=== PATIENT | female | born 1960 | race Caucasian/White ===

== ENCOUNTER → 2017-09-25 14:18 | Outpatient (CLI) | payer OTHER, SELFPAY ==
[2017-09-25 15:02] LABS: Alanine Aminotransferase 44 IU/L (9-52); Albumin 4.5 g/dL (3.5-5.0); Albumin Globulin Ratio 1.6 (1.0-2.8); Alkaline Phosphatase 67 U/L (38-126); Aspartate Aminotransferase 37 IU/L (14-36); BUN Creatinine Ratio 21.7 (6-22); Bilirubin Total 0.5 mg/dL (0.2-1.3); Blood Urea Nitrogen 13 mg/dL (7-17); Calcium 9.7 mg/dL (8.4-10.2); Carbon Dioxide 30 mmol/L (22-32); Chloride 103 mmol/L (98-107); Cholesterol 253 mg/dL (140-199); Estimated Glomerular Filt Rate > 60.0 mL/min (>60); Globulin 2.9 g/dL (1.7-4.1); Glucose 100 mg/dL (70-100); HDL Cholesterol 40 mg/dL (40-60); HEMOLYSIS 16 (0-50); LDL Cholesterol Calculated 139 mg/dL (<100); Potassium 4.1 mmol/L (3.4-5.1); Sodium 141 mmol/L (137-145); Total Protein 7.4 g/dL (6.3-8.2); Triglycerides 371 mg/dL (35-150)
[2017-09-25 15:46] LABS: Thyroid Stimulating Hormone 1.28 uIU/mL (0.47-4.68)
== END ==
PROVIDERS: Visit Provider Internal Medicine
DX: I10 Essential (primary) hypertension (principal); G47.9 Sleep disorder, unspecified; E78.5 Hyperlipidemia, unspecified
CPT/HCPCS: 36415; 80053; 80061; 84443

== ENCOUNTER → 2017-10-25 14:52 | Outpatient (CLI) | payer OTHER, SELFPAY ==
[2017-10-25 16:47] LABS: BUN Creatinine Ratio 28.3 (6-22); Blood Urea Nitrogen 17 mg/dL (7-17); Calcium 9.6 mg/dL (8.4-10.2); Carbon Dioxide 29 mmol/L (22-32); Chloride 101 mmol/L (98-107); Estimated Glomerular Filt Rate > 60.0 mL/min (>60); Glucose 92 mg/dL (70-100); HEMOLYSIS < 15 (0-50); Potassium 4.1 mmol/L (3.4-5.1); Sodium 139 mmol/L (137-145)
== END ==
PROVIDERS: Family Provider Family Medicine; PCP Family Medicine; Visit Provider Internal Medicine
DX: I10 Essential (primary) hypertension (principal)
CPT/HCPCS: 36415; 80048

== ENCOUNTER → 2018-06-27 12:05 | Outpatient (CLI) | payer OTHER, SELFPAY ==
--- NOTE | 2018-06-27 12:07 | DI.US.S_ITS ---
PROCEDURE: US PELVIC COMPLETE INDICATIONS: POSTMENOPAUSAL BLEEDING; PAINFUL MASS TECHNIQUE: Real-time scanning was performed of the pelvic organs, with image documentation. Additional endovaginal scanning was necessary due to incomplete visualization of the adnexal and endometrial structures by transabdominal scanning. COMPARISON: [facility], , PELVIC COMPLETE, 04/20/2008, 14:24. FINDINGS: Transabdominal scanning: Limited scanning through the kidneys shows no hydronephrosis. No pathologic free abdominal or pelvic fluid. Endovaginal scanning: Uterus: Uterus is enlarged in size at 13.7 x 12 x 10.8 cm. The endometrium is poorly visualized. There is a heterogeneously hyperechoic and solid appearing mass involving myometrium/endometrium measures 10.2 x 10.1 x 9.6 cm in size. Internal vascularity is seen. Ovaries: Bilateral ovaries are not visualized on the study. No gross adnexal mass. IMPRESSION: 1. Irregular appearing heterogeneously hyperechoic and solid mass involving myometrium/endometrium and measures 10.2 x 10.1 x 9.6 cm in size concerning for malignant process given patient's history of postmenopausal bleeding. 2. Bilateral ovaries are not visualized on this study. No gross adnexal mass. Dictated by: Dominic Judge M.D. on 06/27/2018 at 14:27 Approved by: Dominic Judge M.D. on 06/27/2018 at 15:15
[2018-06-27 12:24] LABS: Add Manual Diff / Slide Review NO; Basophils Absolute Auto 100 /uL (0-100); Eosinophils Absolute Auto 100 /uL (0-450); Hematocrit 46.9 % (36-46); Hemoglobin 16.2 g/dL (12.0-16.0); Lymphocytes Absolute Auto 3400 /uL (1100-4500); Lymphocytes Percent Auto 26.4 % (25-40); Mean Corpuscular HGB Conc 34.5 % (30-36); Mean Corpuscular Hemoglobin 34.1 PG (26-34); Mean Corpuscular Volume 98.8 fL (80-100); Monocytes Absolute Auto 800 /uL (0-900); Monocytes Percent Auto 6.6 % (3-14); Neutrophils Absolute Auto 8300 /uL (1500-7000); Platelet Count 316 X10^3/uL (150-400); Red Blood Cell Count 4.75 X10^6/uL (4.0-5.2); Red Cell Distribution Width 13.4 % (11.6-14.8); White Blood Cell Count 12.7 X10^3/uL (4.5-11.0)
[2018-06-27 13:09] LABS: Appearance Urine UA CLEAR; Bilirubin Urine UA NEGATIVE (NEGATIVE); Color Urine UA YELLOW; Glucose Urine UA NEGATIVE (Negative); Ketones Urine UA NEGATIVE (NEGATIVE); Leukocyte Esterase Urine UA NEGATIVE (NEGATIVE); Nitrite Urine UA NEGATIVE (Negative); Occult Blood Urine UA TRACE-LYSED (Negative); Protein Urine UA NEGATIVE (Negative); Specific Gravity Urine UA 1.015 (1.000-1.035); Urobilinogen Urine UA 0.2 E.U./dL (0.2)
[2018-06-27 13:47] LABS: Alanine Aminotransferase 28 IU/L (9-52); Albumin 4.4 g/dL (3.5-5.0); Albumin Globulin Ratio 1.4 (1.0-2.8); Alkaline Phosphatase 81 U/L (38-126); Aspartate Aminotransferase 35 IU/L (14-36); BUN Creatinine Ratio 16.7 (6-22); Bilirubin Total 0.7 mg/dL (0.2-1.3); Blood Urea Nitrogen 10 mg/dL (7-17); Calcium 9.3 mg/dL (8.4-10.2); Carbon Dioxide 26 mmol/L (22-32); Chloride 100 mmol/L (98-107); Cholesterol 313 mg/dL (140-199); Estimated Glomerular Filt Rate > 60.0 mL/min (>60); Globulin 3.2 g/dL (1.7-4.1); Glucose 104 mg/dL (70-100); HDL Cholesterol 27 mg/dL (40-60); HEMOLYSIS 18 (0-50); LDL Cholesterol Calculated 229 mg/dL (<100); Potassium 3.9 mmol/L (3.4-5.1); Sodium 137 mmol/L (137-145); Total Protein 7.6 g/dL (6.3-8.2); Triglycerides 284 mg/dL (35-150)
[2018-06-27 14:09] LABS: Bacteria Urine Few (2-10); Culture Indicated Urine Cult Not Indicated; RBC Urine 0-1/HPF (0-5/HPF); Squamous Epithelial Cell Urine 1-5 /HPF (0-5/HPF); WBC Urine 0-1/HPF (0-5/HPF)
[2018-06-27 15:36] LABS: TSH w/ Reflex to FT4 1.71 uIU/mL (0.47-4.68)
== END ==
PROVIDERS: Visit Provider Hospitalist
DX: N95.0 Postmenopausal bleeding (principal); N85.9 Noninflammatory disorder of uterus, unspecified; R10.2 Pelvic and perineal pain; E78.5 Hyperlipidemia, unspecified; I10 Essential (primary) hypertension
CPT/HCPCS: 36415; 76830; 76856; 80053; 80061; 81001; 84443; 85025

== ENCOUNTER 2018-07-25 06:46 | Inpatient (IN) | payer OTHER, SELFPAY ==
[2018-07-22 09:38] VITALS: BMI 29.3
[2018-07-25] VITALS (22 sets, daily range): BP systolic 91–130; BP diastolic 46–85; PULSE 85–117; RESP 12–26; TEMP 35.7–36.9; O2SAT 92–100; BMI 29.3
--- NOTE | 2018-07-25 | PATH_ITS ---
[facility] Accession Number: [id number] . 01 Material submitted: . uterus - UTERUS, BILATERAL TUBES AND OVARIES . 02 Diagnosis: Supracervical Hysterectomy with Bilateral Salpingo-oophorectomy, Laparoscopic Converted to Open Procedure (weight of uterus 47 grams; aggregate weight of multiple tissue pieces 542 grams): . 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 Specimen integrity: Submitted as a fragmented specimen. Tumor site: Right ovary. Ovarian surface involvement: Indeterminate by pathologic examniation. Please see comment. Tumor size: 13-14 cm per operative report and a separate 2.0 cm tumor nodule. Histologic type: Favor clear cell carcinoma by immunohistochemistry studies. Other tissue/organ involvement: Indeterminate; please see comment. Peritoneal/acidic fluid: Not submitted/unknown. Lymph nodes: No lymph nodes submitted or identified for evaluation. Other: Uterus, left ovary, and Fallopian tubes with no significant histomorphologic abnormality. pTNM, AJCC 8th Edition: pTX NX. Please see comment. [facility]08/05/2018 . 02 Comment: Per the operative report and per verbal report from Dr. Le, no surface abnormality was visualized intraoperatively. The ovarian capsular surface cannot be histologically or grossly assessed due to the fragmented nature of the submitted specimen. In addition to the 13-14 cm fragmented tumor, one 2.0 cm tumor nodule was identified by gross examination and described as a second ovary attached to a Fallopia tube. By operative report, the larger tumor was adherent to colon. By verbal report, this adhesion was easily taken down manually. . If the colonic adhesion does not involve tumor, the aggregate surgical and pathologic information suggests a possible AJCC stage (8th edition) of pT1(2) NX. . Results were discussed with Dr. Mimi Miranda's nurse, on 08/01/2018 at approximately 11:[address] Le on 08/04/18 at approximately 9:30 a.m. . The slides were reviewed by my colleague, Dr. Tania Tanner, who provided this interpretation. . 02 Electronically signed: . Susan Reveles MD, Pathologist NPI- [id number] . 01 Gross description: . Received in formalin, labeled uterus, bilateral tubes + ovaries, is a uterus (47 grams, 3.5 cm AP, 5.2 cm SI, 4.1 cm ML) with an attached ovary (1.7 x 1.2 x 0.8 cm) and fimbriated fallopian tube (length-3.7 cm, diameter-0.4 cm), and multiple pieces of peck-yellow and focally white firm tissue (542 grams, 20.2 x 15.3 x 6.8 cm in aggregate). The apparent second ovary (2.0 x 1.9 x 1.0 cm) is identified with an attached fimbriated fallopian tube (length-6.2 cm, diameter-0.4 cm). The cervix is absent. The specimen cannot be oriented as to anterior and posterior. The endometrium (average thickness-0.1 cm) is shaikh smooth and flat. The myometrium (thickness-1.5 cm) is shaikh-white with a focally white whorled and lacy appearance. The serosa is pale sahikh smooth and shiny. The attached ovary has pale shaikh-yellow smooth dull serosa and shaikh-white firm parenchyma. The second ovary has peck-yellow dull flat serosa and bright white parenchyma. The fallopian tubes have shaikh dull serosa and shaikh unremarkable lumens. The remaining pieces of tissue have a peck-yellow spongy and focally bright white and firm cut surface. Section code: (A1, A2) endomyometrium; (A3, A4) endomyometrium, opposite side; (A5) attached ovary, client service representative serial section; (A6) possible second ovary, client service representative serial sections; (A7) attached fimbriated fallopian tube, client service representative serial sections; (A8) attached fimbria, bivalved, entirely submitted; (A9) second fallopian tube, client service representative serial sections; (A10) second fimbriae, bivalved, entirely submitted; (A11-A16) separate pieces of tissue, client service representative. ([id number]) /MRV . 02 Microscopic: . Immunohistochemical studies were performed with the following results. The controls showed appropriate reactivity. . . SALL4: Negative. TERRA: Positive. WT1: Stromal cells positive. Napsin A: Positive. HMWCK: Positive. ER: Patchy positivity of stromal cells. MT: Patchy positivity of stromal cells. PAX8: Positive. CD10: Negative. CK7: Positive. EULA: Positive. CD56: Stromal cells positive. Glypican 3: Focal staining, nonspecific. . Stromal immunostaining by CD56, MT,and WT1 assists with identification of ovarian tissue. The tumor is immunopositive for CK7, high molecular weight cytokeratin, TERRA, and Napsin; the tumor is immunonegative for SALL4 and CD10, which mitigates against the presence of yolk sac tumor and renal cell origin. 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 . . * This test was developed and its performance characteristics determined by [facility]. It has not been cleared or approved by the U.S. Food and Drug Administration. The FDA has determined that such clearance or approval is not necessary. This test is used for clinical purposes. It should not be regarded as investigational or for research. . 02 Pathologist provided ICD-10: C56.1 . 02 CPT . 938127, L50715, I49961 Performed at: 01 [facility] [address] [id number] MD Simon Gottlieb MD Phone: [phone] Performed at: [address] [id number] MD Huong Lao MD Phone: [phone]
[2018-07-25] MEDS: LACTATED RINGERS 1,000 ML 100 ML IV ×2 (07:31→14:11)
--- NOTE | 2018-07-25 07:31 | PM.PREOP ---
Pre-operative Note Interval Note History & Physical reviewed/Exam performed by Physician: Yes Changes to H&P: No
[2018-07-25] MEDS: CEFAZOLIN 2 GM/100 ML FROZ.PIGGY IV (08:00)
--- NOTE | 2018-07-25 08:41 | SUR.OPER ---
Lithotomy on padded OR bed. [place] Pad Positioner under torso. Head on pillow, arms padded and tucked at sides. Legs secured in padded yellow fins stirrups.
[2018-07-25] MEDS: BUPIVACAINE 0.5% W/ EPI (PF) VIAL 30 ML INJ (09:09)
[2018-07-25] MEDS: SODIUM CHLORIDE 0.9% FLUSH 10 ML IV (09:10)
[2018-07-25] MEDS: SODIUM CHLORIDE 0.9% 30 ML, VASOPRESSIN 20 UNIT INJ (09:11)
[2018-07-25] MEDS: LACTATED RINGERS 1,000 ML 42 ML IV (09:25)
[2018-07-25] MEDS: HYDROMORPHONE 2 MG INJ 0.5 MG IV ×6 (10:02→10:30)
[2018-07-25] MEDS: KETOROLAC 30 MG/ML VIAL IV ×3 (10:02→23:37)
[2018-07-25] MEDS: LORazepam 2 MG/ML INJ 0.5 MG IV ×2 (10:15→10:25)
[2018-07-25] MEDS: fentaNYL 100 MCG/2 ML INJ 50 MCG IV ×2 (10:35→10:40)
[2018-07-25] MEDS: MORPHINE 10 MG/ML INJ 2 MG IV ×5 (10:45→11:00)
--- NOTE | 2018-07-25 11:40 | SUR.PHASEI ---
pt had rough PACU course with very poor pain management. pt crying and pain 8-10 for more than one hour total drugs in PACU were 4 mg dilaudid, 1 mg ativan, 10 mg morphine ad 100 mg fentanyl. last pain med in PACU was 2mg morphine IV at 11 am. pt observed for 45 minutes post last medication. has had ice chips and cranberry juice but is now on o2 3 liters via NC to maintain SPO@ of 92-96. report called and will continue to obsertve for at least another 15 minutes until transfer to acute care. Dr Briceno anesthesia nd Dr segal have seen pt in PACU and are aware of the rough PACU course. current VS at report are 112/62, HR_108, SPO2-92 %, RR-16, Temp.98.4. abdomen looks same as initially post op wit aqusil dressing intact
[2018-07-25] MEDS: HYDROMORPHONE PCA (6MG/30ML) 6 MG/30 ML PCA.VIAL IV (14:12)
--- NOTE | 2018-07-25 14:41 | PC.NURSE ---
POST OP ARRIVAL 1345 - awake, a little tearful on arrival, family at bedside, states abd, pelvic discomfort 7-8 on scale 0/10, small machine bindery operator states faulkner emptied 100ml prior to tsf, no nausea, bp 100/66 on arrival, RR 14, 02 sat 92% 4L, midline aquacell abd dressing with small spot shadow drainage within margins, marked now, peripad w/small qty serosang, ivf started and FINISHER MACHINE set up to 0.1 contin w/0.2/10/6mg demand, pt used 0.9, given ice chips for dry mouth, contacted and new order rec'd for clear liq, scd 0n, pulse initially 120 on arrival and later checks 90's, bp 119/73.
[2018-07-25] MEDS: ONDANSETRON 4 MG/2 ML INJ IV (17:44)
[2018-07-25] MEDS: TRAZODONE 50 MG TABLET PO (20:19)
[2018-07-25] MEDS: ROSUVASTATIN 10 MG TABLET PO (20:19)
[2018-07-25] MEDS: DOCUSATE 250 MG CAPSULE PO (20:19)
[2018-07-25] MEDS: DOXAZOSIN 2 MG TABLET PO (20:19)
--- NOTE | 2018-07-25 20:36 | PC.NURSE ---
SCDS REMOVED PER PATIENT REQUEST AND DR.GARDES ARRIAZA.
[2018-07-26] MEDS: HYDROMORPHONE PCA (6MG/30ML) 6 MG/30 ML PCA.VIAL IV ×3 (00:31→22:09)
--- NOTE | 2018-07-26 00:39 | PC.NURSE ---
AUTOMATIC THREAD WINDER cartiridge changed and verified with a second RN, Ava Avila. Settings verified.
[2018-07-26 05:36] VITALS: BP 114/64; PULSE 91; RESP 18; TEMP 36.6; O2SAT 95
[2018-07-26] MEDS: KETOROLAC 30 MG/ML VIAL IV (05:37)
[2018-07-26] MEDS: LACTATED RINGERS 1,000 ML 100 ML IV (05:37)
[2018-07-26] MEDS: METOCLOPRAMIDE 10 MG/2 ML INJ IV ×2 (05:48→23:42)
[2018-07-26] MEDS: SODIUM CHLORIDE 0.9% FLUSH 10 ML IV ×2 (05:49→23:44)
[2018-07-26 06:16] LABS: Add Manual Diff / Slide Review NO; Basophils Absolute Auto 0 /uL (0-100); Basophils Percent Auto 0.2 % (0-2); Eosinophils Absolute Auto 0 /uL (0-450); Eosinophils Percent Auto 0.1 % (2-4); Hemoglobin 10.7 g/dL (12.0-16.0); Lymphocytes Absolute Auto 2100 /uL (1100-4500); Lymphocytes Percent Auto 15.1 % (25-40); Mean Corpuscular HGB Conc 33.5 % (30-36); Mean Corpuscular Hemoglobin 32.9 PG (26-34); Mean Corpuscular Volume 98.2 fL (80-100); Monocytes Absolute Auto 1000 /uL (0-900); Monocytes Percent Auto 6.9 % (3-14); Neutrophils Absolute Auto 11000 /uL (1500-7000); Neutrophils Percent Auto 77.7 % (50-75); Platelet Count 333 X10^3/uL (150-400); Red Blood Cell Count 3.25 X10^6/uL (4.0-5.2); White Blood Cell Count 14.1 X10^3/uL (4.5-11.0)
[2018-07-26 06:37] LABS: Blood Urea Nitrogen 9 mg/dL (7-17); Calcium 8.5 mg/dL (8.4-10.2); Carbon Dioxide 29 mmol/L (22-32); Chloride 102 mmol/L (98-107); Estimated Glomerular Filt Rate > 60.0 mL/min (>60); Glucose 95 mg/dL (70-100); HEMOLYSIS < 15 (0-50); Potassium 4.1 mmol/L (3.4-5.1); Sodium 137 mmol/L (137-145)
--- NOTE | 2018-07-26 06:59 | PC.NURSE ---
Patient used 6.2mg on the CARDIOGRAPHER. 31 mls used.
[2018-07-26 07:55] VITALS: BP 100/59; PULSE 80; RESP 18; TEMP 36.7; O2SAT 94
--- NOTE | 2018-07-26 09:01 | CM.DANOTE ---
DCP: Case received, EMR reviewed and met with patient. also at bedside. Was able to obtain baseline health information from patient. DCP template and assessment completed with information currently available. Patient is a 57 year old female who admitted yesterday morning to the care of the surgical team. PCP: Dr. Dumont. Payer: confirmed: [facility]. Patient came to hospital for surgical procedure. She had a hysterectomy. Met with her in her room. Her husbad, Wesley, was sitting at bedside. Alert and oriented. They both reside in [place]. Patient stated, she has not been in the best health before surgery, she has had some fibroid tumors. She stated that she does have a hosptital bed at home, along with a walker, but she does not always use. They also have no stairs in the home. supportive. She has a neighbor next door that is a retired cook that prepares meals for them both. helps out with house hold chores and shopping. P: DCP to continue to follow closely and be available for any needs at discharge. Patient should be able to go home when she is medically stable. Will see how she progresses here in the hospital. Adriane Lakhani RN/[employer]
[2018-07-26] MEDS: CITALOPRAM 10 MG TABLET PO (09:03)
[2018-07-26] MEDS: DOCUSATE 250 MG CAPSULE PO ×2 (09:03→20:05)
--- NOTE | 2018-07-26 11:10 | PC.NURSE ---
AM NOTE - awake, smiling, states didn't sleep well last night, pain managed rubber worker contin 0.1hr, demand 0.2/10/6mg, pain 5-6 on scale 0/10, 2l 95%, bs coarse, dim, brought in IS this am and pt demonstrated correct use to 1500, and sat remained 89-92%, removed pulse ox after 02 maintained 94-96% this am,aquacell dsg w/small shadow drainage, no change from previous marking, slight serosang vag drainage, pericare performed, abd soft, tender, mildly distended, no nausea no flatus yet, faulkner w/small qty concentrated urine, later am, assisted pt to dangle position, some initial lightheadedness, when resolved, able stand using fww for support, prenatal nurse assisted to sink for adl then to chair.
[2018-07-26 11:42] VITALS: BP 128/76; PULSE 83; RESP 18; TEMP 36.7; O2SAT 95
[2018-07-26] MEDS: ONDANSETRON 4 MG/2 ML INJ IV (12:39)
[2018-07-26] MEDS: LACTATED RINGERS 500 ML IV (12:55)
--- NOTE | 2018-07-26 13:48 | P.OP_ITS ---
Operative Date/Time/Diagnoses Date of procedure: 07/25/18 Time of procedure: 11:15 Pre-op diagnosis: Enlarged fibroid uterus Pelvic pain Postmenopausal bleeding Post-op diagnosis: same Procedure: Procedures Operation Date: 07/25/18 07:45 Actual Procedures Side Surgeon p Open Supracervical Hysterectomy, bilateral salpingo-oopherectomy Suzy Le MD s Laparoscopic Supracervical Hysterectomy, aborted and converted to LUPILLO Suzy Le MD Indications: Enlarged fibroid uterus Pelvic pain Postmenopausal bleeding Surgeon: Suzy Le Coil Rewind Machine Operator: Dragan Perales Anesthesia Type: General Operative Notes Findings: Four week size anteverted uterus Large 13-14 cm pedunculated, necrotic fibroid originating from the right cornua of the uterus Normal tubes and ovaries Closure Type: primary Specimen(s): left tube & ovary, right tube & ovary and uterus Applied: catheter (Bragg to continuous drainage) Estimated blood loss (mL): 150 Blood products transfused: none Procedure in detail: The patient was taken to the operating room where she was placed in the dorsal supine position. After adequate general endotracheal anesthesia was achieved, she was placed in the dorsal lithotomy position, and prepped and draped in the usual sterile fashion. A time-out was performed. A bivalve speculum was placed into the vagina, and the anterior lip of the cervix grasped with a single-tooth tenaculum. Cervical os was sequentially dilated until the Zumi uterine manipulator could pass easily into the endometrial cavity. The single-tooth tenaculum was removed from the anterior lip of the cervix. The bivalve speculum was removed from the vagina. Attention was then turned to the abdomen where 6 cc of 0.5% Marcaine with epinephrine were injected above the umbilical fold. A 5 mm incision was made. The Veress needle was placed into the peritoneal cavity, and its placement confirmed by aspiration and drop test. The abdominal cavity was insufflated with 3.8 L of CO2. The Veress needle was removed. A 5 mm trocar was placed without difficulty. Initial inspection with the laparoscoped revealed a large fibroid blocking view of the pelvis. This was approximately 14 cm in diameter. It was believed to be originating from the cornua of the uterus but was unclear which side it was originating from. We were not able to view the pedicle of the pedunculated fibroid or see anything in the pelvis. A decision was made to proceed with an open procedure. The laparoscoped was removed from the abdomen. The CO2 was allowed to escape. The 5 mm trocar was removed. A midline incision was made from just above the pubic symphysis to just below the umbilicus and carried through to the underlying layer of fascia. The fascia was nicked in the midline and the incision extended superiorly and inferiorly. Candace is were placed on the edges of the fascia and the fascia was dissected off of the underlying muscle to find the midline. Once the midline was identified, hemostats were used to separate the muscle and grasp the peritoneum. The peritoneum was incised with the hemostats. This incision was extended superiorly and inferiorly. An O'Laith O'Nesbitt retractor was placed into the incision, a bladder blade was placed. The bowel was packed away with moist lap sponges. The colon was slightly adhered to the fibroid and was taken off bluntly using a finger. An incision was made over the fibroid and the fibroid was removed in order to better visualize the pelvis. The fibroid was originating from the right corner of the uterus. Once the fibroid was removed a 4 tooth tenaculum was placed onto the uterus which was about a 4 week size uterus. The round ligaments on both sides were clamped, transected, and suture ligated with 0 Vicryl. These were tagged with hemostats. The infundibulopelvic ligament on both sides were doubly clamped, after the ureters were identified, transected, free tied with 0 Vicryl, and suture ligated with 0 Vicryl. The anterior and posterior peritoneums were entered and the bladder flap was created sharply and then bluntly with a in moistened sponge stick. The uterine arteries on both sides were clamped, transected, and suture ligated with 0 Vicryl. The [employer] ut erine manipulator was removed from the uterus. The uterus was amputated from the cervix using the Bovie. There was no bleeding noted. The cervix was closed with a series of simple interrupted sutures with 0 Vicryl. There was a small amount of oozing noted from where the fibroid was in the posterior cul-de-sac. Gelfoam was placed for hemostasis. The pedicles were all examined and were found to be hemostatic. All of the tagged sutures were cut. The moist lap sponges were removed from the abdomen. The retractor was removed from the abdomen. The incision was closed on the peritoneum with 2 0 Vicryl in a running fashion. The fascia was closed with 0 Vicryl in a running fashion. The subcutaneous layer was copiously irrigated with warm normal saline. Eight interrupted sutures with 3 0 Vicryl were placed to reapproximate the subcutaneous layer. The skin was closed with 4 0 undyed Vicryl in a subcuticular fashion. The laparoscopy incision above the umbilicus was also closed with 4 0 undyed Vicryl in a subcuticular fashion. Steri-Strips were placed over both incisions. An Aquacel dressing was placed over all of the incisions. Sponge, lap, and instrument counts were correct x2. The patient tolerated the procedure well, and was taken to PACU in stable condition. Complications: none Post-operative Condition: stable Disposition: PACU Plan for aftercare: To Acute Care unit after recovery
[2018-07-26] MEDS: LACTATED RINGERS 1,000 ML 175 ML IV ×2 (13:58→19:21)
--- NOTE | 2018-07-26 14:13 | PM.PNPO.1 ---
Subjective Date Patient Seen: 07/26/18 Time Patient Seen: 12:30 Interval history: Patient is a 57-year-old postop day # 1 status post an abdominal supracervical hysterectomy with bilateral salpingo oophorectomy due to a large subserosal fibroid. Her pain is well controlled with a Dilaudid DIRECTOR OCCUPATIONAL. Her Bragg catheter is still in due to marginal urine output over the last shift. She is tolerating a diet without any nausea or vomiting. Exam Vital Signs (past 8 hours): - 07/26/18 07:55 07/26/18 11:42 Temperature 98.1 F 98.1 F Pulse Rate 80 83 Respiratory Rate 18 18 Blood Pressure 100/59 L 128/76 Pulse Oximetry 94 95 Oxygen Delivery Method Nasal Cannula Oxygen Flow Rate 0 Narrative Exam Narrative: Generally: Patient is sitting up in a chair, eating lunch, no acute distress Lungs: Clear to auscultation bilaterally Cardiovascular: Regular rate and rhythm Abdomen: Good bowel sounds in all 4 quadrants Incision: Clean dry and intact with Aquacel dressing Extremities: Negative Homans, no edema Objective Labs Result Diagrams: 07/26/18 04:58 07/26/18 04:58 Labs: Laboratory Results - last 24 hr 07/26/18 07/26/18 04:58 04:58 WBC 14.1 H RBC 3.25 L Hgb 10.7 L Hct 32.0 L MCV 98.2 MCH 32.9 MCHC 33.5 RDW 13.0 Plt Count 333 Neut % (Auto) 77.7 H Lymph % (Auto) 15.1 L [place] % (Auto) 6.9 Eos % (Auto) 0.1 L Baso % (Auto) 0.2 Neut # (Auto) 28634 H Lymph # (Auto) 2100 [place] # (Auto) 1000 H Eos # (Auto) 0 Baso # (Auto) 0 Sodium 137 Potassium 4.1 Chloride 102 Carbon Dioxide 29 BUN 9 Creatinine 0.50 L Estimated GFR > 60.0 BUN/Creatinine Ratio 18.0 Glucose 95 Calcium 8.5 Assessment & Plan Post-op Postoperative Procedures Operation Date: 07/25/18 07:45 Actual Procedures Side Surgeon p Total Abdominal Hysterectomy Open Supracervical Hysterectomy, bilateral salpingo-oopherectomy Suzy Le MD s Laparoscopic Supracervical Hysterectomy, aborted and converted to LUPILLO Suzy Le MD Postoperative day: 1 Postoperative status: doing well Postoperative status narrative: Postop day # 1 status post abdominal supracervical hysterectomy with bilateral salpingo oophorectomy secondary to a large sub serosal fibroid Patient doing fairly well except for marginal urine output Postoperative plan: ambulate and other Postoperative plan narrative: 500 cc fluid bolus with lactated Ringer's May remove Bragg catheter later this evening if urine output picks up Switch to oral pain medicine tomorrow morning Ambulate Time Spent With Patient 15-24 minutes
--- NOTE | 2018-07-26 14:16 | P.PN_ITS ---
Subjective Date Patient Seen: 07/26/18 Time Patient Seen: 12:30 Interval history: Patient is a 57-year-old postop day # 1 status post an abdominal supracervical hysterectomy with bilateral salpingo oophorectomy due to a large subserosal fibroid. Her pain is well controlled with a Dilaudid NETEZZA DEVELOPER. Her Bragg catheter is still in due to marginal urine output over the last shift. She is tolerating a diet without any nausea or vomiting. Exam Vital Signs (past 8 hours): - 07/26/18 07:55 07/26/18 11:42 Temperature 98.1 F 98.1 F Pulse Rate 80 83 Respiratory Rate 18 18 Blood Pressure 100/59 L 128/76 Pulse Oximetry 94 95 Oxygen Delivery Method Nasal Cannula Oxygen Flow Rate 0 Narrative Exam Narrative: Generally: Patient is sitting up in a chair, eating lunch, no acute distress Lungs: Clear to auscultation bilaterally Cardiovascular: Regular rate and rhythm Abdomen: Good bowel sounds in all 4 quadrants Incision: Clean dry and intact with Aquacel dressing Extremities: Negative Homans, no edema Objective Labs Result Diagrams: 07/26/18 04:58 07/26/18 04:58 Labs: Laboratory Results - last 24 hr 07/26/18 07/26/18 04:58 04:58 WBC 14.1 H RBC 3.25 L Hgb 10.7 L Hct 32.0 L MCV 98.2 MCH 32.9 MCHC 33.5 RDW 13.0 Plt Count 333 Neut % (Auto) 77.7 H Lymph % (Auto) 15.1 L [place] % (Auto) 6.9 Eos % (Auto) 0.1 L Baso % (Auto) 0.2 Neut # (Auto) 52618 H Lymph # (Auto) 2100 [place] # (Auto) 1000 H Eos # (Auto) 0 Baso # (Auto) 0 Sodium 137 Potassium 4.1 Chloride 102 Carbon Dioxide 29 BUN 9 Creatinine 0.50 L Estimated GFR > 60.0 BUN/Creatinine Ratio 18.0 Glucose 95 Calcium 8.5 Assessment & Plan Post-op Postoperative Procedures Operation Date: 07/25/18 07:45 Actual Procedures Side Surgeon p Total Abdominal Hysterectomy Open Supracervical Hysterectomy, bilateral salpingo-oopherectomy Suzy Le MD s Laparoscopic Supracervical Hysterectomy, aborted and converted to LUPILLO Suzy Le MD Postoperative day: 1 Postoperative status: doing well Postoperative status narrative: Postop day # 1 status post abdominal supracervical hysterectomy with bilateral salpingo oophorectomy secondary to a large sub serosal fibroid Patient doing fairly well except for marginal urine output Postoperative plan: ambulate and other Postoperative plan narrative: 500 cc fluid bolus with lactated Ringer's May remove Bragg catheter later this evening if urine output picks up Switch to oral pain medicine tomorrow morning Ambulate Time Spent With Patient 15-24 minutes
[2018-07-26 15:10] VITALS: BP 133/75; PULSE 78; RESP 16; TEMP 36.9; O2SAT 92
--- NOTE | 2018-07-26 17:12 | PC.NURSE ---
Addendum entered by Leidy Prince R.N. 07/26/18 20:12: Pediatric glycerin suppositories only in night pharmacy. Call to [facility] pharmacy and was informed by Morelia to give two pediatric suppositories to equal one adult. Pt was educated on this intervention and this was done. Pt was informed Ambien ordered to replace trazodone per Dr. Le as pt reports unable to sleep last night. Informed pt per Dr. Le, pt to walk one more time this evening shift. Pt reports unable to do so. Also informed pt and pt's spouse animal eviscerator dilaudid will be discontinued in the morning and oral pain medications will be available. Pt states prefers to attempt to sleep without sleeping aid at this time. Addendum entered by Leidy Prince R.N. 07/26/18 19:09: As per orders, informed Dr. Le via telephone of pt's urinary output since shift began @ 1500. Orders received for glycerin suppository and to leave faulkner in or have removed at 0600 07/27 per pt's preference. Original Note: Pt summons staff during shift report to say feels as though faulkner catheter isn't draining and feels pressure in abdomen. Manipulated pt's faulkner bag and loosened catheter from pt's leg as well as moving pt's foot of bed down into neutral position. Urine begins to flow spontaneously and pt reports experiencing relief. Encouraged pt out of bed to stand; ambulate to allow gravity to assist with drainage and to promote bowel activity. Pt compliant and ambulates around [facility] nurse's station with CHRISTMAS TREE FARM MANAGER standby. Clear yellow urine draining per faulkner. Pt denies nausea. Bowel tones are hypoactive with distended abdomen. Aquacel dressing intact to midline abdomen with small amount shadowy drainage distal aspect. Pt declines to wear scd's even after this telegraphic typewriter operator provided rationale. Pt reports actively ankle waving and calf pumping. Using CHAIRMAN PRESIDENT AND CHIEF EXECUTIVE OFFICER independently. Scant vaginal bleeding. Fresh pad replaced per pt's request. Pt reports no flatus since 1400.
[2018-07-26 18:45] VITALS: BP 128/74; PULSE 85; RESP 20; TEMP 36.8; O2SAT 92
[2018-07-26] MEDS: GLYCERIN SUPP ADULT 1 SUPP 1 EACH PR (20:04)
[2018-07-26] MEDS: DOXAZOSIN 2 MG TABLET PO (20:05)
[2018-07-26] MEDS: ROSUVASTATIN 10 MG TABLET PO (20:05)
[2018-07-26 23:40] VITALS: BP 128/84; PULSE 97; RESP 18; TEMP 36.9; O2SAT 95
[2018-07-26] MEDS: ZOLPIDEM 5 MG TABLET 10 MG PO (23:43)
[2018-07-27] VITALS (9 sets, daily range): BP systolic 127–161; BP diastolic 73–88; PULSE 89–110; RESP 16–20; TEMP 36.7–37.5; O2SAT 86–94
[2018-07-27] MEDS: LACTATED RINGERS 1,000 ML 175 ML IV ×2 (00:07→05:54)
--- NOTE | 2018-07-27 06:06 | PC.NURSE ---
Urinary catheter removed at 0600. 100 ml left in the catheter.
[2018-07-27] MEDS: OXYCODONE/ACETAMINOPHEN 5/325 TABLET 2 TAB PO (06:45)
[2018-07-27] MEDS: ONDANSETRON 4 MG/2 ML INJ IV ×2 (07:32→21:42)
[2018-07-27] MEDS: METOCLOPRAMIDE 10 MG/2 ML INJ IV (11:19)
[2018-07-27] MEDS: OXYCODONE/ACETAMINOPHEN 5/325 TABLET 1 TAB PO (11:25)
--- NOTE | 2018-07-27 12:24 | P.PN_ITS ---
Subjective Date Patient Seen: 07/27/18 Time Patient Seen: 12:22 Interval history: Patient is a 57-year-old postop day # 2 status post an abdominal supracervical hysterectomy secondary to a 14 cm fibroid. This was scheduled as a laparoscopy but had to be converted due to the in adequate visualization of the pelvis with the laparoscopic. Patient's Bragg catheter was removed this morning and she has been able to void. She is tolerating a diet. She has passed lots of flatus after a suppository. Her pain is marginally controlled off of the Dilaudid [employer]. She is having some nausea and vomiting with the Percocet. Zofran did not work for the nausea. The Reglan made her feel funny. She is ambulating. She is planning on taking a shower this afternoon. Exam Vital Signs (past 8 hours): - 07/27/18 07:35 07/27/18 08:33 Temperature 98.5 F Pulse Rate 99 H Respiratory Rate 20 Blood Pressure 135/88 Pulse Oximetry 92 92 Oxygen Delivery Method Room Air Oxygen Flow Rate 0 Narrative Exam Narrative: Generally: Patient lying in bed, no acute distress Lungs: Clear to auscultation bilaterally Cardiovascular: Regular rate and rhythm Abdomen: Soft, flat, good bowel sounds in all 4 quadrants. Incision: Clean dry and intact in the midline with an Aquacel dressing. There is a small quarter-sized amount of drainage on the Aquacel. Extremities: Negative Homans, trace edema Objective Labs Result Diagrams: 07/26/18 04:58 07/26/18 04:58 Assessment & Plan Post-op Postoperative Procedures Operation Date: 07/25/18 07:45 Actual Procedures Side Surgeon p Total Abdominal Hysterectomy Open Supracervical Hysterectomy, bilateral salpin go-oopherectomy Suzy Le MD s Laparoscopic Supracervical Hysterectomy, aborted and converted to LUPILLO Suzy Le MD Postoperative day: 2 Postoperative status: marginal pain control and other (Nausea) Postoperative status narrative: Postop day # 2 status post abdominal supracervical hysterectomy with bilateral salpingo oophorectomy Marginal pain control Nausea associated with Percocet Postoperative plan narrative: We will switch her pain management to Dilaudid, which she did well with with the [employer] Anticipate discharge either later tonight or early tomorrow morning Patient may shower Time Spent With Patient 15-24 minutes
[2018-07-27] MEDS: CITALOPRAM 10 MG TABLET PO (13:21)
[2018-07-27] MEDS: AMLODIPINE 5 MG TABLET 10 MG PO (13:21)
[2018-07-27] MEDS: LISINOPRIL 10 MG TABLET PO (13:21)
[2018-07-27] MEDS: HYDROMORPHONE 2 MG TABLET PO ×5 (14:31→23:45)
--- NOTE | 2018-07-27 17:42 | PC.NURSE ---
Addendum entered by Leidy Prince R.N. 07/27/18 21:59: Pt admits to abdominal pain 6/10 as well as nausea. Also requests sleep aid. States as a baseline never sleeps longer than 2 hours at home. Commode placed by bedside as pt was medicated for pain, nausea and sleep. Spouse present and attentive. Warm blanket for comfort. Original Note: Pt requests pain meds for abdominal pain 09/10 @ 1630. Informed pt had pain meds two hours prior. Discussed with pt orders for dilaudid to manage pain as per MD. Pt reports needs pain meds sooner than every 4 hours. This was discussed with Dr. Le via telephone. Orders obtained and entered for dilaudid every 2 hours as needed to manage pain. Pt and pt's spouse were informed. Pt's spouse assists pt in and out of bed to toilet. Pt reports is voiding every 25 minutes. Discussed with pt received a lot of iv fluids over past several days. Taking oral fluids well. Aquacel dressing to abdomen with small amount shadowy drainage distally. Abdomen is soft and pt admits to passing flatus. Denies nausea.
[2018-07-27] MEDS: DOCUSATE 250 MG CAPSULE PO (19:32)
[2018-07-27] MEDS: SODIUM CHLORIDE 0.9% FLUSH 10 ML IV (21:37)
[2018-07-27] MEDS: ZOLPIDEM 5 MG TABLET 10 MG PO (21:38)
[2018-07-27] MEDS: ROSUVASTATIN 10 MG TABLET PO (21:39)
[2018-07-27] MEDS: DOXAZOSIN 2 MG TABLET PO (21:39)
--- NOTE | 2018-07-27 23:59 | PC.NURSE ---
Addendum entered by Candace Beavers R.N. 07/28/18 06:06: Patient complaining of pain but prior to administration requested Zofran for nausea. IV site would not flush and patient refused to have new IV placed knowing that she would not be able to take Zofran to which she states I don't need it. IV d'cd. Medicated with Dilaudid for pain. Addendum entered by Candace Beavers R.N. 07/28/18 03:47: Requesting Dilaudid po q2h and has been medicated when requested. Each time rates severity as 7/10 and states pain improves only to 5/10 after being medicated. Offered ice/warm pack but declines. Addendum entered by Candace Beavers R.N. 07/28/18 00:09: Noted to have HR off 110 with routine vitals; will monitor Original Note: Patient is alert and oriented. Breath sounds diminished at bases but CTA with RA sat of 92%. HRR. Denies current nausea. BT hypoactive but is passing flatus; has not had a BM since 07/24. Dressing to mid abdomen intact with no new drainage noted. Abdomen is puffy/round but soft. States she is having urinary frequency I'm up every 20 minutes but denies dysuria or urgency. Is using BSC during the night and is assisted by spouse. Able to turn herself in bed. Refusing SCD's as I can't sleep with them on. Fall risk score is moderate. States incisional pain is 7/10 and exacerbated by movement; medicated with Dilaudid which she has been requesting q2h.
[2018-07-28] VITALS (7 sets, daily range): BP systolic 111–143; BP diastolic 62–82; PULSE 85–100; RESP 16–18; TEMP 36.6–37.2; O2SAT 91–99
[2018-07-28] MEDS: HYDROMORPHONE 2 MG TABLET PO ×10 (01:41→23:48)
[2018-07-28] MEDS: AMLODIPINE 5 MG TABLET 10 MG PO (09:33)
[2018-07-28] MEDS: LISINOPRIL 10 MG TABLET PO (09:33)
[2018-07-28] MEDS: CITALOPRAM 10 MG TABLET PO (09:33)
[2018-07-28] MEDS: DOCUSATE 250 MG CAPSULE PO ×2 (09:33→20:57)
--- NOTE | 2018-07-28 13:49 | CM.DPC ---
DCP: continued: Case received, EMR reviewed. Dr. Le indicates in her note of last night that pt is nearing readiness for d/c and may d/c home this evening or tomorrow. Will follow prn: see that d/c plan at this point in home with spouse Orlin's supportive assist.
[2018-07-28] MEDS: ACETAMINOPHEN 325 MG TABLET 650 MG PO (17:04)
[2018-07-28] MEDS: NICOTINE 21 MG PATCH TOP (17:10)
--- NOTE | 2018-07-28 18:30 | PM.PNPO.1 ---
Subjective Date Patient Seen: 07/28/18 Time Patient Seen: 11:45 Interval history: Patient is a 57-year-old postop day # 3 status post abdominal supracervical hysterectomy with bilateral salpingo oophorectomy This was done secondary to a 14 cm fibroid and pelvic pain Patient's pain is worse today. She is passing a little bit of flatus. She is tolerating a diet without nausea or vomiting. She is using Dilaudid about every 2-3 hours. Exam Vital Signs (past 8 hours): - 07/28/18 12:05 07/28/18 15:26 Temperature 98.0 F 98.5 F Pulse Rate 97 H 92 H Respiratory Rate 18 18 Blood Pressure 125/77 118/71 Pulse Oximetry 99 95 Oxygen Delivery Method Room Air Oxygen Flow Rate 0 Narrative Exam Narrative: Generally: Patient lying in bed, in [id number] distress secondary to gas pain Lungs: Clear to auscultation bilaterally Cardiovascular: Regular rate and rhythm Abdomen: Soft, good bowel sounds Incision: Clean dry and intact with Aquacel dressing. There is still a quarter-size area of dried blood. Extremities: Negative Homans, no edema Objective Labs Result Diagrams: 07/26/18 04:58 07/26/18 04:58 Assessment & Plan Post-op Postoperative Procedures Operation Date: 07/25/18 07:45 Actual Procedures Side Surgeon p Total Abdominal Hysterectomy Open Supracervical Hysterectomy, bilateral salpingo-oopherectomy Suzy Le MD s Laparoscopic Supracervical Hysterectomy, aborted and converted to LUPILLO Suzy Le MD Postoperative day: 3 Postoperative status: marginal pain control Postoperative plan: see orders Postoperative plan narrative: Add Tylenol Add ibuprofen Ambulate Expect discharge tomorrow morning Time Spent With Patient 15-24 minutes
[2018-07-28] MEDS: ROSUVASTATIN 10 MG TABLET PO (20:45)
[2018-07-28] MEDS: ZOLPIDEM 5 MG TABLET 10 MG PO (21:41)
--- NOTE | 2018-07-28 22:45 | PC.NURSE ---
Abdomen distended. Positive BTs. Aquacel dressing intact with old shadow drainage at lower end. Poor appetite. No nausea. Pt ambuated twice this evening in hallway with her . Reports pain at 7/10 with little improvement after dilaudid. This was given every two hours. Settled with ambien at bedtime. .
[2018-07-29] MEDS: IBUPROFEN 600 MG TABLET PO ×2 (00:11→06:00)
[2018-07-29] MEDS: HYDROMORPHONE 2 MG TABLET PO ×3 (02:29→08:04)
[2018-07-29 04:37] VITALS: BP 127/79; PULSE 82; RESP 16; TEMP 36.8; O2SAT 94
--- NOTE | 2018-07-29 04:52 | PC.NURSE ---
Shift note: Pt consistently calls approximately every 2 hours for pain medication, reporting 6-7/10 pain in abdomen. Educated pt on post-operative course and expectations for pain management, pt acknowledges understanding. Pt voiced concerns for lack of appetite and that she has not had a bowel movement, pt has active bowel tones and is passing gas. Educated pt on slowed motility with narcotic medications and lack of food intake could be contributing to lack of bowel movement, pt acknowledged understanding.
[2018-07-29 07:15] VITALS: BP 135/78; PULSE 89; RESP 18; TEMP 36.8; O2SAT 96
[2018-07-29] MEDS: AMLODIPINE 5 MG TABLET 10 MG PO (08:05)
[2018-07-29] MEDS: DOCUSATE 250 MG CAPSULE PO (08:05)
[2018-07-29 08:06] VITALS: BP 132/80; PULSE 80
[2018-07-29] MEDS: LISINOPRIL 10 MG TABLET PO (08:06)
[2018-07-29] MEDS: CITALOPRAM 10 MG TABLET PO (08:06)
[2018-07-29] MEDS: NICOTINE 21 MG PATCH TOP (08:07)
--- NOTE | 2018-07-29 08:21 | PC.NURSE ---
Patient alert and oriented to baseline. vitals stable. States pain well controlled with prn dilaudid Q3 hr. Dsg has drainage outside of line, but within borders of aquacel dsg. aware, states will change dsg at follow up appt. after discharge. Pleasant and cooperative.
--- NOTE | 2018-07-29 09:50 | PC.NURSE ---
Reviewed discharge with patient, who states pain well controlled with prn hydromorphone. vitals stable prior to d/c. Instructions given on smoking cessation, although patient states Im not going to quit. Pt. home with in private care at 1000.
--- NOTE | 2018-08-01 06:22 | PM.DS.1 ---
History of Present Illness Date Patient Seen: 07/29/18 Time Patient Seen: 07:30 Chief complaint: [id number] *OPB* Narrative: Patient is a 57-year-old who underwent an open supracervical hysterectomy with bilateral salpingo oophorectomy on 07/25/2018 Her postoperative course was slow due to pain control issues. Discharge Providers Date of admission: 07/25/18 06:46 Discharge Date: 07/29/18 Primary care physician: Kathleen Dumont MD Consults: 07/25/18 13:14 Consult to Dietitian, Adult Routine Comment: Reason For Exam: 8 lb wt loss in 1mo d/t poor appetite Discharge provider: Suzy Le MD Summary Discharge Diagnosis: Enlarged fibroid uterus Pelvic pain Hospital Course: Patient underwent an abdominal supracervical hysterectomy with bilateral salpingo oophorectomy and 07/25/2018. Her postoperative course was complicated by difficult pain management. She was discharged on 07/29/2018. Status at Discharge Cognitive/behavioral status at discharge: oriented Functional status at discharge: independent ambulation Overall status at discharge: patient is progressing back to baseline Time Spent with Patient Less than 30 minutes Exam Vital Signs (past 8 hours): Oxygen Delivery Method Room Air Oxygen Flow Rate 0 Narrative Exam Narrative: Generally: Patient is sitting up in bed, no acute distress Lungs: Clear to auscultation bilaterally Cardiovascular: Regular rate and rhythm Abdomen: Soft, good bowel sounds Incision: Clean dry and intact with Aquacel dressing Extremities: Negative Homans, no edema Objective Labs Result Diagrams: 07/26/18 04:58 07/26/18 04:58 Discharge Plan Discharge Plan Patient Disposition: Home Discharge comment: Call with fever, chills, redness or drainage around incision or bleeding vaginally more than spotty to light Stool softner once a day until things back to normal Ibuprofen 600mg every 6 hours Dilaudid every 3 hours as needed Discharge Med Rec/Prescriptions Prescriptions: Continued citalopram 10 mg tablet 20 mg PO QDAY Qty: 90 RF: 3 amlodipine 10 mg tablet 10 mg PO Q DAY Qty: 90 RF: 3 doxazosin 2 mg tablet 2 mg PO DAILY Qty: 60 RF: 0 lisinopril 40 mg tablet 40 mg PO QDAY Qty: 90 RF: 3 rosuvastatin 10 mg tablet 10 mg PO DAILY Qty: 60 RF: 1 trazodone 50 mg tablet 75 mg PO BEDTIME PRN (Reason: insomnia) Qty: 60 RF: 1 No Action hydromorphone [Dilaudid] 2 mg tablet 2 mg PO Q4-6H PRN (Reason: pain) Qty: 30 RF: 0 Follow up/Referrals: Suzy Le MD [Physician] - 3-5 Days (appt:07/31/18 @ 2:45 for a Aquacel removal with dr le [phone] please remove 15 minutes prior to scheduled appointment) Provider Discharge Instructions Diet: Regular Activity: No heavy lifting Skin/Wound/Dressing Care Report to your healthcare provider any signs of infection, such as:: chills, fever, increased pain, unusual drainage and unusual redness Dressing: Leave in place until 's appointment Visit Report/Discharge Packet Instructions: DI for Hysterectomy, Hydromorphone Stand Alone Forms: Surgery Discharge Discharge Data Primary Care Provider: Kathleen Dumont Attending Provider: Suzy Le Admit Date/Time: 07/25/18 06:46 Discharges patient from system. Discharge Date/Time: 07/29/18 10:00
== END 2018-07-29 10:00 | disposition home or self-care (01) | DRG 743 ==
PROVIDERS: Admitting Provider Obstetrics & Gynecology; PCP Hospitalist; Visit Provider Obstetrics & Gynecology
PROC: 0UT90ZZ Resection of Uterus, Open Approach (ICD-10-PCS; CPT 58150; principal; 2018-07-25 07:45)
PROC: 0UT94ZL Resection of Uterus, Supracervical, Percutaneous Endoscopic Approach (ICD-10-PCS; 2018-07-25 07:45)
DX: N95.0 Postmenopausal bleeding (principal); D25.2 Subserosal leiomyoma of uterus; F17.210 Nicotine dependence, cigarettes, uncomplicated; Z53.31 Laparoscopic surgical procedure converted to open procedure; R11.2 Nausea with vomiting, unspecified
CPT/HCPCS: 36415; 58180; 80048; 85025; J0330; J0690; J1100; J1170; J1885; J2060; J2270; J2405; J2704; J2765; J2795; J3010

== ENCOUNTER → 2018-08-28 12:28 | Outpatient (CLI) | payer OTHER, SELFPAY ==
[2018-07-25 13:05] VITALS: BMI 29.3
[2018-08-28 14:27] LABS: Cancer Antigen 125 11 U/mL (0-35)
== END ==
PROVIDERS: PCP Hospitalist; Visit Provider Obstetrics & Gynecology Gynecologic Oncology
DX: C56.1 Malignant neoplasm of right ovary (principal)
CPT/HCPCS: 36415; 86304

== ENCOUNTER → 2018-10-22 11:38 | Outpatient (CLI) | payer OTHER, SELFPAY ==
[2018-07-25 13:05] VITALS: BMI 29.3
[2018-10-22 12:21] LABS: Hematocrit 39.6 % (36-46); Hemoglobin 13.5 g/dL (12.0-16.0); Mean Corpuscular HGB Conc 34.1 % (30-36); Mean Corpuscular Volume 93.9 fL (80-100); Platelet Count 443 X10^3/uL (150-400); Red Blood Cell Count 4.21 X10^6/uL (4.0-5.2); Red Cell Distribution Width 15.1 % (11.6-14.8); White Blood Cell Count 11.8 X10^3/uL (4.5-11.0)
[2018-10-22 15:58] LABS: Neutrophils Absolute Manual 6136 /uL (3000-5900); RBC Morphology Normal Morphology; Total Cells Counted 100
== END ==
PROVIDERS: PCP Hospitalist; Visit Provider Hospitalist
DX: F32.9 Major depressive disorder, single episode, unspecified (principal)
CPT/HCPCS: 36415; 85025

== ENCOUNTER → 2018-10-30 08:21 | Oncology outpatient (ONC) | payer OTHER, SELFPAY ==
[2018-07-25 13:05] VITALS: BMI 29.3
[2018-10-30 08:52] VITALS: BP 142/86; PULSE 100; RESP 20; TEMP 36.7; O2SAT 98
--- NOTE | 2018-10-30 09:05 | ONC.CONS ---
History of Present Illness - Data of Consult Patient: new to practice Consult date: 10/30/18 Requesting Physician: Kathleen Dumont MD Primary Care Provider: Kathleen Dumont MD - Consult Narrative Reason for consult: Ovarian clear cell carcinoma Narrative: Bernie Chatman is a 58 year old female who presented in Jun, 2018 with vaginal bleeding accompanied by lower abdomen cramps. She was evaluated seen by Dr. Kathleen Dumont. US study on 06/27/2018 showed irregular appearing heterogeneously hyperechoic and solid mass involving myometrium/endometrium measuring 10.2 x 10.1 x 9.6 cm in size. On 07/25/2018, Suzy Candelaria at [facility] performed LUPILLO/BSO. Pathology showed malignant neoplasm of the ovary, consistent with clear cell carcinoma by IHC. After surgery, vaginal bleeding stopped. She then was referred to Dr. Tita Holden at [place]. PET scan showed no metastatic disease. Patient then underwent staging laparotomy on 10/09/2018. Pathology showed metastatic adenocarcinoma from biopies samples from diaphragmatic peritoneum, small bowel serosa, and omentum. One of 6 right pelvic lymph nodes was positive for metastasis, while 1 paraaortic lymph node and 5 left pelvic lymph nodes negative for metastasis. Omentectomy showed extensive metastatic adenocarcinoma. Dr. Holden reviewed the pathology with the patient. Patient was deemed to have an advanced stage disease, Dr. Holden on recommended carboplatin paclitaxel with Avastin every 3 weeks. In addition, [employer] [facility] NGS of the tumor was submitted. Patient was then referred to [place] for consideration of clinical trials. Finally patient then was referred here for chemotherapy and port placement. CC: William Koo MD Home Medications and Allergies Home Medications Medication Instructions Recorded Confirmed Type amlodipine 10 mg tablet 10 mg PO Q DAY #90 tab 06/25/18 11/07/18 Rx doxazosin 2 mg tablet 2 mg PO DAILY #60 tab 06/25/18 11/07/18 Rx lisinopril 40 mg tablet 40 mg PO QDAY #90 tab 06/25/18 11/07/18 Rx rosuvastatin 10 mg tablet 10 mg PO DAILY #60 tab 06/25/18 11/07/18 Rx trazodone 50 mg tablet 75 mg PO BEDTIME PRN #60 tab 09/30/18 11/07/18 Rx citalopram 10 mg DAILY 10/30/18 11/07/18 History hydrocodone 5 mg-acetaminophen 325 1 tab PO Q6H PRN #30 tab 11/05/18 11/07/18 Rx mg tablet acetaminophen [Tylenol] 650 mg PO Q6H PRN #60 cap 11/07/18 Rx Allergies Allergy/AdvReac Type Severity Reaction Status Date / Time atenolol [ATENOLOL] Allergy Mild h/a Verified 11/07/18 07:16 SYNTHETIC DRUGS Allergy Unknown PT STATES Uncoded 10/22/18 11:04 THESE DO NOT WORK FOR HER Medical History - Medical, Surgical, Family History Medical History: Medical History (Last Reviewed 11/07/18 @ 07:29 by Mushtaq Laboy MD) Hyperlipidemia Hypertension Osteoarthritis Ovarian cancer Sleep disorder Surgical History: Surgical History (Last Reviewed 11/07/18 @ 07:29 by Mushtaq Laboy MD) History of total knee arthroplasty Onset Date: 2013 S/P laparotomy Onset Date: 10/09/18 S/P LUPILLO-BSO Onset Date: ~07/25/18 - Social History Smoking Status: Current every day smoker Substance Use Type: does not use Alcohol Intake: current (a couple of glasses of wine, 3-4 times a week) Review of Systems - Patient Self-Reported Symptoms SR Constitution: Night Sweats SR Neuro issues: Numbness or tingling SR Endocrine issues: Hot flashes Exam Vital signs: Vital Signs Temp Pulse Resp BP Pulse Ox 10/30/18 08:52 98.1 F 100 H 20 142/86 H 98 Intake and Output 10/29/18 10/30/18 10/30/18 23:59 07:59 15:59 Other: Weight 71.8 kg Patient Weight 10/30/18 23:59 Weight 71.8 kg Narrative: Gen: WDWN, NAD, pleasant and cooperative. HEENT: NCAT, EOMI, PERRLA, anicteric sclera. Neck: Supple, No palpable thyromegaly or lymphadenopathy. Respiratory: CTAB, no wheezes audible. No JVD Cardiovascular: RRR, S1 and S2 normal, no M/G/R. Abdomen: Soft, NTND, BS normal, no palpable organomegaly Extremities: No LE pitting edema. Lymphatic: no palpable lymph nodes in the neck, axillae, or groins. Neurological: AOx3, CN II-XII grossly intact. No focal motor or sensory deficit. Psychiatric: Normal affect; normal thought process; cooperative, no depression, no anxiety. 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 Pathology showed biopsy from diaphragmatic peritoneum positive for metastatic adenocarcinoma, biopsy from small bowel serosa positive for metastatic carcinoma, biopsy from omentum positive for metastatic adenocarcinoma, four eugenia-aortic lymph nodes negative for metastasis, 1/6 right pelvic lymph nodes positive for metastasis, 5 left pelvic lymph nodes negative for metastasis. Omentectomy showed extensive metastatic adenocarcinoma. Assessment: I reviewed the pathology report with the patient. Patient has a diagnosis of clear cell carcinoma of the ovaries with intraperitoneal extensive metastasis. I completely agree with Dr. Holden regarding the chemotherapy. The regimen will be carboplatin, paclitaxel with or without Avastin. In addition, I highly support second opinion at [facility] for evaluation for possible clinical trials. Patient voiced understanding. I will see the patient after the [facility] visit. Plan: [facility] visit as scheduled for 11/12/2018 RTC on 11/13/2018
--- NOTE | 2018-10-30 11:27 | ONC.MSW ---
Description: New Pt Intro-Ovarian Activity: Met with pt and her to introduce myself as the [employer]NY, offer services card, and establish initial rapport. Pt has already had a hysterectomy, omentectomy and removal of positive lymph nodes-she was diagnosed through pathology with extensive metastatic disesase through final pathology. [employer] discussed resources, support, and role of navigation. Discussed the availability of the [facility] and encouraged her to attend. She expressed wanting to focus on only the positive, which [employer] supported, affirming the process of moving forward one foot in front of the other. She and her denied any immediate needs or questions at this time. [employer] will plan to meet with them again once pt has completed staging and returns to clinic to discuss her treatment plan.
--- NOTE | 2018-11-17 15:31 | ONC.SCHED ---
message received from Patient, she will not be coming for Chemotherapy here any longer. She will be doing the Trial at [facility]
== END ==
PROVIDERS: PCP Hospitalist; Visit Provider Internal Medicine Hematology & Oncology
DX: C56.1 Malignant neoplasm of right ovary (principal); C78.6 Secondary malignant neoplasm of retroperitoneum and peritoneum; I10 Essential (primary) hypertension; E78.5 Hyperlipidemia, unspecified; F17.210 Nicotine dependence, cigarettes, uncomplicated
CPT/HCPCS: 99204; 99214

== ENCOUNTER 2018-11-07 06:53 | Day surgery (SDC) | payer OTHER, SELFPAY ==
[2018-07-25 13:05] VITALS: BMI 29.3
[2018-11-06 08:22] VITALS: BMI 27.4
[2018-11-07] VITALS (13 sets, daily range): BP systolic 127–170; BP diastolic 74–96; PULSE 80–113; RESP 11–96; TEMP 36.2–36.3; O2SAT 10–98; BMI 26.4
--- NOTE | 2018-11-07 | DI.RAD.S_ITS ---
PROCEDURE: XR CHEST 1V INDICATIONS: POST OP SANTY CATH TECHNIQUE: One view of the chest was acquired. COMPARISON: [facility], , CHEST 2 VIEW, 12/21/2015, 14:03. FINDINGS: Surgical changes and devices: Left chest port, the tip projecting in the upper SVC. There is rotated appearance of the port. Lungs and pleura: No acute consolidation. Scattered high density presumed calcified granulomas grossly unchanged since 12/21/15. No pleural effusions or pneumothorax. Mediastinum: Mediastinal contours appear normal. Heart size is normal. Bones and chest wall: No suspicious bony lesions. Overlying soft tissues appear unremarkable. IMPRESSION: No pneumothorax. No acute disease or interval change. Rotated appearance of the left chest port. The catheter tip projects at the upper SVC. Dictated by: Ganseh Blackman M.D. on 11/07/2018 at 10:15 Approved by: Ganesh Blackman M.D. on 11/07/2018 at 10:35
--- NOTE | 2018-11-07 07:27 | PM.HP.1 ---
History of Present Illness History of Present Illness Date Patient Seen: 11/07/18 Time Patient Seen: 07:28 Chief complaint: [id number] Narrative: 50-year-old female referred from Oncology with diagnosis of clear cell adenocarcinoma of the ovary. She requires chemotherapy as part of her treatment and presents today for Port-A-Cath placement. She is right-handed individual. No previous indwelling catheters. And she is feeling well today no fevers chills nausea vomiting. Patient History Medical History Hyperlipidemia (Chronic) Hypertension (Chronic) Osteoarthritis (Chronic) Ovarian cancer (Acute) Sleep disorder (Chronic) Surgical History History of total knee arthroplasty (Resolved 2013) S/P laparotomy (Acute 10/09/18) S/P LUPILLO-BSO (Resolved ~07/25/18) Social History household members: spouse Smoking Status: Current every day smoker alcohol intake: current substance use type: does not use Family & Social History Social History: household members spouse Tobacco & Substance use: Tobacco type cigarettes Smoking Status Current every day smoker Smoking packs per day 1 alcohol intake current alcohol intake frequency a few times a week Substance Use Type does not use Meds Home Medications and Allergies Home Medications Medication Instructions Recorded Confirmed Type amlodipine 10 mg tablet 10 mg PO Q DAY #90 tab 06/25/18 11/07/18 Rx doxazosin 2 mg tablet 2 mg PO DAILY #60 tab 06/25/18 11/07/18 Rx lisinopril 40 mg tablet 40 mg PO QDAY #90 tab 06/25/18 11/07/18 Rx rosuvastatin 10 mg tablet 10 mg PO DAILY #60 tab 06/25/18 11/07/18 Rx trazodone 50 mg tablet 75 mg PO BEDTIME PRN #60 tab 09/30/18 11/07/18 Rx citalopram 10 mg DAILY 10/30/18 11/07/18 History hydrocodone 5 mg-acetaminophen 325 1 tab PO Q6H PRN #30 tab 11/05/18 11/07/18 Rx mg tablet Allergies Allergy/AdvReac Type Severity Reaction Status Date / Time atenolol [ATENOLOL] Allergy Mild h/a Verified 11/07/18 07:16 SYNTHETIC DRUGS Allergy Unknown PT STATES Uncoded 10/22/18 11:04 THESE DO NOT WORK FOR HER Review of Systems Review of Systems ROS Unobtainable: All systems reviewed & are unremarkable except as noted in HPI and below Exam Vital Signs (past 8 hours): - 11/07/18 07:23 Pulse Rate 92 H Respiratory Rate 16 Blood Pressure 142/92 H Pulse Oximetry 98 Oxygen Delivery Method Room Air Narrative Exam Narrative: General-adult female no acute distress, well nourished HEENT-moist mucous membranes, no scleral icterus Neck-supple with full range of motion, no lymphadenopathy Chest- no labored respirations, clear to auscultation bilaterally Cardiac-regular rate and rhythm Abdomen-soft, nontender, non distended Extremities-no edema, warm well perfused Neurological-alert and oriented x 3. No focal deficits Skin-normal temperature and turgor, no rashes or ulcers m Assessment & Plan Assessment and plan (1) Clear cell adenocarcinoma of ovary: Current visit: No Status: Acute Assessment & Plan narrative: 58-year-old female with clear cell adenocarcinoma of the ovary requiring Port-A-Cath placement for chemotherapy. We discussed the nature of the procedure including its risks of bleeding infection pneumothorax need for further procedure revision. Her questions have been answered and she is in agreement with this plan.
[2018-11-07] MEDS: CEFAZOLIN 2 GM/100 ML FROZ.PIGGY IV (07:50)
--- NOTE | 2018-11-07 08:15 | SUR.OPER ---
Supine on padded OR bed, head on pillow, arms secured on padded arm boards at <90 degrees abduction, legs uncrossed, safety belt at thigh, tape over blanket over lower legs.BILATERAL ARMS TUCKED
[2018-11-07] MEDS: BUPIVACAINE 0.25% (PF) VIAL 30 ML INJ (08:30)
[2018-11-07] MEDS: HEPARIN 5,000 UNIT, SODIUM CHLORIDE 0.9% 50 ML IV (08:31)
[2018-11-07] MEDS: LACTATED RINGERS 1,000 ML 42 ML IV (08:49)
[2018-11-07] MEDS: LORazepam 2 MG/ML INJ 0.5 MG IV (09:02)
--- NOTE | 2018-11-07 09:08 | PM.OP.1 ---
Operative Date/Time/Diagnoses Date of procedure: 11/07/18 Time of procedure: 09:08 Pre-op diagnosis: Ovarian cancer Post-op diagnosis: same Procedure & Clinicians Procedure: Port-A-Cath insertion under ultrasound guidance Same procedure as scheduled: Yes Indications: 50-year-old female with clear cell adenocarcinoma of the ovary presents for Port-A-Cath placement to facilitate her chemotherapy. Surgeon: Mushtaq Laboy Click Yes if Unassisted: Yes Anesthesia Type: General Operative Notes Findings: Tip of the catheter within the SVC Prosthetic devices, grafts, tissues, transplants, or devices: Bard Port-A-Cath Estimated Blood Loss (mL): 10 Procedure in detail: Patient was brought to the operating room placed supine on the table. Bilateral lower extremity compression devices were applied. General anesthesia was induced and she was intubated with an LMA. He was then prepped and draped in the usual sterile fashion. A time-out was performed ensure the correct patient procedure necessary equipment within the operating room. She received 2 g of Ancef prior to skin incision. Began with attempting a left subclavian access which was unsuccessful. A right subclavian vein access was was obtained but the guidewire traced into the internal jugular. Under ultrasound guidance left internal jugular vein access was obtained. Fluoroscopy demonstrated the a guide wire in appropriate position. Skin incision was made in the neck and then the dilator with its sheath was placed over the guidewire. Its position was confirmed with fluoroscopy. Then the the catheter was placed through the she again its position was confirmed with fluoroscopy. Then made a pocket in the left chest wall using electrocautery. The end of the catheter was retrieved with the tunneling device. The port which had been flushed with heparinized saline was then attached to the catheter. We tested the port to ensure that it flushed and had return blood. Hemostasis was achieved. The wound was irrigated with sterile saline. The subcutaneous tissues were reapproximated using 3 0 Vicryl the skin was closed with 4-0 Monocryl for the pocket as well as the access point in the left neck. Patient emerged from anesthesia was extubated and transferred to the postoperative care unit in stable condition. A chest x-ray is pending at this time. Post-operative Condition: stable Disposition: same day surgery
[2018-11-07] MEDS: fentaNYL 100 MCG/2 ML INJ 50 MCG IV ×2 (09:13→09:25)
[2018-11-07] MEDS: HYDROMORPHONE 2 MG INJ 0.5 MG IV ×2 (10:05→10:15)
[2018-11-07] MEDS: OXYCODONE/ACETAMINOPHEN 5/325 TABLET 1 TAB PO (10:25)
== END 2018-11-07 10:55 | disposition home or self-care (01) ==
PROVIDERS: PCP Hospitalist; Visit Provider Surgery
PROC: (CPT 36561; principal; 2018-11-07 07:45)
DX: C56.9 Malignant neoplasm of unspecified ovary (principal); Z45.2 Encounter for adjustment and management of vascular access device; E78.5 Hyperlipidemia, unspecified; I10 Essential (primary) hypertension; F17.210 Nicotine dependence, cigarettes, uncomplicated
CPT/HCPCS: 36561; 71045; 76000; C1788; J0690; J1100; J1170; J1644; J2060; J2250; J2405; J2704; J3010

== ENCOUNTER → 2018-12-09 13:20 | Outpatient (CLI) | payer OTHER, SELFPAY ==
[2018-11-13 12:19] VITALS: BMI 29.3
[2018-12-09 14:46] LABS: Add Manual Diff / Slide Review NO; Basophils Absolute Auto 100 /uL (0-100); Basophils Percent Auto 1.4 % (0-2); Eosinophils Absolute Auto 300 /uL (0-450); Eosinophils Percent Auto 8.7 % (2-4); Hemoglobin 13.5 g/dL (12.0-16.0); Lymphocytes Absolute Auto 1200 /uL (1100-4500); Lymphocytes Percent Auto 30.7 % (25-40); Mean Corpuscular HGB Conc 33.7 % (30-36); Mean Corpuscular Hemoglobin 31.6 PG (26-34); Mean Corpuscular Volume 93.9 fL (80-100); Monocytes Absolute Auto 500 /uL (0-900); Monocytes Percent Auto 12.2 % (3-14); Neutrophils Absolute Auto 1800 /uL (1500-7000); Platelet Count 266 X10^3/uL (150-400); Red Blood Cell Count 4.26 X10^6/uL (4.0-5.2); Red Cell Distribution Width 14.7 % (11.6-14.8); White Blood Cell Count 3.8 X10^3/uL (4.5-11.0)
== END ==
PROVIDERS: Family Provider Obstetrics & Gynecology Gynecologic Oncology; PCP Hospitalist; Visit Provider Obstetrics & Gynecology
DX: C56.9 Malignant neoplasm of unspecified ovary (principal); Z51.11 Encounter for antineoplastic chemotherapy
CPT/HCPCS: 36415; 85025

== ENCOUNTER → 2018-12-29 12:10 | Outpatient (CLI) | payer OTHER, SELFPAY ==
[2018-11-13 12:19] VITALS: BMI 29.3
[2018-12-29 13:04] LABS: Add Manual Diff / Slide Review NO; Basophils Absolute Auto 0 /uL (0-100); Basophils Percent Auto 0.8 % (0-2); Eosinophils Absolute Auto 200 /uL (0-450); Eosinophils Percent Auto 4.7 % (2-4); Hematocrit 37.4 % (36-46); Hemoglobin 13.1 g/dL (12.0-16.0); Lymphocytes Absolute Auto 1000 /uL (1100-4500); Mean Corpuscular Hemoglobin 32.5 PG (26-34); Mean Corpuscular Volume 92.8 fL (80-100); Monocytes Absolute Auto 500 /uL (0-900); Monocytes Percent Auto 12.5 % (3-14); Neutrophils Absolute Auto 2300 /uL (1500-7000); Platelet Count 173 X10^3/uL (150-400); Red Blood Cell Count 4.03 X10^6/uL (4.0-5.2); Red Cell Distribution Width 15.3 % (11.6-14.8)
== END ==
PROVIDERS: Family Provider Obstetrics & Gynecology Gynecologic Oncology; PCP Hospitalist; Visit Provider Obstetrics & Gynecology
DX: Z51.11 Encounter for antineoplastic chemotherapy (principal); C56.9 Malignant neoplasm of unspecified ovary
CPT/HCPCS: 36415; 85025

== ENCOUNTER → 2019-01-21 13:37 | Outpatient (CLI) | payer OTHER, SELFPAY ==
[2018-11-13 12:19] VITALS: BMI 29.3
[2019-01-21 14:58] LABS: Add Manual Diff / Slide Review NO; Basophils Absolute Auto 0 /uL (0-100); Eosinophils Absolute Auto 200 /uL (0-450); Eosinophils Percent Auto 6.1 % (2-4); Hematocrit 37.1 % (36-46); Hemoglobin 12.8 g/dL (12.0-16.0); Lymphocytes Absolute Auto 1100 /uL (1100-4500); Lymphocytes Percent Auto 36.9 % (25-40); Mean Corpuscular HGB Conc 34.6 % (30-36); Mean Corpuscular Volume 92.6 fL (80-100); Monocytes Absolute Auto 400 /uL (0-900); Monocytes Percent Auto 13.4 % (3-14); Neutrophils Absolute Auto 1300 /uL (1500-7000); Neutrophils Percent Auto 42.6 % (50-75); Platelet Count 162 X10^3/uL (150-400); Red Cell Distribution Width 17.1 % (11.6-14.8); White Blood Cell Count 3.1 X10^3/uL (4.5-11.0)
== END ==
PROVIDERS: PCP Hospitalist; Referring Provider Obstetrics & Gynecology Gynecologic Oncology; Visit Provider Obstetrics & Gynecology
DX: Z51.11 Encounter for antineoplastic chemotherapy (principal); C56.9 Malignant neoplasm of unspecified ovary
CPT/HCPCS: 36415; 85025

== ENCOUNTER → 2019-02-05 14:07 | Outpatient (CLI) | payer OTHER, SELFPAY ==
[2018-11-13 12:19] VITALS: BMI 29.3
[2019-02-05 15:01] LABS: Add Manual Diff / Slide Review NO; Basophils Absolute Auto 100 /uL (0-100); Basophils Percent Auto 1.3 % (0-2); Eosinophils Absolute Auto 100 /uL (0-450); Eosinophils Percent Auto 1.9 % (2-4); Hematocrit 39.2 % (36-46); Hemoglobin 13.2 g/dL (12.0-16.0); Lymphocytes Absolute Auto 1000 /uL (1100-4500); Lymphocytes Percent Auto 25.1 % (25-40); Mean Corpuscular HGB Conc 33.7 % (30-36); Monocytes Absolute Auto 300 /uL (0-900); Monocytes Percent Auto 6.4 % (3-14); Neutrophils Absolute Auto 2600 /uL (1500-7000); Neutrophils Percent Auto 65.3 % (50-75); Platelet Count 87 X10^3/uL (150-400); Red Blood Cell Count 4.13 X10^6/uL (4.0-5.2); Red Cell Distribution Width 18.1 % (11.6-14.8)
[2019-02-05 15:53] LABS: Collection Time Urine 24 Hours; Protein (Total) Urine Random 27 mg/dL (0-12); Total Protein 24 Hour Urine 459 mg/day (42-225); Total Volume Urine 1700 mL
== END ==
PROVIDERS: PCP Hospitalist; Visit Provider Nurse Practitioner
DX: Z51.11 Encounter for antineoplastic chemotherapy (principal); C56.9 Malignant neoplasm of unspecified ovary
CPT/HCPCS: 36415; 84156; 85025

== ENCOUNTER 2019-02-15 12:35 | Inpatient (IN) | payer OTHER, SELFPAY ==
[2018-11-13 12:19] VITALS: BMI 29.3
[2019-02-15] VITALS (13 sets, daily range): BP systolic 142–180; BP diastolic 70–94; PULSE 90–111; RESP 14–22; TEMP 36.7–38.4; O2SAT 94–100; BMI 24.9
--- NOTE | 2019-02-15 12:57 | ED.FEVER ---
HPI - Fever General Chief Complaint: Fever Stated Complaint: Severe Lower Left Abd Pain and Fever Time Seen by Provider: 02/15/19 12:57 Source: patient Mode of arrival: Ambulatory History of Present Illness HPI Narrative: 58-year-old woman currently finished 4 rounds of chemo and scheduled to start her 5th in 6 days. She is being treated for ovarian cancer. Last night she began to develop sharp left lower quadrant pain associated with fever and significant nausea. She has not had overt emesis. She denies dysuria. She had a normal bowel movement yesterday and has not had a bowel movement today. The pain is getting worse to the point where she is having difficulty walking and she describes it as 9 to 10/10. She states she has never had similar symptoms. She describes no cough chest pain no rashes she has been able to drink but has not had anything to eat today because of the nausea secondary to pain. Her oncology care has been at [facility] Medications Medication Instructions Recorded Confirmed citalopram 10 mg DAILY 10/30/18 11/26/18 Previous Rx's Medication Instructions Recorded amlodipine 10 mg tablet 10 mg PO Q DAY #90 tab 06/25/18 lisinopril 40 mg tablet 40 mg PO QDAY #90 tab 06/25/18 rosuvastatin 10 mg tablet 10 mg PO DAILY #60 tab 06/25/18 acetaminophen [Tylenol] 650 mg PO Q6H PRN #60 cap 11/07/18 hydrocodone 5 mg-acetaminophen 325 1 tab PO Q6H PRN #30 tab 12/08/18 mg tablet trazodone 50 mg tablet 75 mg PO BEDTIME PRN #60 tab 12/08/18 doxazosin 2 mg tablet 2 mg PO DAILY #60 tab 12/10/18 Allergies Allergy/AdvReac Type Severity Reaction Status Date / Time atenolol [ATENOLOL] Allergy Mild h/a Verified 11/26/18 12:39 SYNTHETIC DRUGS Allergy Unknown PT STATES Uncoded 11/26/18 12:39 THESE DO NOT WORK FOR HER Review of Systems Review of Systems Narrative: No altered mental status, no dysuria no additional neurologic changes ROS Unobtainable: All systems reviewed & are unremarkable except as noted in HPI and below Patient History Medical History Hyperlipidemia (Chronic) Hypertension (Chronic) Osteoarthritis (Chronic) Ovarian cancer (Acute) Sleep disorder (Chronic) Surgical History History of total knee arthroplasty (Resolved 2013) S/P laparotomy (Acute 10/09/18) S/P LUPILLO-BSO (Resolved ~07/25/18) Social History household members: spouse Smoking Status: Current every day smoker alcohol intake: current substance use type: does not use Smoking Status: Current every day smoker alcohol intake frequency: a few times a week Substance Use Type: does not use Exam Narrative Exam Narrative: General: Moderately ill-appearing in obvious pain. Pale and diaphoretic secondary to pain. Able to give a complete and coherent history. Well-nourished well-developed HEENT: Moist mucous membranes, normal sclera with reactive pupils, Neck: No JVD, supple Respiratory: Lungs are clear to auscultation, no wheezing no rales no rhonchi. Full and symmetrical air movement Cardiac: Regular rate and rhythm no murmurs no bruits Abdomen: Soft non good bowel tones, no flank pain. Significant left lower quadrant abdominal pain with guarding. Pain is relieved by a holding her legs in a flexed position Skin: Warm and dry, no rashes Neurologic: Grossly neurologically intact with no obvious asymmetries or abnormalities Extremities: No trauma, well perfused Psych: Cooperative, appropriate insight and affect Initial Vital Signs Initial Vital Signs: Vital Signs Temperature 99.5 F 02/15/19 12:42 Pulse Rate 109 H 02/15/19 12:42 Respiratory Rate 22 02/15/19 12:42 Blood Pressure 170/94 H 02/15/19 12:42 Pulse Oximetry 100 02/15/19 12:42 Course Course Course Narrative: 58-year-old woman mid chemo course with fever and severe left lower quadrant pain. Presume sepsis until were able to prove otherwise. Fluids are started as well as broad-spectrum antibiotics with coverage for GI and the suspicion of a acute diverticulitis. CT scan is pending. Patient is stable with no signs of hypertension at this time. Decision to Admit Date: 02/15/19 Decision to Admit time: 17:33 Additional Information: Care is reviewed with Dr. Porras, admitting hospitalist. Findings are reviewed with patient and her . The patient will be admitted Orders Ordered: ED Orders 02/15/19 13:12 XR chest 1V Stat 02/15/19 13:20 Complete Blood Count AUTO DIFF Stat Comprehensive Metabolic Panel Stat Lactate (Lactic Acid) Stat Procalcitonin Stat 02/15/19 14:45 Urine Microscopic Stat 02/15/19 14:58 CT abdomen pelvis w con Stat 02/15/19 15:00 Blood Culture Stat Fentanyl (Sublimaze) 100 mcg IV Q1H PRN PRN Reason: Pain, Severe (7-10) Last Admin: 02/15/19 17:36 Dose: 100 mcg Documented by: MARTINA Hydromorphone HCl (Dilaudid) 1 mg IV Q15MIN PRN PRN Reason: severe pain Last Admin: 02/15/19 16:19 Dose: 1 mg Documented by: Admin: 02/15/19 14:10 Dose: 1 mg Documented by: Admin: 02/15/19 13:38 Dose: 1 mg Documented by: MARTINA Discontinued Medications Acetaminophen (Tylenol) 975 mg PO NOW ONE Stop: 02/15/19 13:49 Last Admin: 02/15/19 13:57 Dose: 975 mg Documented by: MARTINA Sodium Chloride (Normal Saline 0.9%) 1,973.13 mls @ 657.71 mls/hr 30 ml/kg infuse over 3 hr (1973.13 ml) IV NOW ONE Stop: 02/15/19 16:11 Last Admin: 02/15/19 13:39 Dose: 657.71 mls/hr Documented by: MARTINA Cefepime HCl 2 gm/ Sodium (Chloride) 100 mls @ 200 mls/hr IV NOW ONE Stop: 02/15/19 13:13 Last Infusion: 02/15/19 14:15 Dose: 0 mls/hr Documented by: Admin: 02/15/19 13:40 Dose: 200 mls/hr Documented by: MARTINA Ketorolac Tromethamine (Toradol) 15 mg IV NOW ONE Stop: 02/15/19 17:31 Last Admin: 02/15/19 17:36 Dose: 15 mg Documented by: MARTINA Ondansetron HCl (Zofran) 4 mg IV NOW ONE Stop: 02/15/19 13:40 Last Admin: 02/15/19 13:00 Dose: Not Given Documented by: MARTINA Reevaluation(s) Reevaluation #1: CT scan is reviewed with Radiology. Likely infected lymphocele collection. Dr. Mitchell felt that this could be effectively drained via interventional radiology procedures it will likely be able to be facilitated tomorrow. In the meantime will talk with our admitting hospitalist and would like to admit her with IV antibiotics and pain control Time: 16:36 Vital Signs Vital signs: Vital Signs - 8 hr 02/15/19 12:42 02/15/19 13:57 02/15/19 14:08 Temperature 99.5 F 101.2 F H Pulse Rate 109 H 101 H Respiratory Rate 22 15 Blood Pressure 170/94 H Blood Pressure [Right Arm] 180/77 H Pulse Oximetry 100 100 02/15/19 15:14 02/15/19 16:09 02/15/19 16:30 Temperature 99.7 F H Pulse Rate 97 H 90 Respiratory Rate 14 21 Blood Pressure Blood Pressure [Right Arm] 144/75 H 147/75 H Pulse Oximetry 95 96 MDM - Fever Medical Records Attestation: I reviewed the patient's medical records. Lab Data Attestation: I reviewed the patient's lab results. Lab results narrative: She is not neutropenic. Urine dip has protein and leukocyte esterase Chest x-ray is unremarkable Result diagrams: 02/15/19 13:20 02/15/19 13:20 Labs: Lab Results 02/15/19 02/15/19 02/15/19 Range/Units 13:20 13:20 13:20 WBC 7.6 (4.5-11.0) X10^3/uL RBC 3.72 L (4.0-5.2) X10^6/uL Hgb 12.7 (12.0-16.0) g/dL Hct 35.6 L (36-46) % MCV 95.5 (80-100) fL MCH 34.1 H (26-34) PG MCHC 35.7 (30-36) % RDW 19.6 H (11.6-14.8) % Plt Count 152 (150-400) X10^3/uL Neut % (Auto) 73.5 (50-75) % Lymph % (Auto) 13.1 L (25-40) % Valley % (Auto) 12.0 (3-14) % Eos % (Auto) 0.9 L (2-4) % Baso % (Auto) 0.5 (0-2) % Neut # (Auto) 5600 (1370-2829) /uL Lymph # (Auto) 1000 L (4857-1836) /uL Valley # (Auto) 900 (0-900) /uL Eos # (Auto) 100 (0-450) /uL Baso # (Auto) 0 (0-100) /uL Sodium 135 L (137-145) mmol/L Potassium 3.5 (3.4-5.1) mmol/L Chloride 99 (98-107) mmol/L Carbon Dioxide 27 (22-32) mmol/L BUN 6 L (7-17) mg/dL Creatinine 0.40 L (0.52-1.04) mg/dL Estimated GFR > 60.0 (>60) mL/min BUN/Creatinine Ratio 15.0 (6-22) Glucose 104 H (70-100) mg/dL Lactate (0.7-2.1) mmol/L Calcium 9.0 (8.4-10.2) mg/dL Total Bilirubin 0.7 (0.2-1.3) mg/dL AST 23 (14-36) IU/L ALT 13 (<35) IU/L Alkaline Phosphatase 60 (38-126) U/L Total Protein 6.9 (6.3-8.2) g/dL Albumin 4.0 (3.5-5.0) g/dL Globulin 2.9 (1.7-4.1) g/dL Albumin/Globulin Ratio 1.4 (1.0-2.8) Procalcitonin < 0.05 (<0.5) ng/mL Urine RBC (0-5/HPF) Urine WBC (0-5/HPF) Ur Squamous Epith Cells (0-5/HPF) Urine Bacteria (None) Ur Culture Indicated? 02/15/19 02/15/19 Range/Units 13:20 14:45 WBC (4.5-11.0) X10^3/uL RBC (4.0-5.2) X10^6/uL Hgb (12.0-16.0) g/dL Hct (36-46) % MCV (80-100) fL MCH (26-34) PG MCHC (30-36) % RDW (11.6-14.8) % Plt Count (150-400) X10^3/uL Neut % (Auto) (50-75) % Lymph % (Auto) (25-40) % Valley % (Auto) (3-14) % Eos % (Auto) (2-4) % Baso % (Auto) (0-2) % Neut # (Auto) (2717-1344) /uL Lymph # (Auto) (4695-1779) /uL Valley # (Auto) (0-900) /uL Eos # (Auto) (0-450) /uL Baso # (Auto) (0-100) /uL Sodium (137-145) mmol/L Potassium (3.4-5.1) mmol/L Chloride (98-107) mmol/L Carbon Dioxide (22-32) mmol/L BUN (7-17) mg/dL Creatinine (0.52-1.04) mg/dL Estimated GFR (>60) mL/min BUN/Creatinine Ratio (6-22) Glucose (70-100) mg/dL Lactate 0.8 (0.7-2.1) mmol/L Calcium (8.4-10.2) mg/dL Total Bilirubin (0.2-1.3) mg/dL AST (14-36) IU/L ALT (<35) IU/L Alkaline Phosphatase (38-126) U/L Total Protein (6.3-8.2) g/dL Albumin (3.5-5.0) g/dL Globulin (1.7-4.1) g/dL Albumin/Globulin Ratio (1.0-2.8) Procalcitonin (<0.5) ng/mL Urine RBC 1-5/hpf (0-5/HPF) Urine WBC 1-5/hpf (0-5/HPF) Ur Squamous Epith Cells 1-5 /hpf (0-5/HPF) Urine Bacteria Occasional (0-1) (None) Ur Culture Indicated? Cult not indicated Urine Dip Bedside Urine Glucose Negative Bedside Urine Bilirubin - Negative Bedside Urine Ketone ++ 40 Urine Specific [place] 1.010 Bedside Urine Occult Blood +/- Bedside Urine pH 7.5 Bedside Urine Protein +/- 15 Bedside Urine Urobilinogen - Negative Bedside Urine Nitrite - Negative Bedside Urine Leukocytes +/- 15 Esterase Imaging Data Chest x-ray: Attestation: I personally reviewed and interpreted this imaging study as follows: Radiologist's impression: IMPRESSION: 1. No acute cardiopulmonary disease. Dictated by: Simon Mitchell M.D. on 02/15/2019 at 12:47 CT abdomen pelvis: Attestation: I personally reviewed and interpreted this imaging study as follows: Radiologist's impression: IMPRESSION: 1. Large bilateral fluid collections along the pelvic sidewalls likely represent lymphoceles related to prior surgery. Inflammatory fat stranding along the left collection raises the possibility of superinfection. There is also associated mass effect on adjacent structures in the left pelvis. Findings discussed with Dr. Frey on 02/15/19 at 4:20 PM ascitic time. 2. Mild gastric wall thickening in the antrum is nonspecific and may represent an infectious or inflammatory gastritis. Dictated by: Simon Mitchell M.D. on 02/15/2019 at 15:16 MDM Narrative Medical decision making narrative: 58-year-old woman post 4 doses of chemotherapy for ovarian cancer. 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 There is no evidence of sepsis at this time however given her immune compromise state from her chemotherapy, the severity of her pain and the need for additional intervention regarding the seroma we will arrange for admission. I have spoken with Dr. Porras or hospitalist. In reviewing radiology studies with Dr. Mitchell, he does think that interventional Radiology will be able to drain the area of concern likely tomorrow. If not surgery will likely need to be consulted. Discharge Plan Departure Patient Disposition: Admitted As Inpatient Clinical Impression: Infected seroma due to and not concurrent with procedure Ovarian cancer Qualifiers: Laterality: unspecified laterality Qualified Code(s): C56.9 - Malignant neoplasm of unspecified ovary Referrals: Kathleen Dumont MD [Primary Care Provider] -
--- NOTE | 2019-02-15 13:12 | DI.RAD.S_ITS ---
PROCEDURE: XR CHEST 1V INDICATIONS: fever, chemo, sepsis TECHNIQUE: One view of the chest was acquired. COMPARISON: [facility], CR, XR CHEST 1V, 11/07/2018, 9:17. FINDINGS: Surgical changes and devices: There is a right internal jugular Port-A-Cath with the tip at the cavoatrial junction Lungs and pleura: Lungs are clear. No pleural effusions or pneumothorax. Mediastinum: Mediastinal contours appear normal. Heart size is normal. Bones and chest wall: No suspicious bony lesions. Overlying soft tissues appear unremarkable. IMPRESSION: 1. No acute cardiopulmonary disease. Dictated by: Simon Mitchell M.D. on 02/15/2019 at 12:47 Approved by: Simon Mitchell M.D. on 02/15/2019 at 12:47
[2019-02-15 13:33] LABS: Add Manual Diff / Slide Review NO; Basophils Absolute Auto 0 /uL (0-100); Basophils Percent Auto 0.5 % (0-2); Eosinophils Absolute Auto 100 /uL (0-450); Eosinophils Percent Auto 0.9 % (2-4); Hematocrit 35.6 % (36-46); Hemoglobin 12.7 g/dL (12.0-16.0); Lymphocytes Absolute Auto 1000 /uL (1100-4500); Lymphocytes Percent Auto 13.1 % (25-40); Mean Corpuscular HGB Conc 35.7 % (30-36); Mean Corpuscular Hemoglobin 34.1 PG (26-34); Mean Corpuscular Volume 95.5 fL (80-100); Monocytes Absolute Auto 900 /uL (0-900); Neutrophils Absolute Auto 5600 /uL (1500-7000); Neutrophils Percent Auto 73.5 % (50-75); Platelet Count 152 X10^3/uL (150-400); Red Blood Cell Count 3.72 X10^6/uL (4.0-5.2); Red Cell Distribution Width 19.6 % (11.6-14.8); White Blood Cell Count 7.6 X10^3/uL (4.5-11.0)
[2019-02-15] MEDS: HYDROMORPHONE 1 MG INJ IV ×3 (13:38→16:19)
[2019-02-15] MEDS: ONDANSETRON 4 MG/2 ML INJ (13:38)
[2019-02-15] MEDS: SODIUM CHLORIDE 0.9% 1,973.13 ML 657.71 ML IV (13:39)
[2019-02-15] MEDS: CEFEPIME 2 GM in SODIUM CHLORIDE 0.9% 100 ML 200 ML IV (13:40)
[2019-02-15 13:45] LABS: Alanine Aminotransferase 13 IU/L (<35); Albumin Globulin Ratio 1.4 (1.0-2.8); Alkaline Phosphatase 60 U/L (38-126); Aspartate Aminotransferase 23 IU/L (14-36); Bilirubin Total 0.7 mg/dL (0.2-1.3); Blood Urea Nitrogen 6 mg/dL (7-17); Carbon Dioxide 27 mmol/L (22-32); Chloride 99 mmol/L (98-107); Estimated Glomerular Filt Rate > 60.0 mL/min (>60); Globulin 2.9 g/dL (1.7-4.1); Glucose 104 mg/dL (70-100); HEMOLYSIS < 15 (0-50); Lactate (Lactic Acid) 0.8 mmol/L (0.7-2.1); Potassium 3.5 mmol/L (3.4-5.1); Sodium 135 mmol/L (137-145); Total Protein 6.9 g/dL (6.3-8.2)
[2019-02-15] MEDS: ACETAMINOPHEN 325 MG TABLET 975 MG PO (13:57)
[2019-02-15 14:10] LABS: Procalcitonin < 0.05 ng/mL (<0.5)
--- NOTE | 2019-02-15 14:58 | DI.CT.S_ITS ---
PROCEDURE: CT ABDOMEN PELVIS W CON INDICATIONS: Severe left lower quadrant pain, ovarian cancer mid chemotherapy. TECHNIQUE: After the administration of intravenous contrast, 5 mm thick sections acquired from the diaphragm to the symphysis. 5 mm coronal and sagittal reformats were acquired. For radiation dose reduction, the following was used: automated exposure control, adjustment of mA and/or kV according to patient size. COMPARISON: [facility], CT, ABDOMEN WITH AND WITHOUT CONTR, 09/25/2011, 10:51. FINDINGS: Image quality: Excellent. ABDOMEN: Lung bases: There are numerous small calcified nodules redemonstrated in the lung bases likely representing calcified granuloma. There is mild dependent atelectasis bilaterally. Heart size is normal. Solid organs: Evaluation of the liver demonstrates no focal hepatic lesions. The gallbladder appears within normal limits without calcified gallstones. Biliary system is non-dilated. Pancreas enhances normally. No peripancreatic fat stranding or fluid collections. No pancreatic duct dilatation. The spleen is normal in size. No adrenal nodules. Kidneys demonstrate no hydronephrosis. Peritoneum and bowel: There is mild gastric wall thickening in the antrum. Bowel loops demonstrate normal wall thickness and caliber. No free fluid or air. Nodes and vessels: No retroperitoneal or mesenteric adenopathy by size criteria. Aorta and inferior vena cava are normal in size. Miscellaneous: No ventral hernias. PELVIS: Genitourinary: Bladder wall thickness is normal. The uterus and ovaries are surgically absent. There are bilateral large fluid collections along the pelvic sidewalls, measuring approximately 10.1 x 8.2 x 11.7 cm on the left and 6.0 x 3.8 x 4.4 cm on the right. There is inflammatory fat stranding along the margins of the left sidewall collection. This demonstrates mild mass effect on adjacent structures including the bladder, vessels, and bowel loops. Miscellaneous: No inguinal hernias or adenopathy. Bones: No suspicious bony lesions. No vertebral body compression fractures. IMPRESSION: 1. Large bilateral fluid collections along the pelvic sidewalls likely represent lymphoceles related to prior surgery. Inflammatory fat stranding along the left collection raises the possibility of superinfection. There is also associated mass effect on adjacent structures in the left pelvis. Findings discussed with Dr. Frey on 02/15/19 at 4:20 PM ascitic time. 2. Mild gastric wall thickening in the antrum is nonspecific and may represent an infectious or inflammatory gastritis. Dictated by: Simon Mitchell M.D. on 02/15/2019 at 15:16 Approved by: Simon Mitchell M.D. on 02/15/2019 at 15:26
[2019-02-15 15:17] LABS: Bacteria Urine Occasional (0-1); Culture Indicated Urine Cult Not Indicated; RBC Urine 1-5/HPF (0-5/HPF); Squamous Epithelial Cell Urine 1-5 /HPF (0-5/HPF); WBC Urine 1-5/HPF (0-5/HPF)
[2019-02-15] MEDS: KETOROLAC 60 MG/2 ML VIAL 15 MG IV (17:36)
[2019-02-15] MEDS: fentaNYL 100 MCG/2 ML INJ IV (17:36)
[2019-02-15 20:15] LABS: Magnesium 1.5 mg/dL (1.6-2.3)
[2019-02-15] MEDS: fentaNYL 100 MCG/2 ML INJ 50 MCG IV ×2 (21:11→23:29)
--- NOTE | 2019-02-15 21:27 | PM.HP.1 ---
History of Present Illness History of Present Illness Date Patient Seen: 02/15/19 Time Patient Seen: 20:45 Chief complaint: Severe Lower Left Abd Pain and Fever Narrative: Ms Bernie Chatman is a 58-year-old female with history significant for clear cell ovarian cancer, hypertension, hyperlipidemia, osteoarthritis and insomnia who presents to the ER today for severe left lower quadrant abdominal pain. Patient states the pain started yesterday afternoon and has been progressive in intensity. Arrival to the ER she describes her pain as a 9 to 10/10. She has associated symptoms of nausea related to the pain and fevers. Patient is currently undergoing chemotherapy and has completed 4 rounds with the next chemo schedule friend in 5 days. She receives her care at the [facility] under the care of Dr. Holden. Her cancer was identified in July with complaints of back pain and postmenopausal bleeding and identification of endometrial mass identified on ultrasound. The patient was taken for hysterectomy on 07/25/2018 with identification of ovarian nature for mass. She underwent a TERI/BSO. On 10/07/2018 the patient underwent staging surgery. On pathology from the procedure patient was found to have extensive metastatic clear cell carcinoma involving the diaphragms small-bowel and right pelvic lymph nodes. She subsequently had port placement on 11/07/2018. At this time the patient has severe uncontrolled intractable pain in the left lower abdomen. Patient denies headache or dizziness and has no nasal congestion or sore throat. She denies chest pain or palpitations. She reports no shortness of breath, is a current smoker and has a cough. She has abdominal pain as described above. She denies constipation or urinary symptoms. She is ambulatory at home without the use of assistive devices. Upon arrival to the ER patient is febrile with temperature of 101.2?, heart rate is 101, blood pressure 180/77, respirations 15 saturating 100% on room air. A CT of the abdomen pelvis finds no liver lesions, numerous nodules wound bases his with calcified granuloma, large bilateral pelvic fluid the sidewalls with inflammation and fat stranding and left fluid collection, mid gastric wall thickening in the antrum. Chest x-ray shows no acute cardiopulmonary processes. On laboratory analysis the patient has white count of 7.6, hemoglobin of 12.7, hematocrit 35.6, platelets 152. Her electrolytes are within normal limits she has a BUN of 6 and creatinine of 0.4 with a nonfasting glucose 104. Liver function tests are within normal limits, her lactic acid is 0.8 and procalcitonin is less than 0.05. Screening urinalysis completed in the ER is negative for infection. In the ER the patient has received Tylenol for fever, Toradol, fentanyl and Dilaudid for pain, Zofran for nausea. Blood cultures x2 were drawn the patient started on Maxipime 2 g IV. The patient is admitted to the hospital for left lower abdominal pain, intractable pain related to clear cell ovarian cancer with plan for IR guided aspiration. Patient History Medical History Hyperlipidemia (Chronic) Hypertension (Chronic) Osteoarthritis (Chronic) Ovarian cancer (Acute) Sleep disorder (Chronic) Surgical History History of total knee arthroplasty (Resolved 2013) S/P laparotomy (Acute 10/09/18) S/P LUPILLO-BSO (Resolved ~07/25/18) Family & Social History Family History (Updated 02/16/19 @ 02:01 by ÓSCAR Wilburn) Father No significant medical problems Mother No significant medical problems Social History: household members spouse Tobacco & Substance use: Tobacco type cigarettes Smoking Status Current every day smoker alcohol intake current alcohol intake frequency a few times a week Substance Use Type does not use Comment: The patient lives in a single family single-level home with her to whom she has been for 55 years. She relates that her father in mother have no significant health issues and she has 2 siblings and kids all in good health. She reports no other family history of cancer, heart disease, respiratory or kidney disease. Smoking: Patient currently smokes 1 pack per day and has a 40 pack year smoking history. Alcohol: Patient drinks alcohol socially. Substance use: Patient denies recreation pharmaceuticals but has used CBD for sleep. Advanced directives: The patient has formal advanced directives and states her wish to be FULL CODE. She designates her Orlin to be her surrogate decision maker. Meds Home Medications and Allergies Home Medications Medication Instructions Recorded Confirmed Type amlodipine 10 mg tablet 10 mg PO Q DAY #90 tab 06/25/18 02/16/19 Rx lisinopril 40 mg tablet 40 mg PO QDAY #90 tab 06/25/18 02/16/19 Rx rosuvastatin 10 mg tablet 10 mg PO DAILY #60 tab 06/25/18 02/16/19 Rx citalopram 10 mg DAILY 10/30/18 02/16/19 History acetaminophen [Tylenol] 650 mg PO Q6H PRN #60 cap 11/07/18 02/16/19 Rx hydrocodone 5 mg-acetaminophen 325 1 tab PO Q6H PRN #30 tab 12/08/18 02/16/19 Rx mg tablet trazodone 50 mg tablet 75 mg PO BEDTIME PRN #60 tab 12/08/18 02/16/19 Rx doxazosin 2 mg tablet 2 mg PO DAILY #60 tab 12/10/18 02/16/19 Rx Allergies Allergy/AdvReac Type Severity Reaction Status Date / Time atenolol [ATENOLOL] Allergy Mild h/a Verified 11/26/18 12:39 SYNTHETIC DRUGS Allergy Unknown PT STATES Uncoded 11/26/18 12:39 THESE DO NOT WORK FOR HER Review of Systems Review of Systems Narrative: Review symptoms is limited related to current medical condition and pain. Systems are reviewed and noted in HPI above. Exam Vital Signs (past 8 hours): - 02/15/19 13:57 02/15/19 14:08 02/15/19 15:14 Temperature 101.2 F H Pulse Rate 101 H 97 H Respiratory Rate 15 14 Blood Pressure Blood Pressure [Right Arm] 180/77 H 144/75 H Pulse Oximetry 100 95 02/15/19 16:09 02/15/19 16:30 02/15/19 17:00 Temperature 99.7 F H Pulse Rate 90 91 H Respiratory Rate 21 20 Blood Pressure Blood Pressure [Right Arm] 147/75 H 144/85 H Pulse Oximetry 96 98 02/15/19 18:15 02/15/19 19:09 02/15/19 19:32 Temperature 100.9 F H Pulse Rate 96 H 96 H 103 H Respiratory Rate 18 20 Blood Pressure 159/76 H Blood Pressure [Right Arm] 142/70 H 158/71 H Pulse Oximetry 97 97 96 Oxygen Delivery Method Room Air Narrative Exam Narrative: GENERAL APPEARANCE: well developed, appearing older than her stated age, adequately nourished, in obvious pain. HEENT: Normocephalic, alopecia, PERRLA, conjunctiva clear, sclera is anicteric, EOMs intact without nystagmus, no rhinorrhea, mucous membranes are dry and pink without lesions or exudate. NECK/THYROID: neck supple, no JVD, no thyromegaly, trachea midline. LYMPH NODES: no cervical or supraclavicular lymphadenopathy. SKIN: Pale, warm and dry, no visible lesions, rashes, ulcerations or petechiae. HEART: Tachycardia with regular rhythm, S1-S2, no murmur, no rubs or gallops, brisk capillary refill, no edema LUNGS: clear to auscultation bilaterally, central coarseness clearing with cough, no crackles or wheezing, moist cough present CHEST: Infusion port right chest, symmetrical movement, no accessory muscle use, good tidal volume. ABDOMEN: Soft, no distention, marked left lower abdominal pain with guarding guarding, no peritoneal signs, no organomegaly, active bowel tones. EXTREMITIES: moves all extremities, strength is 5/5 and symmetrical, no deformities or joint effusions. NEUROLOGIC: AAO x4, no focal neurologic deficits, cranial nerves II-XII grossly intact, sensation intact to light touch in all extremities. PSYCH: Anxious, cooperative Objective Labs Result Diagrams: 02/15/19 13:20 02/15/19 13:20 Labs: Laboratory Results - last 24 hr 02/15/19 02/15/19 02/15/19 13:20 13:20 13:20 WBC 7.6 RBC 3.72 L Hgb 12.7 Hct 35.6 L MCV 95.5 MCH 34.1 H MCHC 35.7 RDW 19.6 H Plt Count 152 Neut % (Auto) 73.5 Lymph % (Auto) 13.1 L [place] % (Auto) 12.0 Eos % (Auto) 0.9 L Baso % (Auto) 0.5 Neut # (Auto) 5600 Lymph # (Auto) 1000 L [place] # (Auto) 900 Eos # (Auto) 100 Baso # (Auto) 0 Sodium 135 L Potassium 3.5 Chloride 99 Carbon Dioxide 27 BUN 6 L Creatinine 0.40 L Estimated GFR > 60.0 BUN/Creatinine Ratio 15.0 Glucose 104 H Lactate Calcium 9.0 Magnesium Total Bilirubin 0.7 AST 23 ALT 13 Alkaline Phosphatase 60 Total Protein 6.9 Albumin 4.0 Globulin 2.9 Albumin/Globulin Ratio 1.4 Procalcitonin < 0.05 Urine RBC Urine WBC Ur Squamous Epith Cells Urine Bacteria Ur Culture Indicated? 12/15/19 12/15/19 12/15/19 13:20 13:20 14:45 WBC RBC Hgb Hct MCV MCH MCHC RDW Plt Count Neut % (Auto) Lymph % (Auto) [place] % (Auto) Eos % (Auto) Baso % (Auto) Neut # (Auto) Lymph # (Auto) [place] # (Auto) Eos # (Auto) Baso # (Auto) Sodium Potassium Chloride Carbon Dioxide BUN Creatinine Estimated GFR BUN/Creatinine Ratio Glucose Lactate 0.8 Calcium Magnesium 1.5 L Total Bilirubin AST ALT Alkaline Phosphatase Total Protein Albumin Globulin Albumin/Globulin Ratio Procalcitonin Urine RBC 1-5/hpf Urine WBC 1-5/hpf Ur Squamous Epith Cells 1-5 /hpf Urine Bacteria Occasional (0-1) Ur Culture Indicated? Cult not indicated Assessment & Plan Assessment & Plan narrative: This is a 58-year-old female patient with acute onset of abdominal pain yesterday that has been progressive and now severe. She presented to the ER when she developed fevers today has associated nausea. Patient has metastatic clear cell ovarian cancer and has been undergoing chemotherapy and has completed 4 rounds. 1. Acute left lower abdominal pain, possible seroma post pelvic surgery, present on admission, active. -1 day of abdominal pain that has been progressive now presenting is severe, uncontrolled on home medication regimen. -diagnosed with clear cell ovarian cancer July 2018, status post LUPILLO BSO. Pathology shows right ovarian clear cell carcinoma, 2 cm nodule fallopian to positive for clear cell carcinoma. -staging surgery 10/07/2018 omentum-extensive metastatic adenocarcinoma, diaphragmatic peritoneum with metastatic adenocarcinoma, small-bowel serosal biopsy metastatic carcinoma, omentum small is a focus metastatic adenocarcinoma periaortic lymph nodes were were negative for malignancy right pelvic lymph node biopsies were positive for metastatic adenocarcinoma left pelvic lymph nodes were negative. -CT scan abdomen pelvis finds no liver lesions, large bilateral fluid collection in the pelvic sidewalls with inflammation with fat stranding, left collection possible infection. -patient is immunocompromised on chemotherapy, white blood cell count is 7.6, lactic acid 0.8, procalcitonin less than 0.05. -ER provider discussed aspiration of the fluid collection with interventional radiologist who agreed the collection was amenable to aspiration. Formal consult entered for interventional radiology for aspiration on left pelvic fluid, decompression, sample for cytology, Gram stain and culture. -the patient may require surgical consult. -patient is NPO as of midnight except for ice chips. IV normal saline 100 cc an hour per infusion port right chest. -complex pain, patient has received hydromorphone and Toradol without significant benefit, patient received fentanyl with good pain relief. Patient received fentanyl 50 mcg IV every hour as needed for pain. -ordered cefepime 2 g IV every 12 hours. -ordered Zofran 4 mg every 6 hours as needed for nausea -ordered scheduled docusate 100 mg twice daily with as needed MiraLax and Dulcolax. 2. Clear cell ovarian cancer, metastatic, chronic, present on admission, active. -status post total abdominal hysterectomy with bilateral salpingo-oophorectomy. Staging and biopsies as noted above. -patient follows with Dr. Pascual with [facility]. -she has undergone 4 rounds of chemotherapy with next course due in 5 days. 3. Essential hypertension, chronic, present on admission, active. Patient hypertensive on admission with a pressure 180/77 taken while patient had pain 8 to 10/10. -blood pressure on the floors 150/76 with improved pain control. -will continue patient's home regimen of amlodipine 10 mg daily, doxazosin 2 mg daily and lisinopril 40 mg daily. 4. Hyperlipidemia, chronic, stable -will continue patient's home medication rosuvastatin 10 mg daily. 5. Sleep disorder, insomnia, chronic, present on admission, active. -Patient has been taking trazodone 75 mg at bedtime for sleep. -patient will be transition to amitriptyline 50 mg daily to augment pain control. Phone call to [facility], spoke with Dr. Cardoso on-call provider. Reviewed the patient's history is noted above with current presentation and related family concerned that any abdominal procedure worsens the patient's cancer. Dr. Cardoso agrees with IR aspiration for both fluid evaluation as well as decompression. She agrees with the plan of care is outlined above and provides no further recommendations. VTE prophylaxis: SCDs and heparin 5000 units twice daily. Diet: Clear liquid diet this evening, NPO at midnight pending procedure. The patient is admitted to the hospital due to the severity of her symptoms, intractable pain and risk for complications and adverse events with plan for interventional procedure. The patient will be admitted as an inpatient with expected length of stay to be greater than 2 midnights. Scores GCS Breanne coma scale eye opening: Spontaneous Breanne coma scale verbal response: Orientated Breanne coma scale motor response: Obey commands Breanne coma scale total score: 15
[2019-02-15] MEDS: PANTOPRAZOLE 40 MG VIAL IV (22:06)
[2019-02-15] MEDS: HEPARIN 5,000 UNIT/ML VIAL 5000 UNIT SUBCUT (22:09)
[2019-02-15] MEDS: SODIUM CHLORIDE 0.9% 1,000 ML 100 ML IV (22:09)
[2019-02-15] MEDS: KETOROLAC 30 MG/ML VIAL IV (22:15)
[2019-02-15] MEDS: MAGNESIUM SULFATE 2 GM/50 ML PIGGYBACK IV (22:34)
[2019-02-15] MEDS: AMITRIPTYLINE 25 MG TABLET 50 MG PO (22:42)
[2019-02-16] VITALS (11 sets, daily range): BP systolic 123–153; BP diastolic 62–84; PULSE 90–122; RESP 14–20; TEMP 36.1–37.3; O2SAT 90–95
--- NOTE | 2019-02-16 | DI.CT.S_ITS ---
PROCEDURE: CT drain soft tissue fluid collection within the extraperitoneal space of the low left hemipelvis. INDICATIONS: DIAGNOST/THERAPUTIC DRAIN OF L PERITONEAL FLUID COLLECTION TECHNIQUE: The indications, alternatives, benefits, risks, and possible complications of the procedure were communicated to the patient. Informed written consent from the patient was obtained and placed in the chart. Continuous EKG and hemodynamic monitoring was started by trained personnel. The patient was brought to the CT suite and lock assembler spiral CT imaging was performed with localization grid. The appropriate site for percutaneous access to the biopsy target, rounded water density fluid collection left lower quadrant, was marked, was prepped and draped sterilely, and was infused with local anaesthesia. Under CT guidance, a catheter covered needle set was advanced to the drainage target. Needle tip positioning was confirmed, the needle was withdrawn as the catheter was advanced into the central portion of the fluid collection, and 5 separate 60 cc syringes were drained yielding thin clear serous appearing fluid. The catheter was then removed, and the patient was sent for post-procedure monitoring. At each of the stents positioning was confirmed with CT imaging. COMPARISON: [facility], CT, CT ABDOMEN PELVIS W CON, 02/15/2019, 15:40. FINDINGS: Biopsy/drainage site: Left lower quadrant water density fluid collection, measuring up to 9.0 x 9.1 cm in maximal AP and transverse dimension and almost 12 cm craniocaudad. Needle: Catheter covered needle, the needle removed, catheter used for drainage.. Number of passes: 1 Medications: 1% lidocaine for local anaesthesia. IV Fentanyl and Versed for conscious sedation was not utilized. Complications and results: No complication. The post-procedural size of the residual fluid was 4.1 cm AP, 6.2 cm transverse and 6.5 cm craniocaudad, flaccid.. IMPRESSION: Successful CT-guided aspiration/drainage of what appears to be a dominant lymphocele at the left lower quadrant of the pelvis in this patient who has undergone surgical intervention for ovarian carcinoma. Only a small residual amount of fluid remains within this space at termination of the procedure. A significantly smaller right-sided similar-appearing presumed lymphocele also is present along the lower pelvic sidewall appearing, with overlying bowel. The patient reported significant relief of left-sided pelvic symptoms after the drainage procedure was performed. The right-sided small lymphocele does not appear symptomatic. Fluid was sent for laboratory analysis at the specific requestS of the ordering health care provider. Lymphocele recurrence is a frequent finding after drainage and advanced ablation procedures at a dedicated interventional radiology lab may subsequently become necessary. Dictated by: Shaw Stacy M.D. on 02/16/2019 at 12:46 Approved by: Shaw Stacy M.D. on 02/16/2019 at 13:09
--- NOTE | 2019-02-16 | PC.NURSE ---
ACCOUNTANT TAX note: patient's bed alarm because family is in room at bed side.
[2019-02-16] MEDS: LISINOPRIL 20 MG TABLET 40 MG PO (00:27)
[2019-02-16] MEDS: AMLODIPINE 5 MG TABLET 10 MG PO (00:28)
[2019-02-16] MEDS: CEFEPIME 2 GM in SODIUM CHLORIDE 0.9% 100 ML 200 ML IV ×2 (01:02→14:22)
[2019-02-16] MEDS: fentaNYL 100 MCG/2 ML INJ 50 MCG IV ×6 (01:59→20:32)
[2019-02-16] MEDS: SODIUM CHLORIDE 0.9% 1,000 ML 100 ML IV (03:35)
[2019-02-16] MEDS: KETOROLAC 30 MG/ML VIAL IV ×3 (04:50→17:15)
[2019-02-16 06:30] LABS: Add Manual Diff / Slide Review NO; Basophils Absolute Auto 0 /uL (0-100); Basophils Percent Auto 0.2 % (0-2); Eosinophils Absolute Auto 0 /uL (0-450); Hematocrit 36.3 % (36-46); Hemoglobin 12.4 g/dL (12.0-16.0); Lymphocytes Absolute Auto 800 /uL (1100-4500); Mean Corpuscular HGB Conc 34.1 % (30-36); Mean Corpuscular Hemoglobin 32.8 PG (26-34); Mean Corpuscular Volume 96.1 fL (80-100); Monocytes Absolute Auto 1100 /uL (0-900); Monocytes Percent Auto 8.2 % (3-14); Neutrophils Absolute Auto 11200 /uL (1500-7000); Neutrophils Percent Auto 85.6 % (50-75); Platelet Count 144 X10^3/uL (150-400); Red Blood Cell Count 3.77 X10^6/uL (4.0-5.2); Red Cell Distribution Width 19.5 % (11.6-14.8); White Blood Cell Count 13.1 X10^3/uL (4.5-11.0)
[2019-02-16 06:34] LABS: BUN Creatinine Ratio 17.5 (6-22); Blood Urea Nitrogen 7 mg/dL (7-17); Calcium 8.7 mg/dL (8.4-10.2); Carbon Dioxide 25 mmol/L (22-32); Chloride 103 mmol/L (98-107); Estimated Glomerular Filt Rate > 60.0 mL/min (>60); Glucose 112 mg/dL (70-100); HEMOLYSIS < 15 (0-50); Sodium 138 mmol/L (137-145)
[2019-02-16 07:01] LABS: Procalcitonin 1.77 ng/mL (<0.5)
--- NOTE | 2019-02-16 07:02 | PC.NURSE ---
Potassium level 3.0, ÓSCAR Squires aware, [facility] ordered called day pharmacy to verify order no one answer the phone. Faxed order to day pharmacy, will report to day RN.
[2019-02-16] MEDS: POTASSIUM CHLORIDE 60 MEQ in SODIUM CHLORIDE 0.9% 500 ML 88.333 ML IV (07:56)
[2019-02-16] MEDS: DOCUSATE 100 MG CAPSULE PO ×2 (09:05→20:26)
[2019-02-16] MEDS: PANTOPRAZOLE 40 MG VIAL IV (09:05)
[2019-02-16] MEDS: ROSUVASTATIN 10 MG TABLET PO (09:05)
[2019-02-16] MEDS: CITALOPRAM 10 MG TABLET PO (09:11)
[2019-02-16] MEDS: DOXAZOSIN 2 MG TABLET PO (09:12)
--- NOTE | 2019-02-16 10:41 | P.PN_ITS ---
Subjective Subjective Date Patient Seen: 02/16/19 Interval history: Bernie Chatman is a 58-year-old female with a past medical history significant for clear cell ovarian cancer, hypertension, hyperlipidemia, osteoarthritis and insomnia who presented to the ED for severe left lower quadrant abdominal pain. The patient is in moderate distress with severe left lower quadrant abdominal p ain. The patient is receiving several doses of fentanyl 50 mcg IV boluses that was previously providing her with some relief and now is not changing her pain. She has bilateral fluid collections in her abdomen which until drained will likely continue causing severe pain. She has no other complaints and denies headache, shortness of breath, chest pain, abdominal pain, nausea, vomiting, fever, chills, dysuria, diarrhea or constipation. She is voiding and eliminating without difficulty. Exam Vital Signs (past 8 hours): - 02/16/19 11:30 02/16/19 12:25 02/16/19 12:30 Temperature 97 F L 98.5 F Pulse Rate 114 H 106 H 110 H Respiratory Rate 18 15 14 Blood Pressure 136/72 128/80 140/77 Pulse Oximetry 94 95 92 02/16/19 16:29 Temperature 98.9 F Pulse Rate 98 H Respiratory Rate 17 Blood Pressure 131/72 Pulse Oximetry 94 Oxygen Delivery Method Room Air Oxygen Flow Rate 0 Narrative Exam Narrative: General: Middle-aged female, appears older than stated age, in moderate distress secondary to significant abdominal pain. HEENT: Normocephalic, atraumatic. External ears without defect. Pupils equal, round, and reactive to light. Anicteric sclerae, moist conjunctivae, and no lid lag. Oropharynx free of erythema and cobble stoning with moist mucosa. Neck: Supple with full range of motion. No jugular venous distension. No lymphadenopathy or thyromegaly. Cardiovascular: Regular rhythm, tachycardic without murmurs, rubs, or gallops appreciated Pulmonary: Clear to auscultation bilaterally without crackles, wheezes, or rhonchi. Normal respiratory effort with no use of accessory muscles. Abdomen: Soft, significant tenderness to palpation in mid abdomen and left l ower quadrant nontender, nondistended. Extremities: No clubbing, cyanosis, or edema. Skin: Normal temperature, turgor, and texture; no rash, ulcers, or subcutaneous nodules appreciated. Neurological: Cranial nerves grossly intact. Psychiatric: Irritable and in significant distress due to pain. Alert and oriented to person, place, and time. Objective Labs Result Diagrams: 02/17/19 04:53 02/17/19 04:53 Labs: Laboratory Results - last 24 hr 02/15/19 02/16/19 02/16/19 13:20 05:45 05:45 WBC 13.1 H D RBC 3.77 L Hgb 12.4 Hct 36.3 MCV 96.1 MCH 32.8 MCHC 34.1 RDW 19.5 H Plt Count 144 L Neut % (Auto) 85.6 H Lymph % (Auto) 6.0 L [place] % (Auto) 8.2 Eos % (Auto) 0.0 L Baso % (Auto) 0.2 Neut # (Auto) 09920 H Lymph # (Auto) 800 L [place] # (Auto) 1100 H Eos # (Auto) 0 Baso # (Auto) 0 PT INR Sodium 138 Potassium 3.0 L Chloride 103 Carbon Dioxide 25 BUN 7 Creatinine 0.40 L Estimated GFR > 60.0 BUN/Creatinine Ratio 17.5 Glucose 112 H Calcium 8.7 Magnesium 1.5 L Procalcitonin Fluid Color Fluid Appearance Fluid RBC Fld Tot Nucleated Cell Fluid Polynuclear WBCs Fluid Mononuclear WBCs Fluid Eosinophils Fluid Other Cells Body Fluid Clot Nasal Screen MRSA (PCR) 02/16/19 02/16/19 02/16/19 05:45 10:55 10:55 WBC RBC Hgb Hct MCV MCH MCHC RDW Plt Count Neut % (Auto) Lymph % (Auto) [place] % (Auto) Eos % (Auto) Baso % (Auto) Neut # (Auto) Lymph # (Auto) [place] # (Auto) Eos # (Auto) Baso # (Auto) PT 17.6 H INR 1.5 H Sodium Potassium Chloride Carbon Dioxide BUN Creatinine Estimated GFR BUN/Creatinine Ratio Glucose Calcium Magnesium 1.9 Procalcitonin 1.77 H Fluid Color Fluid Appearance Fluid RBC Fld Tot Nucleated Cell Fluid Polynuclear WBCs Fluid Mononuclear WBCs Fluid Eosinophils Fluid Other Cells Body Fluid Clot Nasal Screen MRSA (PCR) 02/16/19 02/16/19 12:24 12:35 WBC RBC Hgb Hct MCV MCH MCHC RDW Plt Count Neut % (Auto) Lymph % (Auto) [place] % (Auto) Eos % (Auto) Baso % (Auto) Neut # (Auto) Lymph # (Auto) [place] # (Auto) Eos # (Auto) Baso # (Auto) PT INR Sodium Potassium Chloride Carbon Dioxide BUN Creatinine Estimated GFR BUN/Creatinine Ratio Glucose Calcium Magnesium Procalcitonin Fluid Color Yellow Fluid Appearance Slightly cloudy Fluid RBC 366 Fld Tot Nucleated Cell 844 Fluid Polynuclear WBCs 84 Fluid Mononuclear WBCs 16 Fluid Eosinophils Not Reportable Fluid Other Cells Not Reportable Body Fluid Clot No clots present Nasal Screen MRSA (PCR) Negative for mrsa Assessment & Plan Assessment & Plan narrative: Bernie Chatman is a 58-year-old female with a past medical history significant for clear cell ovarian cancer, hypertension, hyperlipidemia, osteoarthritis and insomnia who presented to the ED for severe left lower quadrant abdominal pain. 1. Acute left lower abdominal pain, probable infected seroma status post pelvic surgery, present on admission. Active. -Patient presented with severe, progressive, and intractable abdominal pain that has been uncontrolled on home morphine IR 15 mg every 4 hours. -Patient has clear cell ovarian cancer that was diagnosed July 2018, status post LUPILLO and BSO. Pathology shows right ovarian clear cell carcinoma, 2 cm nodule fallopian to positive for clear cell carcinoma. Staging surgery on 10/07/2018 demonstrated extensive metastatic adenocarcinoma of omentum, diaphragmatic peritoneum with metastatic adenocarcinoma, small-bowel serosal biopsy demonstrated metastatic adenocarcinoma with periaortic and left pelvic lymph nod es negative for malignancy and right pelvic lymph node biopsies positive for metastatic adenocarcinoma. -CT scan abdomen pelvis demonstrated no liver lesions, large bilateral fluid collection in the pelvic sidewalls with inflammation and fat stranding, left collection possible infection. -Patient is immunocompromised on chemotherapy, white blood cell count is 7.6, lactic acid 0.8, procalcitonin less than 0.05. -ED provider discussed aspiration of the fluid collection with interventional radiologist who agreed the collection was amenable to aspiration. Ordered diagnostic and therapeutic CT-guided peritoneal drainage of left pelvic fluid with cytology, Gram stain and culture, pending. Patient is NPO. -admitting provider spoke with Dr. Cardoso on-call provider. Reviewed the patient's history is noted above with current presentation and related family concerned that any abdominal procedure worsens the patient's cancer. Dr. Cardoso agrees with IR aspiration for both fluid evaluation as well as decompression. She agrees with the plan of care as outlined above and provides no further recommendations. -Continued IV fluids until adequately hydrated then discontinued. -Patient has received hydromorphone and Toradol without significant relief. The patient then received fentanyl with good pain relief which has now become it severe and unamenable to fentanyl 50 mcg every hour. Increased fentanyl to 100 mcg every hour. May need to consider fentanyl gtt. metal burrer unavailable. -Continue cefepime 2 g IV every 12 hours and added Flagyl 500 mg IV every 8 hours. -Ordered Zofran 4 mg every 6 hours as needed for nausea -Ordered scheduled docusate 100 mg twice daily with as needed MiraLax and Du lcolax. 2. Advanced metastatic clear cell ovarian cancer, chronic, present on admission. Active. -Status post total abdominal hysterectomy with bilateral salpingo-oophorectomy. Staging and biopsies as noted above. -Patient follows with oncology at [facility] with Dr. Dr. Holden. -She has undergone 4 rounds of chemotherapy with next course due in 5 days. 3. Essential hypertension, chronic, present on admission. Active. -Patient was significantly hypertensive on admission with a pressure 180/77 secondary to severe intractable abdominal pain as above. -Blood pressure improved pain control 150/76. -Continue amlodipine 10 mg daily, doxazosin 2 mg daily and lisinopril 40 mg daily. 4. Hyperlipidemia, chronic, present on admission. Stable. -Continue home rosuvastatin 10 mg daily. 5. Insomnia, chronic, present on admission. Stable. -Continue trazodone 75 mg at bedtime for sleep. Code Status: Full code VTE prophylaxis: SCDs and heparin 5000 units twice daily. Disposition: Patient likely discharge in 1-2 days once fluid has been drained and possible superimposed infection has been treated.
[2019-02-16] MEDS: ONDANSETRON 4 MG/2 ML INJ IV (10:44)
[2019-02-16 11:10] LABS: INR 1.5 (0.9-1.3); Prothrombin Time 17.6 SECONDS (10.1-12.7)
[2019-02-16] MEDS: LORazepam 2 MG/ML INJ 0.5 MG IV (11:33)
--- NOTE | 2019-02-16 11:53 | PC.NURSE ---
AM NOTE - pt resting quietly, awakens to voice, llq discomfort remains 7 on scale 0/10, spouse at bedside overnight, bt are present, denies nausea this am, new order rec'd and K rider started, pt has port cath r chest, states fentanyl and toradol have helped some, toradol now scheduled and rec'd earlier am on assistant casino shift manager with the fentanyl, again admin 50mcg fentanyl during assessment, given po med with a sip water and pt is npo for planned procedure, later am, pt abd discomfort increased and repeated the 50mcg fentanyl at hourly invervals, spouse is very anxious re pt discomfort she is going to need that every 40 minutes, when pt started to moan and cry with discomfort, spoke to and she came in to bedside and discussed plan for pt, did give pt a x1 dose 0.5mg iv ativan prior to tsf down to CT for procedure, prior to tsf, pt is awake and rr rate 18, hr tachy 106, spouse is aware that pt will be tsf to ICU for a fentanyl gtt afterwards and the personal belongings have been gathered, including cell phone, clothing, as pt K rider still infusing, sent pt with ivf on pump.
[2019-02-16 12:26] LABS: Body Fluid Appearance SLIGHTLY CLOUDY; Body Fluid Color YELLOW
[2019-02-16] MEDS: fentaNYL 100 MCG/2 ML INJ IV (12:32)
[2019-02-16 12:48] LABS: Body Fluid Tot Nucleated Cells 844 /uL
[2019-02-16 13:00] LABS: Body Fluid Clotted? NO CLOTS PRESENT; Body Fluid Red Blood Cells 366 /uL
[2019-02-16 13:42] LABS: Mononuclear WBC Body Fluid 16 %; Polynuclear WBC Body Fluid 84 %
--- NOTE | 2019-02-16 14:13 | PC.NURSE ---
Addendum entered by Ganesh Edgar R.N. 02/16/19 15:28: Please disregard 1503 entry. Incorrect pt. Addendum entered by Ganesh Edgar R.N. 02/16/19 15:03: Provided d/c education to pt and regarding CHF and medications. They verbalize understanding. Original Note: Rec'd pt from Radiology 1222 in no acute distress. Pt is AO x3 and making needs known with clear, logical speech. Pt is mildly drowsy but sustaining eye opening with stimulation. Pt looks comfortable laying in bed with even/unlabored respirations. Pt reports pain to LLQ 6/10 and describes it as mostly constant but exacerbated by exertion. She states a tolerable pain level is 5 for her. She also takes Morphine 15 mg IR PO Q6h PRN prescribed by her oncologist. Updated home med rec to reflect this. Called to Dr. Grover and reported assessment. Orders received to d/c fentanyl gtt and start diet and home pain med regimen with 50 mcg IVP fentanyl for breakthrough. Pt is resting in bed with her eyes closed. Will reassess pain when she wakes up.
[2019-02-16 15:26] LABS: Magnesium 1.9 mg/dL (1.6-2.3)
[2019-02-16] MEDS: MORPHINE IR 15 MG TABLET PO (17:15)
[2019-02-16] MEDS: metroNIDAZOLE 500 MG/100 ML PIGGYBACK 100 MG IV (18:37)
[2019-02-16] MEDS: TRAZODONE 50 MG TABLET 75 MG PO (20:26)
[2019-02-16] MEDS: HEPARIN 5,000 UNIT/ML VIAL 5000 UNIT SUBCUT (20:27)
[2019-02-17] VITALS: BP 131/62; PULSE 89; RESP 18; TEMP 37.7; O2SAT 95
[2019-02-17] MEDS: KETOROLAC 30 MG/ML VIAL IV ×3 (00:37→12:56)
[2019-02-17] MEDS: CEFEPIME 2 GM in SODIUM CHLORIDE 0.9% 100 ML 200 ML IV ×2 (01:03→12:55)
[2019-02-17] MEDS: metroNIDAZOLE 500 MG/100 ML PIGGYBACK 100 MG IV ×2 (02:33→09:54)
[2019-02-17 04:45] VITALS: BP 147/71; PULSE 92; RESP 16; TEMP 36.8; O2SAT 96
[2019-02-17] MEDS: MORPHINE IR 15 MG TABLET PO ×3 (05:02→13:49)
[2019-02-17 05:12] LABS: INR 1.2 (0.9-1.3); Prothrombin Time 14.4 SECONDS (10.1-12.7)
[2019-02-17 05:13] LABS: Add Manual Diff / Slide Review NO; Basophils Absolute Auto 0 /uL (0-100); Basophils Percent Auto 0.2 % (0-2); Eosinophils Absolute Auto 100 /uL (0-450); Eosinophils Percent Auto 0.6 % (2-4); Hematocrit 32.3 % (36-46); Hemoglobin 11.1 g/dL (12.0-16.0); Lymphocytes Absolute Auto 700 /uL (1100-4500); Lymphocytes Percent Auto 7.2 % (25-40); Mean Corpuscular HGB Conc 34.4 % (30-36); Mean Corpuscular Hemoglobin 33.4 PG (26-34); Monocytes Absolute Auto 600 /uL (0-900); Monocytes Percent Auto 5.6 % (3-14); Neutrophils Absolute Auto 8900 /uL (1500-7000); Neutrophils Percent Auto 86.4 % (50-75); Platelet Count 146 X10^3/uL (150-400); Red Blood Cell Count 3.33 X10^6/uL (4.0-5.2); Red Cell Distribution Width 19.6 % (11.6-14.8); White Blood Cell Count 10.3 X10^3/uL (4.5-11.0)
--- NOTE | 2019-02-17 05:14 | PC.NURSE ---
NOC NOTE: Pt up to the BR with SBA x2 this shift. Pt reported pain of 7/10 at 0500 and was given [place] PRN as ordered. Pt reperts feeling like there is more fluid, more pressure in the LLQ at this time then at the start of the shift. Pt has been afebrile. Tele has been SR.
[2019-02-17 05:18] LABS: Blood Urea Nitrogen 12 mg/dL (7-17); Calcium 8.8 mg/dL (8.4-10.2); Carbon Dioxide 26 mmol/L (22-32); Chloride 108 mmol/L (98-107); Estimated Glomerular Filt Rate > 60.0 mL/min (>60); Glucose 97 mg/dL (70-100); HEMOLYSIS < 15 (0-50); Potassium 3.8 mmol/L (3.4-5.1); Sodium 138 mmol/L (137-145)
[2019-02-17 08:00] VITALS: BP 141/72; PULSE 88; RESP 18; TEMP 37.1; O2SAT 96
[2019-02-17] MEDS: CITALOPRAM 10 MG TABLET PO (09:23)
[2019-02-17] MEDS: LISINOPRIL 20 MG TABLET 40 MG PO (09:24)
[2019-02-17] MEDS: ROSUVASTATIN 10 MG TABLET PO (09:24)
[2019-02-17] MEDS: DOCUSATE 100 MG CAPSULE PO (09:24)
[2019-02-17] MEDS: AMLODIPINE 5 MG TABLET 10 MG PO (09:24)
[2019-02-17] MEDS: DOXAZOSIN 2 MG TABLET PO (09:24)
[2019-02-17] MEDS: HEPARIN 5,000 UNIT/ML VIAL 5000 UNIT SUBCUT (09:48)
[2019-02-17] MEDS: PANTOPRAZOLE 40 MG VIAL IV (09:48)
[2019-02-17] MEDS: POLYETHYLENE GLYCOL 3350 17 GM POWD.PACK PO (10:10)
[2019-02-17 12:36] VITALS: BMI 24.8
--- NOTE | 2019-02-17 12:55 | DIET.PN ---
Dietary Progress Note Assessment: 58y F admitted for severe lower left abd px and fever referred to nutrition as pt on chemo for met ovarian ca. Pt has 9% unintentional wt loss in 3 mo (Severe PCM) according to [facility] records from 11/26/18. Pt was sleeping when this RD visited, gave Nutrition handout for managing chemo side effects/food safety. Pt POs were 50% at breakfast and 100% at lunch now that px is managed. HT: 162.5cm WT: 65.7kg UBW: 72.1kg on 11/26/18 per [facility] records BMI: 24.9 MNA: low, not calculated Hamzah: 20 Nutrition Diagnosis: Acute Severe PCM r/t hypermetabolism from met ovarian ca aeb 9% unintentional wt loss in 3mo (severe), currently undergoing chemotherapy. Interventions: gave handout on Nutrition during chemotherapy for food safety, managing chemo side effects, easy palatable meal/snack ideas. Diet Order: Cardiac EER: 1700kcal, 85g PRO (1.3g/kg oncology/PCM), 2 L fluids Monitoring/Evaluations: POs
--- NOTE | 2019-02-17 13:33 | CM.DANOTE ---
DCP/Assessment: Reviewed chart. Patient is a 58yr old female admitted to [facility] with abdominal pain. Patient with h/o CA undergoing outpatient treatment. PCP is Dr. Kathleen Dumont. Primary payor is 1)[facility]. Met briefly with patient and spouse on 02-16-19. At that time patient was in room# 216. Patient crying because of pain. Dr. Grover entered room and requested that patient be transferred to room #106 for better pain control and scheduled procedure to have fluid removed from abdomen. Met again with patient and spouse today. Patient feeling much better today. Procedure went well and pain managed. Patient hopes to discharge home today with outpatient f/u for continued outpatient CA treatments. P: Home when medically stable. CM team to follow closely. MICHELLE Almonte
--- NOTE | 2019-02-17 14:03 | P.DS_ITS ---
History of Present Illness History of Present Illness Date Patient Seen: 02/15/19 Chief complaint: Severe Lower Left Abd Pain and Fever Narrative: Written by Quincy CANTRELL: Ms Bernie Chatman is a 58-year-old female with history significant for clear cell ovarian cancer, hypertension, hyperlipidemia, osteoarthritis and insomnia who presents to the ER today for severe left lower quadrant abdominal pain. Patient states the pain started yesterday afternoon and has been progressive in intensity. Arrival to the ER she describes her pain as a 9 to 10/10. She has associated symptoms of nausea related to the pain and fevers. Patient is currently undergoing chemotherapy and has completed 4 rounds with the next chemo schedule friend in 5 days. She receives her care at the [facility] under the care of Dr. Holden. Her cancer was identified in July with complaints of back pain and postmenopausal bleeding and identification of endometrial mass identified on ultrasound. The patient was taken for hysterectomy on 07/25/2018 with identification of ovarian nature for mass. She underwent a TERI/BSO. On 10/07/2018 the patient underwent staging surgery. On pathology from the procedure patient was found to have extensive metastatic clear cell carcinoma involving the diaphragms small-bowel and right pelvic lymph nodes. She subsequently had port placement on 11/07/2018. At this time the patient has severe uncontrolled intractable pain in the left lower abdomen. Patient denies headache or dizziness and has no nasal congestion or sore throat. She denies chest pain or palpitations. She reports no shortness of breath, is a current smoker and has a cough. She has abdominal pain as described above. She denies constipation or urinary symptoms. She is ambulatory at home without the use of assistive devices. Upon arrival to the ER patient is febrile with temperature of 101.2?, heart rate is 101, blood pressure 180/77, respirations 15 saturating 100% on room air. A CT of the abdomen pelvis finds no liver lesions, numerous nodules wound bases his with calcified granuloma, large bilateral pelvic fluid the sidewalls with inflammation and fat stranding and left fluid collection, mid gastric wall thickening in the antrum. Chest x-ray shows no acute cardiopulmonary processes. On laboratory analysis the patient has white count of 7.6, hemoglobin of 12.7, hematocrit 35.6, platelets 152. Her electrolytes are within normal limits she has a BUN of 6 and creatinine of 0.4 with a nonfasting glucose 104. Liver function tests are within normal limits, her lactic acid is 0.8 and procalcitonin is less than 0.05. Screening urinalysis completed in the ER is negative for infection. In the ER the patient has received Tylenol for fever, Toradol, fentanyl and Dilaudid for pain, Zofran for nausea. Blood cultures x2 were drawn the patient started on Maxipime 2 g IV. The patient is admitted to the hospital for left lower abdominal pain, intractable pain related to clear cell ovarian cancer with plan for IR guided aspiration. Discharge Providers Provider Date of admission: 02/15/19 18:07 Discharge Date: 02/17/19 Primary care physician: Kathleen Dumont MD Consults: 02/15/19 20:01 Consult to Dietitian, Adult Routine Comment: Reason For Exam: on chemotherapy Consult to Discharge Planning Routine Comment: 02/16/19 01:56 Consult to Interventional Radiology Routine Comment: Sample for cytology, Gram stain and culture. Consulting Provider: Simon Mitchell Reason For Exam: Aspiration Lt pelvic fluid collection. Discharge provider: Deborah Grover DO Summary Hospital Course Discharge Diagnosis: 1. Acute left lower abdominal pain, probable infected seroma status post pelvic surgery, present on admission. Resolving. 2. Advanced metastatic clear cell ovarian cancer, chronic, present on admission. Active. 3. Hypertension, chronic, present on admission. Stable. 4. Hyperlipidemia, chronic, present on admission. Stable. 5. Insomnia, chronic, present on admission. Stable. Hospital Course: Bernie Chatman is a 58-year-old female with a past medical history significant for clear cell ovarian cancer, hypertension, hyperlipidemia, osteoarthritis and insomnia who presented to the ED for severe left lower quadrant abdominal pain. 1. Acute left lower abdominal pain, probable infected seroma status post pelvic surgery, present on admission. Resolving. -Patient presented with severe, progressive, and intractable abdominal pain that has been uncontrolled on home morphine IR 15 mg every 4 hours. -Patient has clear cell ovarian cancer that was diagnosed July 2018, status post LUPILLO and BSO. Pathology shows right ovarian clear cell carcinoma, 2 cm nodule fallopian to positive for clear cell carcinoma. Staging surgery on 10/07/2018 demonstrated extensive metastatic adenocarcinoma of omentum, diaphragmatic peritoneum with metastatic adenocarcinoma, small-bowel serosal biopsy demonstrated metastatic adenocarcinoma with periaortic and left pelvic lymph nodes negative for malignancy and right pelvic lymph node biopsies positive for metastatic adenocarcinoma. -CT scan abdomen pelvis demonstrated no liver lesions, large bilateral fluid collection in the pelvic sidewalls with inflammation and fat stranding, left collection possible infection. -Patient is immunocompromised on chemotherapy. Initial WBC 7.6, trended up to 13.1 and normalized back to 10.3. Continue to trend WBC daily. Lactic acid negative 0.8. Initial procalcitonin less than 0.05 and trended up to 2.0 which is likely peaking. -ED provider discussed aspiration of the fluid collection with interventional radiologist who agreed the collection was amenable to aspiration. Interventional radiology performed diagnostic and therapeutic CT-guided peritoneal drainage of left pelvic fluid with significant relief and patient's presentation in overall abdominal pain. Gram stain with many PMNs and no organisms seen. Cytology and culture pending and instructed patient to have oncologist Dr. Holden follow up on these. -Admitting provider spoke with Dr. Cardoso on-call provider. Reviewed the patient's history is noted above with current presentation and related family concerned that any abdominal procedure worsens the patient's cancer. Dr. Cardoso agrees with IR aspiration for both fluid evaluation as well as decompression. She agrees with the plan of care as outlined above and provides no further recommendations. -Continued IV fluids until adequately hydrated then discontinued. -Patient has received hydromorphone and Toradol without significant relief. The patient then received fentanyl with good pain relief which has now become it severe and unamenable to fentanyl 50 mcg every hour. Increased fentanyl to 100 mcg every hour. sales counselor unavailable. Patient's abdominal pain improved significantly with therapeutic drainage of left lower quadrant seroma. Restarted home morphine IR 15 mg every 4 hours and ketorolac 15 mg every 6 hours with good pain control. -Continued cefepime 2 g IV every 12 hours and added Flagyl 500 mg IV every 8 hours. Discharged on ciprofloxacin 500 mg twice daily and Flagyl 500 mg 3 times daily for 13 additional days to complete a total of 14 day antibiotic course. -Ordered Zofran 4 mg every 6 hours as needed for nausea -Continued scheduled docusate 100 mg twice daily with as needed MiraLax and Dulcolax. 2. Advanced metastatic clear cell ovarian cancer, chronic, present on admission. Active. -Status post total abdominal hysterectomy with bilateral salpingo-oophorectomy. Staging and biopsies as noted above. -Patient follows with oncology at [facility] with Dr. Dr. Holden. -She has undergone 4 rounds of chemotherapy with next course due in 5 days. Continue scheduled follow-up 3. Hypertension, chronic, present on admission. Active. -Patient was significantly hypertensive on admission with a pressure 180/77 secondary to severe intractable abdominal pain as above. -Blood pressure improved pain control 150/76. -Continued amlodipine 10 mg daily, doxazosin 2 mg daily and lisinopril 40 mg daily. 4. Hyperlipidemia, chronic, present on admission. Stable. -Continued home rosuvastatin 10 mg daily. 5. Insomnia, chronic, present on admission. Stable. -Continued trazodone 75 mg at bedtime for sleep. Exam Vital Signs (past 8 hours): Oxygen Delivery Method Room Air Oxygen Flow Rate 0 Narrative Exam Narrative: General: Middle-aged female lying in bed and in no, appears older than stated age, significant improvement in overall abdominal pain, appropriately i nteractive. HEENT: Normocephalic, atraumatic. External ears without defect. Pupils equal, round, and reactive to light. Anicteric sclerae, moist conjunctivae, and no lid lag. Oropharynx free of erythema and cobble stoning with moist mucosa. Neck: Supple with full range of motion. No jugular venous distension. No lymphadenopathy or thyromegaly. Cardiovascular: Regular rhythm, tachycardic without murmurs, rubs, or gallops appreciated Pulmonary: Clear to auscultation bilaterally without crackles, wheezes, or rhonchi. Normal respiratory effort with no use of accessory muscles. Abdomen: Soft, bowel sounds present, improved but still with significant tenderness in left lower quadrant, nondistended. No rebound. Extremities: No clubbing, cyanosis, or edema. Skin: Normal temperature, turgor, and texture; no rash, ulcers, or subcutaneous nodules appreciated. Neurological: Cranial nerves grossly intact. Psychiatric: Normal mood and flat affect. Alert and oriented to person, place, and time. Objective Labs Result Diagrams: 02/17/19 04:53 02/17/19 04:53 Labs: Laboratory Results - last 24 hr 02/17/19 02/17/19 02/17/19 04:53 04:53 04:53 WBC 10.3 RBC 3.33 L Hgb 11.1 L Hct 32.3 L MCV 97.0 MCH 33.4 MCHC 34.4 RDW 19.6 H Plt Count 146 L Neut % (Auto) 86.4 H Lymph % (Auto) 7.2 L [place] % (Auto) 5.6 Eos % (Auto) 0.6 L Baso % (Auto) 0.2 Neut # (Auto) 8900 H Lymph # (Auto) 700 L [place] # (Auto) 600 Eos # (Auto) 100 Baso # (Auto) 0 PT 14.4 H INR 1.2 Sodium Potassium Chloride Carbon Dioxide BUN Creatinine Estimated GFR BUN/Creatinine Ratio Glucose Calcium Procalcitonin 2.00 H 02/17/19 04:53 WBC RBC Hgb Hct MCV MCH MCHC RDW Plt Count Neut % (Auto) Lymph % (Auto) [place] % (Auto) Eos % (Auto) Baso % (Auto) Neut # (Auto) Lymph # (Auto) [place] # (Auto) Eos # (Auto) Baso # (Auto) PT INR Sodium 138 Potassium 3.8 Chloride 108 H Carbon Dioxide 26 BUN 12 Creatinine 0.40 L Estimated GFR > 60.0 BUN/Creatinine Ratio 30.0 H Glucose 97 Calcium 8.8 Procalcitonin Discharge Plan Discharge Plan Patient Disposition: Home Discharge comment: You're being discharged home. You have fluid collections on both sides of your abdomen that are likely from your previous surgery and your left side was drained. The fluid appears to have been infected and you have been prescribed Flagyl 500 mg 3 times daily and ciprofloxacin 500 mg twice daily. You may continue taking your pain medication, morphine, as previously prescribed and ibuprofen as directed on the bottle for inflammatory pain. Please take ibuprofen with food and try to stay well hydrated. Please follow-up with Dr. Holden at your scheduled appointment on 02/19/19. Your fluid c ulture results and any further evaluation will need to be followed up by your oncologist Dr. Holden. Please also follow-up with your PCP, Dr. Dumont, at your scheduled appointment on 02/20/2019 regarding your hospitalization. Discharge orders & Medications Prescriptions: New metronidazole [Flagyl] 500 mg tablet 500 mg PO Q8H Qty: 30 RF: 0 ciprofloxacin HCl 500 mg tablet 500 mg PO BID Qty: 20 RF: 0 Continued hydrocodone-acetaminophen 5-325 mg tablet 1 tab PO Q6H PRN (Reason: pain) Qty: 30 RF: 0 trazodone 50 mg tablet 75 mg PO BEDTIME PRN (Reason: insomnia) Qty: 60 RF: 1 doxazosin 2 mg tablet 2 mg PO DAILY Qty: 60 RF: 0 amlodipine 10 mg tablet 10 mg PO Q DAY Qty: 90 RF: 3 lisinopril 40 mg tablet 40 mg PO QDAY Qty: 90 RF: 3 rosuvastatin 10 mg tablet 10 mg PO DAILY Qty: 60 RF: 1 acetaminophen [Tylenol] 325 mg capsule 650 mg PO Q6H PRN (Reason: pain) Qty: 60 RF: 0 morphine 15 mg Tablet 15 mg PO Q6H PRN (Reason: Pain (Scale Score 7-10)) RF: 0 ondansetron HCl 8 mg Tablet 8 mg PO Q8H PRN (Reason: Nausea) RF: 0 citalopram 10 mg Tablet 10 mg DAILY RF: 0 Follow up/Referrals: Kathleen Dumont MD [Primary Care Provider] - 02/20/19 1:30 pm (appt:02/20 @ 1:[address] mae (he is covering for dr santos) please arrive 15 minutes prior to scheduled appointment [phone] ) Diet/Activity/Treatments Diet: Diet as Tolerated, Low-fat, Low-sodium and Low-cholesterol Activity: Activity as tolerated Visit Report/Discharge Packet Instructions: Metronidazole, Ciprofloxacin (By mouth), Metronidazole (By mouth) Discharge Data Primary Care Provider: Kathleen Dumont Discharges patient from system. Discharge Date/Time: 02/17/19 16:25
--- NOTE | 2019-02-17 14:46 | PC.NURSE ---
pt c/o left lower quadrant pain - medicated with po morphine ir as per home routine, voiding well- needs a bm given miralax/colace. showered with assist of spouse and hopeful for discharge later this date
== END 2019-02-17 16:25 | disposition home or self-care (01) | DRG 908 ==
LOC: ED 17:35 → AC 18:08 → ICU 02-16 15:48
PROVIDERS: Internal Medicine; Nurse Practitioner Adult Health; Admitting Provider Internal Medicine; Emergency Provider Emergency Medicine; PCP Hospitalist; Visit Provider Internal Medicine
DX: N99.843 Postprocedural seroma of a genitourinary system organ or structure following other procedure (principal); C56.1 Malignant neoplasm of right ovary; C77.5 Secondary and unspecified malignant neoplasm of intrapelvic lymph nodes; C78.6 Secondary malignant neoplasm of retroperitoneum and peritoneum; R10.32 Left lower quadrant pain; I10 Essential (primary) hypertension; E78.5 Hyperlipidemia, unspecified; G47.00 Insomnia, unspecified; F17.210 Nicotine dependence, cigarettes, uncomplicated
CPT/HCPCS: 10030; 36415; 71045; 74177; 80048; 80053; 81003; 81015; 83605; 83735; 84145; 85025; 85610; 87040; 87070; 87075; 87077; 87147; 87186; 87205; 87797; 89051; 94762; 96365; 96375; 99284; C9113; J0692; J1170; J1642; J1644; J1885; J2060; J2405; J3010; J3480; Q9967

== ENCOUNTER → 2019-03-05 14:12 | Outpatient (CLI) | payer OTHER, SELFPAY ==
[2019-02-15 20:04] VITALS: BMI 24.9
[2019-03-05 14:43] LABS: Hematocrit 32.5 % (36-46); Hemoglobin 11.4 g/dL (12.0-16.0); Mean Corpuscular Hemoglobin 34.1 PG (26-34); Mean Corpuscular Volume 97.5 fL (80-100); Platelet Count 208 X10^3/uL (150-400); Red Blood Cell Count 3.34 X10^6/uL (4.0-5.2); Red Cell Distribution Width 19.4 % (11.6-14.8)
[2019-03-05 15:05] LABS: Add Manual Diff / Slide Review YES
[2019-03-05 15:07] LABS: Neutrophils Absolute Manual 340 /uL (3000-5900); Total Cells Counted 25
[2019-03-05 15:08] LABS: Anisocytosis 2+; Poikilocytosis 1+
[2019-03-05 15:17] LABS: White Blood Cell Count 1.7 X10^3/uL (4.5-11.0)
== END ==
PROVIDERS: Visit Provider Obstetrics & Gynecology
DX: C56.9 Malignant neoplasm of unspecified ovary (principal); Z51.11 Encounter for antineoplastic chemotherapy
CPT/HCPCS: 36415; 85025

== ENCOUNTER → 2019-03-25 11:55 | Outpatient (CLI) | payer OTHER, SELFPAY ==
[2019-02-15 20:04] VITALS: BMI 24.9
[2019-03-25 12:50] LABS: Add Manual Diff / Slide Review NO; Basophils Absolute Auto 0 /uL (0-100); Basophils Percent Auto 0.7 % (0-2); Eosinophils Absolute Auto 100 /uL (0-450); Eosinophils Percent Auto 3.2 % (2-4); Hematocrit 33.2 % (36-46); Lymphocytes Absolute Auto 900 /uL (1100-4500); Lymphocytes Percent Auto 31.6 % (25-40); Mean Corpuscular HGB Conc 36.1 % (30-36); Mean Corpuscular Hemoglobin 35.7 PG (26-34); Mean Corpuscular Volume 98.9 fL (80-100); Monocytes Absolute Auto 400 /uL (0-900); Monocytes Percent Auto 16.2 % (3-14); Neutrophils Absolute Auto 1300 /uL (1500-7000); Neutrophils Percent Auto 48.3 % (50-75); Platelet Count 121 X10^3/uL (150-400); Red Blood Cell Count 3.35 X10^6/uL (4.0-5.2); Red Cell Distribution Width 20.1 % (11.6-14.8); White Blood Cell Count 2.7 X10^3/uL (4.5-11.0)
[2019-03-25 13:27] LABS: Anisocytosis 2+
[2019-03-25 13:33] LABS: Cholesterol 202 mg/dL (140-199); HDL Cholesterol 22 mg/dL (40-60); LDL Cholesterol Calculated 135 mg/dL (<100); Triglycerides 224 mg/dL (35-150)
[2019-03-25 16:43] LABS: Vitamin D 25 Hydroxy (D3) 19.6 ng/mL (30.0-100.0)
== END ==
PROVIDERS: PCP Family Medicine; Visit Provider Obstetrics & Gynecology
DX: Z51.11 Encounter for antineoplastic chemotherapy (principal); C56.9 Malignant neoplasm of unspecified ovary; E55.9 Vitamin D deficiency, unspecified; E78.5 Hyperlipidemia, unspecified
CPT/HCPCS: 36415; 80061; 82306; 85025

== ENCOUNTER → 2019-04-08 12:29 | Outpatient (CLI) | payer OTHER, SELFPAY ==
[2019-02-15 20:04] VITALS: BMI 24.9
== END ==
PROVIDERS: PCP Family Medicine; Referring Provider Obstetrics & Gynecology Gynecologic Oncology; Visit Provider Obstetrics & Gynecology Gynecologic Oncology
DX: C56.9 Malignant neoplasm of unspecified ovary (principal)
CPT/HCPCS: 84156; 84166

== ENCOUNTER → 2019-07-14 14:18 | Outpatient (CLI) | payer OTHER, SELFPAY ==
[2019-02-15 20:04] VITALS: BMI 24.9
[2019-07-14 18:39] LABS: Collection Time Urine 24 Hours; Protein (Total) Urine Random 79 mg/dL (0-12); Total Protein 24 Hour Urine 2133 mg/day (42-225); Total Volume Urine 2700 mL
== END ==
PROVIDERS: PCP Family Medicine; Referring Provider Obstetrics & Gynecology Gynecologic Oncology; Visit Provider Obstetrics & Gynecology Gynecologic Oncology
DX: C56.9 Malignant neoplasm of unspecified ovary (principal); R80.9 Proteinuria, unspecified
CPT/HCPCS: 84156

== ENCOUNTER → 2019-08-03 14:26 | Outpatient (CLI) | payer OTHER, SELFPAY ==
[2019-02-15 20:04] VITALS: BMI 24.9
[2019-08-04 05:13] LABS: 24 Hour Ur Protein Calculated 518 mg/24 hr (30-150)
== END ==
PROVIDERS: PCP Family Medicine; Referring Provider Obstetrics & Gynecology Gynecologic Oncology; Visit Provider Obstetrics & Gynecology Gynecologic Oncology
DX: R80.9 Proteinuria, unspecified (principal)
CPT/HCPCS: 84156

== ENCOUNTER → 2019-10-07 14:19 | Outpatient (CLI) | payer OTHER, SELFPAY ==
[2019-02-15 20:04] VITALS: BMI 24.9
[2019-10-08 08:08] LABS: 24 Hour Ur Protein Calculated 1367 mg/24 hr (30-150)
== END ==
PROVIDERS: PCP Family Medicine; Referring Provider Obstetrics & Gynecology Gynecologic Oncology; Visit Provider Obstetrics & Gynecology Gynecologic Oncology
DX: C56.9 Malignant neoplasm of unspecified ovary (principal); R80.9 Proteinuria, unspecified
CPT/HCPCS: 84156

== ENCOUNTER → 2019-11-18 13:48 | Outpatient (CLI) | payer OTHER, SELFPAY ==
[2019-02-15 20:04] VITALS: BMI 24.9
[2019-11-18 14:56] LABS: Add Manual Diff / Slide Review NO; Basophils Absolute Auto 100 /uL (0-100); Basophils Percent Auto 1.1 % (0-2); Eosinophils Absolute Auto 100 /uL (0-450); Hematocrit 43.8 % (36-46); Hemoglobin 15.4 g/dL (12.0-16.0); Lymphocytes Absolute Auto 1000 /uL (1100-4500); Lymphocytes Percent Auto 15.4 % (25-40); Mean Corpuscular HGB Conc 35.2 % (30-36); Mean Corpuscular Hemoglobin 39.3 PG (26-34); Mean Corpuscular Volume 111.6 fL (80-100); Monocytes Absolute Auto 500 /uL (0-900); Monocytes Percent Auto 6.7 % (3-14); Neutrophils Absolute Auto 5100 /uL (1500-7000); Neutrophils Percent Auto 74.8 % (50-75); Platelet Count 157 X10^3/uL (150-400); Red Blood Cell Count 3.93 X10^6/uL (4.0-5.2); Red Cell Distribution Width 13.7 % (11.6-14.8); White Blood Cell Count 6.8 X10^3/uL (4.5-11.0)
[2019-11-18 15:19] LABS: Alanine Aminotransferase 30 IU/L (<35); Albumin 4.1 g/dL (3.5-5.0); Albumin Globulin Ratio 1.4 (1.0-2.8); Alkaline Phosphatase 66 U/L (38-126); Aspartate Aminotransferase 39 IU/L (14-36); BUN Creatinine Ratio 19.7 (6-22); Bilirubin Total 0.5 mg/dL (0.2-1.3); Blood Urea Nitrogen 13 mg/dL (7-17); Calcium 9.4 mg/dL (8.4-10.2); Carbon Dioxide 32 mmol/L (22-32); Chloride 101 mmol/L (98-107); Estimated Glomerular Filt Rate > 60.0 mL/min (>60); Globulin 2.9 g/dL (1.7-4.1); Glucose 99 mg/dL (70-100); HEMOLYSIS < 15 (0-50); Magnesium 1.8 mg/dL (1.6-2.3); Potassium 3.9 mmol/L (3.4-5.1); Sodium 138 mmol/L (137-145)
[2019-11-18 15:28] LABS: Macrocytosis 1+
[2019-11-18 15:50] LABS: Cancer Antigen 125 5.9 U/mL (0-35)
== END ==
PROVIDERS: PCP Family Medicine; Referring Provider Obstetrics & Gynecology Gynecologic Oncology; Visit Provider Obstetrics & Gynecology Gynecologic Oncology
DX: C56.9 Malignant neoplasm of unspecified ovary (principal); R80.9 Proteinuria, unspecified
CPT/HCPCS: 36415; 80053; 83735; 85025; 86304

== ENCOUNTER → 2019-12-31 13:53 | Outpatient (CLI) | payer OTHER, SELFPAY ==
[2019-02-15 20:04] VITALS: BMI 24.9
[2019-12-31 14:03] LABS: Bacteria Urine None Seen; RBC Urine None Seen (0-5/HPF)
[2019-12-31 14:21] LABS: Add Manual Diff / Slide Review NO; Basophils Absolute Auto 100 /uL (0-100); Basophils Percent Auto 1.2 % (0-2); Eosinophils Absolute Auto 200 /uL (0-450); Eosinophils Percent Auto 2.7 % (2-4); Hematocrit 40.6 % (36-46); Hemoglobin 13.9 g/dL (12.0-16.0); Lymphocytes Absolute Auto 2100 /uL (1100-4500); Mean Corpuscular HGB Conc 34.2 % (30-36); Mean Corpuscular Hemoglobin 37.5 PG (26-34); Mean Corpuscular Volume 109.8 fL (80-100); Monocytes Absolute Auto 600 /uL (0-900); Neutrophils Absolute Auto 3600 /uL (1500-7000); Neutrophils Percent Auto 55.1 % (50-75); Platelet Count 182 X10^3/uL (150-400); Red Cell Distribution Width 14.2 % (11.6-14.8); White Blood Cell Count 6.6 X10^3/uL (4.5-11.0)
[2019-12-31 14:40] LABS: Appearance Urine UA CLEAR; Bilirubin Urine UA NEGATIVE (NEGATIVE); Color Urine UA YELLOW; Glucose Urine UA NEGATIVE (Negative); Ketones Urine UA TRACE (NEGATIVE); Leukocyte Esterase Urine UA NEGATIVE (NEGATIVE); Nitrite Urine UA NEGATIVE (Negative); Occult Blood Urine UA NEGATIVE (Negative); Protein Urine UA 2+ (Negative); Specific Gravity Urine UA 1.025 (1.000-1.035); Urobilinogen Urine UA 0.2 E.U./dL (0.2)
[2019-12-31 14:47] LABS: Culture Indicated Urine Cult Not Indicated; Squamous Epithelial Cell Urine 0-1 /HPF (0-5/HPF); WBC Urine 0-1/HPF (0-5/HPF); pH Urine UA 5.5 (4.5-8.0)
[2019-12-31 14:48] LABS: HEMOLYSIS < 15 (0-50)
[2019-12-31 14:53] LABS: Alanine Aminotransferase 28 IU/L (<35); Albumin 3.9 g/dL (3.5-5.0); Albumin Globulin Ratio 1.4 (1.0-2.8); Alkaline Phosphatase 63 U/L (38-126); Aspartate Aminotransferase 32 IU/L (14-36); BUN Creatinine Ratio 27.9 (6-22); Bilirubin Total 0.3 mg/dL (0.2-1.3); Blood Urea Nitrogen 17 mg/dL (7-17); Calcium 8.5 mg/dL (8.4-10.2); Carbon Dioxide 32 mmol/L (22-32); Chloride 105 mmol/L (98-107); Estimated Glomerular Filt Rate > 60.0 mL/min (>60); Globulin 2.8 g/dL (1.7-4.1); Glucose 117 mg/dL (70-100); Magnesium 1.9 mg/dL (1.6-2.3); Potassium 3.6 mmol/L (3.4-5.1); Sodium 139 mmol/L (137-145); Total Protein 6.7 g/dL (6.3-8.2)
[2019-12-31 15:30] LABS: Cancer Antigen 125 10.1 U/mL (0-35)
== END ==
PROVIDERS: PCP Family Medicine; Referring Provider Obstetrics & Gynecology Gynecologic Oncology; Visit Provider Obstetrics & Gynecology Gynecologic Oncology
DX: C56.9 Malignant neoplasm of unspecified ovary (principal)
CPT/HCPCS: 36415; 80053; 81001; 83735; 85025; 86304

== ENCOUNTER → 2020-02-10 13:04 | Outpatient (CLI) | payer OTHER, SELFPAY ==
[2019-02-15 20:04] VITALS: BMI 24.9
[2020-02-10 13:48] LABS: Bacteria Urine None Seen; RBC Urine None Seen (0-5/HPF); WBC Urine None Seen (0-5/HPF)
[2020-02-10 14:37] LABS: Appearance Urine UA CLEAR; Bilirubin Urine UA NEGATIVE (NEGATIVE); Color Urine UA YELLOW; Glucose Urine UA NEGATIVE (Negative); Ketones Urine UA TRACE (NEGATIVE); Leukocyte Esterase Urine UA NEGATIVE (NEGATIVE); Nitrite Urine UA NEGATIVE (Negative); Occult Blood Urine UA NEGATIVE (Negative); Protein Urine UA 3+ (Negative); Specific Gravity Urine UA >=1.030 (1.000-1.035); Urobilinogen Urine UA 0.2 E.U./dL (0.2)
[2020-02-10 14:39] LABS: Add Manual Diff / Slide Review NO; Basophils Absolute Auto 0 /uL (0-100); Basophils Percent Auto 0.7 % (0-2); Eosinophils Absolute Auto 100 /uL (0-450); Eosinophils Percent Auto 1.9 % (2-4); Hematocrit 44.7 % (36-46); Hemoglobin 15.4 g/dL (12.0-16.0); Lymphocytes Absolute Auto 1400 /uL (1100-4500); Lymphocytes Percent Auto 22.5 % (25-40); Mean Corpuscular HGB Conc 34.4 % (30-36); Mean Corpuscular Hemoglobin 36.2 PG (26-34); Mean Corpuscular Volume 105.2 fL (80-100); Monocytes Absolute Auto 400 /uL (0-900); Monocytes Percent Auto 6.7 % (3-14); Neutrophils Absolute Auto 4400 /uL (1500-7000); Neutrophils Percent Auto 68.2 % (50-75); Platelet Count 178 X10^3/uL (150-400); Red Blood Cell Count 4.25 X10^6/uL (4.0-5.2); Red Cell Distribution Width 13.7 % (11.6-14.8); White Blood Cell Count 6.4 X10^3/uL (4.5-11.0)
[2020-02-10 15:00] LABS: Alanine Aminotransferase 23 IU/L (<35); Albumin 4.4 g/dL (3.5-5.0); Albumin Globulin Ratio 1.3 (1.0-2.8); Alkaline Phosphatase 64 U/L (38-126); Aspartate Aminotransferase 33 IU/L (14-36); Bilirubin Total 0.4 mg/dL (0.2-1.3); Blood Urea Nitrogen 13 mg/dL (7-17); Calcium 9.7 mg/dL (8.4-10.2); Carbon Dioxide 33 mmol/L (22-32); Chloride 102 mmol/L (98-107); Estimated Glomerular Filt Rate > 60.0 mL/min (>60); Globulin 3.4 g/dL (1.7-4.1); Glucose 104 mg/dL (70-100); HEMOLYSIS < 15 (0-50); Magnesium 1.8 mg/dL (1.6-2.3); Potassium 3.8 mmol/L (3.4-5.1); Sodium 139 mmol/L (137-145); Total Protein 7.8 g/dL (6.3-8.2)
[2020-02-10 15:18] LABS: Culture Indicated Urine Cult Not Indicated; Urine Comments Microscopic Normal
[2020-02-10 15:25] LABS: Cancer Antigen 125 11.6 U/mL (0-35)
== END ==
PROVIDERS: PCP Family Medicine; Referring Provider Obstetrics & Gynecology Gynecologic Oncology; Visit Provider Obstetrics & Gynecology Gynecologic Oncology
DX: C56.9 Malignant neoplasm of unspecified ovary (principal)
CPT/HCPCS: 36415; 80053; 81001; 83735; 85025; 86304

== ENCOUNTER → 2020-02-24 14:40 | Outpatient (CLI) | payer OTHER, SELFPAY ==
[2019-02-15 20:04] VITALS: BMI 24.9
--- NOTE | 2020-02-24 14:41 | DI.RAD.S_ITS ---
PROCEDURE: XR FINGER RT MIN 2V INDICATIONS: right 2nd finger swelling and pain TECHNIQUE: AP hand, 2 views of the 2nd finger(s) acquired. COMPARISON: None. FINDINGS: Bones: No fractures or dislocations. No suspicious bony lesions. Scattered IP degenerative changes are present. Soft tissues: No suspicious soft tissue calcifications. IMPRESSION: Scattered IP degenerative changes. No visualized acute fracture or dislocation. However, if clinical concern and/or pain persist, short interval imaging followup in 7-10 days is recommended, as occult injury cannot be definitively excluded. Dictated by: Colette Martin M.D. on 02/24/2020 at 16:02 Approved by: Colette Martin M.D. on 02/24/2020 at 16:03
== END ==
PROVIDERS: PCP Family Medicine; Referring Provider Family Medicine; Visit Provider Family Medicine
DX: M79.644 Pain in right finger(s) (principal); M79.89 Other specified soft tissue disorders
CPT/HCPCS: 73140

== ENCOUNTER 2020-05-31 14:30 | Outpatient (RCR) | payer OTHER, SELFPAY ==
[2019-02-15 20:04] VITALS: BMI 24.9
--- NOTE | 2020-04-28 17:59 | PT.OIE ---
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) Lymphedema, not elsewhere classified (04/28/20) Personal history of other diseases of the female genital tract (04/28/20) Other specified postprocedural states (04/28/20) Past Medical History (Last Updated 02/24/20 @ 15:05 by Alvaro Haile DO) Anxiety Atypical nevi Bilateral hand numbness Bilateral leg pain Cervical somatic dysfunction Finger pain, right Finger swelling Hot flashes Hot flashes due to surgical menopause Hot flashes due to tamoxifen Hyperlipidemia Hypertension Iliotibial band syndrome of both sides Iliotibial band syndrome, right leg Leukocytopenia Low HDL (under 40) Lymphedema Neck stiffness Osteoarthritis Ovarian cancer Pelvic somatic dysfunction Piriformis syndrome of right side Segmental and somatic dysfunction of abdomen and other regions Segmental and somatic dysfunction of rib cage Sleep disorder Somatic dysfunction of lower extremity Thoracic region somatic dysfunction Upper extremity somatic dysfunction Vitamin deficiency Past Surgical History (Last Updated 02/17/20 @ 14:26 by Alvaro Haile DO) History of total knee arthroplasty (2013) S/P laparotomy (10/09/18) S/P ovarian cystectomy S/P LUPILLO-BSO (~07/25/18) Visit Care Team Role Provider Type Alvaro Haile DO Attending Provider Physician Family Provider Primary Care Provider Referring Provider Specialty: [facility] Address: [address] [place] [address], [facility] Email: Physical Therapy Initial Evaluation PT-OP-A Visit Information Start: 04/21/20 17:04 Freq: Status: Active Protocol: Document 04/28/20 12:59 SAK (Rec: 04/28/20 13:19 SAK [id number]) Out-Patient Physical Therapy Visit Information Visit Information Visit Type Initial Evaluation Visit Start Time 13:00 Visit Stop Time 14:25 Total Visit Minutes 85 Visit Number 1 Evaluation Information Evaluation Date 04/28/20 PT-OP-B Current Condition Start: 04/21/20 17:04 Freq: Status: Active Protocol: Document 04/28/20 12:59 SAK (Rec: 04/28/20 13:19 SAK [id number]) Current Condition History of Current Condition Onset Date 6 months Current Complaints lymphedema History of Current Condition July 2018 diagnosed with aggressive metastatic clear cell cancer. Underwent LUPILLO/ BSO and had 15 abdominal lymph nodes removed for cancer staging 10/06/18. States after that procedure had pocket of swelling, had drain placed. When drain removed it states swelling started increasing again, another drain for a few months. After second drain removed ethanol injected and collapsed pocket (seroma) on left side. States swelling has gradually developed in both legs right greater than left for about 6 months, severe pain in legs for about 3 months. 1 year since last regular chemo though currently in medication trial. Reports no exercise at this time. Has ordered lymphedema bandages but not tried to use and did not bring today to PT. Has not tried wearing any compression. Prior Treatments and Tests CT 04/13/20: reports showed enlarged lymph node by pocket of swelling right abdomen- another drain recommended but patient would like to not. Has CT every 6 months. Treatment Goals Patient/Caregiver Goals Decrease swelling and pain in abdomen and LE's and return to usual activities including caring for her horses Prior Functional Status Baseline Function- ADL's Independent Baseline Function- Mobility Independent Baseline Function- Gait no problem Baseline Function- Recreation/Hobbies has horse farm, 8 horses; no limitations Current Functional Impairments (Reported) Functional Limitations- ADL's takes more time Functional Limitations- Mobility/Gait limited to household and short distance community, no device Functional Limitations- Work/School retired Functional Limitations- Recreation/ unable to go to horse barn, Hobbies ride horses Personal Factors Other Personal Factors That May Effect PMH per Dr. Haile's chart: Therapy/Recovery Anxiety Atypical nevi Bilateral hand numbness Bilateral leg pain Cervical somatic dysfunction Finger pain, right Finger swelling Hot flashes Hot flashes due to surgical menopause Hot flashes due to tamoxifen Hyperlipidemia Hypertension Iliotibial band syndrome of both sides Iliotibial band syndrome, right leg Leukocytopenia Low HDL (under 40) Lymphedema Neck stiffness Osteoarthritis Ovarian cancer Pelvic somatic dysfunction Piriformis syndrome of right side Segmental and somatic dysfunction of abdomen and other regions Segmental and somatic dysfunction of rib cage Sleep disorder Somatic dysfunction of lower extremity Thoracic region somatic dysfunction Upper extremity somatic dysfunction Vitamin deficiency PT-OP-C Subjective Start: 04/21/20 17:04 Freq: Status: Active Protocol: Document 04/28/20 12:59 JASMINE (Rec: 04/28/20 17:04 SAK [id number]) Patient Questionnaires Lymphedema Life Impact Score Lymphedema Score test not completed today OP-PT Pain Assessment Location bilateral LE's Pain Location Details entire leg shaded in buddy Intensity 7 Description Aching,Burning Frequency Constant Pain Aggravating Factors Dependent Position Pain Alleviating Factors Lying Supine Home Pain Medication Use Pain Medications Used Yes: Oxycodone Home Pain Medication Frequency at bedtime, in middle of night , and in am Patient Goal goal is to stop taking Pain Behaviors Pain Behaviors Facial Grimacing,Wincing PT-OP-F Manual Assessment Start: 04/21/20 17:04 Freq: Status: Active Protocol: Document 04/28/20 12:59 SAK (Rec: 04/28/20 17:04 SAK [id number]) Manual Assessments Soft Tissue Assessment Soft Tissue Mobility Assessment No palpable tissue fibrosis PT-OP-G Mobility & Gait Start: 04/21/20 17:04 Freq: Status: Active Protocol: Document 04/28/20 12:59 SAK (Rec: 04/28/20 17:04 SAK [id number]) OP Mobility Evaluation Bed Mobility Rolling indep Supine to and from Sit indep Transfers Sit to Stand indep OP Gait Assessment Gait Gait Assistance Required: Independent Distance (Feet) 75 Assistive Devices Assistive Device None Factors Limiting Gait Function Factors Limiting Gait Function Pain Comments Gait Comments legs feel heavy PT-OP-H Neuro Start: 04/21/20 17:04 Freq: Status: Active Protocol: Document 04/28/20 12:59 SAK (Rec: 04/28/20 17:04 SAK [id number]) Sensation Evaluation Gross Sensation Gross Sensation WNL PT-OP-J Posture/Palpation/Skin Start: 04/21/20 17:04 Freq: Status: Active Protocol: Document 04/28/20 12:59 SAK (Rec: 04/28/20 17:04 SAK [id number]) Skin Assessment Incisional Assessment Incision Appearance/Comments well-healed abdominal scar with good scar mobility PT-OP-K Range of Motion Start: 04/21/20 17:04 Freq: Status: Active Protocol: Document 04/28/20 12:59 SAK (Rec: 04/28/20 17:04 SAK [id number]) Hip Goniometric Range of Motion Hip ROM Limitations Hip ROM Limitations Soft Tissue Tightness,Swelling Comments mild limitations all motions PT-OP-M Strength Start: 04/21/20 17:04 Freq: Status: Active Protocol: Document 04/28/20 12:59 SAK (Rec: 04/28/20 17:04 SAK [id number]) Hip Strength Hip Manual Muscle Testing buddy Comments no MMT today due to pain, appears to have anti-gravity strength in all motions Knee Strength Knee Manual Muscle Testing buddy Comments no MMT due to reported pain, has anti-gravity strength Ankle/Foot Strength Ankle and Foot Manual Muscle Testing buddy Comments has antigravity strength, no MMT due to pain PT-OP-N Lymphedema Start: 04/21/20 17:04 Freq: Status: Active Protocol: Document 04/28/20 12:59 [facility] (Rec: 04/28/20 17:04 [facility] [id number]) Lymphedema Measurements Lower Extremity Circumference Measurements Right Affected MT Heads 22.2 cm Mid-foot 21.5 cm Medial Malleolus 23.5 cm 10 cm From Medial Malleolus 22.6 cm 20 cm From Medial Malleolus 32 cm 30 cm From Medial Malleolus 34.1 cm 40 cm From Medial Malleolus 36.1 cm 50 cm From Medial Malleolus 42 cm 60 cm From Medial Malleolus 51.8 cm 70 cm From Medial Malleolus 60.5 cm Hip 64 cm Left Affected MT Heads 21.5 cm Mid-foot 21.5 cm Medial Malleolus 23.4 cm 10 cm From Medial Malleolus 22 cm 20 cm From Medial Malleolus 31.4 cm 30 cm From Medial Malleolus 35.1 cm 40 cm From Medial Malleolus 37 cm 50 cm From Medial Malleolus 41.1 cm 60 cm From Medial Malleolus 51 cm 70 cm From Medial Malleolus 59.5 cm Hip 66.1 cm - umbilicus 98.5 ASIS 100.9 PT-OP-Q Treatments Start: 04/21/20 17:04 Freq: Status: Active Protocol: Document 04/28/20 12:59 [facility] (Rec: 04/28/20 17:04 [facility] [id number]) Lymphedema Treatment Manual Lymphatic Drainage Location for LE and and abdominal lymphedema Duration 20 Comments IA pathways, multiple abdominal techniques (gentle due to some tenderness) Lymphedema Wrapping Body Location right LE Materials Tricofix size F, Artiflex, Comprilan (6,8,10) foot to groin with Isoband groin and abdomen. Due to patient not feeling she could don shoe with full bandages, had decreased padding and layers of bandaging. Patient Education Lymphedema Prevention issued handout Lymphedema Precautions issued handout Compression Garments issued handout with websites to look at, local vendors. Discussed. Self Manual Lymphatic Drainage Began education with emphasis on abdominal breathing, lymph node activation Sequential Lymphedema Exercises issued handout PT-OP-T Assessment and Plan Start: 04/21/20 17:04 Freq: Status: Active Protocol: Document 04/28/20 12:59 SAK (Rec: 04/28/20 17:04 SAK [id number]) Physical Therapy Assessment Rehab Potential Rehabilitation Potential Good Evaluation Complexity Number of Personal Factors/Comorbidities 1-2 Number of Body Systems Impaired 3 Clinical Presentation at Evaluation Evolving Impairments Impairments Activity Tolerance,Edema,Pain Other Concerns Barriers to Rehabilitation metastatic cancer Goals Three Impairment activity intolerance with inability to do usual household and recreational Research Attorney Goal (LTG) Patient to improve activity tolerance as evidenced by her ability to return to her usual activities around the home as well as care for her horses. LTG Duration 07/27/20 Two Impairment pain bilateral LE's Research Attorney Goal (LTG) decrease LE pain through lymphedema management by at least 50% LTG Duration 07/27/20 One Impairment lymphedema in abdomen and bilateral LE's Short Term Goal (STG) Instruct patient in all aspects of lymphedema management to include skin care, self-MLD, sequential lymphedema exercises, and appropriate use of compression Longterm Goal (LTG) Decrease and stabilize lymphedema (no increase or decrease greater than 1 cm over the course of 1 week) and help patient obtain appropriate compression garment. Patient to be independent with all aspects of lymphedema self-care. LTG Duration 07/27/20 Assessment Summary Assessment Patient presents with function -limiting lymphedema in abdomen and bilateral LE's with bilateral LE pain. No fibrosis or other tissue changes, no open wounds. Today's session consisted of evaluation with circumferntial measurements taken bilateral LE's and abdomen, patient education on componenets of lymphedema care, information provided and brief manual lymphatic drainage technique provided today with instruction for patient self- massage. We discussed compression options and patient's right entire LE was bandaged with lymphedema bandaging including Isoband proximal thigh and abdomen. She was provided with written educational materials that included websites as well as local compression garment fitters. Feel she would benefit from physical therapy to decrease her lymphedema and pain and improve her activity tolerance to allow her to return to her prior level of function. Physical Therapy Plan Frequency and Duration Frequency of Treatment 20 visits Duration of Treatment 12 weeks Plan of Care Start Date 04/28/20 Plan of Care End Date 07/27/20 Therapeutic Interventions Therapeutic Interventions Home Exercise Program, Lymphedema Management,Manual Therapy,Patient/Caregiver Education,Self-Care/Home Management,Soft Tissue Mobilization,Taping, Therapeutic Activities, Therapeutic Exercises Next Visit Focus/Plan Next Note Type Treatment Note Next Visit Plan Assess response to lymhedema bandaging, provide MLD, skin care, lymphedema bandaging bilateral LE and abdomen as indicated, further discussion of compression garments with recommendation for 30-40 mmHG compressioin level panty-hose style , option of Spanx-type shape wear and tights. End with sequential lymphedema exercise and/or recumbant elliptical to facilitate lymphatic flow with compression
--- NOTE | 2020-04-28 17:59 | PT.OPPOC ---
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) Lymphedema, not elsewhere classified (04/28/20) Personal history of other diseases of the female genital tract (04/28/20) Other specified postprocedural states (04/28/20) Visit Care Team Role Provider Type Alvaro aHile DO Attending Provider Physician Family Provider Primary Care Provider Referring Provider Specialty: Family Practice Address: [address] [place] [address], [facility] Email: Plan Of Care PT-OP-T Assessment and Plan Start: 04/21/20 17:04 Freq: Status: Active Protocol: Document 04/28/20 12:59 SAK (Rec: 04/28/20 17:04 SAK [id number]) Physical Therapy Assessment Rehab Potential Rehabilitation Potential Good Evaluation Complexity Number of Personal Factors/Comorbidities 1-2 Number of Body Systems Impaired 3 Clinical Presentation at Evaluation Evolving Impairments Impairments Activity Tolerance,Edema,Pain Other Concerns Barriers to Rehabilitation metastatic cancer Goals Three Impairment activity intolerance with inability to do usual household and recreational Counter Stacker Goal (LTG) Patient to improve activity tolerance as evidenced by her ability to return to her usual activities around the home as well as care for her horses. LTG Duration 07/27/20 Two Impairment pain bilateral LE's Counter Stacker Goal (LTG) decrease LE pain through lymphedema management by at least 50% LTG Duration 07/27/20 One Impairment lymphedema in abdomen and bilateral LE's Short Term Goal (STG) Instruct patient in all aspects of lymphedema management to include skin care, self-MLD, sequential lymphedema exercises, and appropriate use of compression Residential Goal (LTG) Decrease and stabilize lymphedema (no increase or decrease greater than 1 cm over the course of 1 week) and help patient obtain appropriate compression garment. Patient to be independent with all aspects of lymphedema self-care. LTG Duration 07/27/20 Assessment Summary Assessment Patient presents with function -limiting lymphedema in abdomen and bilateral LE's with bilateral LE pain. No fibrosis or other tissue changes, no open wounds. Today's session consisted of evaluation with circumferntial measurements taken bilateral LE's and abdomen, patient education on componenets of lymphedema care, information provided and brief manual lymphatic drainage technique provided today with instruction for patient self- massage. We discussed compression options and patient's right entire LE was bandaged with lymphedema bandaging including Isoband proximal thigh and abdomen. She was provided with written educational materials that included websites as well as local compression garment fitters. Feel she would benefit from physical therapy to decrease her lymphedema and pain and improve her activity tolerance to allow her to return to her prior level of function. Physical Therapy Plan Frequency and Duration Frequency of Treatment 20 visits Duration of Treatment 12 weeks Plan of Care Start Date 04/28/20 Plan of Care End Date 07/27/20 Therapeutic Interventions Therapeutic Interventions Home Exercise Program, Lymphedema Management,Manual Therapy,Patient/Caregiver Education,Self-Care/Home Management,Soft Tissue Mobilization,Taping, Therapeutic Activities, Therapeutic Exercises Next Visit Focus/Plan Next Note Type Treatment Note Next Visit Plan Assess response to lymhedema bandaging, provide MLD, skin care, lymphedema bandaging bilateral LE and abdomen as indicated, further discussion of compression garments with recommendation for 30-40 mmHG compressioin level panty-hose style , option of Spanx-type shape wear and tights. End with sequential lymphedema exercise and/or recumbant elliptical to facilitate lymphatic flow with compression Plan of Care Dates Plan of Care Start Date 04/28/20 Plan of Care End Date 07/27/20 Electronically Signed by: Cris Holley, PT 04/28/20 [id number] Please Sign and Return: I have reviewed this Plan of Care and certify that the skilled therapy services above are required to meet the patient?s needs. Physician Signature Date Printed Name and Credentials Clinical Instructor Signature Printed Name and Credentials
--- NOTE | 2020-05-03 12:10 | PT.OTN ---
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) Lymphedema, not elsewhere classified (05/03/20) Personal history of other diseases of the female genital tract (05/03/20) Other specified postprocedural states (05/03/20) Physical Therapy Treatment Note PT-OP-A Visit Information Start: 04/21/20 17:04 Freq: Status: Active Protocol: Document 05/03/20 12:02 AW (Rec: 05/03/20 12:15 AW [id number]) Out-Patient Physical Therapy Visit Information Visit Information Visit Type Treatment Note Visit Start Time 10:30 Visit Stop Time 11:59 Total Visit Minutes 89 Visit Number 2 Evaluation Information Evaluation Date 04/28/20 PT-OP-B Current Condition Start: 04/21/20 17:04 Freq: Status: Active Protocol: Document 04/28/20 12:59 SAK (Rec: 04/28/20 13:19 SAK [id number]) Current Condition History of Current Condition Onset Date 6 months Current Complaints lymphedema History of Current Condition July 2018 diagnosed with aggressive metastatic clear cell cancer. Underwent LUPILLO/ BSO and had 15 abdominal lymph nodes removed for cancer staging 10/06/18. States after that procedure had pocket of swelling, had drain placed. When drain removed it states swelling started increasing again, another drain for a few months. After second drain removed ethanol injected and collapsed pocket (seroma) on left side. States swelling has gradually developed in both legs right greater than left for about 6 months, severe pain in legs for about 3 months. 1 year since last regular chemo though currently in medication trial. Reports no exercise at this time. Has ordered lymphedema bandages but not tried to use and did not bring today to PT. Has not tried wearing any compression. Prior Treatments and Tests CT 04/13/20: reports showed enlarged lymph node by pocket of swelling right abdomen- another drain recommended but patient would like to not. Has CT every 6 months. Treatment Goals Patient/Caregiver Goals Decrease swelling and pain in abdomen and LE's and return to usual activities including caring for her horses Prior Functional Status Baseline Function- ADL's Independent Baseline Function- Mobility Independent Baseline Function- Gait no problem Baseline Function- Recreation/Hobbies has horse farm, 8 horses; no limitations Current Functional Impairments (Reported) Functional Limitations- ADL's takes more time Functional Limitations- Mobility/Gait limited to household and short distance community, no device Functional Limitations- Work/School retired Functional Limitations- Recreation/ unable to go to horse barn, Hobbies ride horses Personal Factors Other Personal Factors That May Effect PMH per Dr. Haile's chart: Therapy/Recovery Anxiety Atypical nevi Bilateral hand numbness Bilateral leg pain Cervical somatic dysfunction Finger pain, right Finger swelling Hot flashes Hot flashes due to surgical menopause Hot flashes due to tamoxifen Hyperlipidemia Hypertension Iliotibial band syndrome of both sides Iliotibial band syndrome, right leg Leukocytopenia Low HDL (under 40) Lymphedema Neck stiffness Osteoarthritis Ovarian cancer Pelvic somatic dysfunction Piriformis syndrome of right side Segmental and somatic dysfunction of abdomen and other regions Segmental and somatic dysfunction of rib cage Sleep disorder Somatic dysfunction of lower extremity Thoracic region somatic dysfunction Upper extremity somatic dysfunction Vitamin deficiency PT-OP-C Subjective Start: 04/21/20 17:04 Freq: Status: Active Protocol: Document 05/03/20 12:02 AW (Rec: 05/03/20 12:14 AW [id number]) OP-PT Subjective Patient Comments Patient Comments Pt states bandages felt good for about 30 minutes after application but quickly became painful. She removed them after 2.5 hours. She has been using the bandages on herself at home, alternating legs daily and has been able to tolerate for about 4 hours at a time. She arrived without bandaging supplies today. PT-OP-F Manual Assessment Start: 04/21/20 17:04 Freq: Status: Active Protocol: Document 04/28/20 12:59 SAK (Rec: 04/28/20 17:04 SAK [id number]) Manual Assessments Soft Tissue Assessment Soft Tissue Mobility Assessment No palpable tissue fibrosis PT-OP-G Mobility & Gait Start: 04/21/20 17:04 Freq: Status: Active Protocol: Document 04/28/20 12:59 SAK (Rec: 04/28/20 17:04 SAK [id number]) OP Mobility Evaluation Bed Mobility Rolling indep Supine to and from Sit indep Transfers Sit to Stand indep OP Gait Assessment Gait Gait Assistance Required: Independent Distance (Feet) 75 Assistive Devices Assistive Device None Factors Limiting Gait Function Factors Limiting Gait Function Pain Comments Gait Comments legs feel heavy PT-OP-H Neuro Start: 04/21/20 17:04 Freq: Status: Active Protocol: Document 04/28/20 12:59 SAK (Rec: 04/28/20 17:04 SAK [id number]) Sensation Evaluation Gross Sensation Gross Sensation WNL PT-OP-J Posture/Palpation/Skin Start: 04/21/20 17:04 Freq: Status: Active Protocol: Document 04/28/20 12:59 SAK (Rec: 04/28/20 17:04 SAK [id number]) Skin Assessment Incisional Assessment Incision Appearance/Comments well-healed abdominal scar with good scar mobility PT-OP-K Range of Motion Start: 04/21/20 17:04 Freq: Status: Active Protocol: Document 04/28/20 12:59 SAK (Rec: 04/28/20 17:04 SAK [id number]) Hip Goniometric Range of Motion Hip ROM Limitations Hip ROM Limitations Soft Tissue Tightness,Swelling Comments mild limitations all motions PT-OP-M Strength Start: 04/21/20 17:04 Freq: Status: Active Protocol: Document 04/28/20 12:59 SAK (Rec: 04/28/20 17:04 SAK [id number]) Hip Strength Hip Manual Muscle Testing buddy Comments no MMT today due to pain, appears to have anti-gravity strength in all motions Knee Strength Knee Manual Muscle Testing buddy Comments no MMT due to reported pain, has anti-gravity strength Ankle/Foot Strength Ankle and Foot Manual Muscle Testing buddy Comments has antigravity strength, no MMT due to pain PT-OP-N Lymphedema Start: 04/21/20 17:04 Freq: Status: Active Protocol: Document 05/03/20 12:02 AW (Rec: 05/03/20 12:14 AW [id number]) Lymphedema Measurements Comments Lymphedema Comments Not measured today. PT-OP-Q Treatments Start: 04/21/20 17:04 Freq: Status: Active Protocol: Document 05/03/20 12:02 AW (Rec: 05/03/20 12:14 AW [id number]) Lymphedema Treatment Manual Lymphatic Drainage Location BLE Duration 40 Comments IA pathways; emphasis on RLE Lymphedema Wrapping Body Location right LE Materials Tricofix size F, Artiflex, Comprilan (6,8,10, 12) foot to groin. Isoband not applied today. Pt was supplied with shoe cover to go home and advised to bring open shoes to future appointments Patient Education Other Continued education on skin care with recommendation for low pH moisturizer PT-OP-T Assessment and Plan Start: 04/21/20 17:04 Freq: Status: Active Protocol: Document 05/03/20 12:02 AW (Rec: 05/03/20 12:14 AW [id number]) Physical Therapy Assessment Impairments Impairments Activity Tolerance,Edema,Pain Other Concerns Barriers to Rehabilitation metastatic cancer Goals Three Impairment activity intolerance with inability to do usual household and recreational [facility] Goal (LTG) Patient to improve activity tolerance as evidenced by her ability to return to her usual activities around the home as well as care for her horses. LTG Duration 07/27/20 Two Impairment pain bilateral LE's [facility] Goal (LTG) decrease LE pain through lymphedema management by at least 50% LTG Duration 07/27/20 One Impairment lymphedema in abdomen and bilateral LE's Short Term Goal (STG) Instruct patient in all aspects of lymphedema management to include skin care, self-MLD, sequential lymphedema exercises, and appropriate use of compression Assisted Goal (LTG) Decrease and stabilize lymphedema (no increase or decrease greater than 1 cm over the course of 1 week) and help patient obtain appropriate compression garment. Patient to be independent with all aspects of lymphedema self-care. LTG Duration 07/27/20 Assessment Summary Assessment Treatment today focused on MLD and compression wrapping for RLE. Also educated pt on prepping for appointments to include: wearing or bringing open shoes, wearing least restrictive undergarments, and bringing all bandaging supplies for re-use. Provided ongoing education on lymphedema management and phases of treatment, including lifelong need for compression . Physical Therapy Plan Frequency and Duration Frequency of Treatment 20 visits Duration of Treatment 12 weeks Plan of Care Start Date 04/28/20 Plan of Care End Date 07/27/20 Therapeutic Interventions Therapeutic Interventions Home Exercise Program, Lymphedema Management,Manual Therapy,Patient/Caregiver Education,Self-Care/Home Management,Soft Tissue Mobilization,Taping, Therapeutic Activities, Therapeutic Exercises Next Visit Focus/Plan Next Note Type Treatment Note Next Visit Plan Assess response to lymhedema bandaging, increased number of layers. Provide MLD, skin care, lymphedema bandaging bilateral LE and abdomen as indicated, further discussion of compression garments with recommendation for 30-40 mmHG compressioin level panty-hose style , option of Spanx-type shape wear and tights. End with sequential lymphedema exercise and/or recumbant elliptical to facilitate lymphatic flow with compression
--- NOTE | 2020-05-04 10:52 | PT-OP ANOTE ---
Patient DNS for appointment; spoke by phone and she reported she thought appointment was at 2:30. Will come for tomorrow's appointment.
--- NOTE | 2020-05-04 16:50 | PT.OTN ---
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 Visit Start Time 14:38 Visit Stop Time 16:04 Total Visit Minutes 86 Visit Number 3 Evaluation Information Evaluation Date 04/28/20 PT-OP-B Current Condition Start: 04/21/20 17:04 Freq: Status: Active Protocol: Document 04/28/20 12:59 SAK (Rec: 04/28/20 13:19 SAK [id number]) Current Condition History of Current Condition Onset Date 6 months Current Complaints lymphedema History of Current Condition July 2018 diagnosed with aggressive metastatic clear cell cancer. Underwent LUPILLO/ BSO and had 15 abdominal lymph nodes removed for cancer staging 10/06/18. States after that procedure had pocket of swelling, had drain placed. When drain removed it states swelling started increasing again, another drain for a few months. After second drain removed ethanol injected and collapsed pocket (seroma) on left side. States swelling has gradually developed in both legs right greater than left for about 6 months, severe pain in legs for about 3 months. 1 year since last regular chemo though currently in medication trial. Reports no exercise at this time. Has ordered lymphedema bandages but not tried to use and did not bring today to PT. Has not tried wearing any compression. Prior Treatments and Tests CT 04/13/20: reports showed enlarged lymph node by pocket of swelling right abdomen- another drain recommended but patient would like to not. Has CT every 6 months. Treatment Goals Patient/Caregiver Goals Decrease swelling and pain in abdomen and LE's and return to usual activities including caring for her horses Prior Functional Status Baseline Function- ADL's Independent Baseline Function- Mobility Independent Baseline Function- Gait no problem Baseline Function- Recreation/Hobbies has horse farm, 8 horses; no limitations Current Functional Impairments (Reported) Functional Limitations- ADL's takes more time Functional Limitations- Mobility/Gait limited to household and short distance community, no device Functional Limitations- Work/School retired Functional Limitations- Recreation/ unable to go to horse barn, Hobbies ride horses Personal Factors Other Personal Factors That May Effect PMH per Dr. Haile's chart: Therapy/Recovery Anxiety Atypical nevi Bilateral hand numbness Bilateral leg pain Cervical somatic dysfunction Finger pain, right Finger swelling Hot flashes Hot flashes due to surgical menopause Hot flashes due to tamoxifen Hyperlipidemia Hypertension Iliotibial band syndrome of both sides Iliotibial band syndrome, right leg Leukocytopenia Low HDL (under 40) Lymphedema Neck stiffness Osteoarthritis Ovarian cancer Pelvic somatic dysfunction Piriformis syndrome of right side Segmental and somatic dysfunction of abdomen and other regions Segmental and somatic dysfunction of rib cage Sleep disorder Somatic dysfunction of lower extremity Thoracic region somatic dysfunction Upper extremity somatic dysfunction Vitamin deficiency PT-OP-C Subjective Start: 04/21/20 17:04 Freq: Status: Active Protocol: Document 05/04/20 14:37 SAK (Rec: 05/04/20 15:02 [facility] [id number]) OP-PT Subjective Patient Comments Patient Comments Last session went well, felt like fluid starting moving. Patient wrapped her left leg this am, states tolerating better. Does report increased tenderness right abdomen starting a couple hours after last session, then some discomfort with urinating, then noticed discomfort same region a couple times last evening. That's why she tried wrapping her left leg with the assistance of her today. Forgot 2nd set of bandages PT-OP-F Manual Assessment Start: 04/21/20 17:04 Freq: Status: Active Protocol: Document 04/28/20 12:59 SAK (Rec: 04/28/20 17:04 SAK [id number]) Manual Assessments Soft Tissue Assessment Soft Tissue Mobility Assessment No palpable tissue fibrosis PT-OP-G Mobility & Gait Start: 04/21/20 17:04 Freq: Status: Active Protocol: Document 04/28/20 12:59 SAK (Rec: 04/28/20 17:04 SAK [id number]) OP Mobility Evaluation Bed Mobility Rolling indep Supine to and from Sit indep Transfers Sit to Stand indep OP Gait Assessment Gait Gait Assistance Required: Independent Distance (Feet) 75 Assistive Devices Assistive Device None Factors Limiting Gait Function Factors Limiting Gait Function Pain Comments Gait Comments legs feel heavy PT-OP-H Neuro Start: 04/21/20 17:04 Freq: Status: Active Protocol: Document 04/28/20 12:59 SAK (Rec: 04/28/20 17:04 SAK [id number]) Sensation Evaluation Gross Sensation Gross Sensation WNL PT-OP-J Posture/Palpation/Skin Start: 04/21/20 17:04 Freq: Status: Active Protocol: Document 04/28/20 12:59 SAK (Rec: 04/28/20 17:04 SAK [id number]) Skin Assessment Incisional Assessment Incision Appearance/Comments well-healed abdominal scar with good scar mobility PT-OP-K Range of Motion Start: 04/21/20 17:04 Freq: Status: Active Protocol: Document 04/28/20 12:59 SAK (Rec: 04/28/20 17:04 SAK [id number]) Hip Goniometric Range of Motion Hip ROM Limitations Hip ROM Limitations Soft Tissue Tightness,Swelling Comments mild limitations all motions PT-OP-M Strength Start: 04/21/20 17:04 Freq: Status: Active Protocol: Document 04/28/20 12:59 SAK (Rec: 04/28/20 17:04 SAK [id number]) Hip Strength Hip Manual Muscle Testing buddy Comments no MMT today due to pain, appears to have anti-gravity strength in all motions Knee Strength Knee Manual Muscle Testing buddy Comments no MMT due to reported pain, has anti-gravity strength Ankle/Foot Strength Ankle and Foot Manual Muscle Testing buddy Comments has antigravity strength, no MMT due to pain PT-OP-N Lymphedema Start: 04/21/20 17:04 Freq: Status: Active Protocol: Document 05/04/20 14:37 [facility] (Rec: 05/04/20 16:49 [facility] [id number]) Lymphedema Measurements Lower Extremity Circumference Measurements Right Affected MT Heads 21.8 cm Mid-foot 22 cm Medial Malleolus 22.8 cm 10 cm From Medial Malleolus 22.6 cm 20 cm From Medial Malleolus 31.7 cm 30 cm From Medial Malleolus 33.7 cm 40 cm From Medial Malleolus 36.5 cm 50 cm From Medial Malleolus 40.7 cm 60 cm From Medial Malleolus 50.4 cm 70 cm From Medial Malleolus 58.1 cm Hip 62.9 cm Left Affected MT Heads 21 cm Mid-foot 20.8 cm Medial Malleolus 23.4 cm 10 cm From Medial Malleolus 21 cm 20 cm From Medial Malleolus 30.2 cm 30 cm From Medial Malleolus 34.2 cm 40 cm From Medial Malleolus 36.4 cm 50 cm From Medial Malleolus 40.4 cm 60 cm From Medial Malleolus 50.1 cm 70 cm From Medial Malleolus 58.5 cm Hip 64 cm - umbilicus: 99.5 ASIS: 103.2 PT-OP-Q Treatments Start: 04/21/20 17:04 Freq: Status: Active Protocol: Document 05/04/20 14:37 [facility] (Rec: 05/04/20 15:02 [facility] [id number]) Lymphedema Treatment Manual Lymphatic Drainage Location BLE Duration 40 Comments IA pathways; emphasis on RLE Lymphedema Wrapping Body Location left LE Materials Tricofix size F, Artiflex, Comprilan (6,8,10, 12) foot to groin. Isoband not applied today. Pt. able to don boot to wear home Sequential Lymphedema Exercises Comments ran out of time today. Encouraged ex at home with use of handouts Patient Education Compression Garments discussed and recommended patient make appointment with Izabella Pros/ort PT-OP-T Assessment and Plan Start: 04/21/20 17:04 Freq: Status: Active Protocol: Document 05/04/20 14:37 [facility] (Rec: 05/04/20 15:02 [facility] [id number]) Physical Therapy Assessment Goals Three Impairment activity intolerance with inability to do usual household and recreational [facility] Goal (LTG) Patient to improve activity tolerance as evidenced by her ability to return to her usual activities around the home as well as care for her horses. LTG Duration 07/27/20 Two Impairment pain bilateral LE's [employer] Goal (LTG) decrease LE pain through lymphedema management by at least 50% LTG Duration 07/27/20 One Impairment lymphedema in abdomen and bilateral LE's Short Term Goal (STG) Instruct patient in all aspects of lymphedema management to include skin care, self-MLD, sequential lymphedema exercises, and appropriate use of compression [employer] Goal (LTG) Decrease and stabilize lymphedema (no increase or decrease greater than 1 cm over the course of 1 week) and help patient obtain appropriate compression garment. Patient to be independent with all aspects of lymphedema self-care. LTG Duration 5/26/21 Assessment Summary Assessment Improved circumferential measurements left greater than right (due to left LE bandaged all day and intact when arrived). Due to cramping and discomfort in right abdomen and only one set of bandages wrapped left LE again. Patient to be seen tomorrow, advised to contact physician if abdominal discomfort persists. Physical Therapy Plan Frequency and Duration Frequency of Treatment 20 visits Duration of Treatment 12 weeks Plan of Care Start Date 04/28/20 Plan of Care End Date 07/27/20 Therapeutic Interventions Therapeutic Interventions Home Exercise Program, Lymphedema Management,Manual Therapy,Patient/Caregiver Education,Self-Care/Home Management,Soft Tissue Mobilization,Taping, Therapeutic Activities, Therapeutic Exercises Next Visit Focus/Plan Next Note Type Treatment Note Next Visit Plan Assess response to lymhedema bandaging, increased number of layers. Provide MLD, skin care, lymphedema bandaging bilateral LE and abdomen as indicated, further discussion of compression garments with recommendation for 30-40 mmHG compression level panty-hose style , option of Spanx-type shape wear and tights. End with sequential lymphedema exercise and/or recumbant elliptical to facilitate lymphatic flow with compression
--- NOTE | 2020-05-05 13:55 | PT.OTN ---
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) Lymphedema, not elsewhere classified (05/05/20) Personal history of other diseases of the female genital tract (05/05/20) Other specified postprocedural states (05/05/20) Physical Therapy Treatment Note PT-OP-A Visit Information Start: 04/21/20 17:04 Freq: Status: Active Protocol: Document 05/05/20 10:30 SAK (Rec: 05/05/20 13:55 SAK [id number]) Out-Patient Physical Therapy Visit Information Visit Information Visit Type Treatment Note Visit Start Time 10:30 Visit Stop Time 12:00 Total Visit Minutes 90 Visit Number 4 Evaluation Information Evaluation Date 04/28/20 PT-OP-B Current Condition Start: 04/21/20 17:04 Freq: Status: Active Protocol: Document 04/28/20 12:59 SAK (Rec: 04/28/20 13:19 SAK [id number]) Current Condition History of Current Condition Onset Date 6 months Current Complaints lymphedema History of Current Condition July 2018 diagnosed with aggressive metastatic clear cell cancer. Underwent LUPILLO/ BSO and had 15 abdominal lymph nodes removed for cancer staging 10/06/18. States after that procedure had pocket of swelling, had drain placed. When drain removed it states swelling started increasing again, another drain for a few months. After second drain removed ethanol injected and collapsed pocket (seroma) on left side. States swelling has gradually developed in both legs right greater than left for about 6 months, severe pain in legs for about 3 months. 1 year since last regular chemo though currently in medication trial. Reports no exercise at this time. Has ordered lymphedema bandages but not tried to use and did not bring today to PT. Has not tried wearing any compression. Prior Treatments and Tests CT 04/13/20: reports showed enlarged lymph node by pocket of swelling right abdomen- another drain recommended but patient would like to not. Has CT every 6 months. Treatment Goals Patient/Caregiver Goals Decrease swelling and pain in abdomen and LE's and return to usual activities including caring for her horses Prior Functional Status Baseline Function- ADL's Independent Baseline Function- Mobility Independent Baseline Function- Gait no problem Baseline Function- Recreation/Hobbies has horse farm, 8 horses; no limitations Current Functional Impairments (Reported) Functional Limitations- ADL's takes more time Functional Limitations- Mobility/Gait limited to household and short distance community, no device Functional Limitations- Work/School retired Functional Limitations- Recreation/ unable to go to horse barn, Hobbies ride horses Personal Factors Other Personal Factors That May Effect PMH per Dr. Haile's chart: Therapy/Recovery Anxiety Atypical nevi Bilateral hand numbness Bilateral leg pain Cervical somatic dysfunction Finger pain, right Finger swelling Hot flashes Hot flashes due to surgical menopause Hot flashes due to tamoxifen Hyperlipidemia Hypertension Iliotibial band syndrome of both sides Iliotibial band syndrome, right leg Leukocytopenia Low HDL (under 40) Lymphedema Neck stiffness Osteoarthritis Ovarian cancer Pelvic somatic dysfunction Piriformis syndrome of right side Segmental and somatic dysfunction of abdomen and other regions Segmental and somatic dysfunction of rib cage Sleep disorder Somatic dysfunction of lower extremity Thoracic region somatic dysfunction Upper extremity somatic dysfunction Vitamin deficiency PT-OP-C Subjective Start: 04/21/20 17:04 Freq: Status: Active Protocol: Document 05/05/20 10:30 SAK (Rec: 05/05/20 13:55 SAK [id number]) OP-PT Subjective Patient Comments Patient Comments No new c/o. Kept left LE wrapped until bedtime, unable to wear overnight. PT-OP-F Manual Assessment Start: 04/21/20 17:04 Freq: Status: Active Protocol: Document 04/28/20 12:59 SAK (Rec: 04/28/20 17:04 SAK [id number]) Manual Assessments Soft Tissue Assessment Soft Tissue Mobility Assessment No palpable tissue fibrosis PT-OP-G Mobility & Gait Start: 04/21/20 17:04 Freq: Status: Active Protocol: Document 04/28/20 12:59 SAK (Rec: 04/28/20 17:04 SAK [id number]) OP Mobility Evaluation Bed Mobility Rolling indep Supine to and from Sit indep Transfers Sit to Stand indep OP Gait Assessment Gait Gait Assistance Required: Independent Distance (Feet) 75 Assistive Devices Assistive Device None Factors Limiting Gait Function Factors Limiting Gait Function Pain Comments Gait Comments legs feel heavy PT-OP-H Neuro Start: 04/21/20 17:04 Freq: Status: Active Protocol: Document 04/28/20 12:59 SAK (Rec: 04/28/20 17:04 SAK [id number]) Sensation Evaluation Gross Sensation Gross Sensation WNL PT-OP-J Posture/Palpation/Skin Start: 04/21/20 17:04 Freq: Status: Active Protocol: Document 04/28/20 12:59 [facility] (Rec: 04/28/20 17:04 SAK [id number]) Skin Assessment Incisional Assessment Incision Appearance/Comments well-healed abdominal scar with good scar mobility PT-OP-K Range of Motion Start: 04/21/20 17:04 Freq: Status: Active Protocol: Document 04/28/20 12:59 SAK (Rec: 04/28/20 17:04 SAK [id number]) Hip Goniometric Range of Motion Hip ROM Limitations Hip ROM Limitations Soft Tissue Tightness,Swelling Comments mild limitations all motions PT-OP-M Strength Start: 04/21/20 17:04 Freq: Status: Active Protocol: Document 04/28/20 12:59 [facility] (Rec: 04/28/20 17:04 [facility] [id number]) Hip Strength Hip Manual Muscle Testing buddy Comments no MMT today due to pain, appears to have anti-gravity strength in all motions Knee Strength Knee Manual Muscle Testing buddy Comments no MMT due to reported pain, has anti-gravity strength Ankle/Foot Strength Ankle and Foot Manual Muscle Testing buddy Comments has antigravity strength, no MMT due to pain PT-OP-N Lymphedema Start: 04/21/20 17:04 Freq: Status: Active Protocol: Document 05/05/20 10:30 [facility] (Rec: 05/05/20 13:55 [facility] [id number]) Lymphedema Measurements Lower Extremity Circumference Measurements Right Affected - no measurements today Left Affected - no measurements taken today PT-OP-Q Treatments Start: 04/21/20 17:04 Freq: Status: Active Protocol: Document 05/05/20 10:30 [facility] (Rec: 05/05/20 13:55 [facility] [id number]) Cardio Equipment Recumbent Elliptical (Biodex) Duration (Minutes) 5 Other after MLD and buddy LE bandaging Lymphedema Treatment Manual Lymphatic Drainage Location BLE Duration 40 Comments IA pathways; emphasis on RLE Lymphedema Wrapping Body Location buddy LE's Materials Tricofix size F, Artiflex, Comprilan (6,8,10, 12) foot to groin. Isoband not applied today. Pt. able to don boot to wear home Other Application of Cepaphil bilateral LE's Sequential Lymphedema Exercises Comments used Biodex, referred patient to exercise handouts as discussed Patient Education Lymphedema Precautions compression needed for plane flight Compression Garments discussed and shown online options Sequential Lymphedema Exercises Biodex as above PT-OP-T Assessment and Plan Start: 04/21/20 17:04 Freq: Status: Active Protocol: Document 05/05/20 10:30 [facility] (Rec: 05/05/20 13:55 [facility] [id number]) Physical Therapy Assessment Goals Three Impairment activity intolerance with inability to do usual household and recreational Stockroom Attendant Goal (LTG) Patient to improve activity tolerance as evidenced by her ability to return to her usual activities around the home as well as care for her horses. LTG Duration 07/27/20 Two Impairment pain bilateral LE's Stockroom Attendant Goal (LTG) decrease LE pain through lymphedema management by at least 50% LTG Duration 07/27/20 One Impairment lymphedema in abdomen and bilateral LE's Short Term Goal (STG) Instruct patient in all aspects of lymphedema management to include skin care, self-MLD, sequential lymphedema exercises, and appropriate use of compression Stockroom Attendant Goal (LTG) Decrease and stabilize lymphedema (no increase or decrease greater than 1 cm over the course of 1 week) and help patient obtain appropriate compression garment. Patient to be independent with all aspects of lymphedema self-care. LTG Duration 07/27/20 Assessment Summary Assessment No measurements taken today, but visually appears to continue to improve. Patient demonstrated good understanding of need to bandage both and try to wear overnight for best reduction. Patient may try ordering inexpensive compression stocking at 30-40 mm Hg as recommended. Physical Therapy Plan Frequency and Duration Frequency of Treatment 20 visits Duration of Treatment 12 weeks Plan of Care Start Date 04/28/20 Plan of Care End Date 07/27/20 Therapeutic Interventions Therapeutic Interventions Home Exercise Program, Lymphedema Management,Manual Therapy,Patient/Caregiver Education,Self-Care/Home Management,Soft Tissue Mobilization,Taping, Therapeutic Activities, Therapeutic Exercises Next Visit Focus/Plan Next Note Type Treatment Note Next Visit Plan Continue lymphedema management . Circumfernetial measurements.
--- NOTE | 2020-05-10 16:15 | PT.OTN ---
Current Diagnoses Lipoprotein deficiency (05/10/20) Lymphedema, not elsewhere classified (05/10/20) Personal history of other diseases of the female genital tract (05/10/20) Other specified postprocedural states (05/10/20) Physical Therapy Treatment Note PT-OP-A Visit Information Start: 04/21/20 17:04 Freq: Status: Active Protocol: Document 05/10/20 16:04 AW (Rec: 05/10/20 16:15 AW [id number]) Out-Patient Physical Therapy Visit Information Visit Information Visit Type Treatment Note Visit Start Time 14:31 Visit Stop Time 16:01 Total Visit Minutes 90 Visit Number 5 Evaluation Information Evaluation Date 04/28/20 PT-OP-B Current Condition Start: 04/21/20 17:04 Freq: Status: Active Protocol: Document 04/28/20 12:59 SAK (Rec: 04/28/20 13:19 SAK [id number]) Current Condition History of Current Condition Onset Date 6 months Current Complaints lymphedema History of Current Condition July 2018 diagnosed with aggressive metastatic clear cell cancer. Underwent LUPILLO/ BSO and had 15 abdominal lymph nodes removed for cancer staging 10/06/18. States after that procedure had pocket of swelling, had drain placed. When drain removed it states swelling started increasing again, another drain for a few months. After second drain removed ethanol injected and collapsed pocket (seroma) on left side. States swelling has gradually developed in both legs right greater than left for about 6 months, severe pain in legs for about 3 months. 1 year since last regular chemo though currently in medication trial. Reports no exercise at this time. Has ordered lymphedema bandages but not tried to use and did not bring today to PT. Has not tried wearing any compression. Prior Treatments and Tests CT 04/13/20: reports showed enlarged lymph node by pocket of swelling right abdomen- another drain recommended but patient would like to not. Has CT every 6 months. Treatment Goals Patient/Caregiver Goals Decrease swelling and pain in abdomen and LE's and return to usual activities including caring for her horses Prior Functional Status Baseline Function- ADL's Independent Baseline Function- Mobility Independent Baseline Function- Gait no problem Baseline Function- Recreation/Hobbies has horse farm, 8 horses; no limitations Current Functional Impairments (Reported) Functional Limitations- ADL's takes more time Functional Limitations- Mobility/Gait limited to household and short distance community, no device Functional Limitations- Work/School retired Functional Limitations- Recreation/ unable to go to horse barn, Hobbies ride horses Personal Factors Other Personal Factors That May Effect PMH per Dr. Haile's chart: Therapy/Recovery Anxiety Atypical nevi Bilateral hand numbness Bilateral leg pain Cervical somatic dysfunction Finger pain, right Finger swelling Hot flashes Hot flashes due to surgical menopause Hot flashes due to tamoxifen Hyperlipidemia Hypertension Iliotibial band syndrome of both sides Iliotibial band syndrome, right leg Leukocytopenia Low HDL (under 40) Lymphedema Neck stiffness Osteoarthritis Ovarian cancer Pelvic somatic dysfunction Piriformis syndrome of right side Segmental and somatic dysfunction of abdomen and other regions Segmental and somatic dysfunction of rib cage Sleep disorder Somatic dysfunction of lower extremity Thoracic region somatic dysfunction Upper extremity somatic dysfunction Vitamin deficiency PT-OP-C Subjective Start: 04/21/20 17:04 Freq: Status: Active Protocol: Document 05/10/20 16:04 AW (Rec: 05/10/20 16:15 AW [id number]) OP-PT Subjective Patient Comments Patient Comments Pt experienced 6/10 abdominal pain and felt like she was starting to collect fluid again in her abdomen. She did not wrap on Saturday but did have her wrap her yesterday and today. She has been able to tolerate bandaging up to 12 hours at a time. PT-OP-F Manual Assessment Start: 04/21/20 17:04 Freq: Status: Active Protocol: Document 04/28/20 12:59 SAK (Rec: 04/28/20 17:04 SAK [id number]) Manual Assessments Soft Tissue Assessment Soft Tissue Mobility Assessment No palpable tissue fibrosis PT-OP-G Mobility & Gait Start: 04/21/20 17:04 Freq: Status: Active Protocol: Document 04/28/20 12:59 SAK (Rec: 04/28/20 17:04 SAK [id number]) OP Mobility Evaluation Bed Mobility Rolling indep Supine to and from Sit indep Transfers Sit to Stand indep OP Gait Assessment Gait Gait Assistance Required: Independent Distance (Feet) 75 Assistive Devices Assistive Device None Factors Limiting Gait Function Factors Limiting Gait Function Pain Comments Gait Comments legs feel heavy PT-OP-H Neuro Start: 04/21/20 17:04 Freq: Status: Active Protocol: Document 04/28/20 12:59 SAK (Rec: 04/28/20 17:04 SAK [id number]) Sensation Evaluation Gross Sensation Gross Sensation WNL PT-OP-J Posture/Palpation/Skin Start: 04/21/20 17:04 Freq: Status: Active Protocol: Document 04/28/20 12:59 SAK (Rec: 04/28/20 17:04 SAK [id number]) Skin Assessment Incisional Assessment Incision Appearance/Comments well-healed abdominal scar with good scar mobility PT-OP-K Range of Motion Start: 04/21/20 17:04 Freq: Status: Active Protocol: Document 04/28/20 12:59 SAK (Rec: 04/28/20 17:04 SAK [id number]) Hip Goniometric Range of Motion Hip ROM Limitations Hip ROM Limitations Soft Tissue Tightness,Swelling Comments mild limitations all motions PT-OP-M Strength Start: 04/21/20 17:04 Freq: Status: Active Protocol: Document 04/28/20 12:59 SAK (Rec: 04/28/20 17:04 SAK [id number]) Hip Strength Hip Manual Muscle Testing buddy Comments no MMT today due to pain, appears to have anti-gravity strength in all motions Knee Strength Knee Manual Muscle Testing buddy Comments no MMT due to reported pain, has anti-gravity strength Ankle/Foot Strength Ankle and Foot Manual Muscle Testing buddy Comments has antigravity strength, no MMT due to pain PT-OP-N Lymphedema Start: 04/21/20 17:04 Freq: Status: Active Protocol: Document 05/10/20 16:04 AW (Rec: 05/10/20 16:15 AW [id number]) Lymphedema Measurements Lower Extremity Circumference Measurements Right Affected MT Heads 20.3 cm Mid-foot 21 cm Medial Malleolus 23.1 cm 10 cm From Medial Malleolus 21.8 cm 20 cm From Medial Malleolus 30 cm 30 cm From Medial Malleolus 33.7 cm 40 cm From Medial Malleolus 35 cm 50 cm From Medial Malleolus 40.1 cm 60 cm From Medial Malleolus 49.5 cm 70 cm From Medial Malleolus 58.1 cm - Hip not measured today Left Affected MT Heads 20.5 cm Mid-foot 20.7 cm Medial Malleolus 23.7 cm 10 cm From Medial Malleolus 21.8 cm 20 cm From Medial Malleolus 31 cm 30 cm From Medial Malleolus 33.5 cm 40 cm From Medial Malleolus 36.9 cm 50 cm From Medial Malleolus 41.6 cm 60 cm From Medial Malleolus 51 cm 70 cm From Medial Malleolus 59.9 cm - Hip/trunk not measured today PT-OP-Q Treatments Start: 04/21/20 17:04 Freq: Status: Active Protocol: Document 05/10/20 16:04 AW (Rec: 05/10/20 16:15 AW [id number]) Lymphedema Treatment Manual Lymphatic Drainage Location BLE Duration 40 Comments IA pathways; emphasis on RLE Lymphedema Wrapping Body Location buddy LE's Materials Tricofix size F, Artiflex, Comprilan (6,8,10, 12) foot to groin. Wrapped B toes. Isoband not applied today. Pt. able to don house shoe to wear home Other Application of Cepaphil bilateral LE's Sequential Lymphedema Exercises Comments referred pt to exercise handouts to perform progression at home due to time constraints Patient Education Lymphedema Pathology Educated on superficial system and response to stretch. Compression Garments Pt purchased pantyhose style compression and expects it to arrive this wk PT-OP-T Assessment and Plan Start: 04/21/20 17:04 Freq: Status: Active Protocol: Document 05/10/20 16:04 AW (Rec: 05/10/20 16:15 AW [id number]) Physical Therapy Assessment Goals Three Impairment activity intolerance with inability to do usual household and recreational Waste Oil Pumper Goal (LTG) Patient to improve activity tolerance as evidenced by her ability to return to her usual activities around the home as well as care for her horses. LTG Duration 07/27/20 Two Impairment pain bilateral LE's Waste Oil Pumper Goal (LTG) decrease LE pain through lymphedema management by at least 50% LTG Duration 07/27/20 One Impairment lymphedema in abdomen and bilateral LE's Short Term Goal (STG) Instruct patient in all aspects of lymphedema management to include skin care, self-MLD, sequential lymphedema exercises, and appropriate use of compression Waste Oil Pumper Goal (LTG) Decrease and stabilize lymphedema (no increase or decrease greater than 1 cm over the course of 1 week) and help patient obtain appropriate compression garment. Patient to be independent with all aspects of lymphedema self-care. LTG Duration 07/27/20 Assessment Summary Assessment Stable or reduced measurements today. She arrived in bandages applied by her including toe wraps which she has succeeded in wearing for up to 12 hours at a time. Physical Therapy Plan Frequency and Duration Frequency of Treatment 20 visits Duration of Treatment 12 weeks Plan of Care Start Date 04/28/20 Plan of Care End Date 07/27/20 Therapeutic Interventions Therapeutic Interventions Home Exercise Program, Lymphedema Management,Manual Therapy,Patient/Caregiver Education,Self-Care/Home Management,Soft Tissue Mobilization,Taping, Therapeutic Activities, Therapeutic Exercises Next Visit Focus/Plan Next Note Type Treatment Note Next Visit Plan Continue lymphedema management and education.
--- NOTE | 2020-05-12 12:11 | PT.OTN ---
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) Lymphedema, not elsewhere classified (05/12/20) Personal history of other diseases of the female genital tract (05/12/20) Other specified postprocedural states (05/12/20) Physical Therapy Treatment Note PT-OP-A Visit Information Start: 04/21/20 17:04 Freq: Status: Active Protocol: Document 05/12/20 10:39 SAK (Rec: 05/12/20 10:45 SAK [id number]) Out-Patient Physical Therapy Visit Information Visit Information Visit Type Treatment Note Visit Start Time 10:30 Visit Stop Time 11:51 Total Visit Minutes 81 Visit Number 6 Evaluation Information Evaluation Date 04/28/20 PT-OP-B Current Condition Start: 04/21/20 17:04 Freq: Status: Active Protocol: Document 04/28/20 12:59 SAK (Rec: 04/28/20 13:19 SAK [id number]) Current Condition History of Current Condition Onset Date 6 months Current Complaints lymphedema History of Current Condition July 2018 diagnosed with aggressive metastatic clear cell cancer. Underwent LUPILLO/ BSO and had 15 abdominal lymph nodes removed for cancer staging 10/06/18. States after that procedure had pocket of swelling, had drain placed. When drain removed it states swelling started increasing again, another drain for a few months. After second drain removed ethanol injected and collapsed pocket (seroma) on left side. States swelling has gradually developed in both legs right greater than left for about 6 months, severe pain in legs for about 3 months. 1 year since last regular chemo though currently in medication trial. Reports no exercise at this time. Has ordered lymphedema bandages but not tried to use and did not bring today to PT. Has not tried wearing any compression. Prior Treatments and Tests CT 04/13/20: reports showed enlarged lymph node by pocket of swelling right abdomen- another drain recommended but patient would like to not. Has CT every 6 months. Treatment Goals Patient/Caregiver Goals Decrease swelling and pain in abdomen and LE's and return to usual activities including caring for her horses Prior Functional Status Baseline Function- ADL's Independent Baseline Function- Mobility Independent Baseline Function- Gait no problem Baseline Function- Recreation/Hobbies has horse farm, 8 horses; no limitations Current Functional Impairments (Reported) Functional Limitations- ADL's takes more time Functional Limitations- Mobility/Gait limited to household and short distance community, no device Functional Limitations- Work/School retired Functional Limitations- Recreation/ unable to go to horse barn, Hobbies ride horses Personal Factors Other Personal Factors That May Effect PMH per Dr. Haile's chart: Therapy/Recovery Anxiety Atypical nevi Bilateral hand numbness Bilateral leg pain Cervical somatic dysfunction Finger pain, right Finger swelling Hot flashes Hot flashes due to surgical menopause Hot flashes due to tamoxifen Hyperlipidemia Hypertension Iliotibial band syndrome of both sides Iliotibial band syndrome, right leg Leukocytopenia Low HDL (under 40) Lymphedema Neck stiffness Osteoarthritis Ovarian cancer Pelvic somatic dysfunction Piriformis syndrome of right side Segmental and somatic dysfunction of abdomen and other regions Segmental and somatic dysfunction of rib cage Sleep disorder Somatic dysfunction of lower extremity Thoracic region somatic dysfunction Upper extremity somatic dysfunction Vitamin deficiency PT-OP-C Subjective Start: 04/21/20 17:04 Freq: Status: Active Protocol: Document 05/12/20 10:39 SAK (Rec: 05/12/20 10:45 SAK [id number]) OP-PT Subjective Patient Comments Patient Comments CT 05/26/20. Pain after Saturday subsided within about 24 hours Has been having more pain in abdomen since starting PT but less in legs with less swelling. Should get compression stockings today or tomorrow. PT-OP-F Manual Assessment Start: 04/21/20 17:04 Freq: Status: Active Protocol: Document 04/28/20 12:59 SAK (Rec: 04/28/20 17:04 SAK [id number]) Manual Assessments Soft Tissue Assessment Soft Tissue Mobility Assessment No palpable tissue fibrosis PT-OP-G Mobility & Gait Start: 04/21/20 17:04 Freq: Status: Active Protocol: Document 04/28/20 12:59 SAK (Rec: 04/28/20 17:04 SAK [id number]) OP Mobility Evaluation Bed Mobility Rolling indep Supine to and from Sit indep Transfers Sit to Stand indep OP Gait Assessment Gait Gait Assistance Required: Independent Distance (Feet) 75 Assistive Devices Assistive Device None Factors Limiting Gait Function Factors Limiting Gait Function Pain Comments Gait Comments legs feel heavy PT-OP-H Neuro Start: 04/21/20 17:04 Freq: Status: Active Protocol: Document 04/28/20 12:59 SAK (Rec: 04/28/20 17:04 SAK [id number]) Sensation Evaluation Gross Sensation Gross Sensation WNL PT-OP-J Posture/Palpation/Skin Start: 04/21/20 17:04 Freq: Status: Active Protocol: Document 04/28/20 12:59 SAK (Rec: 04/28/20 17:04 SAK [id number]) Skin Assessment Incisional Assessment Incision Appearance/Comments well-healed abdominal scar with good scar mobility PT-OP-K Range of Motion Start: 04/21/20 17:04 Freq: Status: Active Protocol: Document 04/28/20 12:59 SAK (Rec: 04/28/20 17:04 SAK [id number]) Hip Goniometric Range of Motion Hip ROM Limitations Hip ROM Limitations Soft Tissue Tightness,Swelling Comments mild limitations all motions PT-OP-M Strength Start: 04/21/20 17:04 Freq: Status: Active Protocol: Document 04/28/20 12:59 SAK (Rec: 04/28/20 17:04 SAK [id number]) Hip Strength Hip Manual Muscle Testing buddy Comments no MMT today due to pain, appears to have anti-gravity strength in all motions Knee Strength Knee Manual Muscle Testing buddy Comments no MMT due to reported pain, has anti-gravity strength Ankle/Foot Strength Ankle and Foot Manual Muscle Testing buddy Comments has antigravity strength, no MMT due to pain PT-OP-N Lymphedema Start: 04/21/20 17:04 Freq: Status: Active Protocol: Document 05/10/20 16:04 AW (Rec: 05/10/20 16:15 AW [id number]) Lymphedema Measurements Lower Extremity Circumference Measurements Right Affected MT Heads 20.3 cm Mid-foot 21 cm Medial Malleolus 23.1 cm 10 cm From Medial Malleolus 21.8 cm 20 cm From Medial Malleolus 30 cm 30 cm From Medial Malleolus 33.7 cm 40 cm From Medial Malleolus 35 cm 50 cm From Medial Malleolus 40.1 cm 60 cm From Medial Malleolus 49.5 cm 70 cm From Medial Malleolus 58.1 cm - Hip not measured today Left Affected MT Heads 20.5 cm Mid-foot 20.7 cm Medial Malleolus 23.7 cm 10 cm From Medial Malleolus 21.8 cm 20 cm From Medial Malleolus 31 cm 30 cm From Medial Malleolus 33.5 cm 40 cm From Medial Malleolus 36.9 cm 50 cm From Medial Malleolus 41.6 cm 60 cm From Medial Malleolus 51 cm 70 cm From Medial Malleolus 59.9 cm - Hip/trunk not measured today PT-OP-Q Treatments Start: 04/21/20 17:04 Freq: Status: Active Protocol: Document 05/12/20 10:39 [facility] (Rec: 05/12/20 12:11 [facility] [id number]) Lymphedema Treatment Manual Lymphatic Drainage Location BLE Duration 40 Comments IA pathways; emphasis on RLE Lymphedema Wrapping Body Location buddy LE's Materials Tricofix size F, Artiflex, Comprilan (6,8,10, 12) foot to groin. No toe wrapping today as trial; advised to have wrap if swelling noted in toes. Pt. able to don house shoe to wear home Other Application of Cepaphil bilateral LE's Sequential Lymphedema Exercises Comments encouraged to do at home, preferred no ex machine today. Patient Education Compression Garments should receive today or tomorrow. Sequential Lymphedema Exercises encouraged HEP with handout PT-OP-T Assessment and Plan Start: 04/21/20 17:04 Freq: Status: Active Protocol: Document 05/12/20 10:39 [facility] (Rec: 05/12/20 10:45 [facility] [id number]) Physical Therapy Assessment Goals Three Impairment activity intolerance with inability to do usual household and recreational Eligibility Services Representative Goal (LTG) Patient to improve activity tolerance as evidenced by her ability to return to her usual activities around the home as well as care for her horses. LTG Duration 07/27/20 Two Impairment pain bilateral LE's Intermediate Goal (LTG) decrease LE pain through lymphedema management by at least 50% LTG Duration 07/27/20 One Impairment lymphedema in abdomen and bilateral LE's Short Term Goal (STG) Instruct patient in all aspects of lymphedema management to include skin care, self-MLD, sequential lymphedema exercises, and appropriate use of compression Intermediate Goal (LTG) Decrease and stabilize lymphedema (no increase or decrease greater than 1 cm over the course of 1 week) and help patient obtain appropriate compression garment. Patient to be independent with all aspects of lymphedema self-care. LTG Duration 07/27/20 Assessment Summary Assessment Good reduction of swelling in LE's with decreased pain. Abdominal pain variable. Modified MLD on left side to route around abdomen to decrease volume load into abdomen. Encouraged compression of abdomen, use abdominal binder if doesn't receive compression stockings (panty-hose style) today or tomorrow. Instructed to remove bandaging as she did last weekend if abdominal pain increases. Patient to do ROM ex at home after PT today. Physical Therapy Plan Frequency and Duration Frequency of Treatment 20 visits Duration of Treatment 12 weeks Plan of Care Start Date 04/28/20 Plan of Care End Date 07/27/20 Therapeutic Interventions Therapeutic Interventions Home Exercise Program, Lymphedema Management,Manual Therapy,Patient/Caregiver Education,Self-Care/Home Management,Soft Tissue Mobilization,Taping, Therapeutic Activities, Therapeutic Exercises Next Visit Focus/Plan Next Note Type Treatment Note Next Visit Plan Continue lymphedema management and education. Evaluate fit of compression garment, problem solve as indicated, consider chip bag or foam in right abdomen under garment.
--- NOTE | 2020-05-17 16:11 | PT.OTN ---
Current Diagnoses Lipoprotein deficiency (05/17/20) Lymphedema, not elsewhere classified (05/17/20) Personal history of other diseases of the female genital tract (05/17/20) Other specified postprocedural states (05/17/20) Physical Therapy Treatment Note PT-OP-A Visit Information Start: 04/21/20 17:04 Freq: Status: Active Protocol: Document 05/17/20 16:03 AW (Rec: 05/17/20 16:11 AW [id number]) Out-Patient Physical Therapy Visit Information Visit Information Visit Type Treatment Note Visit Start Time 14:45 Visit Stop Time 16:00 Total Visit Minutes 75 Visit Number 7 Evaluation Information Evaluation Date 04/28/20 PT-OP-B Current Condition Start: 04/21/20 17:04 Freq: Status: Active Protocol: Document 04/28/20 12:59 SAK (Rec: 04/28/20 13:19 SAK [id number]) Current Condition History of Current Condition Onset Date 6 months Current Complaints lymphedema History of Current Condition July 2018 diagnosed with aggressive metastatic clear cell cancer. Underwent LUPILLO/ BSO and had 15 abdominal lymph nodes removed for cancer staging 10/06/18. States after that procedure had pocket of swelling, had drain placed. When drain removed it states swelling started increasing again, another drain for a few months. After second drain removed ethanol injected and collapsed pocket (seroma) on left side. States swelling has gradually developed in both legs right greater than left for about 6 months, severe pain in legs for about 3 months. 1 year since last regular chemo though currently in medication trial. Reports no exercise at this time. Has ordered lymphedema bandages but not tried to use and did not bring today to PT. Has not tried wearing any compression. Prior Treatments and Tests CT 04/13/20: reports showed enlarged lymph node by pocket of swelling right abdomen- another drain recommended but patient would like to not. Has CT every 6 months. Treatment Goals Patient/Caregiver Goals Decrease swelling and pain in abdomen and LE's and return to usual activities including caring for her horses Prior Functional Status Baseline Function- ADL's Independent Baseline Function- Mobility Independent Baseline Function- Gait no problem Baseline Function- Recreation/Hobbies has horse farm, 8 horses; no limitations Current Functional Impairments (Reported) Functional Limitations- ADL's takes more time Functional Limitations- Mobility/Gait limited to household and short distance community, no device Functional Limitations- Work/School retired Functional Limitations- Recreation/ unable to go to horse barn, Hobbies ride horses Personal Factors Other Personal Factors That May Effect PMH per Dr. Haile's chart: Therapy/Recovery Anxiety Atypical nevi Bilateral hand numbness Bilateral leg pain Cervical somatic dysfunction Finger pain, right Finger swelling Hot flashes Hot flashes due to surgical menopause Hot flashes due to tamoxifen Hyperlipidemia Hypertension Iliotibial band syndrome of both sides Iliotibial band syndrome, right leg Leukocytopenia Low HDL (under 40) Lymphedema Neck stiffness Osteoarthritis Ovarian cancer Pelvic somatic dysfunction Piriformis syndrome of right side Segmental and somatic dysfunction of abdomen and other regions Segmental and somatic dysfunction of rib cage Sleep disorder Somatic dysfunction of lower extremity Thoracic region somatic dysfunction Upper extremity somatic dysfunction Vitamin deficiency PT-OP-C Subjective Start: 04/21/20 17:04 Freq: Status: Active Protocol: Document 05/17/20 16:03 AW (Rec: 05/17/20 16:11 AW [id number]) OP-PT Subjective Patient Comments Patient Comments Pt had sharp abdominal pain again on Saturday but it subsided quickly this time. Leg pain is resolving. Pt reports more frequent urination. PT-OP-F Manual Assessment Start: 04/21/20 17:04 Freq: Status: Active Protocol: Document 04/28/20 12:59 SAK (Rec: 04/28/20 17:04 SAK [id number]) Manual Assessments Soft Tissue Assessment Soft Tissue Mobility Assessment No palpable tissue fibrosis PT-OP-G Mobility & Gait Start: 04/21/20 17:04 Freq: Status: Active Protocol: Document 04/28/20 12:59 SAK (Rec: 04/28/20 17:04 SAK [id number]) OP Mobility Evaluation Bed Mobility Rolling indep Supine to and from Sit indep Transfers Sit to Stand indep OP Gait Assessment Gait Gait Assistance Required: Independent Distance (Feet) 75 Assistive Devices Assistive Device None Factors Limiting Gait Function Factors Limiting Gait Function Pain Comments Gait Comments legs feel heavy PT-OP-H Neuro Start: 04/21/20 17:04 Freq: Status: Active Protocol: Document 04/28/20 12:59 SAK (Rec: 04/28/20 17:04 SAK [id number]) Sensation Evaluation Gross Sensation Gross Sensation WNL PT-OP-J Posture/Palpation/Skin Start: 04/21/20 17:04 Freq: Status: Active Protocol: Document 04/28/20 12:59 SAK (Rec: 04/28/20 17:04 SAK [id number]) Skin Assessment Incisional Assessment Incision Appearance/Comments well-healed abdominal scar with good scar mobility PT-OP-K Range of Motion Start: 04/21/20 17:04 Freq: Status: Active Protocol: Document 04/28/20 12:59 SAK (Rec: 04/28/20 17:04 SAK [id number]) Hip Goniometric Range of Motion Hip ROM Limitations Hip ROM Limitations Soft Tissue Tightness,Swelling Comments mild limitations all motions PT-OP-M Strength Start: 04/21/20 17:04 Freq: Status: Active Protocol: Document 04/28/20 12:59 SAK (Rec: 04/28/20 17:04 SAK [id number]) Hip Strength Hip Manual Muscle Testing buddy Comments no MMT today due to pain, appears to have anti-gravity strength in all motions Knee Strength Knee Manual Muscle Testing buddy Comments no MMT due to reported pain, has anti-gravity strength Ankle/Foot Strength Ankle and Foot Manual Muscle Testing buddy Comments has antigravity strength, no MMT due to pain PT-OP-N Lymphedema Start: 04/21/20 17:04 Freq: Status: Active Protocol: Document 05/17/20 16:03 AW (Rec: 05/17/20 16:11 AW [id number]) Lymphedema Measurements Lower Extremity Circumference Measurements Right Affected MT Heads 20.9 cm Mid-foot 20.6 cm Medial Malleolus 22.5 cm 10 cm From Medial Malleolus 20.7 cm 20 cm From Medial Malleolus 27.3 cm 30 cm From Medial Malleolus 33.2 cm 40 cm From Medial Malleolus 34 cm 50 cm From Medial Malleolus 39.1 cm 60 cm From Medial Malleolus 47 cm 70 cm From Medial Malleolus 57.6 cm - Hip not measured today Left Affected MT Heads 20.5 cm Mid-foot 20.6 cm Medial Malleolus 22.2 cm 10 cm From Medial Malleolus 21.6 cm 20 cm From Medial Malleolus 27.4 cm 30 cm From Medial Malleolus 33.1 cm 40 cm From Medial Malleolus 31.5 cm 50 cm From Medial Malleolus 39.1 cm 60 cm From Medial Malleolus 46.3 cm 70 cm From Medial Malleolus 57.4 cm - Hip/trunk not measured today PT-OP-Q Treatments Start: 04/21/20 17:04 Freq: Status: Active Protocol: Document 05/17/20 16:03 AW (Rec: 05/17/20 16:11 AW [id number]) Lymphedema Treatment Manual Lymphatic Drainage Location BLE Duration 30 Comments IA pathways; emphasis on RLE; abbreviated today since pt arrived late Lymphedema Wrapping Body Location buddy LE's Materials Tricofix size F, Artiflex, Comprilan (6,8,10, 12) foot to groin. No toe wrapping today due to time constraint. Pt. able to don house shoe to wear home Other Application of Cepaphil bilateral LE's Sequential Lymphedema Exercises Comments encouraged to do at home with handouts as guide Patient Education Compression Garments Pt still waiting on delivery. Has been wearing high waist bike shorts PT-OP-T Assessment and Plan Start: 04/21/20 17:04 Freq: Status: Active Protocol: Document 05/17/20 16:03 AW (Rec: 05/17/20 16:11 AW [id number]) Physical Therapy Assessment Goals Three Impairment activity intolerance with inability to do usual household and recreational Clay Roaster Goal (LTG) Patient to improve activity tolerance as evidenced by her ability to return to her usual activities around the home as well as care for her horses. LTG Duration 07/27/20 Two Impairment pain bilateral LE's Fdc Goal (LTG) decrease LE pain through lymphedema management by at least 50% LTG Duration 07/27/20 One Impairment lymphedema in abdomen and bilateral LE's Short Term Goal (STG) Instruct patient in all aspects of lymphedema management to include skin care, self-MLD, sequential lymphedema exercises, and appropriate use of compression Fdc Goal (LTG) Decrease and stabilize lymphedema (no increase or decrease greater than 1 cm over the course of 1 week) and help patient obtain appropriate compression garment. Patient to be independent with all aspects of lymphedema self-care. LTG Duration 07/27/20 Assessment Summary Assessment Continued reduction in most measurements in BLE. Need to measure hips/abdomen at next session. Pt reports wearing high-waisted bike shorts at home. Still waiting on delivery of 30-40 mm Hg pantyhose. Physical Therapy Plan Frequency and Duration Frequency of Treatment 20 visits Duration of Treatment 12 weeks Plan of Care Start Date 04/28/20 Plan of Care End Date 07/27/20 Therapeutic Interventions Therapeutic Interventions Home Exercise Program, Lymphedema Management,Manual Therapy,Patient/Caregiver Education,Self-Care/Home Management,Soft Tissue Mobilization,Taping, Therapeutic Activities, Therapeutic Exercises Next Visit Focus/Plan Next Note Type Treatment Note Next Visit Plan Continue lymphedema management and education. Evaluate fit of compression garment, problem solve as indicated, consider chip bag or foam in right abdomen under garment.
--- NOTE | 2020-05-19 13:43 | PT.OTN ---
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) Lymphedema, not elsewhere classified (05/19/20) Personal history of other diseases of the female genital tract (05/19/20) Other specified postprocedural states (05/19/20) Physical Therapy Treatment Note PT-OP-A Visit Information Start: 04/21/20 17:04 Freq: Status: Active Protocol: Document 05/19/20 10:33 SAK (Rec: 05/19/20 10:45 SAK [id number]) Out-Patient Physical Therapy Visit Information Visit Information Visit Type Treatment Note Visit Start Time 10:34 Visit Stop Time 11:55 Total Visit Minutes 81 Visit Number 8 Evaluation Information Evaluation Date 04/28/20 PT-OP-B Current Condition Start: 04/21/20 17:04 Freq: Status: Active Protocol: Document 04/28/20 12:59 SAK (Rec: 04/28/20 13:19 SAK [id number]) Current Condition History of Current Condition Onset Date 6 months Current Complaints lymphedema History of Current Condition July 2018 diagnosed with aggressive metastatic clear cell cancer. Underwent LUPILLO/ BSO and had 15 abdominal lymph nodes removed for cancer staging 10/06/18. States after that procedure had pocket of swelling, had drain placed. When drain removed it states swelling started increasing again, another drain for a few months. After second drain removed ethanol injected and collapsed pocket (seroma) on left side. States swelling has gradually developed in both legs right greater than left for about 6 months, severe pain in legs for about 3 months. 1 year since last regular chemo though currently in medication trial. Reports no exercise at this time. Has ordered lymphedema bandages but not tried to use and did not bring today to PT. Has not tried wearing any compression. Prior Treatments and Tests CT 04/13/20: reports showed enlarged lymph node by pocket of swelling right abdomen- another drain recommended but patient would like to not. Has CT every 6 months. Treatment Goals Patient/Caregiver Goals Decrease swelling and pain in abdomen and LE's and return to usual activities including caring for her horses Prior Functional Status Baseline Function- ADL's Independent Baseline Function- Mobility Independent Baseline Function- Gait no problem Baseline Function- Recreation/Hobbies has horse farm, 8 horses; no limitations Current Functional Impairments (Reported) Functional Limitations- ADL's takes more time Functional Limitations- Mobility/Gait limited to household and short distance community, no device Functional Limitations- Work/School retired Functional Limitations- Recreation/ unable to go to horse barn, Hobbies ride horses Personal Factors Other Personal Factors That May Effect PMH per Dr. Haile's chart: Therapy/Recovery Anxiety Atypical nevi Bilateral hand numbness Bilateral leg pain Cervical somatic dysfunction Finger pain, right Finger swelling Hot flashes Hot flashes due to surgical menopause Hot flashes due to tamoxifen Hyperlipidemia Hypertension Iliotibial band syndrome of both sides Iliotibial band syndrome, right leg Leukocytopenia Low HDL (under 40) Lymphedema Neck stiffness Osteoarthritis Ovarian cancer Pelvic somatic dysfunction Piriformis syndrome of right side Segmental and somatic dysfunction of abdomen and other regions Segmental and somatic dysfunction of rib cage Sleep disorder Somatic dysfunction of lower extremity Thoracic region somatic dysfunction Upper extremity somatic dysfunction Vitamin deficiency PT-OP-C Subjective Start: 04/21/20 17:04 Freq: Status: Active Protocol: Document 05/19/20 10:33 SAK (Rec: 05/19/20 10:45 SAK [id number]) OP-PT Subjective Patient Comments Patient Comments States she has been having more LE pain past couple days, did report she mowed lawn 1x with bandaging and 1x without 40-45 min each time over past couple days. Tightness in proximal thighs and anterior hip. States her urination has changed since starting PT for lymphedema; waking more often to pea in middle of night and more than usual but only at night, pain in lower abdomen after. States she discussed this with Dr. Haile; states he thought it was due to body trying to expell lymphatic fluid, will send to urologist if the pain persists. 1 week from tomorrow goes for abdominal CT. No compression garment yet. PT-OP-F Manual Assessment Start: 04/21/20 17:04 Freq: Status: Active Protocol: Document 04/28/20 12:59 SAK (Rec: 04/28/20 17:04 SAK [id number]) Manual Assessments Soft Tissue Assessment Soft Tissue Mobility Assessment No palpable tissue fibrosis PT-OP-G Mobility & Gait Start: 04/21/20 17:04 Freq: Status: Active Protocol: Document 04/28/20 12:59 SAK (Rec: 04/28/20 17:04 SAK [id number]) OP Mobility Evaluation Bed Mobility Rolling indep Supine to and from Sit indep Transfers Sit to Stand indep OP Gait Assessment Gait Gait Assistance Required: Independent Distance (Feet) 75 Assistive Devices Assistive Device None Factors Limiting Gait Function Factors Limiting Gait Function Pain Comments Gait Comments legs feel heavy PT-OP-H Neuro Start: 04/21/20 17:04 Freq: Status: Active Protocol: Document 04/28/20 12:59 SAK (Rec: 04/28/20 17:04 SAK [id number]) Sensation Evaluation Gross Sensation Gross Sensation WNL PT-OP-J Posture/Palpation/Skin Start: 04/21/20 17:04 Freq: Status: Active Protocol: Document 04/28/20 12:59 SAK (Rec: 04/28/20 17:04 SAK [id number]) Skin Assessment Incisional Assessment Incision Appearance/Comments well-healed abdominal scar with good scar mobility PT-OP-K Range of Motion Start: 04/21/20 17:04 Freq: Status: Active Protocol: Document 04/28/20 12:59 SAK (Rec: 04/28/20 17:04 SAK [id number]) Hip Goniometric Range of Motion Hip ROM Limitations Hip ROM Limitations Soft Tissue Tightness,Swelling Comments mild limitations all motions PT-OP-M Strength Start: 04/21/20 17:04 Freq: Status: Active Protocol: Document 04/28/20 12:59 SAK (Rec: 04/28/20 17:04 SAK [id number]) Hip Strength Hip Manual Muscle Testing buddy Comments no MMT today due to pain, appears to have anti-gravity strength in all motions Knee Strength Knee Manual Muscle Testing buddy Comments no MMT due to reported pain, has anti-gravity strength Ankle/Foot Strength Ankle and Foot Manual Muscle Testing buddy Comments has antigravity strength, no MMT due to pain PT-OP-N Lymphedema Start: 04/21/20 17:04 Freq: Status: Active Protocol: Document 05/17/20 16:03 AW (Rec: 05/17/20 16:11 AW [id number]) Lymphedema Measurements Lower Extremity Circumference Measurements Right Affected MT Heads 20.9 cm Mid-foot 20.6 cm Medial Malleolus 22.5 cm 10 cm From Medial Malleolus 20.7 cm 20 cm From Medial Malleolus 27.3 cm 30 cm From Medial Malleolus 33.2 cm 40 cm From Medial Malleolus 34 cm 50 cm From Medial Malleolus 39.1 cm 60 cm From Medial Malleolus 47 cm 70 cm From Medial Malleolus 57.6 cm - Hip not measured today Left Affected MT Heads 20.5 cm Mid-foot 20.6 cm Medial Malleolus 22.2 cm 10 cm From Medial Malleolus 21.6 cm 20 cm From Medial Malleolus 27.4 cm 30 cm From Medial Malleolus 33.1 cm 40 cm From Medial Malleolus 31.5 cm 50 cm From Medial Malleolus 39.1 cm 60 cm From Medial Malleolus 46.3 cm 70 cm From Medial Malleolus 57.4 cm - Hip/trunk not measured today PT-OP-Q Treatments Start: 04/21/20 17:04 Freq: Status: Active Protocol: Document 05/19/20 10:33 [facility] (Rec: 05/19/20 10:45 [facility] [id number]) Cardio Equipment Recumbent Elliptical (Biodex) Other refused due to fatigue Therapeutic Exercises Supine Exercises Alden stretch Equipment Used side of bed Reps/Minutes 2x30 Lymphedema Treatment Manual Lymphatic Drainage Location BLE Duration 35 Comments IA pathways; emphasis on RLE; abbreviated today since pt arrived late Lymphedema Wrapping Body Location buddy LE's Materials Tricofix size F, Artiflex, Comprilan (6,8,10, 12) foot to groin. No toe wrapping today due to toes not swelling without toe wraps Pt. able to don house shoe to wear home Other Application of Cepaphil bilateral LE's Sequential Lymphedema Exercises Comments encouraged to do at home with handouts as guide Patient Education Compression Garments Pt still waiting on delivery. Has been wearing high waist bike shorts PT-OP-T Assessment and Plan Start: 04/21/20 17:04 Freq: Status: Active Protocol: Document 05/19/20 10:33 SAK (Rec: 05/19/20 10:45 [facility] [id number]) Physical Therapy Assessment Goals Three Impairment activity intolerance with inability to do usual household and recreational Flavorer Goal (LTG) Patient to improve activity tolerance as evidenced by her ability to return to her usual activities around the home as well as care for her horses. LTG Duration 07/27/20 Two Impairment pain bilateral LE's Fdc Goal (LTG) decrease LE pain through lymphedema management by at least 50% LTG Duration 07/27/20 One Impairment lymphedema in abdomen and bilateral LE's Short Term Goal (STG) Instruct patient in all aspects of lymphedema management to include skin care, self-MLD, sequential lymphedema exercises, and appropriate use of compression Flavorer Goal (LTG) Decrease and stabilize lymphedema (no increase or decrease greater than 1 cm over the course of 1 week) and help patient obtain appropriate compression garment. Patient to be independent with all aspects of lymphedema self-care. LTG Duration 07/27/20 Assessment Summary Assessment Alden stretch helpful in decreasing anterior thigh tightness, patient demonstrated good understanding and states she will try at home. Abdomen and hip not measured today, will do next session. Improving skin texture in thighs. Rerouting of fluid away from abdomen especially on right with MLD. Continues to progress well. Physical Therapy Plan Frequency and Duration Frequency of Treatment 20 visits Duration of Treatment 12 weeks Plan of Care Start Date 04/28/20 Plan of Care End Date 07/27/20 Therapeutic Interventions Therapeutic Interventions Home Exercise Program, Lymphedema Management,Manual Therapy,Patient/Caregiver Education,Self-Care/Home Management,Soft Tissue Mobilization,Taping, Therapeutic Activities, Therapeutic Exercises Next Visit Focus/Plan Next Note Type Treatment Note Next Visit Plan Continue lymphedema management and education. Evaluate fit of compression garment, problem solve as indicated, consider chip bag or foam in right abdomen under garment.
--- NOTE | 2020-05-24 17:06 | PT.OTN ---
Current Diagnoses Lipoprotein deficiency (05/24/20) Lymphedema, not elsewhere classified (05/24/20) Personal history of other diseases of the female genital tract (05/24/20) Other specified postprocedural states (05/24/20) Physical Therapy Treatment Note PT-OP-A Visit Information Start: 04/21/20 17:04 Freq: Status: Active Protocol: Document 05/24/20 16:00 AW (Rec: 05/24/20 17:06 AW [email or web address]) Out-Patient Physical Therapy Visit Information Visit Information Visit Type Treatment Note Visit Start Time 14:30 Visit Stop Time 15:58 Total Visit Minutes 88 Evaluation Information Evaluation Date 04/28/20 PT-OP-B Current Condition Start: 04/21/20 17:04 Freq: Status: Active Protocol: Document 04/28/20 12:59 SAK (Rec: 04/28/20 13:19 SAK [id number]) Current Condition History of Current Condition Onset Date 6 months Current Complaints lymphedema History of Current Condition July 2018 diagnosed with aggressive metastatic clear cell cancer. Underwent LUPILLO/ BSO and had 15 abdominal lymph nodes removed for cancer staging 10/06/18. States after that procedure had pocket of swelling, had drain placed. When drain removed it states swelling started increasing again, another drain for a few months. After second drain removed ethanol injected and collapsed pocket (seroma) on left side. States swelling has gradually developed in both legs right greater than left for about 6 months, severe pain in legs for about 3 months. 1 year since last regular chemo though currently in medication trial. Reports no exercise at this time. Has ordered lymphedema bandages but not tried to use and did not bring today to PT. Has not tried wearing any compression. Prior Treatments and Tests CT 04/13/20: reports showed enlarged lymph node by pocket of swelling right abdomen- another drain recommended but patient would like to not. Has CT every 6 months. Treatment Goals Patient/Caregiver Goals Decrease swelling and pain in abdomen and LE's and return to usual activities including caring for her horses Prior Functional Status Baseline Function- ADL's Independent Baseline Function- Mobility Independent Baseline Function- Gait no problem Baseline Function- Recreation/Hobbies has horse farm, 8 horses; no limitations Current Functional Impairments (Reported) Functional Limitations- ADL's takes more time Functional Limitations- Mobility/Gait limited to household and short distance community, no device Functional Limitations- Work/School retired Functional Limitations- Recreation/ unable to go to horse barn, Hobbies ride horses Personal Factors Other Personal Factors That May Effect PMH per Dr. Haile's chart: Therapy/Recovery Anxiety Atypical nevi Bilateral hand numbness Bilateral leg pain Cervical somatic dysfunction Finger pain, right Finger swelling Hot flashes Hot flashes due to surgical menopause Hot flashes due to tamoxifen Hyperlipidemia Hypertension Iliotibial band syndrome of both sides Iliotibial band syndrome, right leg Leukocytopenia Low HDL (under 40) Lymphedema Neck stiffness Osteoarthritis Ovarian cancer Pelvic somatic dysfunction Piriformis syndrome of right side Segmental and somatic dysfunction of abdomen and other regions Segmental and somatic dysfunction of rib cage Sleep disorder Somatic dysfunction of lower extremity Thoracic region somatic dysfunction Upper extremity somatic dysfunction Vitamin deficiency PT-OP-C Subjective Start: 04/21/20 17:04 Freq: Status: Active Protocol: Document 05/24/20 16:00 AW (Rec: 05/24/20 17:06 AW [id number]) OP-PT Subjective Patient Comments Patient Comments Bernie continues to have abdominal pain that she describes as near-constant. She received her compression garments but finds them impossible to don. She is going to [facility] for CT scan on . PT-OP-F Manual Assessment Start: 04/21/20 17:04 Freq: Status: Active Protocol: Document 04/28/20 12:59 SAK (Rec: 04/28/20 17:04 SAK [id number]) Manual Assessments Soft Tissue Assessment Soft Tissue Mobility Assessment No palpable tissue fibrosis PT-OP-G Mobility & Gait Start: 04/21/20 17:04 Freq: Status: Active Protocol: Document 04/28/20 12:59 SAK (Rec: 04/28/20 17:04 SAK [id number]) OP Mobility Evaluation Bed Mobility Rolling indep Supine to and from Sit indep Transfers Sit to Stand indep OP Gait Assessment Gait Gait Assistance Required: Independent Distance (Feet) 75 Assistive Devices Assistive Device None Factors Limiting Gait Function Factors Limiting Gait Function Pain Comments Gait Comments legs feel heavy PT-OP-H Neuro Start: 04/21/20 17:04 Freq: Status: Active Protocol: Document 04/28/20 12:59 SAK (Rec: 04/28/20 17:04 SAK [id number]) Sensation Evaluation Gross Sensation Gross Sensation WNL PT-OP-J Posture/Palpation/Skin Start: 04/21/20 17:04 Freq: Status: Active Protocol: Document 04/28/20 12:59 SAK (Rec: 04/28/20 17:04 SAK [id number]) Skin Assessment Incisional Assessment Incision Appearance/Comments well-healed abdominal scar with good scar mobility PT-OP-K Range of Motion Start: 04/21/20 17:04 Freq: Status: Active Protocol: Document 04/28/20 12:59 SAK (Rec: 04/28/20 17:04 SAK [id number]) Hip Goniometric Range of Motion Hip ROM Limitations Hip ROM Limitations Soft Tissue Tightness,Swelling Comments mild limitations all motions PT-OP-M Strength Start: 04/21/20 17:04 Freq: Status: Active Protocol: Document 04/28/20 12:59 SAK (Rec: 04/28/20 17:04 SAK [id number]) Hip Strength Hip Manual Muscle Testing buddy Comments no MMT today due to pain, appears to have anti-gravity strength in all motions Knee Strength Knee Manual Muscle Testing buddy Comments no MMT due to reported pain, has anti-gravity strength Ankle/Foot Strength Ankle and Foot Manual Muscle Testing buddy Comments has antigravity strength, no MMT due to pain PT-OP-N Lymphedema Start: 04/21/20 17:04 Freq: Status: Active Protocol: Document 05/24/20 16:00 AW (Rec: 05/24/20 16:01 AW [email or web address]) Lymphedema Measurements Lower Extremity Circumference Measurements Right Affected MT Heads 20.8 cm Mid-foot 21 cm Medial Malleolus 22.3 cm 10 cm From Medial Malleolus 21.6 cm 20 cm From Medial Malleolus 30.1 cm 30 cm From Medial Malleolus 33.7 cm 40 cm From Medial Malleolus 34.5 cm 50 cm From Medial Malleolus 39.9 cm 60 cm From Medial Malleolus 48.5 cm 70 cm From Medial Malleolus 59.5 cm - umbilicus - 90.0 cm ASIS - 93.8 cm Left Affected MT Heads 20.4 cm Mid-foot 20.5 cm Medial Malleolus 22.1 cm 10 cm From Medial Malleolus 21.2 cm 20 cm From Medial Malleolus 27.8 cm 30 cm From Medial Malleolus 33.2 cm 40 cm From Medial Malleolus 35 cm 50 cm From Medial Malleolus 39.7 cm 60 cm From Medial Malleolus 49 cm 70 cm From Medial Malleolus 57.3 cm - umbilicus - 90.0 cm ASIS - 93.8 cm PT-OP-Q Treatments Start: 04/21/20 17:04 Freq: Status: Active Protocol: Document 05/24/20 16:00 AW (Rec: 05/24/20 17:06 AW [id number]) Lymphedema Treatment Manual Lymphatic Drainage Location BLE Duration 40 Comments IA pathways; emphasis on RLE with more time spent proximally and re-working IA's Lymphedema Wrapping Body Location buddy LE's Materials Tricofix size F, Artiflex, Comprilan (6,8,10, 12) foot to groin. No toe wrapping today due to toes not swelling without toe wraps Pt. able to don house shoe to wear home Other Application of Cepaphil bilateral LE's Sequential Lymphedema Exercises Comments encouraged to do at home with handouts as guide Patient Education Compression Garments Pt needs assist for donning and/or further assessment of potential fit. PT-OP-T Assessment and Plan Start: 04/21/20 17:04 Freq: Status: Active Protocol: Document 05/24/20 16:00 AW (Rec: 05/24/20 17:06 AW [email or web address]) Physical Therapy Assessment Goals Three Impairment activity intolerance with inability to do usual household and recreational Mcc Goal (LTG) Patient to improve activity tolerance as evidenced by her ability to return to her usual activities around the home as well as care for her horses. LTG Duration 07/27/20 Two Impairment pain bilateral LE's Mcc Goal (LTG) decrease LE pain through lymphedema management by at least 50% LTG Duration 07/27/20 One Impairment lymphedema in abdomen and bilateral LE's Short Term Goal (STG) Instruct patient in all aspects of lymphedema management to include skin care, self-MLD, sequential lymphedema exercises, and appropriate use of compression Mcc Goal (LTG) Decrease and stabilize lymphedema (no increase or decrease greater than 1 cm over the course of 1 week) and help patient obtain appropriate compression garment. Patient to be independent with all aspects of lymphedema self-care. LTG Duration 07/27/20 Assessment Summary Assessment Hip and abdomen measurement decreased today. Left leg measurements relatively stable but right leg showing slight increase in circumference, especially proximally. Pt is scheduled for CT scan at [facility] on and will not be seen in clinic again until next week. Her will continue to wrap her. Physical Therapy Plan Frequency and Duration Frequency of Treatment 20 visits Duration of Treatment 12 weeks Plan of Care Start Date 04/28/20 Plan of Care End Date 07/27/20 Therapeutic Interventions Therapeutic Interventions Home Exercise Program, Lymphedema Management,Manual Therapy,Patient/Caregiver Education,Self-Care/Home Management,Soft Tissue Mobilization,Taping, Therapeutic Activities, Therapeutic Exercises Next Visit Focus/Plan Next Note Type Treatment Note Next Visit Plan Continue lymphedema management and education. Evaluate fit of compression garment, problem solve as indicated, consider chip bag or foam in right abdomen under garment.
--- NOTE | 2020-05-31 16:56 | PT.OTN ---
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) Lymphedema, not elsewhere classified (05/31/20) Personal history of other diseases of the female genital tract (05/31/20) Other specified postprocedural states (05/31/20) Physical Therapy Treatment Note PT-OP-A Visit Information Start: 04/21/20 17:04 Freq: Status: Active Protocol: Document 05/31/20 16:00 AW (Rec: 05/31/20 16:56 AW [email or web address]) Out-Patient Physical Therapy Visit Information Visit Information Visit Type Treatment Note Visit Start Time 14:30 Visit Stop Time 16:00 Total Visit Minutes 91 Evaluation Information Evaluation Date 04/28/20 PT-OP-B Current Condition Start: 04/21/20 17:04 Freq: Status: Active Protocol: Document 04/28/20 12:59 SAK (Rec: 04/28/20 13:19 SAK [id number]) Current Condition History of Current Condition Onset Date 6 months Current Complaints lymphedema History of Current Condition July 2018 diagnosed with aggressive metastatic clear cell cancer. Underwent LUPILLO/ BSO and had 15 abdominal lymph nodes removed for cancer staging 10/06/18. States after that procedure had pocket of swelling, had drain placed. When drain removed it states swelling started increasing again, another drain for a few months. After second drain removed ethanol injected and collapsed pocket (seroma) on left side. States swelling has gradually developed in both legs right greater than left for about 6 months, severe pain in legs for about 3 months. 1 year since last regular chemo though currently in medication trial. Reports no exercise at this time. Has ordered lymphedema bandages but not tried to use and did not bring today to PT. Has not tried wearing any compression. Prior Treatments and Tests CT 04/13/20: reports showed enlarged lymph node by pocket of swelling right abdomen- another drain recommended but patient would like to not. Has CT every 6 months. Treatment Goals Patient/Caregiver Goals Decrease swelling and pain in abdomen and LE's and return to usual activities including caring for her horses Prior Functional Status Baseline Function- ADL's Independent Baseline Function- Mobility Independent Baseline Function- Gait no problem Baseline Function- Recreation/Hobbies has horse farm, 8 horses; no limitations Current Functional Impairments (Reported) Functional Limitations- ADL's takes more time Functional Limitations- Mobility/Gait limited to household and short distance community, no device Functional Limitations- Work/School retired Functional Limitations- Recreation/ unable to go to horse barn, Hobbies ride horses Personal Factors Other Personal Factors That May Effect PMH per Dr. Haile's chart: Therapy/Recovery Anxiety Atypical nevi Bilateral hand numbness Bilateral leg pain Cervical somatic dysfunction Finger pain, right Finger swelling Hot flashes Hot flashes due to surgical menopause Hot flashes due to tamoxifen Hyperlipidemia Hypertension Iliotibial band syndrome of both sides Iliotibial band syndrome, right leg Leukocytopenia Low HDL (under 40) Lymphedema Neck stiffness Osteoarthritis Ovarian cancer Pelvic somatic dysfunction Piriformis syndrome of right side Segmental and somatic dysfunction of abdomen and other regions Segmental and somatic dysfunction of rib cage Sleep disorder Somatic dysfunction of lower extremity Thoracic region somatic dysfunction Upper extremity somatic dysfunction Vitamin deficiency PT-OP-C Subjective Start: 04/21/20 17:04 Freq: Status: Active Protocol: Document 05/31/20 16:00 AW (Rec: 05/31/20 16:56 AW [email or web address]) OP-PT Subjective Patient Comments Patient Comments Pt had her CT scan and now is planning to schedule her abdominal drain placement as soon as possible. PT-OP-F Manual Assessment Start: 04/21/20 17:04 Freq: Status: Active Protocol: Document 04/28/20 12:59 SAK (Rec: 04/28/20 17:04 SAK [id number]) Manual Assessments Soft Tissue Assessment Soft Tissue Mobility Assessment No palpable tissue fibrosis PT-OP-G Mobility & Gait Start: 04/21/20 17:04 Freq: Status: Active Protocol: Document 04/28/20 12:59 SAK (Rec: 04/28/20 17:04 SAK [id number]) OP Mobility Evaluation Bed Mobility Rolling indep Supine to and from Sit indep Transfers Sit to Stand indep OP Gait Assessment Gait Gait Assistance Required: Independent Distance (Feet) 75 Assistive Devices Assistive Device None Factors Limiting Gait Function Factors Limiting Gait Function Pain Comments Gait Comments legs feel heavy PT-OP-H Neuro Start: 04/21/20 17:04 Freq: Status: Active Protocol: Document 04/28/20 12:59 SAK (Rec: 04/28/20 17:04 SAK [id number]) Sensation Evaluation Gross Sensation Gross Sensation WNL PT-OP-J Posture/Palpation/Skin Start: 04/21/20 17:04 Freq: Status: Active Protocol: Document 04/28/20 12:59 SAK (Rec: 04/28/20 17:04 SAK [id number]) Skin Assessment Incisional Assessment Incision Appearance/Comments well-healed abdominal scar with good scar mobility PT-OP-K Range of Motion Start: 04/21/20 17:04 Freq: Status: Active Protocol: Document 04/28/20 12:59 SAK (Rec: 04/28/20 17:04 SAK [id number]) Hip Goniometric Range of Motion Hip ROM Limitations Hip ROM Limitations Soft Tissue Tightness,Swelling Comments mild limitations all motions PT-OP-M Strength Start: 04/21/20 17:04 Freq: Status: Active Protocol: Document 04/28/20 12:59 SAK (Rec: 04/28/20 17:04 SAK [id number]) Hip Strength Hip Manual Muscle Testing buddy Comments no MMT today due to pain, appears to have anti-gravity strength in all motions Knee Strength Knee Manual Muscle Testing buddy Comments no MMT due to reported pain, has anti-gravity strength Ankle/Foot Strength Ankle and Foot Manual Muscle Testing buddy Comments has antigravity strength, no MMT due to pain PT-OP-N Lymphedema Start: 04/21/20 17:04 Freq: Status: Active Protocol: Document 05/31/20 16:00 AW (Rec: 05/31/20 16:01 AW [email or web address]) Lymphedema Measurements Lower Extremity Circumference Measurements Right Affected MT Heads 21 cm Mid-foot 20.6 cm Medial Malleolus 22.5 cm 10 cm From Medial Malleolus 23 cm 20 cm From Medial Malleolus 32.1 cm 30 cm From Medial Malleolus 33.7 cm 40 cm From Medial Malleolus 35.6 cm 50 cm From Medial Malleolus 42 cm 60 cm From Medial Malleolus 51.4 cm 70 cm From Medial Malleolus 60.4 cm - umbilicus - 92.5 cm ASIS - 97.0 cm Left Affected MT Heads 21.2 cm Mid-foot 21.2 cm Medial Malleolus 23.2 cm 10 cm From Medial Malleolus 22.8 cm 20 cm From Medial Malleolus 32 cm 30 cm From Medial Malleolus 34.2 cm 40 cm From Medial Malleolus 36.2 cm 50 cm From Medial Malleolus 41.6 cm 60 cm From Medial Malleolus 51.5 cm 70 cm From Medial Malleolus 57.6 cm - umbilicus - 92.5 cm ASIS - 97.0 cm PT-OP-Q Treatments Start: 04/21/20 17:04 Freq: Status: Active Protocol: Document 05/31/20 16:00 AW (Rec: 05/31/20 16:56 AW [id number]) Self-Care/Home Management Treatment Activities Self-Care/Home Management Activities Introduced sock-aid and successfully donned pt's pantyhose style compression garment. Pt will purchase sock aid. Lymphedema Treatment Manual Lymphatic Drainage Location BLE Duration 40 Comments IA pathways; emphasis on RLE with more time spent proximally and re-working IA's Lymphedema Wrapping Body Location buddy LE's Materials Tricofix size F, Artiflex, Comprilan (6,8,10, 12) foot to groin. No toe wrapping today due to toes not swelling without toe wraps Pt. able to don sandals to wear home Other Application of Cepaphil bilateral LE's Sequential Lymphedema Exercises Comments encouraged to do at home with handouts as guide Patient Education Compression Garments Pt required assist to use sock aid but was able to don compression garment PT-OP-T Assessment and Plan Start: 04/21/20 17:04 Freq: Status: Active Protocol: Document 05/31/20 16:00 AW (Rec: 05/31/20 16:56 AW [email or web address]) Physical Therapy Assessment Goals Three Impairment activity intolerance with inability to do usual household and recreational Senior Living Goal (LTG) Patient to improve activity tolerance as evidenced by her ability to return to her usual activities around the home as well as care for her horses. LTG Duration 07/27/20 Two Impairment pain bilateral LE's Senior Living Goal (LTG) decrease LE pain through lymphedema management by at least 50% LTG Duration 07/27/20 One Impairment lymphedema in abdomen and bilateral LE's Short Term Goal (STG) Instruct patient in all aspects of lymphedema management to include skin care, self-MLD, sequential lymphedema exercises, and appropriate use of compression Scow Captain Goal (LTG) Decrease and stabilize lymphedema (no increase or decrease greater than 1 cm over the course of 1 week) and help patient obtain appropriate compression garment. Patient to be independent with all aspects of lymphedema self-care. LTG Duration 07/27/20 Assessment Summary Assessment Measurements globally increased at this visit. Discussed need for greater compression at home and pt agrees to purchase sock aid for donning of compression garment. She has canceled appointment in the next week to focus on abdominal drain placement. Will hold pt chart open for possible return within the next month. Physical Therapy Plan Frequency and Duration Frequency of Treatment 20 visits Duration of Treatment 12 weeks Plan of Care Start Date 04/28/20 Plan of Care End Date 07/27/20 Therapeutic Interventions Therapeutic Interventions Home Exercise Program, Lymphedema Management,Manual Therapy,Patient/Caregiver Education,Self-Care/Home Management,Soft Tissue Mobilization,Taping, Therapeutic Activities, Therapeutic Exercises Next Visit Focus/Plan Next Note Type Treatment Note Next Visit Plan Continue lymphedema management and education. Evaluate fit of compression garment, problem solve as indicated, consider chip bag or foam in right abdomen under garment.
--- NOTE | 2020-12-05 10:49 | PT.OPDS ---
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) Lymphedema, not elsewhere classified (05/31/20) Personal history of other diseases of the female genital tract (05/31/20) Other specified postprocedural states (05/31/20) Visit Care Team Role Provider Type Alvaro Haile DO Attending Provider Physician Family Provider Primary Care Provider Referring Provider Specialty: [facility] Address: [address] [place] [address], [facility] Email: Visit Number Visit Number 8 Discharge Summary PT-OP-B Current Condition Start: 04/21/20 17:04 Freq: Status: Active Protocol: Document 04/28/20 12:59 SAK (Rec: 04/28/20 13:19 SAK [id number]) Current Condition History of Current Condition Onset Date 6 months Current Complaints lymphedema History of Current Condition July 2018 diagnosed with aggressive metastatic clear cell cancer. Underwent LUPILLO/ BSO and had 15 abdominal lymph nodes removed for cancer staging 10/06/18. States after that procedure had pocket of swelling, had drain placed. When drain removed it states swelling started increasing again, another drain for a few months. After second drain removed ethanol injected and collapsed pocket (seroma) on left side. States swelling has gradually developed in both legs right greater than left for about 6 months, severe pain in legs for about 3 months. 1 year since last regular chemo though currently in medication trial. Reports no exercise at this time. Has ordered lymphedema bandages but not tried to use and did not bring today to PT. Has not tried wearing any compression. Prior Treatments and Tests CT 04/13/20: reports showed enlarged lymph node by pocket of swelling right abdomen- another drain recommended but patient would like to not. Has CT every 6 months. Treatment Goals Patient/Caregiver Goals Decrease swelling and pain in abdomen and LE's and return to usual activities including caring for her horses Prior Functional Status Baseline Function- ADL's Independent Baseline Function- Mobility Independent Baseline Function- Gait no problem Baseline Function- Recreation/Hobbies has horse farm, 8 horses; no limitations Current Functional Impairments (Reported) Functional Limitations- ADL's takes more time Functional Limitations- Mobility/Gait limited to household and short distance community, no device Functional Limitations- Work/School retired Functional Limitations- Recreation/ unable to go to horse barn, Hobbies ride horses Personal Factors Other Personal Factors That May Effect PMH per Dr. Haile's chart: Therapy/Recovery Anxiety Atypical nevi Bilateral hand numbness Bilateral leg pain Cervical somatic dysfunction Finger pain, right Finger swelling Hot flashes Hot flashes due to surgical menopause Hot flashes due to tamoxifen Hyperlipidemia Hypertension Iliotibial band syndrome of both sides Iliotibial band syndrome, right leg Leukocytopenia Low HDL (under 40) Lymphedema Neck stiffness Osteoarthritis Ovarian cancer Pelvic somatic dysfunction Piriformis syndrome of right side Segmental and somatic dysfunction of abdomen and other regions Segmental and somatic dysfunction of rib cage Sleep disorder Somatic dysfunction of lower extremity Thoracic region somatic dysfunction Upper extremity somatic dysfunction Vitamin deficiency PT-OP-C Subjective Start: 04/21/20 17:04 Freq: Status: Active Protocol: Document 05/31/20 16:00 AW (Rec: 05/31/20 16:56 AW [email or web address]) OP-PT Subjective Patient Comments Patient Comments Pt had her CT scan and now is planning to schedule her abdominal drain placement as soon as possible. PT-OP-F Manual Assessment Start: 04/21/20 17:04 Freq: Status: Active Protocol: Document 04/28/20 12:59 SAK (Rec: 04/28/20 17:04 SAK [id number]) Manual Assessments Soft Tissue Assessment Soft Tissue Mobility Assessment No palpable tissue fibrosis PT-OP-G Mobility & Gait Start: 04/21/20 17:04 Freq: Status: Active Protocol: Document 04/28/20 12:59 SAK (Rec: 04/28/20 17:04 SAK [id number]) OP Mobility Evaluation Bed Mobility Rolling indep Supine to and from Sit indep Transfers Sit to Stand indep OP Gait Assessment Gait Gait Assistance Required: Independent Distance (Feet) 75 Assistive Devices Assistive Device None Factors Limiting Gait Function Factors Limiting Gait Function Pain Comments Gait Comments legs feel heavy PT-OP-H Neuro Start: 04/21/20 17:04 Freq: Status: Active Protocol: Document 04/28/20 12:59 SAK (Rec: 04/28/20 17:04 SAK [id number]) Sensation Evaluation Gross Sensation Gross Sensation WNL PT-OP-J Posture/Palpation/Skin Start: 04/21/20 17:04 Freq: Status: Active Protocol: Document 04/28/20 12:59 SAK (Rec: 04/28/20 17:04 SAK [id number]) Skin Assessment Incisional Assessment Incision Appearance/Comments well-healed abdominal scar with good scar mobility PT-OP-K Range of Motion Start: 04/21/20 17:04 Freq: Status: Active Protocol: Document 04/28/20 12:59 SAK (Rec: 04/28/20 17:04 SAK [id number]) Hip Goniometric Range of Motion Hip ROM Limitations Hip ROM Limitations Soft Tissue Tightness,Swelling Comments mild limitations all motions PT-OP-M Strength Start: 04/21/20 17:04 Freq: Status: Active Protocol: Document 04/28/20 12:59 SAK (Rec: 04/28/20 17:04 SAK [id number]) Hip Strength Hip Manual Muscle Testing buddy Comments no MMT today due to pain, appears to have anti-gravity strength in all motions Knee Strength Knee Manual Muscle Testing buddy Comments no MMT due to reported pain, has anti-gravity strength Ankle/Foot Strength Ankle and Foot Manual Muscle Testing buddy Comments has antigravity strength, no MMT due to pain PT-OP-N Lymphedema Start: 04/21/20 17:04 Freq: Status: Active Protocol: Document 05/31/20 16:00 AW (Rec: 05/31/20 16:01 AW [id number]) Lymphedema Measurements Lower Extremity Circumference Measurements Right Affected MT Heads 21 cm Mid-foot 20.6 cm Medial Malleolus 22.5 cm 10 cm From Medial Malleolus 23 cm 20 cm From Medial Malleolus 32.1 cm 30 cm From Medial Malleolus 33.7 cm 40 cm From Medial Malleolus 35.6 cm 50 cm From Medial Malleolus 42 cm 60 cm From Medial Malleolus 51.4 cm 70 cm From Medial Malleolus 60.4 cm - umbilicus - 92.5 cm ASIS - 97.0 cm Left Affected MT Heads 21.2 cm Mid-foot 21.2 cm Medial Malleolus 23.2 cm 10 cm From Medial Malleolus 22.8 cm 20 cm From Medial Malleolus 32 cm 30 cm From Medial Malleolus 34.2 cm 40 cm From Medial Malleolus 36.2 cm 50 cm From Medial Malleolus 41.6 cm 60 cm From Medial Malleolus 51.5 cm 70 cm From Medial Malleolus 57.6 cm - umbilicus - 92.5 cm ASIS - 97.0 cm PT-OP-T Assessment and Plan Start: 04/21/20 17:04 Freq: Status: Active Protocol: Document 12/05/20 10:48 JASMINE (Rec: 12/05/20 10:49 JASMINE [id number]) Physical Therapy Plan Discharge Physical Therapy Discharge Reasons No Longer Attending PT
== END 2020-12-20 08:16 ==
LOC: PHYS 14:30
PROVIDERS: Family Provider Family Medicine; PCP Family Medicine; Referring Provider Family Medicine; Visit Provider Family Medicine
DX: E78.6 Lipoprotein deficiency (principal); I89.0 Lymphedema, not elsewhere classified; Z98.890 Other specified postprocedural states; Z87.42 Personal history of other diseases of the female genital tract
CPT/HCPCS: 97140; 97162; 97535

== ENCOUNTER → 2020-08-24 10:51 | Outpatient (CLI) | payer OTHER, SELFPAY ==
[2019-02-15 20:04] VITALS: BMI 24.9
[2020-08-24 12:17] LABS: Add Manual Diff / Slide Review NO; Basophils Absolute Auto 100 /uL (0-100); Eosinophils Absolute Auto 100 /uL (0-450); Eosinophils Percent Auto 1.9 % (2-4); Hematocrit 41.6 % (36-46); Hemoglobin 14.3 g/dL (12.0-16.0); Lymphocytes Absolute Auto 1800 /uL (1100-4500); Lymphocytes Percent Auto 27.7 % (25-40); Mean Corpuscular HGB Conc 34.3 % (30-36); Mean Corpuscular Hemoglobin 33.6 PG (26-34); Mean Corpuscular Volume 97.9 fL (80-100); Monocytes Absolute Auto 500 /uL (0-900); Monocytes Percent Auto 7.6 % (3-14); Neutrophils Absolute Auto 4000 /uL (1500-7000); Neutrophils Percent Auto 61.8 % (50-75); Platelet Count 185 X10^3/uL (150-400); Red Blood Cell Count 4.25 X10^6/uL (4.0-5.2); Red Cell Distribution Width 16.1 % (11.6-14.8); White Blood Cell Count 6.4 X10^3/uL (4.5-11.0)
[2020-08-24 12:35] LABS: Alanine Aminotransferase 18 IU/L (<35); Albumin 4.1 g/dL (3.5-5.0); Albumin Globulin Ratio 1.3 (1.0-2.8); Alkaline Phosphatase 81 U/L (38-126); Aspartate Aminotransferase 28 IU/L (14-36); BUN Creatinine Ratio 21.4 (6-22); Bilirubin Total 0.5 mg/dL (0.2-1.3); Blood Urea Nitrogen 12 mg/dL (7-17); Calcium 9.6 mg/dL (8.4-10.2); Carbon Dioxide 29 mmol/L (22-32); Chloride 102 mmol/L (98-107); Cholesterol 200 mg/dL (140-199); Estimated Glomerular Filt Rate > 60.0 mL/min (>60); Globulin 3.1 g/dL (1.7-4.1); Glucose 97 mg/dL (70-100); HDL Cholesterol 46 mg/dL (40-60); HEMOLYSIS < 15 (0-50); LDL Cholesterol Calculated 120 mg/dL (<100); Potassium 4.3 mmol/L (3.4-5.1); Sodium 138 mmol/L (137-145); Total Protein 7.2 g/dL (6.3-8.2); Triglycerides 170 mg/dL (35-150)
[2020-08-24 12:45] LABS: Vitamin D 25 Hydroxy (D3) 39.5 ng/mL (30.0-100.0)
[2020-08-24 12:48] LABS: Free T3, Triiodothyronine Free 3.13 pg/mL (2.77-5.27); Free T4, Direct Thyroxine 0.86 ng/dL (0.78-2.19)
[2020-08-24 13:01] LABS: Thyroid Stimulating Hormone 0.941 uIU/mL (0.47-4.68)
[2020-08-24 13:21] LABS: Vitamin B12 416 pg/mL (239-931)
== END ==
PROVIDERS: Family Provider Family Medicine; PCP Family Medicine; Referring Provider Family Medicine; Visit Provider Family Medicine
DX: D72.819 Decreased white blood cell count, unspecified (principal); E56.9 Vitamin deficiency, unspecified; E78.5 Hyperlipidemia, unspecified; E78.6 Lipoprotein deficiency; I10 Essential (primary) hypertension; Z13.29 Encounter for screening for other suspected endocrine disorder
CPT/HCPCS: 36415; 80053; 80061; 82306; 82607; 84439; 84443; 84481; 85025

== ENCOUNTER → 2020-09-27 14:24 | Outpatient (CLI) | payer OTHER, SELFPAY ==
[2019-02-15 20:04] VITALS: BMI 24.9
[2020-09-27 15:00] LABS: Add Manual Diff / Slide Review NO; Basophils Absolute Auto 100 /uL (0-100); Basophils Percent Auto 0.8 % (0-2); Eosinophils Absolute Auto 200 /uL (0-450); Eosinophils Percent Auto 2.4 % (2-4); Hematocrit 40.4 % (36-46); Hemoglobin 13.8 g/dL (12.0-16.0); Lymphocytes Absolute Auto 1800 /uL (1100-4500); Lymphocytes Percent Auto 23.6 % (25-40); Mean Corpuscular HGB Conc 34.3 % (30-36); Mean Corpuscular Hemoglobin 33.7 PG (26-34); Mean Corpuscular Volume 98.5 fL (80-100); Monocytes Absolute Auto 300 /uL (0-900); Monocytes Percent Auto 4.5 % (3-14); Neutrophils Absolute Auto 5100 /uL (1500-7000); Neutrophils Percent Auto 68.7 % (50-75); Platelet Count 216 X10^3/uL (150-400); Red Cell Distribution Width 14.9 % (11.6-14.8); White Blood Cell Count 7.5 X10^3/uL (4.5-11.0)
[2020-09-27 15:16] LABS: Alanine Aminotransferase 17 IU/L (<35); Albumin Globulin Ratio 1.3 (1.0-2.8); Alkaline Phosphatase 68 U/L (38-126); Aspartate Aminotransferase 28 IU/L (14-36); BUN Creatinine Ratio 16.4 (6-22); Bilirubin Total 0.3 mg/dL (0.2-1.3); Blood Urea Nitrogen 10 mg/dL (7-17); Calcium 9.2 mg/dL (8.4-10.2); Carbon Dioxide 32 mmol/L (22-32); Chloride 105 mmol/L (98-107); Cholesterol 170 mg/dL (140-199); Estimated Glomerular Filt Rate > 60.0 mL/min (>60); Globulin 3.1 g/dL (1.7-4.1); Glucose 116 mg/dL (80-110); HDL Cholesterol 35 mg/dL (40-60); HEMOLYSIS < 15 (0-50); LDL Cholesterol Calculated 89 mg/dL (<100); Potassium 3.9 mmol/L (3.4-5.1); Sodium 142 mmol/L (137-145); Total Protein 7.1 g/dL (6.3-8.2); Triglycerides 231 mg/dL (35-150)
== END ==
PROVIDERS: Family Provider Family Medicine; PCP Family Medicine; Referring Provider Obstetrics & Gynecology Gynecologic Oncology; Visit Provider Obstetrics & Gynecology Gynecologic Oncology
DX: Z00.6 Encounter for examination for normal comparison and control in clinical research program (principal); D72.819 Decreased white blood cell count, unspecified; E78.2 Mixed hyperlipidemia; E78.6 Lipoprotein deficiency; I10 Essential (primary) hypertension
CPT/HCPCS: 36415; 80053; 80061; 85025

== ENCOUNTER → 2020-10-05 14:19 | Outpatient (CLI) | payer OTHER, SELFPAY ==
[2019-02-15 20:04] VITALS: BMI 24.9
[2020-10-05 16:03] LABS: Add Manual Diff / Slide Review NO; Basophils Absolute Auto 0 /uL (0-100); Basophils Percent Auto 0.5 % (0-2); Eosinophils Absolute Auto 200 /uL (0-450); Eosinophils Percent Auto 2.8 % (2-4); Hematocrit 41.5 % (36-46); Hemoglobin 14.2 g/dL (12.0-16.0); Lymphocytes Absolute Auto 1500 /uL (1100-4500); Lymphocytes Percent Auto 24.6 % (25-40); Mean Corpuscular HGB Conc 34.1 % (30-36); Mean Corpuscular Hemoglobin 33.6 PG (26-34); Mean Corpuscular Volume 98.4 fL (80-100); Monocytes Absolute Auto 300 /uL (0-900); Neutrophils Absolute Auto 4200 /uL (1500-7000); Neutrophils Percent Auto 67.1 % (50-75); Platelet Count 97 X10^3/uL (150-400); Red Blood Cell Count 4.22 X10^6/uL (4.0-5.2); Red Cell Distribution Width 14.7 % (11.6-14.8); White Blood Cell Count 6.3 X10^3/uL (4.5-11.0)
== END ==
PROVIDERS: Family Provider Family Medicine; PCP Family Medicine; Referring Provider Obstetrics & Gynecology Gynecologic Oncology; Visit Provider Obstetrics & Gynecology Gynecologic Oncology
DX: Z00.6 Encounter for examination for normal comparison and control in clinical research program (principal)
CPT/HCPCS: 36415; 85025

== ENCOUNTER → 2020-10-12 14:10 | Outpatient (CLI) | payer OTHER, SELFPAY ==
[2019-02-15 20:04] VITALS: BMI 24.9
[2020-10-12 15:02] LABS: Add Manual Diff / Slide Review NO; Basophils Absolute Auto 0 /uL (0-100); Basophils Percent Auto 0.3 % (0-2); Eosinophils Absolute Auto 300 /uL (0-450); Eosinophils Percent Auto 3.9 % (2-4); Hematocrit 39.4 % (36-46); Hemoglobin 13.7 g/dL (12.0-16.0); Lymphocytes Absolute Auto 2300 /uL (1100-4500); Lymphocytes Percent Auto 30.9 % (25-40); Mean Corpuscular HGB Conc 34.9 % (30-36); Mean Corpuscular Hemoglobin 34.3 PG (26-34); Mean Corpuscular Volume 98.4 fL (80-100); Monocytes Absolute Auto 400 /uL (0-900); Monocytes Percent Auto 5.2 % (3-14); Neutrophils Absolute Auto 4500 /uL (1500-7000); Neutrophils Percent Auto 59.7 % (50-75); Red Cell Distribution Width 14.9 % (11.6-14.8); White Blood Cell Count 7.6 X10^3/uL (4.5-11.0)
[2020-10-12 15:03] LABS: Platelet Count 97 X10^3/uL (150-400)
== END ==
PROVIDERS: Family Provider Family Medicine; PCP Family Medicine; Referring Provider Obstetrics & Gynecology Gynecologic Oncology; Visit Provider Obstetrics & Gynecology Gynecologic Oncology
DX: Z00.6 Encounter for examination for normal comparison and control in clinical research program (principal)
CPT/HCPCS: 36415; 85025

== ENCOUNTER → 2020-10-27 14:42 | Outpatient (CLI) | payer OTHER, SELFPAY ==
[2019-02-15 20:04] VITALS: BMI 24.9
[2020-10-27 15:34] LABS: Add Manual Diff / Slide Review NO; Basophils Absolute Auto 0 /uL (0-100); Basophils Percent Auto 0.2 % (0-2); Eosinophils Absolute Auto 100 /uL (0-450); Eosinophils Percent Auto 2.5 % (2-4); Hematocrit 39.5 % (36-46); Hemoglobin 13.7 g/dL (12.0-16.0); Lymphocytes Absolute Auto 1400 /uL (1100-4500); Lymphocytes Percent Auto 23.9 % (25-40); Mean Corpuscular HGB Conc 34.6 % (30-36); Mean Corpuscular Hemoglobin 34.6 PG (26-34); Mean Corpuscular Volume 99.8 fL (80-100); Monocytes Absolute Auto 300 /uL (0-900); Monocytes Percent Auto 4.4 % (3-14); Neutrophils Absolute Auto 4000 /uL (1500-7000); Platelet Count 121 X10^3/uL (150-400); Red Blood Cell Count 3.95 X10^6/uL (4.0-5.2); Red Cell Distribution Width 15.9 % (11.6-14.8); White Blood Cell Count 5.8 X10^3/uL (4.5-11.0)
== END ==
PROVIDERS: Family Provider Family Medicine; PCP Family Medicine; Referring Provider Obstetrics & Gynecology Gynecologic Oncology; Visit Provider Obstetrics & Gynecology Gynecologic Oncology
DX: Z00.6 Encounter for examination for normal comparison and control in clinical research program (principal)
CPT/HCPCS: 36415; 85025

== ENCOUNTER → 2020-11-03 14:39 | Outpatient (CLI) | payer OTHER, SELFPAY ==
[2019-02-15 20:04] VITALS: BMI 24.9
[2020-11-03 16:14] LABS: Add Manual Diff / Slide Review NO; Basophils Absolute Auto 0 /uL (0-100); Basophils Percent Auto 0.2 % (0-2); Eosinophils Absolute Auto 200 /uL (0-450); Eosinophils Percent Auto 3.8 % (2-4); Hematocrit 37.6 % (36-46); Hemoglobin 13.2 g/dL (12.0-16.0); Lymphocytes Absolute Auto 1400 /uL (1100-4500); Lymphocytes Percent Auto 33.5 % (25-40); Mean Corpuscular HGB Conc 34.9 % (30-36); Mean Corpuscular Hemoglobin 35.7 PG (26-34); Monocytes Absolute Auto 200 /uL (0-900); Monocytes Percent Auto 5.2 % (3-14); Neutrophils Absolute Auto 2400 /uL (1500-7000); Neutrophils Percent Auto 57.3 % (50-75); Platelet Count 125 X10^3/uL (150-400); Red Blood Cell Count 3.69 X10^6/uL (4.0-5.2); Red Cell Distribution Width 16.9 % (11.6-14.8); White Blood Cell Count 4.1 X10^3/uL (4.5-11.0)
== END ==
PROVIDERS: Family Provider Family Medicine; PCP Family Medicine; Referring Provider Obstetrics & Gynecology Gynecologic Oncology; Visit Provider Obstetrics & Gynecology Gynecologic Oncology
DX: Z00.6 Encounter for examination for normal comparison and control in clinical research program (principal)
CPT/HCPCS: 36415; 85025

== ENCOUNTER → 2020-11-10 14:34 | Outpatient (CLI) | payer OTHER, SELFPAY ==
[2019-02-15 20:04] VITALS: BMI 24.9
[2020-11-10 14:53] LABS: Bacteria Urine None Seen
[2020-11-10 15:35] LABS: Appearance Urine UA CLEAR; Bilirubin Urine UA NEGATIVE (NEGATIVE); Color Urine UA YELLOW; Glucose Urine UA NEGATIVE (Negative); Ketones Urine UA NEGATIVE (NEGATIVE); Leukocyte Esterase Urine UA NEGATIVE (NEGATIVE); Nitrite Urine UA NEGATIVE (Negative); Occult Blood Urine UA TRACE-INTACT (Negative); Protein Urine UA 1+ (Negative); Specific Gravity Urine UA 1.025 (1.000-1.035); Urobilinogen Urine UA 0.2 E.U./dL (0.2)
[2020-11-10 15:38] LABS: Add Manual Diff / Slide Review NO; Basophils Absolute Auto 0 /uL (0-100); Basophils Percent Auto 0.3 % (0-2); Eosinophils Absolute Auto 100 /uL (0-450); Eosinophils Percent Auto 3.5 % (2-4); Hematocrit 37.5 % (36-46); Lymphocytes Absolute Auto 1200 /uL (1100-4500); Lymphocytes Percent Auto 30.5 % (25-40); Mean Corpuscular HGB Conc 34.5 % (30-36); Mean Corpuscular Hemoglobin 35.2 PG (26-34); Monocytes Absolute Auto 200 /uL (0-900); Monocytes Percent Auto 5.5 % (3-14); Neutrophils Absolute Auto 2500 /uL (1500-7000); Neutrophils Percent Auto 60.2 % (50-75); Platelet Count 139 X10^3/uL (150-400); Red Blood Cell Count 3.68 X10^6/uL (4.0-5.2); Red Cell Distribution Width 17.7 % (11.6-14.8); White Blood Cell Count 4.1 X10^3/uL (4.5-11.0)
[2020-11-10 15:52] LABS: Amorphous Sediment Urine 1+; RBC Urine 1-5/HPF (0-5/HPF); Squamous Epithelial Cell Urine 1-5 /HPF (0-5/HPF); WBC Urine 1-5/HPF (0-5/HPF)
[2020-11-10 15:53] LABS: Culture Indicated Urine Cult Not Indicated; Mucus Urine 1+ (Negative)
[2020-11-10 15:56] LABS: Alanine Aminotransferase 16 IU/L (<35); Albumin 4.2 g/dL (3.5-5.0); Albumin Globulin Ratio 1.8 (1.0-2.8); Alkaline Phosphatase 59 U/L (38-126); Aspartate Aminotransferase 30 IU/L (14-36); BUN Creatinine Ratio 17.2 (6-22); Bilirubin Total 0.3 mg/dL (0.2-1.3); Blood Urea Nitrogen 11 mg/dL (7-17); Calcium 8.9 mg/dL (8.4-10.2); Carbon Dioxide 30 mmol/L (22-32); Chloride 109 mmol/L (98-107); Estimated Glomerular Filt Rate > 60.0 mL/min (>60); Globulin 2.4 g/dL (1.7-4.1); Glucose 90 mg/dL (80-110); HEMOLYSIS < 15 (0-50); Magnesium 1.8 mg/dL (1.6-2.3); Potassium 3.7 mmol/L (3.4-5.1); Sodium 142 mmol/L (137-145); Total Protein 6.6 g/dL (6.3-8.2)
[2020-11-10 16:26] LABS: Cancer Antigen 125 47.6 U/mL (0-35)
== END ==
PROVIDERS: Family Provider Family Medicine; PCP Family Medicine; Referring Provider Obstetrics & Gynecology Gynecologic Oncology; Visit Provider Obstetrics & Gynecology Gynecologic Oncology
DX: C56.9 Malignant neoplasm of unspecified ovary (principal)
CPT/HCPCS: 80053; 81001; 83735; 85025; 86304

== ENCOUNTER → 2020-12-29 12:02 | Outpatient (CLI) | payer OTHER, SELFPAY ==
[2019-02-15 20:04] VITALS: BMI 24.9
--- NOTE | 2020-12-29 12:05 | DI.MG.S_ITS ---
BILATERAL DIGITAL SCREENING MAMMOGRAM 3D/2D WITH CAD: 12/29/2020 CLINICAL: Routine screening. Comparison is made to exams dated: 05/20/2014 mammogram, 06/21/2009 mammogram, and 06/15/2009 mammogram - [facility]. The tissue of both breasts is predominantly fatty. Current study was also evaluated with a Computer Aided Detection (CAD) system. No significant masses, calcifications, or other findings are seen in either breast. There has been no significant interval change. IMPRESSION: NEGATIVE There is no mammographic evidence of malignancy. A 1 year screening mammogram is recommended. This exam was interpreted at Station ID: [id number]. NOTE: For mammograms, a report in lay terms will be sent to the patient. Approximately 15% of breast malignancies will not be visualized mammographically. In the management of a palpable breast mass, a negative mammogram must not discourage biopsy of a clinically suspicious lesion. Electronically Signed By: Juve Zaragoza acr/tobi:12/29/2020 13:16:31 letter sent: Normal Exam ACR BI-RADS Category 1: Negative [id number]
== END ==
PROVIDERS: Family Provider Family Medicine; PCP Family Medicine; Referring Provider Family Medicine; Visit Provider Family Medicine
DX: Z12.31 Encounter for screening mammogram for malignant neoplasm of breast (principal); D72.819 Decreased white blood cell count, unspecified; E56.9 Vitamin deficiency, unspecified; E78.5 Hyperlipidemia, unspecified; E78.6 Lipoprotein deficiency; I10 Essential (primary) hypertension; Z13.29 Encounter for screening for other suspected endocrine disorder
CPT/HCPCS: 77063; 77067

== ENCOUNTER → 2021-05-25 14:07 | Outpatient (CLI) | payer OTHER, SELFPAY ==
[2019-02-15 20:04] VITALS: BMI 24.9
[2021-05-25 14:49] LABS: Lipase 78 U/L (23-300)
== END ==
PROVIDERS: Family Provider Family Medicine; PCP Family Medicine; Referring Provider Obstetrics & Gynecology Gynecologic Oncology; Visit Provider Obstetrics & Gynecology Gynecologic Oncology
DX: Z00.6 Encounter for examination for normal comparison and control in clinical research program (principal); R74.8 Abnormal levels of other serum enzymes
CPT/HCPCS: 36415; 83690

== ENCOUNTER → 2021-09-05 13:57 | Outpatient (CLI) | payer OTHER, SELFPAY ==
[2019-02-15 20:04] VITALS: BMI 24.9
[2021-09-05 14:47] LABS: Add Manual Diff / Slide Review NO; Basophils Absolute Auto 0 /uL (0-100); Eosinophils Absolute Auto 100 /uL (0-450); Eosinophils Percent Auto 2.3 % (2-4); Hematocrit 41.9 % (36-46); Hemoglobin 14.5 g/dL (12.0-16.0); Lymphocytes Absolute Auto 2100 /uL (1100-4500); Lymphocytes Percent Auto 49.7 % (25-40); Mean Corpuscular HGB Conc 34.5 % (30-36); Mean Corpuscular Hemoglobin 33.1 PG (26-34); Mean Corpuscular Volume 95.9 fL (80-100); Monocytes Absolute Auto 700 /uL (0-900); Neutrophils Absolute Auto 1300 /uL (1500-7000); Platelet Count 156 X10^3/uL (150-400); Red Blood Cell Count 4.37 X10^6/uL (4.0-5.2); White Blood Cell Count 4.2 X10^3/uL (4.5-11.0)
== END ==
PROVIDERS: Family Provider Family Medicine; PCP Family Medicine; Referring Provider Obstetrics & Gynecology Gynecologic Oncology; Visit Provider Obstetrics & Gynecology Gynecologic Oncology
DX: C56.9 Malignant neoplasm of unspecified ovary (principal)
CPT/HCPCS: 36415; 85025

== ENCOUNTER → 2021-09-26 10:46 | Outpatient (CLI) | payer OTHER, SELFPAY ==
[2019-02-15 20:04] VITALS: BMI 24.9
[2021-09-26 11:39] LABS: Add Manual Diff / Slide Review NO; Basophils Absolute Auto 0 /uL (0-100); Basophils Percent Auto 0.6 % (0-2); Eosinophils Absolute Auto 100 /uL (0-450); Eosinophils Percent Auto 2.5 % (2-4); Lymphocytes Absolute Auto 1900 /uL (1100-4500); Lymphocytes Percent Auto 50.4 % (25-40); Mean Corpuscular HGB Conc 34.8 % (30-36); Mean Corpuscular Hemoglobin 33.4 PG (26-34); Mean Corpuscular Volume 96.1 fL (80-100); Monocytes Absolute Auto 400 /uL (0-900); Neutrophils Absolute Auto 1300 /uL (1500-7000); Neutrophils Percent Auto 34.5 % (50-75); Platelet Count 175 X10^3/uL (150-400); Red Blood Cell Count 4.48 X10^6/uL (4.0-5.2); Red Cell Distribution Width 15.4 % (11.6-14.8); White Blood Cell Count 3.8 X10^3/uL (4.5-11.0)
[2021-09-26 11:53] LABS: Alanine Aminotransferase 20 IU/L (<35); Albumin 4.2 g/dL (3.5-5.0); Albumin Globulin Ratio 1.4 (1.0-2.8); Alkaline Phosphatase 60 U/L (38-126); Aspartate Aminotransferase 30 IU/L (14-36); Bilirubin Total 0.4 mg/dL (0.2-1.3); Blood Urea Nitrogen 11 mg/dL (7-17); Calcium 8.8 mg/dL (8.4-10.2); Carbon Dioxide 28 mmol/L (22-32); Chloride 104 mmol/L (98-107); Cholesterol 193 mg/dL (140-199); Estimated Glomerular Filt Rate > 60 mL/min (>60); Globulin 2.9 g/dL (1.7-4.1); Glucose 102 mg/dL (80-110); HDL Cholesterol 33 mg/dL (40-60); HEMOLYSIS < 15 (0-50); LDL Cholesterol Calculated 132 mg/dL (<100); Potassium 3.9 mmol/L (3.4-5.1); Sodium 139 mmol/L (137-145); Total Protein 7.1 g/dL (6.3-8.2); Triglycerides 140 mg/dL (35-150)
[2021-09-26 11:59] LABS: Lipase 73 U/L (23-300)
== END ==
PROVIDERS: Obstetrics & Gynecology Gynecologic Oncology; Family Provider Family Medicine; PCP Family Medicine; Referring Provider Family Medicine; Visit Provider Family Medicine
DX: Z00.6 Encounter for examination for normal comparison and control in clinical research program (principal); R74.8 Abnormal levels of other serum enzymes; E78.2 Mixed hyperlipidemia; I10 Essential (primary) hypertension
CPT/HCPCS: 36415; 80053; 80061; 83690; 85025

== ENCOUNTER → 2021-10-17 11:02 | Outpatient (CLI) | payer OTHER, SELFPAY ==
[2019-02-15 20:04] VITALS: BMI 24.9
[2021-10-17 14:13] LABS: Lipase 349 U/L (23-300)
== END ==
PROVIDERS: Family Provider Family Medicine; PCP Family Medicine; Referring Provider Obstetrics & Gynecology Gynecologic Oncology; Visit Provider Obstetrics & Gynecology Gynecologic Oncology
DX: Z00.6 Encounter for examination for normal comparison and control in clinical research program (principal); R74.8 Abnormal levels of other serum enzymes
CPT/HCPCS: 36415; 83690

== ENCOUNTER → 2021-11-10 12:57 | Outpatient (CLI) | payer OTHER, SELFPAY ==
[2019-02-15 20:04] VITALS: BMI 24.9
[2021-11-10 14:02] LABS: Lipase 69 U/L (23-300)
== END ==
PROVIDERS: Family Provider Family Medicine; PCP Family Medicine; Referring Provider Obstetrics & Gynecology Gynecologic Oncology; Visit Provider Obstetrics & Gynecology Gynecologic Oncology
DX: Z00.6 Encounter for examination for normal comparison and control in clinical research program (principal); R74.8 Abnormal levels of other serum enzymes
CPT/HCPCS: 36415; 83690

== ENCOUNTER → 2021-11-21 13:22 | Outpatient (CLI) | payer OTHER, SELFPAY ==
[2019-02-15 20:04] VITALS: BMI 24.9
[2021-11-21 14:28] LABS: Alanine Aminotransferase 15 IU/L (<35); Albumin 4.2 g/dL (3.5-5.0); Albumin Globulin Ratio 1.2 (1.0-2.8); Alkaline Phosphatase 52 U/L (38-126); Aspartate Aminotransferase 27 IU/L (14-36); Bilirubin Total 0.4 mg/dL (0.2-1.3); Blood Urea Nitrogen 13 mg/dL (7-17); Carbon Dioxide 33 mmol/L (22-32); Chloride 103 mmol/L (98-107); Estimated Glomerular Filt Rate > 60 mL/min (>60); Globulin 3.4 g/dL (1.7-4.1); Glucose 94 mg/dL (80-110); HEMOLYSIS < 15 (0-50); Lipase 100 U/L (23-300); Sodium 141 mmol/L (137-145); Total Protein 7.6 g/dL (6.3-8.2)
--- NOTE | 2021-11-21 14:49 | DI.CT.S_ITS ---
PROCEDURE: CT CHEST ABD PEL W CON INDICATIONS: Malignant neoplasm of unspecified ovary TECHNIQUE: After the administration of intravenous contrast, 5 mm thick sections acquired from the lung apices to the symphysis. 2.5 mm thick coronal and sagittal reformats were acquired. Additional 7 mm thick coronal maximum intensity projection (MIP) reformats acquired through the lungs. For radiation dose reduction, the following was used: automated exposure control, adjustment of mA and/or kV according to patient size. COMPARISON: [facility], CT, CT ABDOMEN PELVIS W CON, 02/15/2019, 15:40. FINDINGS: Chest: Cardiovascular: Heart size is normal. No evidence of pulmonary embolism, aortic aneurysm or dissection. Dense coronary artery vascular calcification Lungs and pleural spaces: Bilateral calcified granulomas measure up to 7 mm in the right lower lobe, stable from the prior Lymph nodes: No mediastinal, hilar or axillary adenopathy. Mediastinum: Unremarkable. No hiatal hernia. Thyroid within normal limits. Chest Wall and Bones: Right-sided Port-A-Cath in place Abdomen and Pelvis: Liver: Normal in size and attenuation. No contour deformity present. Biliary system: No calcified cholelithiasis or pericholecystic inflammation. No intra or extrahepatic bile duct dilatation. Pancreas: Unremarkable without mass or inflammation evident. Spleen: Normal in size and density. Adrenals: Normal morphology and density. Reproductive system: Unremarkable as visualized. Urinary system: Normal renal size and attenuation. No renal calculi, hydronephrosis, or solid mass present. Urinary bladder unremarkable. Gastrointestinal system: The bowel is unremarkable with no evidence of bowel obstruction or inflammation. The stomach appears unremarkable. Prominent pylorus and gastric antrum is similar to the prior Appendix: No findings to suggest acute appendicitis. Lymph nodes: No mesenteric or retroperitoneal adenopathy. Peritoneal spaces: No free air. No free fluid. multiple seals in the pelvis have resolved in the interval Vasculature: The IVC, aorta and iliac vasculature are unremarkable. Abdominal wall: Abdominal wall intact without evidence of ventral or inguinal hernias. Musculoskeletal: Normal bone mineralization. Degenerative disc disease and arthropathy noted in lower lumbar spine. No acute fractures. L4-5 degenerative disc disease and arthropathy has worsened in the interval IMPRESSION: 1. Previously noted pelvic lymphoceles have resolved in the interval. No evidence of recurrence or residual neoplastic disease 2. Mildly prominent gastric antrum/pylorus remains similar to the prior exam 3. Calcified pulmonary granulomas, unchanged Approved by: Ronald Childress M.D. on 11/21/2021 at 18:04
== END ==
PROVIDERS: Family Provider Family Medicine; PCP Family Medicine; Referring Provider Physician Assistant Medical; Visit Provider Physician Assistant Medical
DX: C56.9 Malignant neoplasm of unspecified ovary (principal); J98.4 Other disorders of lung; R74.8 Abnormal levels of other serum enzymes; Z00.6 Encounter for examination for normal comparison and control in clinical research program
CPT/HCPCS: 36415; 71260; 74177; 80053; 83690

== ENCOUNTER → 2022-04-17 12:19 | Outpatient (CLI) | payer OTHER, SELFPAY ==
[2019-02-15 20:04] VITALS: BMI 24.9
--- NOTE | 2022-04-17 | DI.ECHO.S_ITS ---
[place]---------+ [facility] +---------+ : : [address] : : : : [id number] : : : : Phone: [phone] Echocardiogram Report + + :Name: TERRANCE DESAI Study Date: 04/17/2022 Height: 64 in : :[facility] ReadingLocation: Weight: 153 lb : : Gender: Female BSA: 1.7 m2 : :: 1960 Age: 61 yrs BP: 137/85 mmHg: :Reason For Study: MALIGNANT NEOPLASM OF OVARY : :Ordering Physician: DARIEN, : :SERA Crenshaw Performed By: Merry Kelly : :Referring: SERA LEDEZMA : + + Interpretation Summary Left ventricular global longitudinal strain average is -16.8%. The ejection fraction is estimated to be 50-55%. There is mild mitral regurgitation. There is mild aortic regurgitation. There is trace tricuspid regurgitation. Procedure: A two-dimensional transthoracic echocardiogram with color flow and Doppler was performed. The study quality was technically adequate. There is no prior echocardiogram noted for this patient. The patient was in sinus rhythm with heart rates between 81-86 bpm during the exam. Left Ventricle: The left ventricle is normal in size and wall thickness. Left ventricular global longitudinal strain average is -16.8%. The ejection fraction is estimated to be 50-55%. Left ventricular wall motion is normal. Right Ventricle: The right ventricle is normal in size and function. Atria: The left atrial size is normal. Right atrial size is normal. There is no Doppler evidence for an interatrial shunt. Mitral Valve: The mitral valve is normal in structure and function. There is mild mitral regurgitation. Aortic Valve: The aortic valve is not well visualized. There is no aortic valve stenosis. There is mild aortic regurgitation. Tricuspid Valve: The tricuspid valve is normal in structure and function. There is trace tricuspid regurgitation. Pulmonic Valve: The pulmonic valve is not well visualized. There is no pulmonic valvular regurgitation. Great Vessels: The aortic root is normal size. The dimensions of the ascending aorta are normal. The IVC is of normal diameter and collapses greater than 50% with a sniff. This suggests a low right atrial pressure of 3 mm Hg. Pericardium/ Pleura There is no pericardial effusion. There is no pleural effusion. MMode/2D Measurements & Calculations LVIDd: 4.9 cm LVOT diam: 2.0 cm LVIDs: 3.4 cm Ao root diam: 2.5 cm FS: 30.0 % asc Aorta Diam: 2.8 cm EPSS: 0.94 cm Ao Arch Diam (Prox Trans): 2.3 cm IVSd: 0.88 cm LVPWd: 0.74 cm LV cassidy. diameter/BSA (cm/m^2): 2.8 LV sys. diameter/BSA (cm/m^2): 2.0 LA A2 area: 15.5 cm2 RA long axis: 4.7 cm LA A4 area: 13.4 cm2 RA area: 12.9 cm2 LA length (vol): 4.4 cm RA vol: 30.4 ml LA vol: 40.2 ml RA : 17.4 ml/m2 LA vol index: 23.0 ml/m2 IVC diam: 1.6 cm RVD1 (basal): 2.9 cm RVD2 (mid): 2.3 cm TAPSE: 1.7 cm Doppler Measurements & Calculations Ao V2 max: 127.2 cm/sec LVOT Max Sarbjit: 84.2 cm/sec Ao V2 mean: 91.4 cm/sec LV V1 max P.8 mmHg Ao max P.5 mmHg LV V1 VTI: 16.8 cm Ao mean P.6 mmHg ЕЛЕНА(I,D): 2.6 cm2 Ao V2 VTI: 21.1 cm ЕЛЕНА(V,D): 2.2 cm2 sev ratio: 0.79 ЕЛЕНА indexed to BSA (cm^2/m^2): 1.5 AI P1/2t: 422.7 msec AI dec slope: 317.3 cm/sec2 MV E max sarbjit: 52.8 cm/sec PA V2 max: 70.0 cm/sec MV A max sarbjit: 98.0 cm/sec PA V2 mean: 44.5 cm/sec MV E/A: 0.54 PA mean P.95 mmHg Med Peak E' Sarbjit: 5.0 cm/sec PA pr(Accel): 61.9 mmHg E/E' med: 10.5 Lat Peak E' Sarbjit: 6.6 cm/sec E/E' lat: 8.0 E/e' average: 9.2 MV dec time: 0.17 sec SV(LVOT): 54.8 ml Reading Physician:03:42 PM
== END ==
PROVIDERS: Family Provider Family Medicine; PCP Family Medicine; Referring Provider Obstetrics & Gynecology Gynecologic Oncology; Visit Provider Obstetrics & Gynecology Gynecologic Oncology
DX: C56.9 Malignant neoplasm of unspecified ovary (principal); I08.0 Rheumatic disorders of both mitral and aortic valves; R80.9 Proteinuria, unspecified
CPT/HCPCS: 84156; 93306; 93356

== ENCOUNTER → 2022-04-17 12:45 | Outpatient (CLI) | payer OTHER, SELFPAY ==
[2019-02-15 20:04] VITALS: BMI 24.9
[2022-04-17 13:55] LABS: Collection Time Urine 24 Hours; Protein (Total) Urine Random 44 mg/dL (0-12); Total Protein 24 Hour Urine 924 mg/day (42-225); Total Volume Urine 2100 mL
== END ==
PROVIDERS: Family Provider Family Medicine; PCP Family Medicine; Referring Provider Obstetrics & Gynecology Gynecologic Oncology; Visit Provider Obstetrics & Gynecology Gynecologic Oncology
DX: R80.9 Proteinuria, unspecified (principal)
CPT/HCPCS: 84156

== ENCOUNTER → 2023-02-27 10:39 | Outpatient (CLI) | payer OTHER, SELFPAY ==
[2019-02-15 20:04] VITALS: BMI 24.9
[2023-02-27 11:52] LABS: Add Manual Diff / Slide Review NO; Basophils Absolute Auto 0 /uL (0-100); Basophils Percent Auto 0.5 % (0-2); Eosinophils Absolute Auto 100 /uL (0-450); Eosinophils Percent Auto 1.1 % (2-4); Hematocrit 33.7 % (36-46); Hemoglobin 11.2 g/dL (12.0-16.0); Lymphocytes Absolute Auto 800 /uL (1100-4500); Lymphocytes Percent Auto 15.4 % (25-40); Mean Corpuscular HGB Conc 33.3 % (30-36); Mean Corpuscular Hemoglobin 33.5 PG (26-34); Mean Corpuscular Volume 100.6 fL (80-100); Monocytes Absolute Auto 700 /uL (0-900); Monocytes Percent Auto 13.6 % (3-14); Neutrophils Absolute Auto 3600 /uL (1500-7000); Neutrophils Percent Auto 69.4 % (50-75); Platelet Count 303 X10^3/uL (150-400); Red Blood Cell Count 3.35 X10^6/uL (4.0-5.2); Red Cell Distribution Width 23.2 % (11.6-14.8); White Blood Cell Count 5.2 X10^3/uL (4.5-11.0)
[2023-02-27 12:05] LABS: Anisocytosis 2+; Poikilocytosis 1+
== END ==
PROVIDERS: Family Provider Family Medicine; PCP Family Medicine; Referring Provider Obstetrics & Gynecology Gynecologic Oncology; Visit Provider Obstetrics & Gynecology Gynecologic Oncology
DX: C56.9 Malignant neoplasm of unspecified ovary (principal)
CPT/HCPCS: 36415; 85025

== ENCOUNTER 2023-07-05 17:56 | Inpatient (IN) | payer OTHER, SELFPAY ==
[2019-02-15 20:04] VITALS: BMI 24.9
[2023-07-05] VITALS (11 sets, daily range): BP systolic 124–142; BP diastolic 60–66; PULSE 90–101; RESP 14–18; TEMP 36.6; O2SAT 86–99
--- NOTE | 2023-07-05 17:58 | PC.NURSE ---
hospice provider called to give report. margarita Soto [phone]. she is environmental systems coordinator all night and is available for questions pt is being seen for end stage ovarian mets CA. provider does not believe she is a good surgical candidate. hospice would approve a xray but not surgerical intervention or consultation to Ortho. patient takes methadone 10mg BID and has 30mg morphine PRN for breakthrough pain.
--- NOTE | 2023-07-05 18:03 | DI.RAD.S_ITS ---
PROCEDURE: XR FEMUR RT MIN 2V INDICATIONS: GLF, CA, HIP PAIN TECHNIQUE: 2 views of the femur were acquired. COMPARISON: None. FINDINGS: Bones: Minimally displaced intertrochanteric fracture of the right proximal femur. No additional osseous fracture identified. Distal femur is intact. Soft tissues: Soft tissue edema is seen adjacent to the right hip. IMPRESSION: Minimally displaced intertrochanteric fracture of the right proximal femur. Approved by: Tra Roberson M.D. on 07/05/2023 at 20:24
--- NOTE | 2023-07-05 18:04 | ED_ITS ---
HPI - Fall General Chief Complaint: Fall Stated Complaint: GLF R Hip pain Time Seen by Provider: 07/05/23 17:56 History of Present Illness HPI Narrative: 62-year-old female with history of metastatic ovarian cancer on hospice care presents by EMS from home for right hip pain after a ground level fall. Patient states that she was getting up after massage and lost her balance, landing on her right hip. Patient received 250 mcg of fentanyl EN route. Related Data Home Medications Medication Instructions Recorded Confirmed morphine concentrate 100 mg/5 mL 30 mg PO Q1-2H PRN Pain (Scale 07/05/23 07/05/23 (20 mg/mL) oral solution Score 7-10) oxycodone 30 mg tablet 30 mg PO Q2H PRN pain 07/05/23 07/05/23 Previous Rx's Medication Instructions Recorded citalopram 40 mg tablet See Rx Instructions .Route 08/29/22 .COMPLEX #90 tabs amlodipine 10 mg tablet 10 mg PO DAILY #90 tabs 10/25/22 rosuvastatin 10 mg tablet See Rx Instructions .Route 10/25/22 .COMPLEX #90 tabs trazodone 50 mg tablet 75 mg (1.5 x 50 mg) PO BEDTIME PRN 10/25/22 insomnia #135 tabs lisinopril 40 mg tablet 40 mg PO DAILY #90 tabs 01/09/23 lisinopril 30 mg tablet 30 mg PO DAILY #90 tabs 04/12/23 Allergies Allergy/AdvReac Type Severity Reaction Status Date / Time atenolol [ATENOLOL] Allergy Severe Migraine Verified 04/12/23 11:37 SYNTHETIC DRUGS Allergy Unknown PT STATES Uncoded 04/12/23 11:37 THESE DO NOT WORK FOR HER Review of Systems Review of Systems Narrative: See HPI Patient History Medical History Therapeutic opioid induced constipation Tachycardia Cancer related pain Left wrist pain Anxiety about health Hot flashes due to surgical menopause Hot flashes due to tamoxifen Hot flashes Anxiety Upper extremity somatic dysfunction Thoracic region somatic dysfunction Cervical somatic dysfunction Neck stiffness Bilateral hand numbness Finger swelling Finger pain, right Lymphedema Atypical nevi Iliotibial band syndrome of both sides Somatic dysfunction of lower extremity Pelvic somatic dysfunction Segmental and somatic dysfunction of abdomen and other regions Segmental and somatic dysfunction of rib cage Iliotibial band syndrome, right leg Piriformis syndrome of right side Bilateral leg pain Low HDL (under 40) Vitamin deficiency Leukocytopenia Ovarian cancer Hypertension Hyperlipidemia Osteoarthritis Sleep disorder Surgical History S/P ovarian cystectomy S/P laparotomy (10/09/18) S/P LUPILLO-BSO (~07/25/18) History of total knee arthroplasty (2013) Family History Father No significant medical problems Mother No significant medical problems Social History household members: spouse Smoking Status: Current every day smoker Tobacco: How many years used: 40 quit status: not considering quitting second hand exposure: No alcohol intake: former substance use type: does not use Smoking Status: Current every day smoker alcohol intake frequency: holidays/special occasions only Substance Use Type: does not use Exam Initial Vital Signs Initial Vital Signs: Vital Signs Pulse Rate 95 H 07/05/23 18:01 Pulse Oximetry 92 07/05/23 18:01 Const: Awake, alert, debilitated, frail, appears chronically unwell Cardiac: regular rate, regular rhythm RESP: unlabored, clear bilaterally, no wheezing MSK: No deformity, generalized tenderness to palpation over the right hip Skin: Warm, Dry, intact, no rashes Neuro: AO x3, CN II-XII grossly intact, moves all extremities Course Orders Ordered: ED Orders 07/05/23 18:03 XR femur RT min 2V Stat XR hip w pel if done RT 2V Stat 07/05/23 21:00 CBC Auto Diff [Complete Blood Count AUTO DIFF] Stat CMP [Comprehensive Metabolic Panel] Stat 07/05/23 21:20 PT [Prothrombin Time INR] Stat 07/05/23 21:39 Consult to Orthopedic Surgery Stat 07/05/23 21:41 XR chest 1V Stat 07/05/23 22:17 Type and Screen Stat Acetaminophen (Acetaminophen 325 Mg Tablet) 650 mg PO Q6H PRN PRN Reason: Fever/Mild Pain (1-3) Albuterol (Albuterol 2.5 Mg/3 Ml Neb (Adult)) 2.5 mg INH [id number] PRN PRN Reason: Dyspnea Amlodipine Besylate (Amlodipine 5 Mg Tablet) 10 mg PO DAILY [facility] Atorvastatin Calcium (Atorvastatin 20 Mg Tablet) 20 mg PO DAILY [facility] Citalopram Hydrobromide (Citalopram 10 Mg Tablet) 40 mg PO DAILY [facility] Hydralazine HCl (Hydralazine 20 Mg/Ml Vial) 10 mg IV Q6HR PRN PRN Reason: SBP>= 160 or DBP >=110 Hydromorphone HCl (Hydromorphone 0.5 Mg Inj) 0.5 mg IV Q2H PRN PRN Reason: Pain, Severe (7-10) Sodium Chloride (Normal Saline 0.9%) 1,000 mls @ 100 mls/hr IV CONT NATALIE Last Admin: 07/05/23 22:51 Dose: 100 mls/hr Documented By: SILVANA Lisinopril (Lisinopril 10 Mg Tablet) 30 mg PO DAILY [facility] Lorazepam (Lorazepam 2 Mg/Ml Inj) 0.25 mg IV Q4HR PRN PRN Reason: Anxiety Melatonin (Melatonin 3 Mg Tablet) 9 mg PO BEDTIME PRN PRN Reason: insomnia Naloxone HCl (Naloxone 0.4 Mg/Ml Vial) 0.2 mg IV Q2MIN PRN PRN Reason: Opiate Reversal Ondansetron HCl (Ondansetron 4 Mg/2 Ml Inj) 4 mg IV Q8HR PRN PRN Reason: Nausea And Vomiting Oxycodone HCl (Oxycodone Ir 10 Mg Tablet) 0 mg PO .COMPLEX NATALIE Oxycodone HCl (Oxycodone Ir 5 Mg Tablet) 5 mg PO Q3H PRN PRN Reason: Pain, Moderate (4-6) Trazodone HCl (Trazodone 50 Mg Tablet) 75 mg PO BEDTIME PRN PRN Reason: insomnia Discontinued Medications Hydromorphone HCl (Hydromorphone 1 Mg Inj) 1 mg IV NOW ONE Stop: 07/05/23 18:04 Last Admin: 07/05/23 18:10 Dose: 1 mg Documented By: JUSTINE Hydromorphone HCl (Hydromorphone 1 Mg Inj) 1 mg IV NOW ONE Stop: 07/05/23 18:40 Last Admin: 07/05/23 18:44 Dose: 1 mg Documented By: JUSTINE Hydromorphone HCl (Hydromorphone 1 Mg Inj) 1 mg IV NOW ONE Stop: 07/05/23 22:39 Last Admin: 07/05/23 22:51 Dose: 1 mg Documented By: SILVANA Acetaminophen (Ofirmev) 1,000 mg in 100 mls @ 400 mls/hr IV NOW ONE Stop: 07/05/23 22:52 Last Admin: 07/05/23 22:51 Dose: 400 mls/hr Documented By: SILVANA Ketamine HCl (Ketamine 500 Mg/5 Ml Inj) 15 mg IV NOW ONE Stop: 07/05/23 19:01 Last Admin: 07/05/23 18:55 Dose: 15 mg Documented By: JUSTINE Ketorolac Tromethamine (Ketorolac 30 Mg/Ml Vial) 15 mg IV NOW ONE Stop: 07/05/23 19:19 Last Admin: 07/05/23 19:25 Dose: 15 mg Documented By: SILVANA Midazolam HCl (Midazolam 2 Mg/2 Ml Vial) 2 mg IV NOW ONE Stop: 07/05/23 19:19 Last Admin: 07/05/23 19:25 Dose: 2 mg Documented By: SILVANA Non-Formulary Medication (Rosuvastatin) 0 mg .ROUTE .COMPLEX NATALIE Vital Signs Vital signs: Vital Signs - 8 hr 07/05/23 18:01 07/05/23 18:14 07/05/23 18:30 Temperature 97.8 F Pulse Rate 95 H 94 H 100 H Respiratory Rate 14 Blood Pressure 140/60 Pulse Oximetry 92 94 98 Oxygen Delivery Method Room Air Oxygen Flow Rate 07/05/23 19:00 07/05/23 19:25 07/05/23 19:25 Temperature Pulse Rate 95 H 101 H Respiratory Rate Blood Pressure 142/66 H Pulse Oximetry 93 91 Oxygen Delivery Method Oxygen Flow Rate 07/05/23 19:30 07/05/23 19:30 07/05/23 19:30 Temperature Pulse Rate 95 H 100 H Respiratory Rate 17 Blood Pressure 124/60 124/60 Pulse Oximetry 88 L 86 L Oxygen Delivery Method Room Air Oxygen Flow Rate 07/05/23 19:34 07/05/23 19:52 07/05/23 19:52 Temperature Pulse Rate 94 H Respiratory Rate Blood Pressure 129/63 Pulse Oximetry 96 98 Oxygen Delivery Method Nasal Cannula Oxygen Flow Rate 3 07/05/23 20:00 07/05/23 20:00 07/05/23 20:30 Temperature Pulse Rate 93 H 92 H Respiratory Rate Blood Pressure 127/63 Pulse Oximetry 99 98 Oxygen Delivery Method Nasal Cannula Oxygen Flow Rate 07/05/23 20:42 07/05/23 21:04 Temperature Pulse Rate 90 Respiratory Rate 18 Blood Pressure 127/63 Pulse Oximetry 96 Oxygen Delivery Method Nasal Cannula Nasal Cannula Oxygen Flow Rate 2 1 MDM - Fall Differential Diagnosis Differential diagnosis: Likely syncope, dislocation of shoulder region and fracture of wrist Lab Data 07/05/23 21:00 07/05/23 21:00 Labs: Lab Results 07/05/23 07/05/23 Range/Units 21:00 21:20 WBC 13.6 H (4.5-11.0) X10^3/uL RBC 2.64 L (4.0-5.2) X10^6/uL Hgb 7.5 L (12.0-16.0) g/dL Hct 23.8 L (36-46) % MCV 90.0 (80-100) fL MCH 28.2 (26-34) PG MCHC 31.4 (30-36) % RDW 18.5 H (11.6-14.8) % Plt Count 139 L (150-400) X10^3/uL Neut % (Auto) 91.8 H (50-75) % Lymph % (Auto) 4.2 L (25-40) % [place] % (Auto) 3.9 (3-14) % Eos % (Auto) 0.1 L (2-4) % Baso % (Auto) 0.0 (0-2) % Neut # (Auto) 64851 H (2392-0475) /uL Lymph # (Auto) 600 L (6369-6000) /uL [place] # (Auto) 500 (0-900) /uL Eos # (Auto) 0 (0-450) /uL Baso # (Auto) 0 (0-100) /uL PT 14.9 H (9.4-12.5) SECONDS INR 1.3 (0.9-1.3) Sodium 133 L (137-145) mmol/L Potassium 3.7 (3.4-5.1) mmol/L Chloride 102 (98-107) mmol/L Carbon Dioxide 34 H (22-32) mmol/L BUN 20 H (7-17) mg/dL Creatinine 0.45 L (0.52-1.04) mg/dL Estimated GFR > 60 (>60) mL/min BUN/Creatinine Ratio 44.4 H (6-22) Glucose 91 (80-110) mg/dL Calcium 8.4 (8.4-10.2) mg/dL Total Bilirubin 0.5 (0.2-1.3) mg/dL AST 44 H (14-36) IU/L ALT 18 (<35) IU/L Alkaline Phosphatase 199 H (38-126) U/L Total Protein 5.5 L (6.3-8.2) g/dL Albumin 2.5 L (3.5-5.0) g/dL Globulin 3.0 (1.7-4.1) g/dL Albumin/Globulin Ratio 0.8 L (1.0-2.8) Imaging Data Extremity x-ray #1: Radiologist's Impression: PROCEDURE: XR HIP W PEL IF DONE RT 2V INDICATIONS: GLF, CA, R HIP PAIN TECHNIQUE: AP pelvis with lateral few of the right hip. COMPARISON: None. FINDINGS: Bones: Minimally displaced intertrochanteric fracture of the right proximal femur. The left femur and the pelvic bones appear to be intact. Moderate right and mild left hip osteoarthrosis. Degenerative changes are seen in the included lumbar spine. Soft tissues: The visualized bowel gas pattern is normal. No suspicious soft tissue calcifications. IMPRESSION: Minimally displaced intertrochanteric fracture of the right proximal femur. Approved by: Tra Roberson M.D. on 07/05/2023 at 20:23 Chest x-ray: Radiologist's Impression: PROCEDURE: XR CHEST 1V INDICATIONS: preop for broken hip TECHNIQUE: One view of the chest was acquired. COMPARISON: [facility], , XR CHEST 1V, 02/15/2019, 13:34. FINDINGS: Surgical changes and devices: Right Port-A-Cath present distal tip projecting over mid SVC. Lungs and pleura: Calcified. No pleural effusions or pneumothorax. Mediastinum: Mediastinal contours appear normal. Heart size is normal. Bones and chest wall: No suspicious bony lesions. Overlying soft tissues appear unremarkable. IMPRESSION: No acute pulmonary process. Dictated by: Colette Martin M.D. on 07/05/2023 at 22:06 Approved by: Colette Martin M.D. on 07/05/2023 at 22:07 [facility] Narrative Medical decision making narrative: Right hip pain after ground level fall. Patient was significant discomfort despite receiving 250 mcg of fentanyl. IV pain medications ordered. Patient is on palliative care/hospice and we will defer additional testing or treatment until x-rays come back. Preliminary review of right hip x-ray shows minimally displaced intertrochanteric hip fracture. Patient and her informed of results. Since she is on hospice she would have to revoke her status for palliative fixation. Case also discussed with Dr. Soto of palliative Care, who we will support patient in whatever decision she makes. Patient and her would like to pursue palliative fixation of the fracture. Spoke with Dr. Fuentes of Orthopedic surgery, who stated that patient can be kept here for operative management. Patient will require high doses of pain medications. Necessary hospice revokation form signed. Discharge Plan Departure Patient Disposition: Admitted As Inpatient Clinical Impression: Closed intertrochanteric fracture, Metastatic carcinoma, DNR (do not resuscitate) Admit Date/Time: 07/05/23 21:46 Admit Provider: Smith Echevarria
[2023-07-05] MEDS: HYDROMORPHONE 1 MG INJ IV ×3 (18:10→22:51)
[2023-07-05] MEDS: KETAMINE 500 MG/5 ML INJ 15 MG IV (18:55)
[2023-07-05] MEDS: KETOROLAC 30 MG/ML VIAL 15 MG IV (19:25)
[2023-07-05] MEDS: MIDAZOLAM 2 MG/2 ML VIAL IV (19:25)
--- NOTE | 2023-07-05 19:30 | PC.NURSE ---
Assumed care of pt, pt resting on stretcher with family at bedside, pt reports of 9/10 pain, see MAR for med surg rn, 3L O2 applied to pt after pain med surg rn, RR even and unlabored, NAD noted.
[2023-07-05 21:07] LABS: Add Manual Diff / Slide Review NO; Basophils Absolute Auto 0 /uL (0-100); Eosinophils Absolute Auto 0 /uL (0-450); Eosinophils Percent Auto 0.1 % (2-4); Hematocrit 23.8 % (36-46); Hemoglobin 7.5 g/dL (12.0-16.0); Lymphocytes Absolute Auto 600 /uL (1100-4500); Lymphocytes Percent Auto 4.2 % (25-40); Mean Corpuscular HGB Conc 31.4 % (30-36); Mean Corpuscular Hemoglobin 28.2 PG (26-34); Monocytes Absolute Auto 500 /uL (0-900); Monocytes Percent Auto 3.9 % (3-14); Neutrophils Absolute Auto 12500 /uL (1500-7000); Neutrophils Percent Auto 91.8 % (50-75); Platelet Count 139 X10^3/uL (150-400); Red Blood Cell Count 2.64 X10^6/uL (4.0-5.2); Red Cell Distribution Width 18.5 % (11.6-14.8); White Blood Cell Count 13.6 X10^3/uL (4.5-11.0)
[2023-07-05 21:19] LABS: Alanine Aminotransferase 18 IU/L (<35); Albumin 2.5 g/dL (3.5-5.0); Albumin Globulin Ratio 0.8 (1.0-2.8); Alkaline Phosphatase 199 U/L (38-126); Aspartate Aminotransferase 44 IU/L (14-36); BUN Creatinine Ratio 44.4 (6-22); Bilirubin Total 0.5 mg/dL (0.2-1.3); Blood Urea Nitrogen 20 mg/dL (7-17); Calcium 8.4 mg/dL (8.4-10.2); Carbon Dioxide 34 mmol/L (22-32); Chloride 102 mmol/L (98-107); Estimated Glomerular Filt Rate > 60 mL/min (>60); Glucose 91 mg/dL (80-110); HEMOLYSIS < 15 (0-50); Potassium 3.7 mmol/L (3.4-5.1); Sodium 133 mmol/L (137-145); Total Protein 5.5 g/dL (6.3-8.2)
--- NOTE | 2023-07-05 21:41 | DI.RAD.S_ITS ---
PROCEDURE: XR CHEST 1V INDICATIONS: preop for broken hip TECHNIQUE: One view of the chest was acquired. COMPARISON: [facility], CR, XR CHEST 1V, 02/15/2019, 13:34. FINDINGS: Surgical changes and devices: Right Port-A-Cath present distal tip projecting over mid SVC. Lungs and pleura: Calcified. No pleural effusions or pneumothorax. Mediastinum: Mediastinal contours appear normal. Heart size is normal. Bones and chest wall: No suspicious bony lesions. Overlying soft tissues appear unremarkable. IMPRESSION: No acute pulmonary process. Dictated by: Colette Martin M.D. on 07/05/2023 at 22:06 Approved by: Colette Martin M.D. on 07/05/2023 at 22:07
[2023-07-05 21:42] LABS: INR 1.3 (0.9-1.3); Prothrombin Time 14.9 SECONDS (9.4-12.5)
[2023-07-05] MEDS: ACETAMINOPHEN IV 1,000 MG/100 ML VIAL 400 MG IV (22:51)
[2023-07-05] MEDS: SODIUM CHLORIDE 0.9% 1,000 ML 100 ML IV (22:51)
[2023-07-05] MEDS: HYDROMORPHONE 0.5 MG INJ IV (23:42)
[2023-07-06] VITALS (20 sets, daily range): BP systolic 110–135; BP diastolic 53–80; PULSE 77–114; RESP 11–21; TEMP 36–36.9; O2SAT 92–99
--- NOTE | 2023-07-06 | PATH_ITS ---
[facility] Accession Number: [id number] No. of containers..01 Tissue . 01 Material submitted: . femur - RIGHT FEMUR . 01 Diagnosis: RIGHT FEMUR, CURETTINGS: Metastatic adenocarcinoma, with immunophenotype consistent with clear cell adenocarcinoma. See comment. MRV 07/16/2023 1230 Local . 01 Comment: Given the history of clear cell adenocarcinoma of ovary (pathology accession # [id number]), a limited panel of immunostains are performed and are supportive of the above diagnosis. . 01 Electronically signed: . Heather Camarillo MD, Pathologist NPI- [id number] . 01 Gross description: . Received in formalin with two identifiers and R. femur, are multiple fragments of soft trabecular tissue possibly consistent with bone admixed with hemorrhagic material aggregating to 3.5 x 3.0 x 0.7 cm. Filtered and submited entirely in cassettes A1-A3. ([id number]) /FRANCI 07/09/2023 0906 Local . 01 Microscopic: . The adenocarcinoma is positive for CK7,PAX8 and napsin A and is negative for CD10, supporting the diagnosis. Controls stain appropriately. . 01 Pathologist provided ICD-10: C56.9 . 01 CPT . 105810, [id number], [id number] Specimen Comment: A courtesy copy of this report has been sent to [phone] Performed at: 01 [facility] [address] [place] [address], [place], [place] [id number] MD Simon Gottlieb MD Phone: [phone]
[2023-07-06] MEDS: HYDROMORPHONE 0.5 MG INJ IV (00:35)
--- NOTE | 2023-07-06 01:13 | PM.HP.1 ---
History of Present Illness History of Present Illness Chief complaint: GLF R Hip pain Narrative: 62 years old female with history of metastatic ovarian cancer diagnosed 5 years ago on hospice care, hypertension, hyperlipidemia, presented to the ER after ground-level fall after massage. The patient lost her balance and landed on her right hip. After the fall she started experiencing severe hip pain. Denies any loss of consciousness, dizziness, lightheadedness or head injury prior to the event. X-ray shows right minimally displaced intertrochanteric hip fracture. Orthopedic surgery was consulted and will see her in the morning. Laboratory shows WBC 13.6, hemoglobin 7.5, sodium 133, creatinine 0.45, albumin 2.5. In the ER she was given Tylenol IV, Dilaudid, Toradol, Versed, oxycodone. The patient required increased pain medications during her ER stay. [facility] Medical History Therapeutic opioid induced constipation Tachycardia Cancer related pain Left wrist pain Anxiety about health Hot flashes due to surgical menopause Hot flashes due to tamoxifen Hot flashes Anxiety Upper extremity somatic dysfunction Thoracic region somatic dysfunction Cervical somatic dysfunction Neck stiffness Bilateral hand numbness Finger swelling Finger pain, right Lymphedema Atypical nevi Iliotibial band syndrome of both sides Somatic dysfunction of lower extremity Pelvic somatic dysfunction Segmental and somatic dysfunction of abdomen and other regions Segmental and somatic dysfunction of rib cage Iliotibial band syndrome, right leg Piriformis syndrome of right side Bilateral leg pain Low HDL (under 40) Vitamin deficiency Leukocytopenia Ovarian cancer Hypertension Hyperlipidemia Osteoarthritis Sleep disorder Surgical History S/P ovarian cystectomy S/P laparotomy (10/09/18) S/P LUPILLO-BSO (~07/25/18) History of total knee arthroplasty (2013) Family History Father No significant medical problems Mother No significant medical problems Social History household members: spouse Smoking Status: Current every day smoker Tobacco: How many years used: 40 quit status: not considering quitting second hand exposure: No alcohol intake: former substance use type: does not use Meds Home Medications and Allergies Home Medications Medication Instructions Recorded Confirmed Type citalopram 40 mg tablet See Rx Instructions .Route 08/29/22 04/12/23 Rx .COMPLEX #90 tabs amlodipine 10 mg tablet 10 mg PO DAILY #90 tabs 10/25/22 04/12/23 Rx rosuvastatin 10 mg tablet See Rx Instructions .Route 10/25/22 04/12/23 Rx .COMPLEX #90 tabs trazodone 50 mg tablet 75 mg (1.5 x 50 mg) PO BEDTIME PRN 10/25/22 04/12/23 Rx insomnia #135 tabs lisinopril 40 mg tablet 40 mg PO DAILY #90 tabs 01/09/23 04/12/23 Rx lisinopril 30 mg tablet 30 mg PO DAILY #90 tabs 04/12/23 04/12/23 Rx morphine concentrate 100 mg/5 mL 30 mg PO Q1-2H PRN Pain (Scale 07/05/23 07/05/23 History (20 mg/mL) oral solution Score 7-10) oxycodone 30 mg tablet 30 mg PO Q2H PRN pain 07/05/23 07/05/23 History Allergies Allergy/AdvReac Type Severity Reaction Status Date / Time atenolol [ATENOLOL] Allergy Severe Migraine Verified 04/12/23 11:37 SYNTHETIC DRUGS Allergy Unknown PT STATES Uncoded 04/12/23 11:37 THESE DO NOT WORK FOR HER Review of Systems Review of Systems ROS: Yes All systems reviewed with the patient and are negative except as otherwise documented Constitutional Constitutional: Reports as per HPI and Reports system reviewed and no additional complaints, except as documented Eyes Eyes: Reports as per HPI and Reports system reviewed and no additional complaints, except as documented ENT Ears, Nose, Mouth, and Throat: Yes as per HPI and Yes system reviewed and no additional complaints, except as documented Cardiovascular Cardiovascular: Reports system reviewed and no additional complaints, except as documented Respiratory Respiratory: Reports system reviewed and no additional complaints, except as documented Gastrointestinal Gastrointestinal: Reports system reviewed and no additional complaints, except as documented Genitourinary Genitourinary: Reports system reviewed and no additional complaints, except as documented Musculoskeletal Musculoskeletal: Reports system reviewed and no additional complaints, except as documented, Reports abnormal gait and Reports numbness Neurologic Neurologic: Reports system reviewed and no additional complaints, except as documented, Reports abnormal gait, Reports confusion and Reports numbness Psychiatric Psychiatric: Reports system reviewed and no additional complaints, except as documented and Reports confusion Exam Vital Signs (past 8 hours): - 07/05/23 18:01 07/05/23 18:14 07/05/23 18:30 Temperature 97.8 F Pulse Rate 95 H 94 H 100 H Respiratory Rate 14 Blood Pressure 140/60 Pulse Oximetry 92 94 98 Oxygen Delivery Method Room Air Oxygen Flow Rate 07/05/23 19:00 07/05/23 19:25 07/05/23 19:25 Temperature Pulse Rate 95 H 101 H Respiratory Rate Blood Pressure 142/66 H Pulse Oximetry 93 91 Oxygen Delivery Method Oxygen Flow Rate 07/05/23 19:30 07/05/23 19:30 07/05/23 19:30 Temperature Pulse Rate 95 H 100 H Respiratory Rate 17 Blood Pressure 124/60 124/60 Pulse Oximetry 88 L 86 L Oxygen Delivery Method Room Air Oxygen Flow Rate 07/05/23 19:34 07/05/23 19:52 07/05/23 19:52 Temperature Pulse Rate 94 H Respiratory Rate Blood Pressure 129/63 Pulse Oximetry 96 98 Oxygen Delivery Method Nasal Cannula Oxygen Flow Rate 3 07/05/23 20:00 07/05/23 20:00 07/05/23 20:30 Temperature Pulse Rate 93 H 92 H Respiratory Rate Blood Pressure 127/63 Pulse Oximetry 99 98 Oxygen Delivery Method Nasal Cannula Oxygen Flow Rate 07/05/23 20:42 07/05/23 21:04 07/06/23 00:15 Temperature Pulse Rate 90 90 Respiratory Rate 18 18 Blood Pressure 127/63 135/80 Pulse Oximetry 96 94 Oxygen Delivery Method Nasal Cannula Nasal Cannula Nasal Cannula Oxygen Flow Rate 2 1 1 Oxygen Delivery Method Nasal Cannula Oxygen Flow Rate 1 Const General: cooperative, comfortable and well developed Orientation: alert and oriented x3 HENMT Head: normal to inspection, normocephalic and atraumatic Face and sinus: normal facial exam Mouth: oral mucosae normal and moist mucous membranes Throat: posterior oropharynx normal Eyes General: appearance normal, both eyes and all related structures Pupils: PERRL EOM: EOM intact bilaterally Neck Neck: normal visual inspection and full ROM Chest Chest: normal inspection of the chest Resp Effort & Inspection: normal respiratory effort and able to speak in complete sentences Auscultation: clear to auscultation bilaterally Cardio Palpation: normal PMI Rate: regular rate Rhythm: regular rhythm Heart Sounds: S1 normal and S2 normal GI Inspection: normal to inspection Palpation: soft and no hepatosplenomegaly Auscultation: normal bowel sounds Skin General: no rashes or lesions noted Lesions: no lesions Rashes: no rashes Trauma: no lacerations or abrasions Neuro General: patient alert, patient awake, patient oriented x3 and no focal motor deficits Cranial Nerves: CN's II-XI intact bilaterally Cognition: normal cognition Speech: speech normal Gait: normal gait Motor: muscle tone normal throughout Sensory Exam: no sensory deficits noted Extrem General: full ROM and no calf tenderness Psych Appearance: grossly normal Mental Status: mental status grossly normal Speech and Movement: speech and movement normal Objective Labs 07/05/23 21:00 07/05/23 21:00 Labs: Laboratory Results - last 24 hr 07/05/23 07/05/23 07/05/23 21:00 21:20 22:17 WBC 13.6 H RBC 2.64 L Hgb 7.5 L Hct 23.8 L MCV 90.0 MCH 28.2 MCHC 31.4 RDW 18.5 H Plt Count 139 L Neut % (Auto) 91.8 H Lymph % (Auto) 4.2 L [place] % (Auto) 3.9 Eos % (Auto) 0.1 L Baso % (Auto) 0.0 Neut # (Auto) 83765 H Lymph # (Auto) 600 L [place] # (Auto) 500 Eos # (Auto) 0 Baso # (Auto) 0 PT 14.9 H INR 1.3 Sodium 133 L Potassium 3.7 Chloride 102 Carbon Dioxide 34 H BUN 20 H Creatinine 0.45 L Estimated GFR > 60 BUN/Creatinine Ratio 44.4 H Glucose 91 Calcium 8.4 Total Bilirubin 0.5 AST 44 H ALT 18 Alkaline Phosphatase 199 H Total Protein 5.5 L Albumin 2.5 L Globulin 3.0 Albumin/Globulin Ratio 0.8 L Blood Type A Negative Antibody Screen Negative Assessment & Plan Assessment & Plan narrative: Mildly displaced intertrochanteric hip fracture after ground-level fall. -N.p.o. after midnight except meds -Pain medications and nausea medications as needed -Orthopedic surgery consulted -PT and OT evaluation on discharge Hypertension. Restart amlodipine and lisinopril. Hyperlipidemia. Restart rosuvastatin Insomnia. Restart trazodone nightly as needed Time Spent With Patient Time with patient: 50 to 69 minutes with 50% spent counseling/coordinating care Quality VTE Deep Vein Thrombosis/Pulmonary Embolism Present on Admission: No MIPS - Admit I confirm the patient?s Advance Care Plan is present, Code status is documented, Surrogate decision maker is in patient?s record [If Yes, STOP here]: Yes MIPS - Meds 'Current medications' to include all prescriptions, [id number] products, herbals, cannabis/cannabidiol products, and vitamin/mineral/dietary (nutritional) supplements. I have utilized all available resources to obtain, update, or review the patient?s current medications. [If Yes, STOP here]: Yes
[2023-07-06] MEDS: LORazepam 2 MG/ML INJ 0.25 MG IV (01:24)
[2023-07-06] MEDS: OXYCODONE IR 5 MG TABLET 10 MG PO (01:25)
[2023-07-06] MEDS: TRAZODONE 50 MG TABLET 75 MG PO (01:27)
--- NOTE | 2023-07-06 02:05 | PC.ADMIT ---
[facility] Admission Note: Patient admitted to AC unit from ED at 00:30, transferred by stretcher, spouse present. Alert and oriented x 4, pain reported and Dilauded 0.5mg given prior to transfer to bed. Refused to be turned to remove transfer bedding or skin assessment. Bragg placed in ED. Patient is NPO. NS@ 100. Patient oriented to room and call light. Bed in low locked position and call light within reach. The patient,Bernie Chatman,62 y/o, was given written information regarding hospital policies, unit procedures and contact persons. Patient's smoking status: Current every day smoker. Vital Signs - 8 hr 07/05/23 18:14 07/05/23 18:30 07/05/23 19:00 Temperature 97.8 F Pulse Rate 94 H 100 H 95 H Respiratory Rate 14 Blood Pressure 140/60 Pulse Oximetry 94 98 93 Oxygen Delivery Method Room Air Oxygen Flow Rate 07/05/23 19:25 07/05/23 19:25 07/05/23 19:30 Temperature Pulse Rate 101 H 95 H Respiratory Rate 17 Blood Pressure 142/66 H 124/60 Pulse Oximetry 91 88 L Oxygen Delivery Method Room Air Oxygen Flow Rate 07/05/23 19:30 07/05/23 19:30 07/05/23 19:34 Temperature Pulse Rate 100 H Respiratory Rate Blood Pressure 124/60 Pulse Oximetry 86 L 96 Oxygen Delivery Method Nasal Cannula Oxygen Flow Rate 3 07/05/23 19:52 07/05/23 19:52 07/05/23 20:00 Temperature Pulse Rate 94 H Respiratory Rate Blood Pressure 129/63 127/63 Pulse Oximetry 98 Oxygen Delivery Method Oxygen Flow Rate 07/05/23 20:00 07/05/23 20:30 07/05/23 20:42 Temperature Pulse Rate 93 H 92 H Respiratory Rate Blood Pressure Pulse Oximetry 99 98 Oxygen Delivery Method Nasal Cannula Nasal Cannula Oxygen Flow Rate 2 07/05/23 21:04 07/06/23 00:15 07/06/23 00:59 Temperature 97.3 F L Pulse Rate 90 90 85 Respiratory Rate 18 18 17 Blood Pressure 127/63 135/80 128/55 L Pulse Oximetry 96 94 97 Oxygen Delivery Method Nasal Cannula Nasal Cannula Oxygen Flow Rate 1 1 2
[2023-07-06] MEDS: KETOROLAC 30 MG/ML VIAL 15 MG IV ×2 (02:09→08:37)
[2023-07-06] MEDS: HYDROMORPHONE 0.5 MG INJ 1 MG IV ×3 (02:10→06:48)
[2023-07-06 07:17] LABS: Alanine Aminotransferase 15 IU/L (<35); Albumin 2.3 g/dL (3.5-5.0); Albumin Globulin Ratio 0.8 (1.0-2.8); Alkaline Phosphatase 203 U/L (38-126); Aspartate Aminotransferase 40 IU/L (14-36); BUN Creatinine Ratio 43.8 (6-22); Bilirubin Total 0.5 mg/dL (0.2-1.3); Blood Urea Nitrogen 21 mg/dL (7-17); Calcium 8.2 mg/dL (8.4-10.2); Carbon Dioxide 33 mmol/L (22-32); Chloride 105 mmol/L (98-107); Estimated Glomerular Filt Rate > 60 mL/min (>60); Globulin 2.9 g/dL (1.7-4.1); Glucose 83 mg/dL (80-110); HEMOLYSIS < 15 (0-50); Magnesium 1.9 mg/dL (1.6-2.3); Potassium 3.7 mmol/L (3.4-5.1); Sodium 135 mmol/L (137-145); Total Protein 5.2 g/dL (6.3-8.2)
[2023-07-06 08:07] LABS: Add Manual Diff / Slide Review NO; Basophils Absolute Auto 0 /uL (0-100); Basophils Percent Auto 0.3 % (0-2); Eosinophils Absolute Auto 0 /uL (0-450); Eosinophils Percent Auto 0.2 % (2-4); Hematocrit 23.2 % (36-46); Hemoglobin 7.5 g/dL (12.0-16.0); Lymphocytes Absolute Auto 500 /uL (1100-4500); Lymphocytes Percent Auto 5.5 % (25-40); Mean Corpuscular HGB Conc 32.1 % (30-36); Mean Corpuscular Volume 90.3 fL (80-100); Monocytes Absolute Auto 400 /uL (0-900); Monocytes Percent Auto 4.3 % (3-14); Neutrophils Absolute Auto 8800 /uL (1500-7000); Neutrophils Percent Auto 89.7 % (50-75); Platelet Count 125 X10^3/uL (150-400); Red Blood Cell Count 2.57 X10^6/uL (4.0-5.2); Red Cell Distribution Width 18.5 % (11.6-14.8); White Blood Cell Count 9.9 X10^3/uL (4.5-11.0)
[2023-07-06] MEDS: HYDROMORPHONE 1 MG INJ IV ×3 (08:37→14:40)
--- NOTE | 2023-07-06 09:02 | P.HP_ITS ---
History of Present Illness History of Present Illness Date Patient Seen: 07/06/23 Time Patient Seen: 09:00 Date of Onset of Symptoms: 07/05/23 Chief complaint: GLF R Hip pain Narrative: She is a pleasant 62-year-old female with a history of clear cell ovarian cancer which was diagnosed about 5 years ago. She lives at home with her and is able to get around her house and do activities. She was on hospice because of known metastatic disease. She does take pain medications on a regular basis. She had a massage yesterday and then slipped and fell as she was getting up and landed on her right hip. She notes incapacitating right hip pain. She was transferred to [facility] and taken off of hospice because of her acute fracture and a desire to be able to continue to mobilize. She did not have any acute chest pain and was not short of breath or have any dizziness or change in her mental status prior to the fall. She says that she does not have known metastatic disease either to her bones or to her head. She does note some slow progressive weight loss and some decreased appetite. [facility] Medical History Therapeutic opioid induced constipation Tachycardia Cancer related pain Left wrist pain Anxiety about health Hot flashes due to surgical menopause Hot flashes due to tamoxifen Hot flashes Anxiety Upper extremity somatic dysfunction Thoracic region somatic dysfunction Cervical somatic dysfunction Neck stiffness Bilateral hand numbness Finger swelling Finger pain, right Lymphedema Atypical nevi Iliotibial band syndrome of both sides Somatic dysfunction of lower extremity Pelvic somatic dysfunction Segmental and somatic dysfunction of abdomen and other regions Segmental and somatic dysfunction of rib cage Iliotibial band syndrome, right leg Piriformis syndrome of right side Bilateral leg pain Low HDL (under 40) Vitamin deficiency Leukocytopenia Ovarian cancer Hypertension Hyperlipidemia Osteoarthritis Sleep disorder Surgical History S/P ovarian cystectomy S/P laparotomy (10/09/18) S/P LUPILLO-BSO (~07/25/18) History of total knee arthroplasty (2013) Family History Father No significant medical problems Mother No significant medical problems Social History household members: spouse Smoking Status: Current every day smoker Tobacco: How many years used: 40 quit status: not considering quitting second hand exposure: No alcohol intake: former substance use type: does not use Meds Home Medications and Allergies Home Medications Medication Instructions Recorded Confirmed Type morphine concentrate 100 mg/5 mL 30 mg PO Q1-2H PRN Pain (Scale 07/05/23 07/06/23 History (20 mg/mL) oral solution Score 7-10) oxycodone 30 mg tablet 30 mg PO Q6H PRN pain 4-6 07/05/23 07/06/23 History amlodipine 10 mg tablet 5 mg PO DAILY 07/06/23 07/06/23 History citalopram 40 mg tablet 40 mg PO DAILY 07/06/23 07/06/23 History dexamethasone 4 mg tablet 4 mg PO QAM pain 07/06/23 07/06/23 History lisinopril 30 mg tablet 15 mg PO DAILY 07/06/23 07/06/23 History lorazepam 0.5 mg tablet 0.5 - 2 mg PO Q2H PRN Anxiety 07/06/23 07/06/23 History methadone 10 mg/mL oral concentrate 10 mg PO Q12H pain 07/06/23 07/06/23 History metoclopramide HCl 5 mg tablet 5 mg PO 4XD PRN Nausea 07/06/23 07/06/23 History olanzapine 5 mg tablet 5 mg PO ONCE PM nausea or anxiety 07/06/23 07/06/23 History omeprazole 40 mg capsule,delayed 40 mg PO DAILY 07/06/23 07/06/23 History release ondansetron 8 mg disintegrating 8 mg Q8H PRN nausea 07/06/23 07/06/23 History tablet sennosides 8.6 mg tablet ([place]-karen) 8.6 mg PO BID PRN Constipation 07/06/23 07/06/23 History trazodone 50 mg tablet 50 mg PO ONCE PM depressive 07/06/23 07/06/23 History disorder Allergies Allergy/AdvReac Type Severity Reaction Status Date / Time atenolol [ATENOLOL] Allergy Severe Migraine Verified 04/12/23 11:37 SYNTHETIC DRUGS Allergy Unknown PT STATES Uncoded 04/12/23 11:37 THESE DO NOT WORK FOR HER Review of Systems Review of Systems Narrative: Decreased appetite, ongoing abdominal pain, some swelling of the right lower extremity with findings consistent with lymphedema with an ultrasound which was negative 2 weeks ago. No recent change in her heart or lungs Exam Vital Signs (past 8 hours): - 07/06/23 06:00 Temperature 96.8 F L Pulse Rate 86 Respiratory Rate 16 Blood Pressure 123/58 L Pulse Oximetry 95 Oxygen Flow Rate 0 Fraction of Inspired Oxygen 28 Oxygen Delivery Method Nasal Cannula Oxygen Flow Rate 0 Narrative Exam Narrative: Resting comfortably in bed, alert and oriented, appropriate, lungs clear with slight decreased breath sounds, cor regular rate and rhythm, abdomen slightly distended but benign, right lower extremity marked pain with any attempted range of motion in the right hip, able to fire her toe flexors and extensors with trace motion, moderate edema in the right foot, calf soft with some lymphedema but not severe, slight decreased sensation in bilateral lower extremities Objective Labs 07/06/23 06:52 07/06/23 06:52 Labs: Laboratory Results - last 24 hr 07/05/23 07/05/23 07/05/23 21:00 21:20 22:17 WBC 13.6 H RBC 2.64 L Hgb 7.5 L Hct 23.8 L MCV 90.0 MCH 28.2 MCHC 31.4 RDW 18.5 H Plt Count 139 L Neut % (Auto) 91.8 H Lymph % (Auto) 4.[address] [place] % (Auto) 3.9 Eos % (Auto) 0.1 L Baso % (Auto) 0.0 Neut # (Auto) 17607 H Lymph # (Auto) [address] [place] [place] # (Auto) 500 Eos # (Auto) 0 Baso # (Auto) 0 PT 14.9 H INR 1.3 Sodium 133 L Potassium 3.7 Chloride 102 Carbon Dioxide 34 H BUN 20 H Creatinine 0.45 L Estimated GFR > 60 BUN/Creatinine Ratio 44.4 H Glucose 91 Calcium 8.4 Magnesium Total Bilirubin 0.5 AST 44 H ALT 18 Alkaline Phosphatase 199 H Total Protein 5.5 L Albumin 2.5 L Globulin 3.0 Albumin/Globulin Ratio 0.8 L Blood Type A Negative Antibody Screen Negative 07/06/23 06:52 WBC 9.9 RBC 2.57 L Hgb 7.5 L Hct 23.2 L MCV 90.3 MCH 29.0 MCHC 32.1 RDW 18.5 H Plt Count 125 L Neut % (Auto) 89.7 H Lymph % (Auto) 5.[address] [place] % (Auto) 4.3 Eos % (Auto) 0.2 L Baso % (Auto) 0.3 Neut # (Auto) 8800 H Lymph # (Auto) [address] [place] # (Auto) 400 Eos # (Auto) 0 Baso # (Auto) 0 PT INR Sodium 135 L Potassium 3.7 Chloride 105 Carbon Dioxide 33 H BUN 21 H Creatinine 0.48 L Estimated GFR > 60 BUN/Creatinine Ratio 43.8 H Glucose 83 Calcium 8.2 L Magnesium 1.9 Total Bilirubin 0.5 AST 40 H ALT 15 Alkaline Phosphatase 203 H Total Protein 5.2 L Albumin 2.3 L Globulin 2.9 Albumin/Globulin Ratio 0.8 L Blood Type Antibody Screen X-rays right intertrochanteric hip fracture, mild right hip osteoarthritis, no findings suggestive of obvious metastasis in the femur Assessment & Plan Assessment and plan (1) Closed intertrochanteric fracture: Qualifiers: Encounter type: initial encounter Fracture alignment: nondisplaced L aterality: right Qualified Code(s): S72.144A - Nondisplaced intertrochanteric fracture of right femur, initial encounter for closed fracture Status: Acute (2) Metastatic carcinoma: Status: Acute Plan Had an extensive discussion with the patient and her son who is at bedside. She has a right intertrochanteric hip fracture. She is quite symptomatic. I have recommended open reduction internal fixation of her right hip fracture to help adequately control her pain and to allow her to mobilize out of bed. She has known metastatic ovarian cancer and has had cancer for about 5 years but she still lives in her home with her and has been able to mobilize and ambulate. She also has chronic anemia with some component of acute blood loss anemia. I anticipate she will need a blood transfusion. The procedure operation risks benefits and complications were discussed in detail. She understands and agrees and we are going to proceed with a right hip open reduction internal fixation likely with a intramedullary nail with possible additional fixation as needed. Options risks benefits and complications discussed. Quality VTE Deep Vein Thrombosis/Pulmonary Embolism Present on Admission: No
--- NOTE | 2023-07-06 09:14 | PM.OP.1 ---
Operative Date/Time/Diagnoses Date of procedure: 07/06/23 Time of procedure: 09:40 Pre-op diagnosis: Right intertrochanteric hip fracture Post-op diagnosis: same Procedure & Clinicians Procedure: Right hip proximal intertrochanteric fracture open reduction internal fixation with a femoral syed Same procedure as scheduled: Yes Indications: This is an unfortunate 62-year-old female with a history of clear cell ovarian cancer who fell and sustained a right hip fracture. She is brought to the operating room for open reduction internal fixation. The procedure options risks benefits and complications were discussed in detail. Specific risks including bleeding, infection, persistent pain after surgery and failure to unite her fracture were discussed in detail. Surgeon: Jayna Fuentes Click Yes if Unassisted: Yes Anesthesia Type: General Operative Notes Findings: Adequate reduction, soft bone, stable fixation Closure Type: primary Specimen(s): other (Femoral reamings sent for pathology due to history of clear cell ovarian cancer metastatic) Prosthetic devices, grafts, tissues, transplants, or devices: Fuentes and neph[employer]ack intramedullary syed size 10 x 18 125 degree trigen intertan nail, 90 mm lag screw, 85 mm compression screw, 35 mm x 5 mm interlocking screw Estimated Blood Loss (mL): 250 Blood products transfused: packed red blood cells (1 unit) Procedure in detail: Patient was brought to the operating room. She underwent the induction of general anesthesia. Her right lower extremity was prepped draped standard sterile fashion. A time-out was performed. She was given IV antibiotics. She was meticulously positioned on the fracture table. AP and lateral imaging was used throughout the procedure. Her right hip was prepped and draped sterilely. A lateral skin incision was made dissection was carried out through skin and subcutaneous tissues. The incision was made on the right hip at the tip of the greater trochanter and extended proximally. Dissection was carried out through skin and subcutaneous tissues. The fascia was incised in line with the skin incision. A pin was placed at the junction of the greater trochanter in the femoral neck. It was advanced down into the femur. AP and lateral image confirmed the position of the guidewire. A Reamer was used to ream over the guide syed the proximal part of the femur. I passed a guidewire distally. The Reamer was then advanced down into the subtrochanteric region. A 10 x 18 nail was selected. It was carefully inserted without difficulty. AP and lateral image confirmed position of the syed and a guidewire was placed in the femoral head. It looked like a good position for the guide pin. It was advanced down to the subchondral region. It was then reamed and the 2 screws were inserted into the femoral head. Distal interlocking was performed without difficulty. AP and lateral images were taken of the proximal femur mid shaft of the femur confirming position of the hardware and fracture alignment. Fracture was noted be anatomically aligned. It did not appear to be any lesions more distally in the femur. The wound was meticulously irrigated with normal saline. Marcaine and Exparel were injected. I specifically injected additional pain medication to optimize her postoperative pain management. The wound was irrigated with normal saline and closed with interrupted Vicryl and skin crystal. Wound was dressed sterilely. Complications none. She was quite anemic preoperatively and she was transfused with 1 unit intraoperatively based on her chronic anemia with additional acute blood loss anemia. Complications: none Post-operative Condition: stable Disposition: Acute Care Plan for aftercare: Weight-bearing as tolerated on right lower extremity. Mobilize with physical therapy. Plan to discharge to home. Check pathology postop appointment.
--- NOTE | 2023-07-06 09:27 | SUR.OPER ---
Supine on padded [place] table with operative leg secured in padded positioning boot and suspended in positioning spars, non op leg padded on well leeg rajan. operative leg in traction per surgeon. Head on one pillow. Arm on non-operative side secured on padded armboard <90 degrees abduction. Arm on operative side padded and resting across chest then secured with tape over sheet. Padded perineal post in place per surgeon.
[2023-07-06] MEDS: LACTATED RINGERS 1,000 ML 42 ML IV (09:51)
--- NOTE | 2023-07-06 09:53 | DI.RAD.S_ITS ---
PROCEDURE: XR HIP W PEL IF DONE RT 2V INDICATIONS: hip fracture right TECHNIQUE: For views of the hip were acquired. COMPARISON: [facility], CR, XR FEMUR RT MIN 2V, 07/05/2023, 19:28. [facility], CR, XR HIP W PEL IF DONE RT 2V, 07/05/2023, 19:28. FINDINGS: 4 intraoperative fluoroscopy images demonstrate ORIF of proximal femoral fracture with an intramedullary syed and multiple surgical screws. The alignment is anatomical. IMPRESSION: ORIF of proximal femoral fracture. Dictated by: Trupti Terry M.D. on 07/06/2023 at 12:04 Approved by: Trupti Terry M.D. on 07/06/2023 at 12:05
[2023-07-06] MEDS: CEFAZOLIN 2 GM/100 ML PREMIX 100 ML IV ×2 (10:24→18:02)
[2023-07-06] MEDS: BUPIVACAINE LIPOSOME 266 MG/20 ML VIAL INJ (10:38)
[2023-07-06] MEDS: BUPIVACAINE 0.5% W/ EPI (PF) 30 ML VIAL INJ (10:40)
[2023-07-06] MEDS: ACETAMINOPHEN IV 1,000 MG/100 ML VIAL 400 MG IV (10:59)
--- NOTE | 2023-07-06 11:42 | PT-IP ANOTE ---
PT eval order received and EMR reviewed. pt with R hip fx and is scheduled for sx today. will d/c current PT eval order and will await for new PT order after surgery for new protocols and precautions for pt.
[2023-07-06] MEDS: OXYCODONE IR 10 MG TABLET 30 MG PO (13:25)
[2023-07-06] MEDS: SODIUM CHLORIDE 0.9% 1,000 ML 100 ML IV ×2 (13:39→23:40)
--- NOTE | 2023-07-06 15:01 | PT-IP ANOTE ---
Received PT eval order post sx. checked with nurse and pt still receiving blood transfusion and is not ready for PT eval. will f/u tomorrow
--- NOTE | 2023-07-06 15:19 | PC.NURSE ---
Addendum entered by Morelia Anderson R.N. 07/06/23 16:45: Pt and family member discussed with hospitalist about leaving Bragg in place after discharge. RN confirmed with provider that staff is to leave Bragg in place when pt is discharged and not remove the Bragg. Original Note: Second unit of blood finished at 1506, vitals done at 1506, VSS. In TAR, showing blood finished at 1515 - RN unable to change stop time to 1506 in TAR.
--- NOTE | 2023-07-06 15:26 | CM.DANOTE ---
DCP Assessment Note Pt is a 62yo female, resident of [place], presented following a GLF, c/o hip pain. Pt is s/p Right hip proximal intertrochanteric fracture open reduction internal fixation with a femoral syed. Pt lives in a house with her spouse. Pt presented to the ED on 07/04 with Hospice services already open for pt's Metastatic carcinoma. PCP: Dr. Curry Haile Insurance: [facility] [employer] discussed pt with La Nena at [facility] ([phone]). [facility] confirmed that pt's Hospice services were temporarily revoked due to hip surgery and will resume depending on pt progress/dispo. [facility] arranged for a hospital bed to be delivered to pt's house today. [facility] confirmed that pt is eligible to open services again on 07/06 at 1400 if pt can return home at 1200. [employer] discussed this with hospitalist who indicated understanding for pt to dc 07/06 at 1200. Reviewed chart and team rounds for pt's medical status and initial discharge needs. [employer] met w/patient and spouse, Wesley, at bedside; introduced self and role. Pt was found lying in bed, blood transfusion just completing. Pt was alert and oriented, cooperative with assessment. [employer] discussed plan of care discussed with La Nena at [facility], pt and spouse verbalized agreement. Pt spouse confirmed hospital bed to be delivered this afternoon. Pt expressed eagerness to return home as soon as medically stable. [employer] called [facility] ([phone]) and arranged for transport via stretcher for 1200. Plan: Pt to discharge with [facility], 07/06 at 1200. Hospice to re-open services at [id number]. S Transport to transport pt at 1200 via stretcher. ERICK Holden Discharge Planning/Care Management CM Discharge Assessment Start: 07/06/23 15:22 Freq: Status: Active Protocol: Document 07/06/23 15:23 MW (Rec: 07/06/23 15:26 MW [id number]) Discharge Planning Assessment Assigned [place] MICHELLE Nava DPOA/Assigned Designee Name Natasha Olson Contact Information [phone] Advance Directives? Yes Advance Directives on File No History Provided By Patient,Significant Other, Medical Record Has Patient been admitted in last 30 No days? Prior Living Arrangements House Household Members spouse Type of transporation used prior to Relies on Others admit Independent with ADL's Yes Is patient alert and oriented? Yes Caregiver for Another No Community Services used prior to Hospice admission: Comment [facility] ) DME Already Rented / Owned Wheelchair,FWW / Walker,Oxygen ,Other Comment Eating tray, our house is wheelchair accessible with wide hallways and doors. Hospital bed to be delivered today, 07/05, per Hospice. Patient/Family Preference Home with Home Health Comment Home with Hospice. Barriers to Discharge No Discharge Plan Home Community Services Hospice Referrals Initiated None needed Whiteboard Updated in Patient Room with Yes name and ext. # of [place] Please Provide Date Initial DC 07/06/23 Assessment Was Performed Next Review Type Continued Stay Review
--- NOTE | 2023-07-06 15:31 | P.PN_ITS ---
Subjective Subjective Interval history: Patient underwent successful hip repair surgery this morning. She currently is in pain and is requesting her home morphine. Hospice to open tomorrow at 2pm. Exam Vital Signs (past 8 hours): - 07/06/23 09:46 07/06/23 11:49 07/06/23 11:54 Temperature 98.1 F 97.7 F Pulse Rate 87 108 H 114 H Respiratory Rate 16 15 14 Blood Pressure 113/53 L 117/58 L 125/58 L Pulse Oximetry 94 99 99 Oxygen Delivery Method Nasal Cannula Simple Mask Simple Mask Oxygen Flow Rate 2 6 6 07/06/23 11:59 07/06/23 12:04 07/06/23 12:09 Temperature Pulse Rate 114 H 113 H 111 H Respiratory Rate 16 13 14 Blood Pressure 129/63 125/61 116/62 Pulse Oximetry 99 98 97 Oxygen Delivery Method Simple Mask Simple Mask Nasal Cannula Oxygen Flow Rate 6 6 2 07/06/23 12:14 07/06/23 12:35 07/06/23 12:52 Temperature 97.5 F L 98 F Pulse Rate 107 H 99 H 101 H Respiratory Rate 11 L 18 12 Blood Pressure 130/60 124/55 L 123/58 L Pulse Oximetry 97 95 Oxygen Delivery Method Nasal Cannula Oxygen Flow Rate 2 2 07/06/23 13:05 07/06/23 13:07 07/06/23 13:35 Temperature 98.1 F 97.7 F 97.3 F L Pulse Rate 101 H 105 H 104 H Respiratory Rate 20 14 21 Blood Pressure 130/63 124/63 124/63 Pulse Oximetry 96 96 Oxygen Delivery Method Oxygen Flow Rate 2 2 07/06/23 14:35 07/06/23 15:06 Temperature 97.6 F 97.7 F Pulse Rate 94 H 96 H Respiratory Rate 20 15 Blood Pressure 123/59 L 128/63 Pulse Oximetry 96 Oxygen Delivery Method Oxygen Flow Rate 2 Fraction of Inspired Oxygen 28 Oxygen Delivery Method Nasal Cannula Oxygen Flow Rate 2 Narrative Exam Narrative: GEN: appears in pain, thin and frail HEENT: moist mucous membranes, PERRL NECK: trachea midline, no JVD CV: regular rate and rhythm, no murmurs PULM: clear bilaterally ABD: soft, nontender, nondistended, no organomegaly EXT: warm and well perfused with no edema, R postop hip dressing in place NEURO: awake, alert, oriented, no focal deficits Objective Labs 07/06/23 06:52 07/06/23 06:52 Labs: Laboratory Results - last 24 hr 07/05/23 07/05/23 07/05/23 21:00 21:20 22:17 WBC 13.6 H RBC 2.64 L Hgb 7.5 L Hct 23.8 L MCV 90.0 MCH 28.2 MCHC 31.4 RDW 18.5 H Plt Count 139 L Neut % (Auto) 91.8 H Lymph % (Auto) 4.2 L [place] % (Auto) 3.9 Eos % (Auto) 0.1 L Baso % (Auto) 0.0 Neut # (Auto) 25027 H Lymph # (Auto) 600 L [place] # (Auto) 500 Eos # (Auto) 0 Baso # (Auto) 0 PT 14.9 H INR 1.3 Sodium 133 L Potassium 3.7 Chloride 102 Carbon Dioxide 34 H BUN 20 H Creatinine 0.45 L Estimated GFR > 60 BUN/Creatinine Ratio 44.4 H Glucose 91 Calcium 8.4 Magnesium Total Bilirubin 0.5 AST 44 H ALT 18 Alkaline Phosphatase 199 H Total Protein 5.5 L Albumin 2.5 L Globulin 3.0 Albumin/Globulin Ratio 0.8 L Blood Type A Negative Antibody Screen Negative Crossmatch See Detail 07/06/23 06:52 WBC 9.9 RBC 2.57 L Hgb 7.5 L Hct 23.2 L MCV 90.3 MCH 29.0 MCHC 32.1 RDW 18.5 H Plt Count 125 L Neut % (Auto) 89.7 H Lymph % (Auto) 5.5 L [place] % (Auto) 4.3 Eos % (Auto) 0.2 L Baso % (Auto) 0.3 Neut # (Auto) 8800 H Lymph # (Auto) 500 L [place] # (Auto) 400 Eos # (Auto) 0 Baso # (Auto) 0 PT INR Sodium 135 L Potassium 3.7 Chloride 105 Carbon Dioxide 33 H BUN 21 H Creatinine 0.48 L Estimated GFR > 60 BUN/Creatinine Ratio 43.8 H Glucose 83 Calcium 8.2 L Magnesium 1.9 Total Bilirubin 0.5 AST 40 H ALT 15 Alkaline Phosphatase 203 H Total Protein 5.2 L Albumin 2.3 L Globulin 2.9 Albumin/Globulin Ratio 0.8 L Blood Type Antibody Screen Crossmatch [facility] Medical History Therapeutic opioid induced constipation Tachycardia Cancer related pain Left wrist pain Anxiety about health Hot flashes due to surgical menopause Hot flashes due to tamoxifen Hot flashes Anxiety Upper extremity somatic dysfunction Thoracic region somatic dysfunction Cervical somatic dysfunction Neck stiffness Bilateral hand numbness Finger swelling Finger pain, right Lymphedema Atypical nevi Iliotibial band syndrome of both sides Somatic dysfunction of lower extremity Pelvic somatic dysfunction Segmental and somatic dysfunction of abdomen and other regions Segmental and somatic dysfunction of rib cage Iliotibial band syndrome, right leg Piriformis syndrome of right side Bilateral leg pain Low HDL (under 40) Vitamin deficiency Leukocytopenia Ovarian cancer Hypertension Hyperlipidemia Osteoarthritis Sleep disorder Surgical History S/P ovarian cystectomy S/P laparotomy (10/09/18) S/P LUPILLO-BSO (~07/25/18) History of total knee arthroplasty (2013) Family History Father No significant medical problems Mother No significant medical problems Social History household members: spouse Smoking Status: Current every day smoker Tobacco: How many years used: 40 quit status: not considering quitting second hand exposure: No alcohol intake: former substance use type: does not use Assessment & Plan Assessment & Plan narrative: Mildly displaced intertrochanteric hip fracture after ground-level fall. -s/p ORIF on 07/05 -home methadone, oxycodone and morphine ordered with IV dialudid for breakthrough pain -Orthopedic surgery following -patient to go back on hospice on 07/06, they can open at 2pm Hypertension. -Restart amlodipine and lisinopril. Hyperlipidemia. -Restart rosuvastatin Insomnia. -Restart trazodone nightly as needed Dispo: Home with hospice on 07/06. Time Spent With Patient Time with patient: 50 to 69 minutes with 50% spent counseling/coordinating care Quality VTE Deep Vein Thrombosis/Pulmonary Embolism Present on Admission: No
[2023-07-06] MEDS: MORPHINE 10 MG/0.5 ML ORAL SYRINGE 30 MG PO ×2 (15:37→18:01)
[2023-07-06] MEDS: MORPHINE 10 MG/0.5 ML ORAL SYRINGE PO (15:52)
[2023-07-06 16:00] LABS: Hematocrit 31.6 % (36-46); Hemoglobin 10.3 g/dL (12.0-16.0)
--- NOTE | 2023-07-06 16:25 | PT.IIE ---
Current Diagnoses Secondary malignant neoplasm of unspecified site (07/05/23) Displaced intertrochanteric fracture of right femur, initial encounter for closed fracture (07/05/23) Nondisplaced intertrochanteric fracture of right femur, initial encounter for closed fracture (07/05/23) Surgery Performed Operation Date: 07/06/23 10:30 Actual Procedures p Intramedullary Nailing Femur(Right) - Jayna Fuentes MD Surgical History (Last Reviewed 07/06/23 @ 09:06 by Jayna Fuentes MD) History of total knee arthroplasty (2013) S/P laparotomy (10/09/18) S/P ovarian cystectomy S/P LUPILLO-BSO (~07/25/18) Medical History (Last Reviewed 07/06/23 @ 09:06 by Jayna Fuentes MD) Anxiety Anxiety about health Atypical nevi Bilateral hand numbness Bilateral leg pain Cancer related pain Cervical somatic dysfunction Finger pain, right Finger swelling Hot flashes Hot flashes due to surgical menopause Hot flashes due to tamoxifen Hyperlipidemia Hypertension Iliotibial band syndrome of both sides Iliotibial band syndrome, right leg Left wrist pain Leukocytopenia Low HDL (under 40) Lymphedema Neck stiffness Osteoarthritis Ovarian cancer Pelvic somatic dysfunction Piriformis syndrome of right side Segmental and somatic dysfunction of abdomen and other regions Segmental and somatic dysfunction of rib cage Sleep disorder Somatic dysfunction of lower extremity Tachycardia Therapeutic opioid induced constipation Thoracic region somatic dysfunction Upper extremity somatic dysfunction Vitamin deficiency Physical Therapy Inpatient Evaluation/Re-Eval M1 PT/OT-IP Prior Functional Status Start: 07/06/23 17:48 Freq: NEEDED Status: Active Protocol: Document 07/06/23 16:25 AB (Rec: 07/06/23 18:18 AB [id number]) Medical Review Prior Functional Status Medical History Reviewed Yes Communication able to make needs known Mobility and Gait obtained PLOF and home set up from pt and spouse: stated that pt needs assistance with bed mobility and spouse assists but pt able to transfer, toilet and ambulate using FWW in house only but only short distances Prior Functional Level (Other details) pt with dx of matastic ovaria CA and is on hospice care. pt with a GLF and sustained a R hip fx s/p ORIF. pt is WBAT on RLE. informed pt regarding PT goals/plans. pt and family wants pt to have PT to assess and to improve mobility but plans to go home with hospice care regardless of level of assistance needs. Social History Household Members spouse Living Arrangements House Number of Floors (Floors) One Floor Number of Stairs To Enter/Railing? no steps to enter Home Environment Standard Height Toilet,Walk in Shower Home Equipment Front Wheel Walker,Manual Wheelchair,Shower Seat with Backrest,Hand Held Shower, Hospital Bed,Bed Rails,Grab Bars Near Toilet M2 PT-IP Current Condition Start: 07/06/23 17:48 Freq: NEEDED Status: Active Protocol: Document 07/06/23 16:25 AB (Rec: 07/06/23 18:18 AB [id number]) Physical Therapy Current Condition Current Condition Evaluation Date 07/06/23 Treatment Diagnosis GLF; R hip fx s/p ORIF; difficulty in walking Onset Date 07/05/23 M3 PT-IP Subjective Start: 07/06/23 17:48 Freq: NEEDED Status: Active Protocol: Document 07/06/23 16:25 AB (Rec: 07/06/23 18:18 AB [id number]) Subjective Physical Therapy Visit Type Type Initial Evaluation Visit Start Time 16:25 Visit Stop Time 17:40 Number of FARMWORKER Visits 0 Physical Therapy Visit Comments Patient Comments agreeable to do PT but needs motivation Therapy Pain Assessment Pain When Pain Assessed At Rest Pain Present Pain Present Pain Reported Location Abdomen Intensity 8 Scale Used Numeric (0 - 10) Right Hip Intensity 7 Scale Used increases with movement Pain Behaviors Crying,Guarding,Holding Area, Moaning,Wincing Pain Management Techniques Distraction,Modification of Treatment,Re-positioning, Timing of Activity with Medications M4 PT-IP Mobility and Gait Start: 07/06/23 17:48 Freq: NEEDED Status: Active Protocol: Document 07/06/23 16:25 AB (Rec: 07/06/23 18:18 AB [id number]) PT-Bed Mobility Assessment Supine to Sit Supine to Sit Maximum Assistance,Head of Bed Elevated,Bedrails Sit to Supine Sit to Supine Total Assistance,2 Person Assistance Scooting Scooting to Edge of Bed Maximum Assistance PT-Transfer Assessment Comments Mobility Comments pt completed blood transfusion >1 hour ago. Hgb: 10.3 Hct: 31.6. BP in supine: 129/65. O2 sat with 1L/min O2: 94% HR : 94. pt supine in bed and spouse in room. obtained PLOF and home set up . pt initially hesitant to do PT. informed pt regarding PT plans/goals and agreed to do PT. Spouse in room also encouraged pt to do PT. provided pt with post- op folder and informed regarding WBAT on RLE. pt requiring frequent and extended rest breaks in between activities due to c/o pain. RLE heel slides completed prior to sitting up to decrease LE tightness/guarding . Pt completed supine to sit max A and max cues. max A for scooting to EOB. c/o increase pain with each movement. Nurse already provided pt with IV dilaudid. pt requiring CGA for sitting on EOB. pt was able to tolerate ~ 10-15 minutes of sitting on EOB while working on scooting to the EOB but needed increase rest breaks. encouraged pt to stand but pt unable due to c/ o increase hip pain and became nauseated due to pain. requested for nausea medication and nurse provided. pt requested to go back to bed. completed sit to supine total A x 2 and max cues. total A x 2 for positioning in bed. Left pt with NAC. informed spouse regarding level of assistance and stated that pt will be going home on hospice by noon tomorrow but wants PT in the morning. Spouse stated that he needs to know if pt can stand up to be able to transfer when she is at home. informed spouse that pt is going to need a mechanical lift transfer at this time. PT-Balance Assessment Sitting Balance and Reactions Static Sitting Balance Ability Fair Dynamic Sitting Balance Ability Poor M5 PT-IP Objective Assessments Start: 07/06/23 17:48 Freq: NEEDED Status: Active Protocol: Document 07/06/23 16:25 AB (Rec: 07/06/23 18:18 AB [id number]) Orientation Orientation/Cognition Level of Alertness Alert Orientation Name,Place,Situation Language Function Ability No Deficits Noted Safety Awareness Decreased Safety Awareness Memory Description Short Term Impaired Gross Range of Motion Lower Extremity ROM Assessment Within Functional Limits Strength Lower Extremity Strength Assessment Right Impaired Hip 2+/5 Knee 3-/5 Sensation Assessment Sensation Gross Sensation WNL Muscle Tone Muscle Tone WNL Yes M6 PT-IP Treatment Start: 07/06/23 17:48 Freq: NEEDED Status: Active Protocol: Document 07/06/23 16:25 AB (Rec: 07/06/23 18:18 AB [id number]) Physical Therapy Treatment Exercises Exercises Heel Slides Education Education Provided Precautions,Weight Bearing Status,Post-Op Packet,Safety M7 PT-IP Assessment and Plan Start: 07/06/23 17:48 Freq: NEEDED Status: Active Protocol: Document 07/06/23 16:25 AB (Rec: 07/06/23 18:18 AB [id number]) PT Summary Assessment and Plan Potential Rehabilitation Potential Fair Status of Condition at Evaluation Evolving Summary Impairments Pain,ROM,Strength,Balance, Coordination,Sensation,Tone, Cognition,Bed Mobility, Transfers,Gait,Activity Tolerance Assessment Summary Pt is a 62 y/o F who had a fall and sustained a R intertrochanteric femur fx and underwent ORIF today. pt is WBAT on RLE. pt also has metastatic ovarian CA and is on hospice care. Talked to pt and spouse regarding PT plans /goals and wants PT despite pt being on hospice care. PT also completed to determine pt's level of assistance and equipement needs in relation to current mobility level. pt requiring max A x 1-2 to total A x 2 for bed mobility. able to sit on EOB CGA. pt needing increase rest breaks in between movement due to c/o increase R hip pain. pt unable to stand at this time. spouse aware of pt's assistance level and recommendation of mechanical lift transfer. Spouse wants PT to see pt tomorrow morning before pt d/c home by noon and to determine if pt will be able to stand. will continue to assess. Goals Bed Mobility Goal Moderate Assistance Transfer Goal Moderate Assistance,Front Wheeled Walker Gait Goal Moderate Assistance Gait Distance 20 Other Goals improve bed mobility, transfers and ambulation 50 ft using FWW CGA Days to Meet Goals 10 Frequency of Treatment Frequency Of Treatment Once a Day Treatment Plan Physical Therapy Treatment Plan Bed Mobility Training,Transfer Training,Gait Training, Therapeutic Exercise,Balance Retraining,Post Op Education, Discharge Planning,Hot or Cold Pack,Neuromuscular Re-ed, Coordination Retraining,Manual Therapy Weight Bearing Status Weight Bearing Status Weight Bear as Tolerated Allowed Weight Bearing Amount (enter % RLE WBAT or #) (%) Recommendations To Nursing Amount of Assist Needed Mechanical Lift Discharge Recommendations PT Discharge Recommendations Home with 24/09 Assist Available,Home Health Transportation Needs at Discharge Stretcher/Ambulance
[2023-07-06] MEDS: HYDROMORPHONE 2 MG INJ IV ×2 (17:15→20:18)
[2023-07-06] MEDS: ONDANSETRON 4 MG/2 ML INJ IV (17:24)
[2023-07-06] MEDS: METHADONE 10 MG TABLET PO (20:19)
[2023-07-06] MEDS: TRAZODONE 50 MG TABLET PO (20:19)
[2023-07-07] MEDS: MORPHINE 10 MG/0.5 ML ORAL SYRINGE PO (00:01)
[2023-07-07] MEDS: OXYCODONE IR 10 MG TABLET 30 MG PO ×3 (00:54→11:07)
[2023-07-07] MEDS: CEFAZOLIN 2 GM/100 ML PREMIX 100 ML IV (02:55)
[2023-07-07] MEDS: HYDROMORPHONE 2 MG INJ IV ×4 (03:01→11:53)
[2023-07-07] MEDS: PANTOPRAZOLE DR 40 MG TABLET PO (06:26)
[2023-07-07 06:30] LABS: Add Manual Diff / Slide Review NO; Basophils Absolute Auto 0 /uL (0-100); Basophils Percent Auto 0.4 % (0-2); Eosinophils Absolute Auto 0 /uL (0-450); Eosinophils Percent Auto 0.1 % (2-4); Hematocrit 33.8 % (36-46); Hemoglobin 10.8 g/dL (12.0-16.0); Lymphocytes Absolute Auto 500 /uL (1100-4500); Lymphocytes Percent Auto 4.1 % (25-40); Mean Corpuscular Volume 90.6 fL (80-100); Monocytes Absolute Auto 500 /uL (0-900); Monocytes Percent Auto 4.1 % (3-14); Neutrophils Absolute Auto 10300 /uL (1500-7000); Neutrophils Percent Auto 91.3 % (50-75); Platelet Count 113 X10^3/uL (150-400); Red Blood Cell Count 3.73 X10^6/uL (4.0-5.2); Red Cell Distribution Width 17.9 % (11.6-14.8); White Blood Cell Count 11.3 X10^3/uL (4.5-11.0)
[2023-07-07 06:45] LABS: BUN Creatinine Ratio 43.6 (6-22); Blood Urea Nitrogen 17 mg/dL (7-17); Calcium 7.4 mg/dL (8.4-10.2); Carbon Dioxide 31 mmol/L (22-32); Chloride 107 mmol/L (98-107); Estimated Glomerular Filt Rate > 60 mL/min (>60); Glucose 104 mg/dL (80-110); HEMOLYSIS < 15 (0-50); Potassium 3.7 mmol/L (3.4-5.1); Sodium 135 mmol/L (137-145)
[2023-07-07 06:46] LABS: Magnesium 1.7 mg/dL (1.6-2.3)
[2023-07-07] MEDS: dexAMETHasone 4 MG TABLET PO (06:50)
[2023-07-07] MEDS: MORPHINE 10 MG/0.5 ML ORAL SYRINGE 30 MG PO ×3 (08:00→11:37)
[2023-07-07] MEDS: METHADONE 10 MG TABLET PO (08:11)
--- NOTE | 2023-07-07 08:19 | PC.NURSE ---
Addendum entered by Padmini Huitron R.N. 07/07/23 08:30: Patient just given oxycodone for pain. She is resting in bed supine. Original Note: Patient refused morning medications and is only asking for pain medication at this time. She states that her discomfort is 6/10. She has ovarian ca with mets and had a r.hip orif. She has been given oral morphine, methadone, and will be getting her oral oxycodone shortly. is at bedside.
--- NOTE | 2023-07-07 08:32 | CM.DPC ---
Addendum entered by Adriane Lakhani R.N. 07/07/23 11:01: [facility] . Original Note: DCP Cont: Confirmed that patient will be picked up here via BLS, ambulance, to go [facility]. Called Ambulance and verified, checked in with patient and spouse, who is at bedside. Noticed that there was no POLST available, asked Dr. Holliday if he would be able to complete before transport. Confirmed with Nona at [facility] that they are opening patient at 1400 today. P: Patient has discharge orders for home today. Updated white board, and nurse, Padmini, is also updated. Will fax over DC Summary to [facility] when completed. Adriane Lakhani RN/Inspector [employer]
--- NOTE | 2023-07-07 08:37 | PT-OP ANOTE ---
PT read PT note and pt's poor response to PT last date, sick with PT and requiring +2 assistance for all mobility and PT recommendation for mechanical lift at d/c. PT enters room to speak about the situation with pt and and pt is adamant, stating, we're not doing it. There appears to be discrepancy between pt and wishes. PT plan is appropriate from yesterday. Pt to d/c home with hospice. D/c acute PT.
[2023-07-07 08:45] VITALS: BP 123/57; PULSE 89; RESP 16; TEMP 36.2; O2SAT 92
[2023-07-07 08:48] VITALS: O2SAT 92
--- NOTE | 2023-07-07 09:22 | PM.DS.1 ---
History of Present Illness History of Present Illness Chief complaint: GLF R Hip pain Narrative: She is a pleasant 62-year-old female with a history of clear cell ovarian cancer which was diagnosed about 5 years ago. She lives at home with her and is able to get around her house and do activities. She was on hospice because of known metastatic disease. She does take pain medications on a regular basis. She had a massage yesterday and then slipped and fell as she was getting up and landed on her right hip. She notes incapacitating right hip pain. She was transferred to [facility] and taken off of hospice because of her acute fracture and a desire to be able to continue to mobilize. She did not have any acute chest pain and was not short of breath or have any dizziness or change in her mental status prior to the fall. She says that she does not have known metastatic disease either to her bones or to her head. She does note some slow progressive weight loss and some decreased appetite. Discharge Providers Provider Date of admission: 07/05/23 21:46 Discharge Date: 07/07/23 Primary care physician: Curry Haile DO Consults: 07/05/23 21:39 Consult to Orthopedic Surgery Stat Comment: Consulting Provider: Jayna Fuentes Reason for consultation: R INTERTROCHANTERIC FX Has provider been notified: Yes 07/05/23 21:53 Consult to Discharge Planning Routine Comment: 07/05/23 21:54 Consult to Occupational Therapy Evaluate & Treat Comment: Physician Instructions: Evaluate and treat Consult to Physical Therapy Evaluate & Treat Comment: Physician Instructions: Evaluate and Treat 07/06/23 09:52 Consult to Anesthesiology Routine Comment: Consulting Provider: Anesthesiologist Reason for consultation: Regional block for post operative pain control 07/06/23 12:30 Consult to Discharge Planning Routine Comment: Consult to Physical Therapy Evaluate & Treat Comment: Physician Instructions: Evaluate and Treat Discharge provider: Rudi Holliday DO Summary Hospital Course Discharge Diagnosis: Mildly displaced intertrochanteric hip fracture after ground-level fall. -s/p ORIF on 07/05 -home methadone, oxycodone and morphine ordered with IV dialudid for breakthrough pain -Orthopedic surgery following -patient to go back on hospice on 07/06, they can open at 2pm Hypertension. -Restart amlodipine and lisinopril. Hyperlipidemia. -Restart rosuvastatin Insomnia. -Restart trazodone nightly as needed POLST form filled out saying DNR. Hospital Course: Admitted for R hip fracture from fall. Patient revoked hospice to get surgery. She underwent successful repair with ortho and was discharged back home on hospice. POLST form filled out indicating DNR and comfort measures. Exam Vital Signs (past 8 hours): - 07/07/23 08:13 07/07/23 08:45 07/07/23 08:48 Temperature 97.1 F L Pulse Rate 89 Respiratory Rate 16 Blood Pressure 123/57 L Pulse Oximetry 92 92 Oxygen Delivery Method Nasal Cannula Room Air Oxygen Flow Rate 1 Fraction of Inspired Oxygen 24 SaO2/FiO2 Ratio 395 Oxygen Delivery Method Room Air Oxygen Flow Rate 1 Narrative Exam Narrative: GEN: appears in pain, thin and frail HEENT: moist mucous membranes, PERRL NECK: trachea midline, no JVD CV: regular rate and rhythm, no murmurs PULM: clear bilaterally ABD: soft, nontender, nondistended, no organomegaly EXT: warm and well perfused with no edema, R postop hip dressing in place NEURO: awake, alert, oriented, no focal deficits Objective Labs 07/07/23 06:15 07/07/23 06:15 Labs: Laboratory Results - last 24 hr 07/05/23 07/06/23 07/07/23 22:17 12:30 06:15 WBC 11.3 H RBC 3.73 L Hgb 10.3 L 10.8 L Hct 31.6 L 33.8 L MCV 90.6 MCH 29.0 MCHC 32.0 RDW 17.9 H Plt Count 113 L Neut % (Auto) 91.3 H Lymph % (Auto) 4.1 L [place] % (Auto) 4.1 Eos % (Auto) 0.1 L Baso % (Auto) 0.4 Neut # (Auto) 15277 H Lymph # (Auto) 500 L [place]ts # (Auto) 500 Eos # (Auto) 0 Baso # (Auto) 0 Sodium 135 L Potassium 3.7 Chloride 107 Carbon Dioxide 31 BUN 17 Creatinine 0.39 L Estimated GFR > 60 BUN/Creatinine Ratio 43.6 H Glucose 104 Calcium 7.4 L Magnesium 1.7 Blood Type A Negative Antibody Screen Negative Crossmatch See Detail [facility] Medical History Therapeutic opioid induced constipation Tachycardia Cancer related pain Left wrist pain Anxiety about health Hot flashes due to surgical menopause Hot flashes due to tamoxifen Hot flashes Anxiety Upper extremity somatic dysfunction Thoracic region somatic dysfunction Cervical somatic dysfunction Neck stiffness Bilateral hand numbness Finger swelling Finger pain, right Lymphedema Atypical nevi Iliotibial band syndrome of both sides Somatic dysfunction of lower extremity Pelvic somatic dysfunction Segmental and somatic dysfunction of abdomen and other regions Segmental and somatic dysfunction of rib cage Iliotibial band syndrome, right leg Piriformis syndrome of right side Bilateral leg pain Low HDL (under 40) Vitamin deficiency Leukocytopenia Ovarian cancer Hypertension Hyperlipidemia Osteoarthritis Sleep disorder Surgical History S/P ovarian cystectomy S/P laparotomy (10/09/18) S/P LUPILLO-BSO (~07/25/18) History of total knee arthroplasty (2013) Family History Father No significant medical problems Mother No significant medical problems Social History household members: spouse Smoking Status: Current every day smoker Tobacco: How many years used: 40 quit status: not considering quitting second hand exposure: No alcohol intake: former substance use type: does not use Discharge Plan Discharge Plan Patient Disposition: Hospice - Home Discharge orders & Medications Prescriptions: Continued morphine concentrate 100 mg/5 mL (20 mg/mL) solution 30 mg PO Q1-2H PRN (Reason: Pain (Scale Score 7-10)) oxycodone 30 mg tablet 30 mg PO Q6H PRN (Reason: pain 4-6) sennosides [[place]-karen] 8.6 mg tablet 8.6 mg PO BID PRN (Reason: Constipation) citalopram 40 mg tablet 40 mg PO DAILY trazodone 50 mg tablet 50 mg PO ONCE PM olanzapine 5 mg tablet 5 mg PO ONCE PM omeprazole 40 mg capsule,delayed release(DR/EC) 40 mg PO DAILY ondansetron 8 mg tablet,disintegrating 8 mg Q8H PRN (Reason: nausea) lorazepam 0.5 mg tablet 0.5 - 2 mg PO Q2H PRN (Reason: Anxiety) metoclopramide HCl 5 mg tablet 5 mg PO 4XD PRN (Reason: Nausea) amlodipine 10 mg tablet 5 mg PO DAILY dexamethasone 4 mg tablet 4 mg PO QAM lisinopril 30 mg tablet 15 mg PO DAILY methadone 10 mg/mL concentrate 10 mg PO Q12H Follow up/Referrals: Curry Haile DO [Primary Care Provider] - Visit Report/Discharge Packet Stand Alone Forms: Patient Portal/API, Stroke Signs & Symptoms Discharge Data Primary Care Provider: Curry Haile Quality VTE Deep Vein Thrombosis/Pulmonary Embolism Present on Admission: No
--- NOTE | 2023-07-07 10:00 | PM.PNPO.1 ---
Subjective Subjective Interval history: Some ongoing pain in the right thigh but also significant pre-existing pain related to her metastatic cancer. She notes she is feeling okay except for her pain in her right thigh and abdomen. She has pain with attempted motion of the right leg. Exam Vital Signs (past 8 hours): - 07/07/23 08:13 07/07/23 08:45 07/07/23 08:48 Temperature 97.1 F L Pulse Rate 89 Respiratory Rate 16 Blood Pressure 123/57 L Pulse Oximetry 92 92 Oxygen Delivery Method Nasal Cannula Room Air Oxygen Flow Rate 1 Fraction of Inspired Oxygen 24 SaO2/FiO2 Ratio 395 Oxygen Delivery Method Room Air Oxygen Flow Rate 1 Narrative Exam Narrative: Mild swelling in the right foot, able fire toe flexors and extensors, moderate pain with gentle range of motion in the right the hip, alert oriented conversant, appears comfortable in bed Objective Labs 07/07/23 06:15 07/07/23 06:15 Labs: Laboratory Results - last 24 hr 07/05/23 07/06/23 07/07/23 22:17 12:30 06:15 WBC 11.3 H RBC 3.73 L Hgb 10.3 L 10.8 L Hct 31.6 L 33.8 L MCV 90.6 MCH 29.0 MCHC 32.0 RDW 17.9 H Plt Count 113 L Neut % (Auto) 91.3 H Lymph % (Auto) 4.1 L [place] % (Auto) 4.1 Eos % (Auto) 0.1 L Baso % (Auto) 0.4 Neut # (Auto) 12099 H Lymph # (Auto) 500 L [place] # (Auto) 500 Eos # (Auto) 0 Baso # (Auto) 0 Sodium 135 L Potassium 3.7 Chloride 107 Carbon Dioxide 31 BUN 17 Creatinine 0.39 L Estimated GFR > 60 BUN/Creatinine Ratio 43.6 H Glucose 104 Calcium 7.4 L Magnesium 1.7 Blood Type A Negative Antibody Screen Negative Crossmatch See Detail [facility] Medical History Therapeutic opioid induced constipation Tachycardia Cancer related pain Left wrist pain Anxiety about health Hot flashes due to surgical menopause Hot flashes due to tamoxifen Hot flashes Anxiety Upper extremity somatic dysfunction Thoracic region somatic dysfunction Cervical somatic dysfunction Neck stiffness Bilateral hand numbness Finger swelling Finger pain, right Lymphedema Atypical nevi Iliotibial band syndrome of both sides Somatic dysfunction of lower extremity Pelvic somatic dysfunction Segmental and somatic dysfunction of abdomen and other regions Segmental and somatic dysfunction of rib cage Iliotibial band syndrome, right leg Piriformis syndrome of right side Bilateral leg pain Low HDL (under 40) Vitamin deficiency Leukocytopenia Ovarian cancer Hypertension Hyperlipidemia Osteoarthritis Sleep disorder Surgical History S/P ovarian cystectomy S/P laparotomy (10/09/18) S/P LUPILLO-BSO (~07/25/18) History of total knee arthroplasty (2013) Family History Father No significant medical problems Mother No significant medical problems Social History household members: spouse Smoking Status: Current every day smoker Tobacco: How many years used: 40 quit status: not considering quitting second hand exposure: No alcohol intake: former substance use type: does not use Assessment & Plan Post-op Postoperative Procedures: Procedures Operation Date: 07/06/23 10:30 Actual Procedure Side Surgeon p Intramedullary Nailing Femur Right Jayna Fuentes MD Postoperative day: 1 Postoperative status: marginal pain control Postoperative status narrative: Improving after right femur open reduction internal fixation. It is okay for her to mobilize. I told her she can be weight-bearing as tolerated on the right lower extremity. I told her that she can be in any position and position of comfort is fine. We discussed elevating her right foot enough so that she does not have problems with right foot edema. Postoperative plan: discharge Postoperative plan narrative: She is on hospice and has supportive family at bedside. She would like to be discharged to home today. It is okay for her to continue to mobilize as tolerated. She can be weight-bearing as tolerated on the right lower extremity. She can be in any position in bed that is comfortable and it is okay for her to sit up and transferred to a chair or ambulate as tolerated. It would be reasonable to have her follow up with the PA in 2 weeks or so. Quality VTE Deep Vein Thrombosis/Pulmonary Embolism Present on Admission: No
--- NOTE | 2023-07-07 12:43 | PC.NURSE ---
Patient given morphine and dilaudid prior to transfer home with BLS. She was discharged at 1200. Patients iv and vidhya cath deaccessed.
== END 2023-07-07 12:00 | disposition hospice, home (50) | DRG 481 ==
LOC: ED 21:40 → AC 21:46
PROVIDERS: Orthopaedic Surgery; Student in an Organized Health Care Education/Training Program; Admitting Provider Internal Medicine; Emergency Provider Emergency Medicine; Family Provider Family Medicine; PCP Family Medicine; Referring Provider Emergency Medicine; Visit Provider Internal Medicine
PROC: 0QS606Z Reposition Right Upper Femur with Intramedullary Internal Fixation Device, Open Approach (ICD-10-PCS; CPT 27245; principal; 2023-07-06 10:30)
DX: S72.141A Displaced intertrochanteric fracture of right femur, initial encounter for closed fracture (principal); C56.1 Malignant neoplasm of right ovary; D62 Acute posthemorrhagic anemia; C79.51 Secondary malignant neoplasm of bone; I10 Essential (primary) hypertension; E78.5 Hyperlipidemia, unspecified; G47.00 Insomnia, unspecified; G89.3 Neoplasm related pain (acute) (chronic); F41.9 Anxiety disorder, unspecified; F17.210 Nicotine dependence, cigarettes, uncomplicated; W18.30XA Fall on same level, unspecified, initial encounter; Z66 Do not resuscitate; Z51.5 Encounter for palliative care
CPT/HCPCS: 36415; 36430; 36591; 71045; 73502; 73552; 76000; 80048; 80053; 83735; 85014; 85018; 85025; 85610; 86850; 86900; 86901; 94760; 96365; 96375; 96376; 97163; 97530; 99284; 99285; P9016; C9290; J0136; J0330; J0690; J1100; J1170; J1885; J2060; J2250; J2405; J2704; J3010